=== PATIENT | female | born 1955 | race Caucasian/White ===

== ENCOUNTER → 2016-10-31 | Outpatient (REF) | payer OTHER ==
[2016-10-31 13:38] LABS: BASO % 0.8 % (0.0-1.0); EOS # 0.1 K/mm3 (0.0-0.50); EOS % 4.1 % (0.0-3.0); LARGE UNSTAINED CELL # 0.1 K/mm3 (0.0-0.4); LARGE UNSTAINED CELL % 2.9 % (0.0-4.0); LYMPH # 0.3 K/mm3 (1.5-4.5); LYMPH % 13.3 % (24.0-44.0); MEAN CORPUSCULAR HEMOGLOBIN 28.7 pg (27.0-33.0); MEAN CORPUSCULAR HGB CONC 32.2 g/dl (32.0-36.5); MONO # 0.1 K/mm3 (0.0-0.8); NEUTROPHILS # 1.8 K/mm3 (1.8-7.7); NEUTROPHILS % 72.9 % (36.0-66.0); PLATELET COUNT, AUTOMATED 168 k/mm3 (150-450); RED CELL DISTRIBUTION WIDTH 13.9 % (11.5-14.5); WHITE BLOOD COUNT 2.4 K/mm3 (4.0-10.0)
[2016-10-31 13:41] LABS: ALBUMIN 4.4 GM/DL (3.2-5.2); ALBUMIN/GLOBULIN RATIO 1.47 (1.00-1.93); ALKALINE PHOSPHATASE 90 U/L (45-117); ALT/SGPT 17 U/L (12-78); ANION GAP 10 MEQ/L (8-16); AST/SGOT 9 U/L (15-37); BILIRUBIN,TOTAL 0.5 MG/DL (0.2-1.0); BLOOD UREA NITROGEN 20 MG/DL (7-18); CALCIUM LEVEL 9.3 MG/DL (8.8-10.2); CARBON DIOXIDE LEVEL 26 MEQ/L (21-32); CHLORIDE LEVEL 111 MEQ/L (98-107); GLOMERULAR FILTRATION RATE > 60.0 (>45); GLUCOSE, FASTING 75 MG/DL (80-110); POTASSIUM SERUM 3.2 MEQ/L (3.5-5.1); SODIUM LEVEL 147 MEQ/L (136-145); TOTAL PROTEIN 7.4 GM/DL (6.4-8.2)
== END ==
LOC: M LABNEURO 12:49
PROVIDERS: ATTEND Psychiatry & Neurology Neurology
DX: G35 Multiple sclerosis (principal)

== ENCOUNTER → 2016-11-30 | Outpatient (REF) | payer OTHER | LOC: M LABNEURO 12:53 | PROVIDERS: ATTEND Internal Medicine Gastroenterology | DX: K86.89 Other specified diseases of pancreas (principal); D13.2 Benign neoplasm of duodenum ==

== ENCOUNTER → 2016-12-07 | Outpatient (REF) | payer OTHER ==
[2016-12-07 14:16] LABS: FREE T4 1.18 NG/DL (0.76-1.46)
== END ==
LOC: M LABNEURO 13:00
PROVIDERS: ATTEND Nurse Practitioner Family
DX: E03.9 Hypothyroidism, unspecified (principal); E78.5 Hyperlipidemia, unspecified

== ENCOUNTER → 2017-01-31 | Outpatient (REF) | payer OTHER ==
[2017-01-31 13:53] LABS: MEAN CORPUSCULAR HEMOGLOBIN 28.9 pg (27.0-33.0); MEAN CORPUSCULAR HGB CONC 31.9 g/dl (32.0-36.5); MEAN CORPUSCULAR VOLUME 90.6 fl (80.0-96.0); PLATELET COUNT, AUTOMATED 166 k/mm3 (150-450); RED CELL DISTRIBUTION WIDTH 14.1 % (11.5-14.5); WHITE BLOOD COUNT 2.2 K/mm3 (4.0-10.0)
[2017-01-31 14:12] LABS: BASOPHILS 1 % (0-4); EOSINOPHILS 2 % (0-5); OVALOCYTES 1+
[2017-01-31 14:14] LABS: ALBUMIN 4.1 GM/DL (3.2-5.2); ALBUMIN/GLOBULIN RATIO 1.28 (1.00-1.93); BILIRUBIN,TOTAL 0.6 MG/DL (0.2-1.0); CALCIUM LEVEL 9.5 MG/DL (8.8-10.2); CREATININE FOR GFR 1.05 MG/DL (0.55-1.02); GLOMERULAR FILTRATION RATE 56.7 (>45); POTASSIUM SERUM 4.1 MEQ/L (3.5-5.1); TOTAL PROTEIN 7.3 GM/DL (6.4-8.2)
== END ==
LOC: M LABNEURO 12:57
PROVIDERS: ATTEND Psychiatry & Neurology Neurology
DX: G35 Multiple sclerosis (principal)

== ENCOUNTER → 2017-02-01 | Outpatient (CLI) | payer OTHER ==
--- NOTE | 2017-02-01 14:53 | REPMRS ---
Patient History The patient states she had a clinical breast exam in 01/2017. Patient is postmenopausal. No known family history of cancer. Digital Woman Screen Mammo: February 01, 2017 - Exam #: [id number] Bilateral CC and MLO view(s) were taken. Technologist: Katherine Maya, Technologist Prior study comparison: January 11, 2016, digital woman screen mammo performed at [facility] [place]. October 30, 2014, digital woman screen mammo performed at [facility] [place]. FINDINGS: The breast tissue is heterogeneously dense. This may lower the sensitivity of mammography. There has been no change in the appearance of the mammogram from the prior studies. There is a moderate amount of residual fibroglandular tissue which is fairly symmetric. There is no interval development of dominant mass, areas of architectural distortion, or clustered microcalcification typical of malignancy. ASSESSMENT: BI-RADS/ACR category 1 mammogram. Negative. Recommendation Routine screening mammogram in 1 year (for women over age 40). This mammogram was interpreted with the aid of an FDA-approved computer-aided dectection system. Electronically Signed By: Migel Mock MD 02/01/17 [id number]
--- NOTE | 2017-02-03 15:07 | DEXA ---
AP SPINE L1 - L4 0.864 -2.7 -0.7 LT FEMUR TOTAL 0.604 -3.2 -1.8 RT FEMUR TOTAL 0.678 -2.6 -1.2 TOTAL BODY TOTAL OTHER DUAL FEMUR FRAX* ASSESSMENT Risk factors: History of adult fracture 10 year probability of fracture Major osteoporotic fracture 26.3 % Hip fracture 10.1 % COMMENTS: There is osteoporosis of the spine and hips. The decreased density of the spine does represent a significant change. The decreased density of the left hip does represent a significant change. The decreased density of the right hip does represent a significant change. The density of the spine has decreased 13.7% since the initial exam on 2004. The spine density has decreased 6.3% since the most recent exam on 09/27/2013. The density of the left hip has decreased 28.9% since the initial exam on 2004. The density of the left hip has decreased 13.0% since the most recent exam on . The density of the right hip has decreased 22.6% since the initial exam on 08/12. The density of the right hip has decreased 11.7% since the most recent exam on 09/27/2013. FOLLOW-UP: Recommendation for the next bone density exam: 2 years. JOSE
== END ==
LOC: M WHC 13:10
PROVIDERS: ATTEND Nurse Practitioner Women's Health
DX: Z12.31 Encounter for screening mammogram for malignant neoplasm of breast (principal); M81.0 Age-related osteoporosis without current pathological fracture; Z78.0 Asymptomatic menopausal state
CPT/HCPCS: 77080; G0202

== ENCOUNTER → 2017-02-01 | Outpatient (REF) | payer OTHER | LOC: M SFHCWAGY 15:12 | PROVIDERS: ATTEND Nurse Practitioner Women's Health | DX: Z12.4 Encounter for screening for malignant neoplasm of cervix (principal); N88.8 Other specified noninflammatory disorders of cervix uteri ==

== ENCOUNTER → 2017-02-24 | Outpatient (REF) | payer OTHER ==
[2017-02-24 11:48] LABS: BASO % 0.8 % (0.0-1.0); EOS # 0.1 K/mm3 (0.0-0.50); EOS % 4.1 % (0.0-3.0); LARGE UNSTAINED CELL % 1.5 % (0.0-4.0); LYMPH # 0.4 K/mm3 (1.5-4.5); LYMPH % 17.2 % (24.0-44.0); MEAN CORPUSCULAR HEMOGLOBIN 29.4 pg (27.0-33.0); MEAN CORPUSCULAR HGB CONC 32.6 g/dl (32.0-36.5); MONO # 0.2 K/mm3 (0.0-0.8); MONO % 7.2 % (0.0-5.0); NEUTROPHILS # 1.5 K/mm3 (1.8-7.7); NEUTROPHILS % 69.2 % (36.0-66.0); PLATELET COUNT, AUTOMATED 166 k/mm3 (150-450); RED CELL DISTRIBUTION WIDTH 14.5 % (11.5-14.5); WHITE BLOOD COUNT 2.1 K/mm3 (4.0-10.0)
[2017-02-24 11:58] LABS: ALBUMIN 4.4 GM/DL (3.2-5.2); ALBUMIN/GLOBULIN RATIO 1.22 (1.00-1.93); BILIRUBIN,TOTAL 0.8 MG/DL (0.2-1.0); CALCIUM LEVEL 9.3 MG/DL (8.8-10.2); POTASSIUM SERUM 4.3 MEQ/L (3.5-5.1)
== END ==
LOC: M LABNEURO 11:10
PROVIDERS: ATTEND Psychiatry & Neurology Neurology
DX: G35 Multiple sclerosis (principal)

== ENCOUNTER → 2017-05-03 | Outpatient (REF) | payer OTHER ==
[~2017-05-03] MED LIST: ALEV220T26 PO; AMAN100T PO; AMLO5TAB2 PO; BACL10TA2 PO; CALCTAB74 PO; FENT50PA PO; LEVO25TA5 PO; LEVO50TA5 PO; MYSO50TA5 PO; NORT50CA PO; OMEP40CA2 PO; PATIENT COMMENT; SENN1TAB10 PO; SENN8.6C PO; SYNT75TA PO; TECF120C PO; TOPI100T9 PO; TOPI200T7 PO; TUMS500C PO; TYLE325C PO; VITA500T53 PO
[2017-05-03 14:31] LABS: BASO % 0.7 % (0.0-1.0); EOS % 0.9 % (0.0-3.0); LARGE UNSTAINED CELL # 0.1 K/mm3 (0.0-0.4); LARGE UNSTAINED CELL % 1.5 % (0.0-4.0); LYMPH # 0.8 K/mm3 (1.5-4.5); LYMPH % 13.9 % (24.0-44.0); MEAN CORPUSCULAR HEMOGLOBIN 29.4 pg (27.0-33.0); MEAN CORPUSCULAR HGB CONC 31.8 g/dl (32.0-36.5); MEAN CORPUSCULAR VOLUME 92.2 fl (80.0-96.0); MONO # 0.3 K/mm3 (0.0-0.8); MONO % 5.7 % (0.0-5.0); NEUTROPHILS # 3.9 K/mm3 (1.8-7.7); NEUTROPHILS % 77.2 % (36.0-66.0); PLATELET COUNT, AUTOMATED 196 k/mm3 (150-450); RED CELL DISTRIBUTION WIDTH 16.3 % (11.5-14.5); WHITE BLOOD COUNT 5.1 K/mm3 (4.0-10.0)
[2017-05-03 14:49] LABS: ALBUMIN 4.6 GM/DL (3.2-5.2); ALBUMIN/GLOBULIN RATIO 1.24 (1.00-1.93); BILIRUBIN,TOTAL 0.6 MG/DL (0.2-1.0); CALCIUM LEVEL 10.4 MG/DL (8.8-10.2); CREATININE FOR GFR 1.45 MG/DL (0.55-1.02); GLOMERULAR FILTRATION RATE 39.1 (>45); POTASSIUM SERUM 3.4 MEQ/L (3.5-5.1); TOTAL PROTEIN 8.3 GM/DL (6.4-8.2)
== END ==
LOC: M LABNEURO 10:30
PROVIDERS: ATTEND Psychiatry & Neurology Neurology
DX: G35 Multiple sclerosis (principal)

== ENCOUNTER 2017-05-09 13:05 | Emergency (ER) | payer OTHER ==
[~2017-05-09] VITALS: Ht 142.2 cm; Wt 47.7 kg
[2017-05-09] MEDS ORDERED: FENT50PA PO (13:32)
[2017-05-09] MEDS ORDERED: TECF120C PO (13:32)
[2017-05-09] MEDS ORDERED: AMAN100T PO (13:32)
[2017-05-09] MEDS ORDERED: BACL10TA2 PO (13:32)
[2017-05-09] MEDS ORDERED: OMEP40CA2 PO (13:32)
[2017-05-09] MEDS ORDERED: TOPI200T7 PO (13:32)
[2017-05-09] MEDS ORDERED: LEVO25TA5 PO (13:32)
[2017-05-09] MEDS ORDERED: SENN8.6C PO (13:34)
[2017-05-09] MEDS ORDERED: GI COCKTAIL 50ML BTL(HYOSCYAMINE/MAALOX/LIDOCAINE VISCOUS)(1:3:1) PO ONE (15:15)
--- NOTE | 2017-05-09 15:33 | REP ---
Clinical: Dysphasia. Choking. Technique: AP and lateral soft tissue neck radiographs. Findings: A 6 mm ovoid radiodense structure is identified in the precervical soft tissue at the C3-4 level which may reflect foreign body and requires correlation. The airway is patent and midline. The osseous structures demonstrate age-related degenerative changes. Impression: Cannot exclude 6 mm ovoid foreign body in the precervical soft tissue at the C3-4 level. Signed by Mack Luo MD 05/09/2017 03:25 P
--- NOTE | 2017-05-09 16:14 | ED PDOC ---
Post-Departure Follow-Up pt and discuss at length their issues with chronic medicine and clearing of the throat, pt states she woke up choking at night and drank some water, was able to eat today, drinking a cup of tea. After review of soft tissue neck, it was determined that she ate nuttela and a piece of her ' s granola bar, to object seen on the soft tissue neck xray is presum,ed to be a peie of this granola bar. Dr. grace was contacted and he was amenable to see her in his office tomorrow. Trudi Domínguez May 09, 2017 16:14
[2017-05-09 16:25] VITALS: BP 156/96
== END 2017-05-09 16:37 | disposition home or self-care (01) ==
LOC: M ED 13:05
DX: T17.208A Unspecified foreign body in pharynx causing other injury, initial encounter (principal); Y92.89 Other specified places as the place of occurrence of the external cause; G35 Multiple sclerosis

== ENCOUNTER → 2017-05-12 | Outpatient (CLI) | payer OTHER ==
[~2017-05-12] MED LIST changes: +E-Z-PAQUE 96% w/w SUSP 176GM BTL As Ordered ONE; +VARIBAR NECTAR 40% w/v 240ML SUSP BTL As Ordered ONE; +VARIBAR PUDDING 40% w/v 230ML TUBE As Ordered ONE
--- NOTE | 2017-05-12 13:58 | REP ---
MODIFIED BARIUM SWALLOW: Lateral cine fluoroscopy. HISTORY: Difficulty swallowing. Multiple sclerosis. FINDINGS: The study was performed in conjunction with the swallowing therapist who fed the patient varying texture and consistencies of barium labeled material. In general, there was rather severe disorganization of the oropharyngeal mechanics of swallow. The larynx was seen to elevate. The epiglottis inverts and no laryngeal penetration or tracheal aspiration was observed one any of the swallows. There is difficulty in transferring the oral bolus posteriorly to initiate the swallow. Swallowed material incompletely clears from the pharynx and accumulates in the vallecula. IMPRESSION: No evidence of tracheal aspiration or laryngeal penetration. Ineffective and dis coordinated oral pharyngeal swallowing mechanics. Fluoroscopy time is 4 minutes 41 seconds. Signed by Kulwant Swann MD 05/12/2017 02:17 P
== END ==
LOC: M RAD 10:48
PROVIDERS: ATTEND Otolaryngology
DX: R13.10 Dysphagia, unspecified (principal)
CPT/HCPCS: 74230; 92611; G8996; G8997; G8998

== ENCOUNTER 2017-05-15 18:24 | Inpatient (IN) | payer OTHER ==
[~2017-05-15] VITALS: Ht 142.2 cm; Wt 36.3 kg
[~2017-05-15 18:24] MED LIST changes: -ALEV220T26 PO; -AMLO5TAB2 PO; -CALCTAB74 PO; -E-Z-PAQUE 96% w/w SUSP 176GM BTL As Ordered ONE; -LEVO50TA5 PO; -MYSO50TA5 PO; -NORT50CA PO; -PATIENT COMMENT; -SENN1TAB10 PO; -SYNT75TA PO; -TOPI100T9 PO; -TUMS500C PO; -TYLE325C PO; -VARIBAR NECTAR 40% w/v 240ML SUSP BTL As Ordered ONE; -VARIBAR PUDDING 40% w/v 230ML TUBE As Ordered ONE; -VITA500T53 PO
--- NOTE | 2017-05-15 19:46 | ECGEPIP ---
Stationary ECG Study [facility] - ED Test Date: 2017-05-15 Pat Name: ROMA ALVA Department: Room: - Gender: F Transmission Line Engineer: TaverasB: 1955 Requested By: MURALI SCRUGGS Order Number: [id number] Reading MD: Antonino Young Measurements Intervals [place] Rate: 78 P: 72 PA: 152 QRS: -49 QRSD: 136 T: 41 QT: 419 QTc: 479 Interpretive Statements SINUS RHYTHM RIGHT BUNDLE BRANCH BLOCK LEFT ANTERIOR FASCICULAR BLOCK NO PRIORS Electronically Signed On 05-15-2017 19:46:29 EDT by Antonino Young
[2017-05-15 19:59] LABS: BASO % 0.2 % (0.0-1.0); EOS % 0.5 % (0.0-3.0); LARGE UNSTAINED CELL # 0.1 K/mm3 (0.0-0.4); LYMPH # 0.2 K/mm3 (1.5-4.5); LYMPH % 3.8 % (24.0-44.0); MEAN CORPUSCULAR HEMOGLOBIN 29.4 pg (27.0-33.0); MEAN CORPUSCULAR HGB CONC 32.5 g/dl (32.0-36.5); MEAN CORPUSCULAR VOLUME 90.2 fl (80.0-96.0); MONO # 0.2 K/mm3 (0.0-0.8); MONO % 3.4 % (0.0-5.0); NEUTROPHILS # 4.7 K/mm3 (1.8-7.7); PLATELET COUNT, AUTOMATED 279 k/mm3 (150-450); RED CELL DISTRIBUTION WIDTH 16.1 % (11.5-14.5); WHITE BLOOD COUNT 5.1 K/mm3 (4.0-10.0)
--- NOTE | 2017-05-15 19:59 | REP ---
Clinical: Altered mental status. Comparison: None. Findings: Age-related atrophy and microvascular ischemic changes are appreciated. The ventricles and sulci are symmetric. Mock-white differentiation is maintained. There is no evidence for acute intracranial hemorrhage, mass/mass effect, pathology or infarction. No extra-axial fluid collection. Calvarium is intact. Paranasal sinuses and mastoid air cells are clear. Impression: Age related atrophy and microvascular ischemic changes. No acute intracranial hemorrhage, infarction, or mass/mass effect. Signed by Mack Luo MD 05/15/2017 07:50 P
[2017-05-15 20:15] LABS: ALBUMIN 5.1 GM/DL (3.2-5.2); ALBUMIN/GLOBULIN RATIO 1.59 (1.00-1.93); ALKALINE PHOSPHATASE 86 U/L (45-117); ALT/SGPT 33 U/L (12-78); ANION GAP 16 MEQ/L (8-16); AST/SGOT 35 U/L (15-37); BILIRUBIN,DIRECT 0.2 MG/DL (0.0-0.2); BILIRUBIN,TOTAL 0.7 MG/DL (0.2-1.0); BLOOD UREA NITROGEN 76 MG/DL (7-18); CALCIUM LEVEL 9.2 MG/DL (8.8-10.2); CARBON DIOXIDE LEVEL 18 MEQ/L (21-32); CHLORIDE LEVEL 110 MEQ/L (98-107); CREATININE FOR GFR 1.94 MG/DL (0.55-1.02); GLOMERULAR FILTRATION RATE 27.9 (>45); GLUCOSE, FASTING 87 MG/DL (80-110); POTASSIUM SERUM 4.3 MEQ/L (3.5-5.1); SODIUM LEVEL 144 MEQ/L (136-145); TOTAL PROTEIN 8.3 GM/DL (6.4-8.2)
[2017-05-15] MEDS ORDERED: NS 1,000 ML IV ONE (20:45)
[2017-05-15] MEDS ORDERED: CALCTAB74 PO (21:17)
[2017-05-15] MEDS ORDERED: TUMS500C PO (21:17)
[2017-05-15] MEDS ORDERED: TYLE325C PO (21:17)
[2017-05-15] MEDS ORDERED: ALEV220T26 PO (21:17)
[2017-05-15] MEDS ORDERED: SENN1TAB10 PO (21:17)
[2017-05-15] MEDS ORDERED: NORT50CA PO (21:17)
[2017-05-15] MEDS ORDERED: VITA500T53 PO (21:17)
[2017-05-15] MEDS ORDERED: SYNT75TA PO (21:17)
[2017-05-15] MEDS ORDERED: TOPI100T9 PO (21:17)
[2017-05-15] MEDS ORDERED: PATIENT COMMENT (21:19)
[2017-05-15 21:37] LABS: T UPTAKE 37 % (30-39); THYROXINE (T4) 18.1 UG/DL (4.5-12.0)
[2017-05-15] MEDS ORDERED: SENNA 8.6 MG TAB (SENOKOT) PO PRN (22:15)
[2017-05-15] MEDS ORDERED: ONDANSETRON 4MG/2ML VIAL (J2405) IV PRN (22:15)
[2017-05-15] MEDS ORDERED: amLODIPine 5 MG TAB PO ONE (22:30)
--- NOTE | 2017-05-15 22:34 | HPEPDOC ---
Medical History and Physical Date of Admission 05/15/17 History and Physical PRIMARY CARE PROVIDER: Gail Maher ATTENDING: Dr. Turner Nick CHIEF COMPLAINT: Confusion HISTORY OF PRESENT ILLNESS: This is a 61-year-old female who appears older than her listed age, who has a past medical history of multiple sclerosis 30 years, chronic migraines, GERD, gastritis, hypothyroidism, vitamin D and B12 deficiency, osteoporosis, grade 2 diastolic dysfunction who presents with confusion. Family at bedside notes that the patient has been disoriented today and has been opening closing drawers without realizing what she needed to get, repeating 1 word phrases. No prior episodes. Patient denies any headaches, chest pains, shortness of breaths, palpitations. No focal weakness. Of note, patient has been having difficulty swallowing both solids and liquids over the past 3-4 days. Patient presented to the ED and was discharged home with follow-up with Dr. Gooden, who had performed a ? Rhinolaryngoscopy, with no notable abnormalities per family. Family states that the patient's only able to eat moya tomatoes, and even then the peel comes back up. The patient is only able to tolerate ice chips. Given this, the patient has not had any by mouth intake over the past 4 days. Family had called Dr. Mayorga who recommended that the patient come into the emergency department for further evaluation. PAST MEDICAL HISTORY: As per HPI PAST SURGICAL HISTORY: Cholecystectomy, right shoulder repair, right hip repair SOCIAL HISTORY: Denies tobacco, alcohol, illicit drug use. Lives with family. FAMILY HISTORY: Mother with possible MS ALLERGIES: Please see below. REVIEW OF SYSTEMS: HEENT: Denies sore throat/headache CARDIOVASCULAR: Denies chest pain/palpitations RESPIRATORY: Denies shortness of breath/cough GASTROINTESTINAL: denies nausea/vomiting GENITOURINARY: Denies dysuria/urinary urgency. MUSCULOSKELETAL: Denies myalgias/arthralgias NEUROLOGICAL: Denies any focal weakness HOME MEDICATIONS: Please see below. PHYSICAL EXAMINATION: Vitals: (see below) General: No acute distress, laying comfortably in bed. Appears older than listed age.Cachectic HEENT: Dry mucous membranes. Neck: No JVD or lymphadenopathy Cardiac: RRR, 3/6 systolic murmur left lower sternal border. Pulm: Clear to auscultation b/l. No wheezing, rhonchi Abd: NT/ND + BS Ext: No edema or cyanosis Neuro: Strength 5/5 BUE and BLE. CN 2-12 intact. F to N intact Negative pronator drift. Negative Babinki. No nuchal rigidity. Oriented to person, place, year. LABORATORY DATA: See below. IMAGING: CT head on 05/15/17 Impression: Age related atrophy and microvascular ischemic changes. No acute intracranial hemorrhage, infarction, or mass/mass effect. CXR/renal u/s pending. MICROBIOLOGY: Please see below. ASSESSMENT/PLAN: 1. Altered mental status, likely metabolic encephalopathy. Patient's does have MS 30 years and age-related atrophy and her CAT scan raising suspicion for underlying dementia. The patient also has acute kidney injury with a BUN of 70. She does have significant dehydration given her dysphagia. T4 elevated on levothyroxine. Also on nortriptyline which may contribute to her confusion. We' ll rehydrate patient with IV fluids, discontinue the nortriptyline, decrease her Synthroid, and monitor her renal function. The patient has no focal deficits on exam. No nuchal rigidity. No fevers. No signs of infection at this time. Chest x-ray pending. It is questionable whether patient is having progression of her MS is well. We will continue neuro checks every 4 hours pending improvement of her clinical status. I did discuss MRI of the brain with son however he prefers that this is cleared by the insurance company first; will obtain case management consult. If no significant improvement despite the above efforts, consider neurology consultation. 2. Acute kidney injury/pre-renal azotemia with the BUN up to 70 now. Likely pre- renal 2/2 dehydration. Placed on IVF. WIll check urine studies, as well a renal u/s. D/c NSAIDS. Avoid nephrotoxins. Strict I/O. Consider nephro consult if no significant improvement with IVF. 3. Elevated T4 - TSH wnl. decrease levothyroxine dose. 4. Dysphagia to solids and liquids- history of GERD and gastritis. We will obtain a barium swallow. Consider GI consult for EGD if persistent. Ice chips only for now. PPI. 5. Mild hypercalcemia- continue IV fluids. Discontinue calcium/vitamin D supplements for now. 6. History of vitamin D deficiency 7. History of chronic migraines 8. History of diastolic heart failure-compensated at this time. 9. History of osteoporosis 10 HTN - uncontrolled. Start amlodipine. DVT prophylaxis- heparin subcutaneous Patient be followed by Dr. Carlos pascual 05/16/17 at 7 AM. Vital Signs Vital Signs Date Time Temp Pulse Resp B/P (MAP) Pulse Ox O2 Delivery O2 Flow Rate FiO2 05/15/17 19:55 05/15/17 18:24 97.8 85 16 100 Room Air Laboratory Data Labs 24H Laboratory Tests 2 05/15/17 19:36: White Blood Count 5.1, Red Blood Count 4.12, Hemoglobin 12.1, Hematocrit 37.2, Mean Corpuscular Volume 90.2, Mean Corpuscular Hemoglobin 29.4, Mean Corpuscular Hemoglobin Concent 32.5, Red Cell Distribution Width 16.1H, Platelet Count 279, Neutrophils (%) (Auto) 91.0H, Lymphocytes (%) (Auto) 3.8L, Monocytes (%) (Auto) 3.4, Eosinophils (%) (Auto) 0.5, Basophils (%) (Auto) 0.2, Neutrophils # (Auto) 4.7, Lymphocytes # (Auto) 0.2L, Monocytes # (Auto) 0.2, Eosinophils # (Auto) 0.0, Basophils # (Auto) 0.0, Large Unclassified Cells % 1.0 , Large Unclassified Cells # 0.1, Anion Gap 16, Glomerular Filtration Rate 27.9L , Calcium Level 9.2, Aspartate Amino Transf (AST/SGOT) 35, Alanine Aminotransferase (ALT/SGPT) 33, Alkaline Phosphatase 86, Total Bilirubin 0.7, Direct Bilirubin 0.2, Total Creatine Kinase 367H, Creatine Kinase MB 10.2H, Creatine Kinase MB Relative Index 2.77, Troponin I < 0.02, Total Protein 8.3H, Albumin 5.1, Albumin/Globulin Ratio 1.59, Thyroid Stimulating Hormone (TSH) 0.558, Free Thyroxine Index 6.7H, Thyroxine (T4) 18.1H, Triiodothyronine (T3) Uptake 37 05/15/17 20:44: Bedside Glucose (Misc Panel) 78L 05/15/17 20:58: Urine Appearance CLEAR, Urine Color YELLOW, Urine pH 5.0, Urine Specific [place] 1.014, Urine Protein 2+H, Urine Glucose (UA) NEGATIVE, Urine Ketones 1+H , Urine Urobilinogen 0.2, Urine Bilirubin NEGATIVE, Urine Leukocyte Esterase NEGATIVE, Urine Blood 1+H, Urine Nitrite NEGATIVE, Urine WBC (Auto) 7H, Urine RBC (Auto) 6H, Urine Hyaline Casts (Auto) 1, Urine Bacteria (Auto) NEGATIVE, Urine Squamous Epithelial Cells 0, Urine Sperm (Auto) CBC/BMP Laboratory Tests 05/15/17 19:36 Red Blood Count 4.12, Mean Corpuscular Volume 90.2, Mean Corpuscular Hemoglobin 29.4, Mean Corpuscular Hemoglobin Concent 32.5, Red Cell Distribution Width 16.1 H, Neutrophils (%) (Auto) 91.0 H, Lymphocytes (%) (Auto) 3.8 L, Monocytes ( %) (Auto) 3.4, Eosinophils (%) (Auto) 0.5, Basophils (%) (Auto) 0.2, Neutrophils # (Auto) 4.7, Lymphocytes # (Auto) 0.2 L, Monocytes # (Auto) 0.2, Eosinophils # (Auto) 0.0, Basophils # (Auto) 0.0 Home Medications Scheduled (Tecfidera) 120 Mg Cap, 240 MG PO BID DOCTOR TOLD PATIENT TODAY TO NOT TAKE THIS MEDICATION DUE TO HIGH WHITE BLOOD CELL COUNT Amantadine HCl (Amantadine HCl) 100 Mg Tab, 100 MG PO BID Amlodipine Besylate (Amlodipine Besylate) 5 Mg Tab, 5 MG PO DAILY Calcium/Vitamin D (Calcium 600+D 600-400 mg-Unit) 1 Tab Tab, 1 TAB PO DAILY Cyanocobalamin (Vitamin B12) 500 Mcg Tab, 500 MCG PO DAILY Levothyroxine Sodium (Synthroid) 50 Mcg Tab, 50 MCG PO DAILY@06 Nortriptyline HCl (Nortriptyline HCl) 50 Mg Cap, 50 MG PO QHS Omeprazole (Omeprazole) 40 Mg Cap, 40 MG PO DAILY Primidone (Mysoline) 50 Mg Tab, 50 MG PO BID Scheduled PRN (Tylenol) 325 Mg Cap, 325 MG PO Q4H PRN for HEADACHE Baclofen (Baclofen) 10 Mg Tab, 10 MG PO TID PRN for MUSCLE SPASMS Calcium Carbonate (Tums) 500 Mg Chw, 1,500 MG PO Q6H PRN for HEARTBURN/ INDIGESTION Naproxen Sodium (Aleve) 220 Mg Tab, 220 MG PO BID PRN for HEADACHE Senna (Senna Lax) 8.6 Mg Tab, 1 TAB PO DAILY PRN for CONSTIPATION Topiramate (Topiramate) 100 Mg Tab, 100 MG PO BID PRN for MIGRAINE Allergies Coded Allergies: Valproic Acid (Unverified Allergy, Unknown, RASH, 12/06/12) AVERY SCOTT MD May 15, 2017 22:34
[2017-05-15] MEDS: D5W/0.45% SODIUM CHLORIDE 1,000 ML IV SCH (22:44)
[2017-05-15 22:49] LABS: VITAMIN B12 LEVEL > 2000 PG/ML (247-911)
[2017-05-16] VITALS (7 sets, daily range): BP systolic 146–182; BP diastolic 64–82
[2017-05-16] MEDS ORDERED: LABETALOL HCL 100 MG/20 ML VIAL IV PRN (01:45)
[2017-05-16] MEDS ORDERED: LABETALOL HCL 100 MG/20 ML VIAL IV ONE (01:45)
[2017-05-16] MEDS: LEVOTHYROXINE 75MCG TABLET (0.075MG) PO SCH (06:00)
[2017-05-16] MEDS: HEPARIN SOD (PORCINE) 5000 UNITS/ML VIAL SC SCH ×2 (06:18→16:05)
[2017-05-16 07:34] LABS: MEAN CORPUSCULAR HEMOGLOBIN 29.3 pg (27.0-33.0); MEAN CORPUSCULAR HGB CONC 32.6 g/dl (32.0-36.5); MEAN CORPUSCULAR VOLUME 89.8 fl (80.0-96.0); RED CELL DISTRIBUTION WIDTH 16.2 % (11.5-14.5); WHITE BLOOD COUNT 4.7 K/mm3 (4.0-10.0)
[2017-05-16 08:00] LABS: ALBUMIN 4.4 GM/DL (3.2-5.2); ALBUMIN/GLOBULIN RATIO 1.38 (1.00-1.93); BILIRUBIN,TOTAL 0.6 MG/DL (0.2-1.0); CALCIUM LEVEL 8.1 MG/DL (8.8-10.2); CREATININE FOR GFR 1.28 MG/DL (0.55-1.02); GLOMERULAR FILTRATION RATE 45.1 (>45); MAGNESIUM LEVEL 2.1 MG/DL (1.8-2.4); PHOSPHORUS LEVEL 2.1 MG/DL (2.5-4.9); POTASSIUM SERUM 3.5 MEQ/L (3.5-5.1); TOTAL PROTEIN 7.6 GM/DL (6.4-8.2)
--- NOTE | 2017-05-16 08:00 | REP ---
PA and lateral chest: There are no comparisons. The lung [place] are clear. Cardiac size is normal. The emma and mediastinum are unremarkable. There is a right shoulder arthroplasty. Skeletal structures are otherwise unremarkable. Impression: No acute cardiopulmonary findings Signed by Migel Barron MD 05/16/2017 07:51 A
[2017-05-16] MEDS: OMEPRAZOLE 20 MG CAP PO SCH (08:03)
[2017-05-16] MEDS: AMANTADINE 100 MG CAP PO SCH ×2 (08:03→21:00)
[2017-05-16] MEDS: amLODIPine 5 MG TAB PO SCH (08:04)
--- NOTE | 2017-05-16 08:08 | REP ---
Bilateral renal ultrasound: Comparison is the abdomen and pelvis CT dated 07/11/2013. The kidneys are in the low normal size range. In the right kidney measures 928 x 4.1 x 4.2 cm. The left kidney measures 9.6 x 4.2 x 5.3 cm. The renal cortices are mildly hyperechoic bilaterally. There is no hydronephrosis on the right on the left. There are no renal calculi. No renal masses or cysts are identified. Impression: Essentially negative renal ultrasound. Bladder ultrasound: No bladder wall polyps or masses are identified. The bladder appears adequately distended. Signed by Migel Barron MD 05/16/2017 08:00 A
[2017-05-16] MEDS: PANTOPRAZOLE 40MG INJ (PROTONIX) (C9113) IV SCH (08:14)
[2017-05-16] MEDS ORDERED: CYANOCOBALAMIN 500 MCG TAB PO SCH (09:00)
[2017-05-16] MEDS ORDERED: MYSO50TA5 PO (09:18)
[2017-05-16] MEDS: D5W/0.45% SODIUM CHLORIDE 1,000 ML IV SCH (12:03)
--- NOTE | 2017-05-16 12:14 | IPNPDOC ---
Subjective Date Seen The patient was seen on 05/16/17. Subjective Chief Complaint/HPI The patient is a 61-year-old female admitted with a reason for visit of Acute Kidney Injury, Altered Mental Status. Events since last encounter Improvement in mentation with IVF. planned speech therapy and esophagram today. Constitutional: Denies: Chills, Fever, Night Sweats Eyes: Denies: Pain, Vision change, Conjunctivae inflammation, Eyelid inflammation, Redness, Other ENT: Denies: Head Aches, Ear Pain, Dysphagia Pulmonary: Denies: Dyspnea, Cough Cardiovascular: Denies: Chest Pain, Palpitations, Orthopnea, Paroxysmal Noc. Dyspnea, Lt Headedness Objective Physical Examination General Exam: Positive: Alert, No Acute Distress, Negative: Cooperative, Mild Distress, Moderate Distress, Severe Distress, Other Neck Exam: Positive: Supple, Negative: JVD, thyromegaly Chest Exam: Positive: Clear to auscultation, Normal air movement Heart Exam: Positive: Rate Normal, Regular Rhythm, Normal S1, Normal S2, Negative: Murmurs, Rubs Abdomen Exam: Positive: Normal bowel sounds, Soft, Negative: Tenderness, Hepatospenomegaly Extremity Exam: Positive: Normal pulses, Negative: Clubbing, Cyanosis, Edema Neuro Exam: Negative: Normal Gait, Normal Speech, Strength at 5/5 X4 ext, Normal Tone, Sensation Intact, Cranial Nerves 3-12 NL, Reflexes 2+, Other Assessment /Plan Problems (1) Dysphagia Status: Acute Problem Text: continue NPO c IVF at Contingency: EGD 05/17 check MRI brain s/c to r/o CVA, MS flare (although no weakness/parasthesiae /visual changes) 05/16 unable to perform MBS given pooling of all consistencies in mouth (2) Altered mental status Status: Acute Response to Treatment: Improving Problem Text: favor TME c baseline mild dementia/MS 05/15 CT head Age related atrophy and microvascular ischemic changes. No acute intracranial hemorrhage, infarction, or mass/mass effect. (3) Acute kidney injury Status: Acute Response to Treatment: Improving Problem Specific Plan: Monitor Clinically Problem Text: Improving with IV hydration. 05/16 1.3 (down from 1.9) baseline cr 1.0 (4) Hyperlipidemia Status: Chronic Response to Treatment: Stable (5) Hypothyroidism Status: Chronic Response to Treatment: Stable Problem Text: on baseline LT4 75 05/15 TSH 0.6 c FTI 6.7; therefore, OK to hold po (6) Diastolic heart failure Status: Chronic Response to Treatment: Stable Problem Text: Monitor I/O. Appears well compensated. (7) HTN (hypertension) Status: Chronic Problem Text: elevated pressures. Unable to swallow po medications. IV Labetalol 10 mg IV q hrs. HOLD for BP less than 150/90 (8) Multiple sclerosis Status: Chronic Response to Treatment: Stable Problem Text: Tecfidera/amantidine on hold Plan/VTE VTE Prophylaxis Ordered?: Yes (heparin) VS, I&O, 24H, Fishbone Vital Signs/I&O Vital Signs Date Time Temp Pulse Resp B/P (MAP) Pulse Ox O2 Delivery O2 Flow Rate FiO2 05/16/17 11:34 146/64 (91) 05/16/17 08:00 98.7 69 18 92 Room Air I&O- Last 24 Hours up to 6 AM 05/16/17 06:00 Intake Total 560 ml Output Total 0 ml Balance 560 ml Laboratory Data 24H LABS Laboratory Tests 2 05/15/17 19:36: White Blood Count 5.1, Red Blood Count 4.12, Hemoglobin 12.1, Hematocrit 37.2, Mean Corpuscular Volume 90.2, Mean Corpuscular Hemoglobin 29.4, Mean Corpuscular Hemoglobin Concent 32.5, Red Cell Distribution Width 16.1H, Platelet Count 279, Neutrophils (%) (Auto) 91.0H, Lymphocytes (%) (Auto) 3.8L, Monocytes (%) (Auto) 3.4, Eosinophils (%) (Auto) 0.5, Basophils (%) (Auto) 0.2, Neutrophils # (Auto) 4.7, Lymphocytes # (Auto) 0.2L, Monocytes # (Auto) 0.2, Eosinophils # (Auto) 0.0, Basophils # (Auto) 0.0, Large Unclassified Cells % 1.0 , Large Unclassified Cells # 0.1, Anion Gap 16, Glomerular Filtration Rate 27.9L , Calcium Level 9.2, Aspartate Amino Transf (AST/SGOT) 35, Alanine Aminotransferase (ALT/SGPT) 33, Alkaline Phosphatase 86, Total Bilirubin 0.7, Direct Bilirubin 0.2, Total Creatine Kinase 367H, Creatine Kinase MB 10.2H, Creatine Kinase MB Relative Index 2.77, Troponin I < 0.02, Total Protein 8.3H, Albumin 5.1, Albumin/Globulin Ratio 1.59, Vitamin B12 Level > 2000H, Thyroid Stimulating Hormone (TSH) 0.558, Free Thyroxine Index 6.7H, Thyroxine (T4) 18.1H , Triiodothyronine (T3) Uptake 37 05/15/17 20:44: Bedside Glucose (Misc Panel) 78L 05/15/17 20:58: Urine Appearance CLEAR, Urine Color YELLOW, Urine pH 5.0, Urine Specific [place] 1.014, Urine Protein 2+H, Urine Glucose (UA) NEGATIVE, Urine Ketones 1+H , Urine Urobilinogen 0.2, Urine Bilirubin NEGATIVE, Urine Leukocyte Esterase NEGATIVE, Urine Blood 1+H, Urine Nitrite NEGATIVE, Urine WBC (Auto) 7H, Urine RBC (Auto) 6H, Urine Hyaline Casts (Auto) 1, Urine Bacteria (Auto) NEGATIVE, Urine Squamous Epithelial Cells 0, Urine Sperm (Auto) 05/16/17 00:01: Ammonia < 10 05/16/17 07:20: Anion Gap 9, Glomerular Filtration Rate 45.1, Blood Urea Nitrogen 55H, Creatinine 1.28H, Sodium Level 143, Potassium Level 3.5, Chloride Level 111H, Carbon Dioxide Level 23, Calcium Level 8.1L, Phosphorus Level 2.1L, Aspartate Amino Transf (AST/SGOT) 34, Alanine Aminotransferase (ALT/SGPT) 32, Alkaline Phosphatase 86, Total Bilirubin 0.6, Total Protein 7.6, Albumin 4.4, Magnesium Level 2.1, Albumin/Globulin Ratio 1.38 CBC/BMP Laboratory Tests 05/15/17 19:36 Red Blood Count 4.12, Mean Corpuscular Volume 90.2, Mean Corpuscular Hemoglobin 29.4, Mean Corpuscular Hemoglobin Concent 32.5, Red Cell Distribution Width 16.1 H, Neutrophils (%) (Auto) 91.0 H, Lymphocytes (%) (Auto) 3.8 L, Monocytes ( %) (Auto) 3.4, Eosinophils (%) (Auto) 0.5, Basophils (%) (Auto) 0.2, Neutrophils # (Auto) 4.7, Lymphocytes # (Auto) 0.2 L, Monocytes # (Auto) 0.2, Eosinophils # (Auto) 0.0, Basophils # (Auto) 0.0 05/16/17 07:20 Red Blood Count 3.77 L, Mean Corpuscular Volume 89.8, Mean Corpuscular Hemoglobin 29.3, Mean Corpuscular Hemoglobin Concent 32.6, Red Cell Distribution Width 16.2 H, Calcium Level 8.1 L, Phosphorus Level 2.1 L, Aspartate Amino Transf (AST/SGOT) 34, Alanine Aminotransferase (ALT/SGPT) 32, Alkaline Phosphatase 86, Total Bilirubin 0.6, Total Protein 7.6, Albumin 4.4 Abeba Foster May 16, 2017 12:14 Carlos Larose M.D. May 16, 2017 20:59
[2017-05-16] MEDS ORDERED: E-Z-PAQUE 96% w/w SUSP 176GM BTL As Ordered ONE (12:42)
[2017-05-16] MEDS ORDERED: E-Z-GAS II EFFERVESCENT PACKET (SODIUM BICARB./CITRIC ACID/SIMETHICONE) As Ordered ONE (12:42)
[2017-05-16] MEDS ORDERED: E-Z-HD 98% w/w 340GM SUSP BTL As Ordered ONE (12:43)
[2017-05-16] MEDS: LABETALOL HCL 100 MG/20 ML VIAL IV SCH ×2 (13:00→18:31)
--- NOTE | 2017-05-16 18:09 | REP ---
ESOPHAGRAM: The procedure was attempted by ADA Hernandez under the direct supervision of Dr. Swann. The patient was confused and was unable to successfully swallow the barium. Every time she would get a mouth full of barium she would automatically spit it back out at us stating she could not swallow. The floor was notified of this and they will proceed at an appropriate time with the potential followup procedure. Fluoroscopy time of 47 seconds. Reviewed by ADA Gu 05/17/2017 10:30 AEdited and Signed by Kulwant Swann MD 05/17/2017 04:35 P
[2017-05-16] MEDS ORDERED: D5W/0.45% SODIUM CHLORIDE 1,000 ML IV SCH (23:00)
[2017-05-17] VITALS (10 sets, daily range): BP systolic 138–170; BP diastolic 62–84
[2017-05-17] MEDS: LABETALOL HCL 100 MG/20 ML VIAL IV SCH ×4 (00:08→17:42)
[2017-05-17] MEDS: HEPARIN SOD (PORCINE) 5000 UNITS/ML VIAL SC SCH ×4 (00:08→21:27)
[2017-05-17 05:46] LABS: MEAN CORPUSCULAR HEMOGLOBIN 30.1 pg (27.0-33.0); MEAN CORPUSCULAR HGB CONC 34.4 g/dl (32.0-36.5); MEAN CORPUSCULAR VOLUME 87.7 fl (80.0-96.0); WHITE BLOOD COUNT 3.9 K/mm3 (4.0-10.0)
[2017-05-17] MEDS: LEVOTHYROXINE 75MCG TABLET (0.075MG) PO SCH ×2 (06:00→07:16)
[2017-05-17 06:01] LABS: ANION GAP 9 MEQ/L (8-16); BLOOD UREA NITROGEN 28 MG/DL (7-18); CALCIUM LEVEL 6.7 MG/DL (8.8-10.2); CARBON DIOXIDE LEVEL 23 MEQ/L (21-32); CHLORIDE LEVEL 114 MEQ/L (98-107); CREATININE FOR GFR 0.68 MG/DL (0.55-1.02); GLOMERULAR FILTRATION RATE > 60.0 (>45); GLUCOSE, FASTING 95 MG/DL (80-110); MAGNESIUM LEVEL 1.4 MG/DL (1.8-2.4); POTASSIUM SERUM 2.9 MEQ/L (3.5-5.1); SODIUM LEVEL 146 MEQ/L (136-145)
[2017-05-17] MEDS: KCL 10MEQ IN 100ML SWI (KRUN) 10 MEQ in APPROPRIATE DILUENT 1 EA IV SCH ×8 (07:17→12:44)
--- NOTE | 2017-05-17 08:30 | REP ---
Soft-tissue neck x-ray: Three views. History: Dysphagia. Findings: Comparison radiographs are from May 09, 2017. Epiglottis and aryepiglottic folds are intact. Glottic and subglottic and supraglottic airway are unremarkable on AP and lateral views. There is a mild levoconvex curve in the cervical spine on the AP view. Prevertebral soft tissues are not widened. Normal thyroid cartilage calcification is seen. Hyoid bone is unremarkable. There is mild degenerative change at the articulation between C1 and C2. There is some narrowing of the CC5-6 and C6-7 disc spaces. Impression: Unremarkable soft tissue neck x-ray. Signed by Kulwant Swann MD 05/17/2017 05:18 P
[2017-05-17] MEDS: amLODIPine 5 MG TAB PO SCH (08:59)
[2017-05-17] MEDS: AMANTADINE 100 MG CAP PO SCH ×2 (09:00→21:00)
[2017-05-17] MEDS: OMEPRAZOLE 20 MG CAP PO SCH (09:00)
[2017-05-17] MEDS ORDERED: MAG SULF 1GM/100ML (MAG RUN) 1 GM in APPROPRIATE DILUENT 1 EA IV ONE (10:30)
--- NOTE | 2017-05-17 10:58 | IPNPDOC ---
Subjective Date Seen The patient was seen on 05/17/17. Subjective Chief Complaint/HPI The patient is a 61-year-old female admitted with a reason for visit of Acute Kidney Injury, Altered Mental Status. Events since last encounter Unable to complete Esophagram yesterday due to inability to swallow barium. Patient states unable to swallow anything. Noted hypokalemia with hypomagnesemia. Constitutional: Denies: Chills, Fever, Night Sweats ENT: Denies: Head Aches, Ear Pain, Dysphagia Skin: Denies: Rash, Lesions, Breakdown Pulmonary: Denies: Dyspnea, Cough Cardiovascular: Denies: Chest Pain, Palpitations, Orthopnea, Paroxysmal Noc. Dyspnea, Lt Headedness Gastrointestinal: Reports: Other Symptoms (unable to swallow), Denies: Nausea, Vomiting, Abdominal Pain, Diarrhea, Constipation Objective Physical Examination General Exam: Positive: Alert, No Acute Distress, Other (foaming at mouth after eating ice chips. Unable to swallow sputum.), Negative: Cooperative, Mild Distress, Moderate Distress, Severe Distress Neck Exam: Positive: Supple, Negative: JVD, thyromegaly Chest Exam: Positive: Clear to auscultation, Normal air movement Heart Exam: Positive: Rate Normal, Regular Rhythm, Normal S1, Normal S2, Negative: Murmurs, Rubs Abdomen Exam: Positive: Normal bowel sounds, Soft, Negative: Tenderness, Hepatospenomegaly Extremity Exam: Positive: Normal pulses, Negative: Clubbing, Cyanosis, Edema Neuro Exam: Negative: Normal Gait, Normal Speech, Strength at 5/5 X4 ext, Normal Tone, Sensation Intact, Cranial Nerves 3-12 NL, Reflexes 2+, Other Assessment /Plan Problems (1) Dysphagia Status: Acute Problem Text: 05/17/17: Unable to complete esophagram. Will consult Gastro for EGD continue NPO c IVF at Contingency: EGD 05/17 check MRI brain s/c to r/o CVA, MS flare (although no weakness/parasthesiae /visual changes) 05/16 unable to perform MBS given pooling of all consistencies in mouth (2) Altered mental status Status: Acute Response to Treatment: Improving Problem Text: favor TME c baseline mild dementia/MS 05/15 CT head Age related atrophy and microvascular ischemic changes. No acute intracranial hemorrhage, infarction, or mass/mass effect. (3) Acute kidney injury Status: Acute Response to Treatment: Improving Problem Specific Plan: Monitor Clinically Problem Text: Improving with IV hydration. 05/16 1.3 (down from 1.9) baseline cr 1.0 (4) Hyperlipidemia Status: Chronic Response to Treatment: Stable (5) Hypothyroidism Status: Chronic Response to Treatment: Stable Problem Text: on baseline LT4 75 05/15 TSH 0.6 c FTI 6.7; therefore, OK to hold po (6) Diastolic heart failure Status: Chronic Response to Treatment: Stable Problem Text: Monitor I/O. Appears well compensated. (7) HTN (hypertension) Status: Chronic Problem Text: elevated pressures. Unable to swallow po medications. IV Labetalol 10 mg IV q hrs. HOLD for BP less than 150/90 (8) Multiple sclerosis Status: Chronic Response to Treatment: Stable Problem Text: Tecfidera/amantidine on hold (9) Hypokalemia Problem Text: K of 2.9. 4 runs of IV potassium (10) Hypomagnesemia Problem Text: 05/17/17: mag 1.4. Giving replacement today. Plan/VTE VTE Prophylaxis Ordered?: Yes (heparin) Plan Family Medicine Attending Note: I saw and examined Ms. Dee this afternoon; I discussed her care with SHEBA Vale and I agree with her note as documented. As esophagram could not be completed, GI and Neurology were consulted today. She normally follows with Dr. Mayorga but Dr. Varela will be seeing her today. Brain MRI was also performed today - read is pending. Will continue to replete electrolytes as needed - K+ added to IVF. Continue maintenance IVF while she is NPO due to inability to swallow. (KES) VS, I&O, 24H, Fishbone Vital Signs/I&O Vital Signs Date Time Temp Pulse Resp B/P (MAP) Pulse Ox O2 Delivery O2 Flow Rate FiO2 05/17/17 08:00 99.4 84 18 152/84 (106) 98 Room Air I&O- Last 24 Hours up to 6 AM 05/17/17 06:00 Intake Total 1040 ml Output Total 400 ml Balance 640 ml Laboratory Data 24H LABS Laboratory Tests 2 05/16/17 11:59: Bedside Glucose (Misc Panel) 100 05/16/17 20:22: Urine Random Creatinine 35.1, Urine Random Sodium 144 05/17/17 05:21: Anion Gap 9, Glomerular Filtration Rate > 60.0, Blood Urea Nitrogen 28H, Creatinine 0.68, Sodium Level 146H, Potassium Level 2.9*L, Chloride Level 114H, Carbon Dioxide Level 23, Calcium Level 6.7#L, Magnesium Level 1.4L CBC/BMP Laboratory Tests 05/17/17 05:21 Red Blood Count 3.79 L, Mean Corpuscular Volume 87.7, Mean Corpuscular Hemoglobin 30.1, Mean Corpuscular Hemoglobin Concent 34.4, Red Cell Distribution Width 16.0 H, Calcium Level 6.7 #L Abeba Foster May 17, 2017 10:58 LOUIE BRO MD May 17, 2017 13:15
[2017-05-17 11:50] LABS: ALBUMIN 4.2 GM/DL (3.2-5.2); ANION GAP 10 MEQ/L (8-16); BLOOD UREA NITROGEN 23 MG/DL (7-18); CALCIUM LEVEL 7.4 MG/DL (8.8-10.2); CARBON DIOXIDE LEVEL 23 MEQ/L (21-32); CHLORIDE LEVEL 110 MEQ/L (98-107); CREATININE FOR GFR 0.78 MG/DL (0.55-1.02); GLOMERULAR FILTRATION RATE > 60.0 (>45); GLUCOSE, FASTING 99 MG/DL (80-110); MAGNESIUM LEVEL 1.5 MG/DL (1.8-2.4); SODIUM LEVEL 143 MEQ/L (136-145)
[2017-05-17] MEDS ORDERED: KCL 10MEQ IN STERILE WATER 100ML As Ordered ONE (12:36)
[2017-05-17] MEDS: LEVOTHYROXINE 100 MCG (0.1MG) VIAL IV SCH (12:43)
[2017-05-17] MEDS: PANTOPRAZOLE 40MG INJ (PROTONIX) (C9113) IV SCH (12:43)
[2017-05-17] MEDS: KCL 40MEQ IN D5/0.45NS 1000ML 1,000 ML IV SCH ×2 (12:48→23:54)
[2017-05-17 14:34] LABS: ANION GAP 8 MEQ/L (8-16); BLOOD UREA NITROGEN 23 MG/DL (7-18); CALCIUM LEVEL 7.4 MG/DL (8.8-10.2); CARBON DIOXIDE LEVEL 24 MEQ/L (21-32); CHLORIDE LEVEL 111 MEQ/L (98-107); CREATININE FOR GFR 0.77 MG/DL (0.55-1.02); GLOMERULAR FILTRATION RATE > 60.0 (>45); GLUCOSE, FASTING 105 MG/DL (80-110); MAGNESIUM LEVEL 1.3 MG/DL (1.8-2.4); POTASSIUM SERUM 3.7 MEQ/L (3.5-5.1); SODIUM LEVEL 143 MEQ/L (136-145)
[2017-05-17] MEDS: LABETALOL HCL 100 MG/20 ML VIAL IV PRN ×2 (17:37→21:27)
[2017-05-18] VITALS (9 sets, daily range): BP systolic 142–185; BP diastolic 68–104
[2017-05-18] MEDS: LABETALOL HCL 100 MG/20 ML VIAL IV SCH ×3 (00:11→11:54)
[2017-05-18] MEDS: LABETALOL HCL 100 MG/20 ML VIAL IV PRN ×4 (00:17→20:55)
[2017-05-18 05:32] LABS: MEAN CORPUSCULAR HEMOGLOBIN 29.6 pg (27.0-33.0); MEAN CORPUSCULAR HGB CONC 33.1 g/dl (32.0-36.5); MEAN CORPUSCULAR VOLUME 89.2 fl (80.0-96.0); RED CELL DISTRIBUTION WIDTH 16.1 % (11.5-14.5); WHITE BLOOD COUNT 3.8 K/mm3 (4.0-10.0)
[2017-05-18 05:46] LABS: ANION GAP 9 MEQ/L (8-16); BLOOD UREA NITROGEN 17 MG/DL (7-18); CALCIUM LEVEL 7.2 MG/DL (8.8-10.2); CARBON DIOXIDE LEVEL 21 MEQ/L (21-32); CHLORIDE LEVEL 115 MEQ/L (98-107); CREATININE FOR GFR 0.72 MG/DL (0.55-1.02); GLOMERULAR FILTRATION RATE > 60.0 (>45); GLUCOSE, FASTING 113 MG/DL (80-110); MAGNESIUM LEVEL 1.7 MG/DL (1.8-2.4); POTASSIUM SERUM 4.7 MEQ/L (3.5-5.1); SODIUM LEVEL 145 MEQ/L (136-145)
[2017-05-18] MEDS: HEPARIN SOD (PORCINE) 5000 UNITS/ML VIAL SC SCH ×3 (06:24→20:54)
[2017-05-18] MEDS: NS 1,000 ML IV SCH ×2 (08:46→20:53)
[2017-05-18] MEDS: PANTOPRAZOLE 40MG INJ (PROTONIX) (C9113) IV SCH (08:46)
[2017-05-18] MEDS: OMEPRAZOLE 20 MG CAP PO SCH (08:46)
[2017-05-18] MEDS: amLODIPine 5 MG TAB PO SCH (08:46)
[2017-05-18] MEDS: AMANTADINE 100 MG CAP PO SCH ×2 (08:46→20:54)
[2017-05-18] MEDS: LEVOTHYROXINE 100 MCG (0.1MG) VIAL IV SCH (08:46)
--- NOTE | 2017-05-18 10:43 | IPNPDOC ---
Subjective Date Seen The patient was seen on 05/18/17. Subjective Chief Complaint/HPI The patient is a 61-year-old female admitted with a reason for visit of Acute Kidney Injury, Altered Mental Status. Events since last encounter Nursing noting hallucinations, poor sleep. Patient continues with inability to swallow own saliva, fluids or taker her medications. s/p gastro eval: Will perform EGD if Neurology deems patient is safe to proceed. MRI of brain completed. results pending. Constitutional: Denies: Chills, Fever, Night Sweats ENT: Reports: Dysphagia Pulmonary: Denies: Dyspnea, Cough Cardiovascular: Denies: Chest Pain, Palpitations, Orthopnea, Paroxysmal Noc. Dyspnea, Lt Headedness Gastrointestinal: Denies: Nausea, Vomiting, Abdominal Pain, Diarrhea, Constipation Psych: Reports: Mood Normal, Other Psych (hallucinations, confusion), Denies: Depression, Memory Issues Objective Physical Examination General Exam: Positive: Alert, No Acute Distress, Other (foaming at mouth after eating ice chips. Unable to swallow sputum.), Negative: Cooperative, Mild Distress, Moderate Distress, Severe Distress Neck Exam: Positive: Supple, Negative: JVD, thyromegaly Chest Exam: Positive: Clear to auscultation, Normal air movement Heart Exam: Positive: Rate Normal, Regular Rhythm, Normal S1, Normal S2, Negative: Murmurs, Rubs Abdomen Exam: Positive: Normal bowel sounds, Soft, Negative: Tenderness, Hepatospenomegaly Extremity Exam: Positive: Normal pulses, Negative: Clubbing, Cyanosis, Edema Neuro Exam: Negative: Normal Gait, Normal Speech, Strength at 5/5 X4 ext, Normal Tone, Sensation Intact, Cranial Nerves 3-12 NL, Reflexes 2+, Other Assessment /Plan Problems (1) Dysphagia Status: Acute Problem Text: 05/18/17: Neuro to eval patient today. MRI completed. Gastro on board and will proceed pending neurology evaluation, check Chagas Ab 05/17/17: Unable to complete esophagram. Will consult Gastro for EGD continue NPO c IVF at M Contingency: EGD per Reinfemi 05/17 check MRI brain s/c to r/o CVA, MS flare (although no weakness/parasthesiae /visual changes) 05/16 unable to perform MBS given pooling of all consistencies in mouth but, 05/13/17 MBS: No evidence of tracheal aspiration or laryngeal penetration. Ineffective and dis coordinated oral pharyngeal swallowing mechanics. 05/13/[address] Gooden ENT 05/17 MRI brain: . Chronic small vessel white matter ischemic changes of aging of old ischemia in the periventricular white matter in both hemispheres. 2. No intracranial hemorrhage, any definite acute vascular territory infarct, mass, mass effect or edema. 3. The cerebellum shows minimal or no atrophy and the brain stem grossly intact. 4. Complete opacification of the left maxillary sinus noted. The other sinuses grossly clear. (2) Altered mental status Status: Acute Response to Treatment: Improving Problem Text: ? psychosis related to Neurological phenomenon vs insomnia vs metabolic encephalopathy. favor TME c baseline mild dementia/MS 05/15 CT head Age related atrophy and microvascular ischemic changes. No acute intracranial hemorrhage, infarction, or mass/mass effect. (3) Hyperlipidemia Status: Chronic Response to Treatment: Stable (4) Hypothyroidism Status: Chronic Response to Treatment: Stable Problem Text: baseline LT4 75 05/17 started LT4 25 IV 05/15 TSH 0.6 c FTI 6.7; therefore, OK to hold po (5) Diastolic heart failure Status: Chronic Response to Treatment: Stable Problem Text: Monitor I/O. Appears well compensated. (6) HTN (hypertension) Status: Chronic Problem Text: elevated pressures. Unable to swallow po medications. IV Labetalol 10 mg IV q hrs. HOLD for BP less than 150/90 (7) Multiple sclerosis Status: Chronic Response to Treatment: Stable Problem Text: Tecfidera/amantidine on hold (8) Hypokalemia Problem Text: K of 2.9. 4 runs of IV potassium (9) Hypomagnesemia Problem Text: 05/18/17: improved at 1.7 today 05/17/17: mag 1.4. Giving replacement today. Plan/VTE VTE Prophylaxis Ordered?: Yes (heparin) VS, I&O, 24H, Fishbone Vital Signs/I&O Vital Signs Date Time Temp Pulse Resp B/P (MAP) Pulse Ox O2 Delivery O2 Flow Rate FiO2 05/18/17 08:00 97.4 77 20 163/77 (105) 98 Room Air I&O- Last 24 Hours up to 6 AM 05/18/17 06:00 Intake Total 1700 ml Output Total 400 ml Balance 1300 ml Laboratory Data 24H LABS Laboratory Tests 2 05/17/17 10:49: Blood Urea Nitrogen 23H, Creatinine 0.78, Sodium Level 143, Potassium Level 4.0# , Chloride Level 110H, Carbon Dioxide Level 23, Anion Gap 10, Glomerular Filtration Rate > 60.0, Calcium Level 7.4L, Phosphorus Level 1.0#L, Magnesium Level 1.5L, Albumin 4.2 05/17/17 13:49: Blood Urea Nitrogen 23H, Creatinine 0.77, Sodium Level 143, Potassium Level 3.7 , Chloride Level 111H, Carbon Dioxide Level 24, Anion Gap 8, Glomerular Filtration Rate > 60.0, Calcium Level 7.4L, Magnesium Level 1.3L 05/18/17 05:14: Blood Urea Nitrogen 17, Creatinine 0.72, Sodium Level 145, Potassium Level 4.7# , Chloride Level 115H, Carbon Dioxide Level 21, Anion Gap 9, Glomerular Filtration Rate > 60.0, Calcium Level 7.2L, Magnesium Level 1.7L CBC/BMP Laboratory Tests 05/17/17 10:49 Anion Gap 10 05/17/17 13:49 Calcium Level 7.4 L 05/18/17 05:14 Calcium Level 7.2 L, Red Blood Count 3.92 L, Mean Corpuscular Volume 89.2, Mean Corpuscular Hemoglobin 29.6, Mean Corpuscular Hemoglobin Concent 33.1, Red Cell Distribution Width 16.1 H Abeba Foster May 18, 2017 10:43 Carlos Larose M.D. May 18, 2017 15:07
--- NOTE | 2017-05-18 13:18 | REP ---
MRI BRAIN WITHOUT CONTRAST: 05/17/2017. CLINICAL HISTORY: Altered mental status, dysphagia. TECHNIQUE: Sagittal T1, axial T1, T2, diffusion weighted images and ADC mapping sequences provided. The patient terminated the examination, stating she did not wish to proceed. COMPARISON: CT brain 05/15/2017. FINDINGS: Lateral ventricles are midline and symmetric and dilated in proportion to the diffuse cerebral atrophy. Third and fourth ventricles are proportionate. There is some motion artifact for the T1 and T2 images. The periventricular white matter shows numerous hypointense T1 and hyperintense T2 foci which are bright signal on both diffusion and ADC mapping sequences and represent old ischemia. There are more extensive chronic small vessel white matter ischemic changes in both cerebral hemispheres. The cortical stripe was atrophic but otherwise preserved. I do not see an acute vascular territory infarct suggested. There is no hemorrhage, mass or mass effect. The brainstem shows no focal signal abnormality. Cerebellum shows no significant atrophy. Basal cisterns are intact. Seventh/eighth cranial nerve complexes and mastoids also grossly intact. There is opacification of the left maxillary antrum representing chronic sinus disease. The right maxillary antrum, sphenoids, ethmoid and frontal sinuses grossly intact except for a few minor ethmoid air cells with mucosal thickening anteriorly on the left. The corpus callosum, optic chiasm and pituitary are preserved. There is no cerebellar tonsillar ectopia. Impression: 1. Chronic small vessel white matter ischemic changes of aging of old ischemia in the periventricular white matter in both hemispheres. 2. No intracranial hemorrhage, any definite acute vascular territory infarct, mass, mass effect or edema. 3. The cerebellum shows minimal or no atrophy and the brain stem grossly intact. 4. Complete opacification of the left maxillary sinus noted. The other sinuses grossly clear. 5. Somewhat limited examination. The patient declined further imaging. Some degradation of image quality due to motion artifact. Signed by Sebastien Sam MD 05/18/2017 02:59 P
--- NOTE | 2017-05-18 18:00 | IPNPDOC ---
Date Seen The patient was seen on 05/18/17. Neurology Note: The patient was seen and examined at bedside. She is known the the out patient neurology practice of [facility] and follows with Dr. Mayorga for for her Relapsing Remitting Multiple Sclerosis. She was recently on tecfidera which has been discontinued over the past few weeks. She reports dysphagia starting about 2 weeks ago. She denies any recent illness. She reports some fatiguable diplopia and maybe some fatigue with chewing over the past few weeks. She has trouble swallowing her own saliva but states this is intermittent. During her hospital stay she was noted to be confused and have visual hallucinations. She had a limited MRI brain without contrast which did not show any acute stroke. There is possible old subacute infacts of the left parietal region, although with her moderately severe degree of SVID hard to exactly know. Old MS lesions along with microvascular disease of the brain was noted. The patient is pending an EGD however GI has requested our involvement prior to her scope. Blood work for ACH antibodies are pending. Chagas Disease work up has been sent given her complaints of abdominal pain and dysphagia. Enlarged esophagus has not been documented yet. EGD will be helpful for this. She denied any shortness of breath, limb weakness or numbness. She denies changes in speech and denies vertigo. She denies any hallucinations presently. Exam: Patient is AOA x three. Speech is occasionally dysarthric. The patient is able to repeat. No aphasia present on exam. The patient is noted to swallow her own saliva at times. CN: Pupils are 3mm RRL, EOM intact with occasional diplopia reported at right end gaze. V123 intact bilaterally to light touch, no weakness of facial muscles or SCM bilaterally, tongue is midline without atrophy or fasciculations. Tongue strength is normal. Patient is unable to whistle. Palate elevates symmetrically. Motor: No pronator drift. Significant weakness of neck flexion 4/5. Strength 5/5 in upper extremities, 4/5 bilateral iliopsoas, 5/5 bilateral tibialis anterior muscles. Negative Babinski's. Absent patellar responses, 2/4 in upper extremities. Sensory: Normal perception of light touch, temperature. Coordination: Normal finger to nose without ataxia or dysmetria. Assessment & Plan: 61F with RRMS with subacute dysphagia with recent altered mental status. AMS likely secondary to metabolic encephalopathy secondary to acute kidney injury. Patient may need more time to recover. Rule out Myasthenia Gravis. Ach Ab, Anti Striational Ab, and Anti MUSK Ab pending. No evidence of acute stroke for cause of dysphagia. Cannot entirely rule out subacute stroke given degree of SVID seen on MRI Brain. Chagas Disease work up pending. EGD maybe helpful. Patient agrees to a trial of IM Pyridostigmine dosed at 1.5mg q 6 hours. ( Determined dosing wi Current Medications Amantadine HCl (Symmetrel) 100 mg BID PO ; Start 05/16/17 at 09:00; Stop at 08:59 Amlodipine Besylate (Norvasc) 5 mg DAILY PO ; Start 05/16/17 at 09:00; Stop 08/20 at 08:59 Cyanocobalamin (Vitamin B12) 500 mcg DAILY PO ; Start 05/16/17 at 09:00; Stop at 09:00; Status DC Dextrose/Sodium Chloride 1,000 ml @ 80 mls/hr [id number] IV Last administered on 05/16/17 12:03; Start 05/15/17 at 22:15; Stop 05/16/17 at 23:14; Status DC Dextrose/Sodium Chloride 1,000 ml @ 80 mls/hr [id number] IV Last administered on 05/17/17 00:08; Start 05/16/17 at 23:00; Stop 05/17/17 at 10:51; Status DC Heparin Sodium (Porcine) (Heparin) 5,000 units Q8H SC Last administered on 05/18 14:46; Start 05/16/17 at 06:00; Stop 05/21/17 at 05:59 Home Med (Med Rec Complete!) ASDIRECTED XX ; Start 05/15/17 at 21:30; Stop 07/21 at 21:30; Status DC Home Med (Med Rec Complete!) ASDIRECTED XX ; Start 05/16/17 at 09:30; Stop 08/20 at 09:30; Status DC Labetalol HCl (Normodyne, Trandate) 10 mg Q2HP PRN IV sbp>150 Last administered on 05/18/17 06:25; Start 05/16/17 at 04:15; Stop 06/15/17 at 04: 14 Labetalol HCl (Normodyne, Trandate) 10 mg Q6H IV ; Start 05/16/17 at 13:00; Stop 05/18/17 at 15:05; Status DC Labetalol HCl (Normodyne, Trandate) 20 mg Q2HP PRN IV sbp>150 ; Start 05/16/17 at 01:45; Stop 05/16/17 at 04:05; Status DC Levothyroxine Sodium (Synthroid) 25 mcg DAILY IV Last administered on 08:46; Start 05/17/17 at 09:00; Stop 06/16/17 at 08:59 Levothyroxine Sodium (Synthroid) 50 mcg DAILY@0600 PO ; Start 05/16/17 at 06:00 ; Stop 05/17/17 at 11:45; Status DC Omeprazole (PriLOSEC) 40 mg DAILY PO ; Start 05/16/17 at 09:00; Stop 06/15/17 at 08:59 Ondansetron HCl (ZOFRAN INJection) 4 mg Q6HP PRN IV NAUSEA OR VOMITING; Start 05/15/17 at 22:15; Stop 06/14/17 at 22:14 Pantoprazole Sodium (Protonix) 40 mg Q24H IV Last administered on 05/18/17 08: 46; Start 05/16/17 at 09:00; Stop 06/15/17 at 08:59 Potassium Chloride 10 meq/ IV Miscellaneous Supplies 100 ml @ 100 mls/hr 0630, 0730,0830,0930 IV Last administered on 05/17/17 12:44; Start 05/17/17 at 06:30 ; Stop 05/17/17 at 14:00; Status DC Potassium Chloride/Dextrose/ Sod Cl 1,000 ml @ 80 mls/hr [id number] IV Last administered on 05/17/17 23:54; Start 05/17/17 at 11:00; Stop 05/18/17 at 08:11 ; Status DC Pyridostigmine [place] (Regonol) 1.5 mg Q6H IM ; Start 05/18/17 at 18:00; Stop 06/17/17 at 17:59 Senna (Senokot) 1 tab DAILYPRN PRN PO CONSTIPATION; Start 05/15/17 at 22:15; Stop 06/14/17 at 22:14 Sodium Chloride 1,000 ml @ 80 mls/hr [id number] IV Last administered on t 08:46; Start 05/18/17 at 08:15; Stop 06/17/17 at 08:14 Laboratory Tests Test 05/15/17 19:36 05/16/17 07:20 Aspartate Amino Transf (AST/SGOT) 35 U/L (15-37) 34 U/L (15-37) Alanine Aminotransferase (ALT/SGPT) 33 U/L (12-78) 32 U/L (12-78) Alkaline Phosphatase 86 U/L (45-117) 86 U/L (45-117) Total Bilirubin 0.7 MG/DL (0.2-1.0) 0.6 MG/DL (0.2-1.0) Direct Bilirubin 0.2 MG/DL (0.0-0.2) Blood Urea Nitrogen 55 MG/DL (7-18) Creatinine 1.28 MG/DL (0.55-1.02) Sodium Level 143 MEQ/L (136-145) Potassium Level 3.5 MEQ/L (3.5-5.1) Chloride Level 111 MEQ/L (98-107) Carbon Dioxide Level 23 MEQ/L (21-32) Calcium Level 8.1 MG/DL (8.8-10.2) Phosphorus Level 2.1 MG/DL (2.5-4.9) Total Protein 7.6 GM/DL (6.4-8.2) Albumin 4.4 GM/DL (3.2-5.2) Laboratory Tests 05/15/17 19:36 Red Blood Count 4.12, Mean Corpuscular Volume 90.2, Mean Corpuscular Hemoglobin 29.4, Mean Corpuscular Hemoglobin Concent 32.5, Red Cell Distribution Width 16.1 , Neutrophils (%) (Auto) 91.0, Lymphocytes (%) (Auto) 3.8, Monocytes (%) (Auto) 3.4, Eosinophils (%) (Auto) 0.5, Basophils (%) (Auto) 0.2, Neutrophils # (Auto) 4.7, Lymphocytes # (Auto) 0.2, Monocytes # (Auto) 0.2, Eosinophils # (Auto) 0.0 , Basophils # (Auto) 0.0 05/16/17 07:20 Red Blood Count 3.77, Mean Corpuscular Volume 89.8, Mean Corpuscular Hemoglobin 29.3, Mean Corpuscular Hemoglobin Concent 32.6, Red Cell Distribution Width 16.2 , Calcium Level 8.1, Phosphorus Level 2.1, Aspartate Amino Transf (AST/SGOT) 34 , Alanine Aminotransferase (ALT/SGPT) 32, Alkaline Phosphatase 86, Total Bilirubin 0.6, Total Protein 7.6, Albumin 4.4 05/17/17 05:21 Red Blood Count 3.79, Mean Corpuscular Volume 87.7, Mean Corpuscular Hemoglobin 30.1, Mean Corpuscular Hemoglobin Concent 34.4, Red Cell Distribution Width 16.0 , Calcium Level 6.7 # 05/17/17 10:49 Anion Gap 10 05/17/17 13:49 Calcium Level 7.4 05/18/17 05:14 Calcium Level 7.2, Red Blood Count 3.92, Mean Corpuscular Volume 89.2, Mean Corpuscular Hemoglobin 29.6, Mean Corpuscular Hemoglobin Concent 33.1, Red Cell Distribution Width 16.1 th guidance from our pharmacy) Consider repeat swallow evaluation after Pyridostigmine treatment tomorrow morning. Continue supportive care. Consider alternative means of providing nutrition to the patient if patient is found to not have Myasthenia Gravis. Progress Note SUBJECTIVE: Patient is a -year-old [RACE] [GENDER] with OBJECTIVE PHYSICAL EXAMINATION: VITAL SIGNS: Please see below. GENERAL: HEENT: CARDIOVASCULAR: . RESPIRATORY: . ABDOMINAL: EXTREMITIES: NEUROLOGICAL: PSYCHOLOGICAL: LABORATORY DATA: Please see below. MICROBIOLOGY: Please see below. IMAGING: Echocardiogram: . DVT prophylaxis ordered?: ASSESSMENT AND PLAN: This is a -year-old [RACE] [GENDER] with . PROBLEMS: 1. : . 2. : . 3. : . DISPOSITION: . VS, I&O, 24H, Fishbone Vital Signs/I&O Vital Signs Date Time Temp Pulse Resp B/P (MAP) Pulse Ox O2 Delivery O2 Flow Rate FiO2 05/18/17 16:50 99.4 05/18/17 16:00 78 20 142/78 (99) 99 Room Air I&O- Last 24 Hours up to 6 AM 05/18/17 06:00 Intake Total 1700 ml Output Total 400 ml Balance 1300 ml Laboratory Data 24H LABS Laboratory Tests 2 05/18/17 05:14: Anion Gap 9, Glomerular Filtration Rate > 60.0, Blood Urea Nitrogen 17, Creatinine 0.72, Sodium Level 145, Potassium Level 4.7#, Chloride Level 115H, Carbon Dioxide Level 21, Calcium Level 7.2L, Magnesium Level 1.7L CBC/BMP Laboratory Tests 05/18/17 05:14 Red Blood Count 3.92 L, Mean Corpuscular Volume 89.2, Mean Corpuscular Hemoglobin 29.6, Mean Corpuscular Hemoglobin Concent 33.1, Red Cell Distribution Width 16.1 H, Calcium Level 7.2 L SOPHIA MINER MD May 18, 2017 18:00
[2017-05-18] MEDS: PYRIDOSTIGMINE INJ 10 MG/2 ML AMP IM SCH (18:03)
[2017-05-19] VITALS (7 sets, daily range): BP systolic 136–175; BP diastolic 65–83
[2017-05-19] MEDS: LABETALOL HCL 100 MG/20 ML VIAL IV PRN ×2 (00:04→21:51)
[2017-05-19] MEDS: PYRIDOSTIGMINE INJ 10 MG/2 ML AMP IM SCH ×5 (00:04→23:56)
[2017-05-19] MEDS: HEPARIN SOD (PORCINE) 5000 UNITS/ML VIAL SC SCH ×3 (05:12→21:47)
[2017-05-19 05:35] LABS: MEAN CORPUSCULAR HEMOGLOBIN 29.5 pg (27.0-33.0); MEAN CORPUSCULAR HGB CONC 32.3 g/dl (32.0-36.5); MEAN CORPUSCULAR VOLUME 91.2 fl (80.0-96.0); RED CELL DISTRIBUTION WIDTH 16.1 % (11.5-14.5); WHITE BLOOD COUNT 2.5 K/mm3 (4.0-10.0)
[2017-05-19 05:43] LABS: ANION GAP 10 MEQ/L (8-16); BLOOD UREA NITROGEN 13 MG/DL (7-18); CALCIUM LEVEL 6.8 MG/DL (8.8-10.2); CARBON DIOXIDE LEVEL 21 MEQ/L (21-32); CHLORIDE LEVEL 115 MEQ/L (98-107); CREATININE FOR GFR 0.59 MG/DL (0.55-1.02); GLOMERULAR FILTRATION RATE > 60.0 (>45); GLUCOSE, FASTING 75 MG/DL (80-110); MAGNESIUM LEVEL 1.3 MG/DL (1.8-2.4); POTASSIUM SERUM 3.5 MEQ/L (3.5-5.1); SODIUM LEVEL 146 MEQ/L (136-145)
[2017-05-19] MEDS: MAG SULF 1GM/100ML (MAG RUN) 1 GM in APPROPRIATE DILUENT 1 EA IV SCH ×2 (06:25→08:14)
[2017-05-19] MEDS ORDERED: MAG SULF 1GM/100ML (MAG RUN) 1 GM in APPROPRIATE DILUENT 1 EA IV SCH (08:00)
[2017-05-19] MEDS: PANTOPRAZOLE 40MG INJ (PROTONIX) (C9113) IV SCH (08:14)
[2017-05-19] MEDS: amLODIPine 5 MG TAB PO SCH (09:00)
[2017-05-19] MEDS: AMANTADINE 100 MG CAP PO SCH ×2 (09:00→21:00)
[2017-05-19] MEDS: OMEPRAZOLE 20 MG CAP PO SCH (09:00)
[2017-05-19] MEDS: LEVOTHYROXINE 100 MCG (0.1MG) VIAL IV SCH (09:30)
[2017-05-19] MEDS: NS 1,000 ML IV SCH (10:42)
--- NOTE | 2017-05-19 10:48 | IPNPDOC ---
Subjective Date Seen The patient was seen on 05/19/17. Subjective Chief Complaint/HPI The patient is a 61-year-old female admitted with a reason for visit of Acute Kidney Injury, Altered Mental Status. Events since last encounter Placed on Regonol by Neurology. Mild progression in swallowing since yesterday. Continues with dysphagia. Has now been 4+ days NPO. Continues with low mag and low potassium on labs. Constitutional: Denies: Chills, Fever, Night Sweats ENT: Reports: Dysphagia Skin: Denies: Rash, Lesions, Breakdown Pulmonary: Denies: Dyspnea, Cough Cardiovascular: Denies: Chest Pain, Palpitations, Orthopnea, Paroxysmal Noc. Dyspnea, Lt Headedness Gastrointestinal: Denies: Nausea, Vomiting, Abdominal Pain, Diarrhea, Constipation Objective Physical Examination General Exam: Positive: Alert, No Acute Distress, Other (foaming at mouth after eating ice chips. Unable to swallow sputum.), Negative: Cooperative, Mild Distress, Moderate Distress, Severe Distress ENT Exam: Positive: Other ENT (attempt to evaluate throat unsuccesful. Patient pushed provider way when tongue depressor applied to back of tongue OP not visualized. ) Neck Exam: Positive: Supple, Negative: JVD, thyromegaly Chest Exam: Positive: Clear to auscultation, Normal air movement Heart Exam: Positive: Rate Normal, Regular Rhythm, Normal S1, Normal S2, Negative: Murmurs, Rubs Abdomen Exam: Positive: Normal bowel sounds, Soft, Negative: Tenderness, Hepatospenomegaly Extremity Exam: Positive: Normal pulses, Negative: Clubbing, Cyanosis, Edema Neuro Exam: Negative: Normal Gait, Normal Speech, Strength at 5/5 X4 ext, Normal Tone, Sensation Intact, Cranial Nerves 3-12 NL, Reflexes 2+, Other Assessment /Plan Problems (1) Dysphagia Status: Acute Problem Text: favor brainstem/thalamic CVA despite normal MRI Contingency: EGD per Reindl-consulted 05/17 continue NPO c IVF at M 05/19 PICC line placed for TPN (4D NPO) 05/18 Neuro trial of pyrido 1.5 IM q6H for ? MG s improvement, check Chagas Ab 05/17 check MRI brain s/c to r/o CVA, MS flare (although no weakness/parasthesiae /visual changes) 05/16 unable to perform MBS given pooling of all consistencies in mouth but, 05/13/17 MBS: No evidence of tracheal aspiration or laryngeal penetration. Ineffective and dis coordinated oral pharyngeal swallowing mechanics. 05/13/[address] Gooden ENT 05/17 MRI brain: . Chronic small vessel white matter ischemic changes of aging of old ischemia in the periventricular white matter in both hemispheres. 2. No intracranial hemorrhage, any definite acute vascular territory infarct, mass, mass effect or edema. 3. The cerebellum shows minimal or no atrophy and the brain stem grossly intact. 4. Complete opacification of the left maxillary sinus noted. The other sinuses grossly clear. (2) Altered mental status Status: Acute Response to Treatment: Improving Problem Text: ? psychosis related to Neurological phenomenon vs insomnia vs metabolic encephalopathy. favor TME c baseline mild dementia/MS 05/15 CT head Age related atrophy and microvascular ischemic changes. No acute intracranial hemorrhage, infarction, or mass/mass effect. (3) Hyperlipidemia Status: Chronic Response to Treatment: Stable (4) Hypothyroidism Status: Chronic Response to Treatment: Stable Problem Text: baseline LT4 75 05/17 started LT4 25 IV 05/15 TSH 0.6 c FTI 6.7; therefore, OK to hold po (5) Diastolic heart failure Status: Chronic Response to Treatment: Stable Problem Text: Monitor I/O. Appears well compensated. (6) HTN (hypertension) Status: Chronic Problem Text: elevated pressures. Unable to swallow po medications. IV Labetalol 10 mg IV q hrs. HOLD for BP less than 150/90 (7) Multiple sclerosis Status: Chronic Response to Treatment: Stable Problem Text: Tecfidera/amantidine on hold (8) Hypokalemia Problem Text: K of 2.9. 4 runs of IV potassium (9) Hypomagnesemia Problem Text: 05/18/17: improved at 1.7 today 05/17/17: mag 1.4. Giving replacement today. Plan/VTE VTE Prophylaxis Ordered?: Yes (heparin) VS, I&O, 24H, Fishbone Vital Signs/I&O Vital Signs Date Time Temp Pulse Resp B/P (MAP) Pulse Ox O2 Delivery O2 Flow Rate FiO2 05/19/17 08:00 98.8 78 18 136/72 (93) 95 Room Air I&O- Last 24 Hours up to 6 AM 05/19/17 06:00 Intake Total 800 ml Output Total 850 ml Balance -50 ml Laboratory Data 24H LABS Laboratory Tests 2 05/18/17 18:15: 05/19/17 05:01: Anion Gap 10, Glomerular Filtration Rate > 60.0, Blood Urea Nitrogen 13, Creatinine 0.59, Sodium Level 146H, Potassium Level 3.5#, Chloride Level 115H, Carbon Dioxide Level 21, Calcium Level 6.8L, Magnesium Level 1.3L CBC/BMP Laboratory Tests 05/19/17 05:01 Red Blood Count 3.95 L, Mean Corpuscular Volume 91.2, Mean Corpuscular Hemoglobin 29.5, Mean Corpuscular Hemoglobin Concent 32.3, Red Cell Distribution Width 16.1 H, Calcium Level 6.8 L Abeba Foster May 19, 2017 10:48 Carlos Larose M.D. May 19, 2017 16:43
[2017-05-19] MEDS: SODIUM CHLORIDE 0.9% INJ 10 ML SYR IV PRN (15:09)
--- NOTE | 2017-05-19 15:15 | REP ---
Procedure: PICC line insertion with Lorie The procedure was performed under the direct supervision of Dr. Swann. The risks and benefits of the procedure were explained to the patient and informed consent was obtained. The right brachial vein was localized using ultrasound guidance. The skin was prepped and draped in a sterile fashion. 2% lidocaine was used as a local anesthetic. Using ultrasound guidance the brachial vein was cannulated, however, the needle went through the sidewall of the vein into the brachial artery. The needle was removed and pressure was held at the site until hemostasis was achieved. Ultrasound was performed over the site and there is no evidence of bleeding. Using ultrasound guidance the brachial vein was again cannulated and a 0.018 guidewire was inserted and advanced to the SVC using fluoroscopic guidance. The needle was removed and a 5.5 [place] dilator and peel-away sheath was inserted over the guide wire. A 5.5 [place] dual lumen catheter was cut to length of 39 cm. The dilator was removed and the catheter was inserted over the guide wire with the tip ending in the SVC. The peel-away sheath was removed and the catheter was flushed with heparinized saline as per Hospital protocol. The catheter was affixed to the skin and a sterile dressing was applied. The the patient tolerated the procedure well and there were no immediate complications. 0.4 minutes of fluoro time was utilized for this procedure. Reviewed by ADA Alonso 05/19/2017 12:58 PSigned by Kulwant Swann MD 05/19/2017 03:06 P
--- NOTE | 2017-05-19 17:37 | IPNPDOC ---
Date Seen The patient was seen on 05/19/17. Neurology Note: Patient seen and examined at bedtime. She remains intermittently confused and pulled out her IV lines today. She has mittens on now for safety. At this point antibodies for Myasthenia have not returned back yet. She continues to have intermittent dysphagia. She and her are agreeable to start IV Steroids for the treatment of possible MS Exacerbation VS MG causing her symptoms. A small medullary lesion can possibly cause his symptoms, and due to poor MRI images due to motion this may have been missed. The patient was offered repeat imaging but declined at this time. IV Steroids can be used to treat both conditions. Since the patient felt an improvement with Pyridostigmine we will go ahead and increase her dose to 2mg IM q 6 hours. Exam: Patient is AOA x three. Speech is occasionally dysarthric. The patient is able to repeat. No aphasia present on exam. The patient is noted to swallow her own saliva at times. CN: Pupils are 3mm RRL, EOM intact with occasional diplopia reported at right end gaze. V123 intact bilaterally to light touch, no weakness of facial muscles or SCM bilaterally, tongue is midline without atrophy or fasciculations. Tongue strength is normal. Patient is unable to whistle. Palate elevates symmetrically. Motor: No pronator drift. Significant weakness of neck flexion 4/5. Strength 5/5 in upper extremities, 4/5 bilateral iliopsoas, 5/5 bilateral tibialis anterior muscles. Negative Babinski's. Absent patellar responses, 2/4 in upper extremities. Sensory: Normal perception of light touch, temperature. Coordination: Normal finger to nose without ataxia or dysmetria. Assessment & Plan: 61F with RRMS with subacute dysphagia with recent altered mental status. AMS likely secondary to metabolic encephalopathy secondary to acute kidney injury. Patient may need more time to recover. Rule out Myasthenia Gravis. Ach Ab, Anti Striational Ab, and Anti MUSK Ab pending. No evidence of acute stroke for cause of dysphagia. Cannot entirely rule out subacute stroke given degree of SVID seen on MRI Brain. Chagas Disease work up pending. EGD maybe helpful. Patient agrees to increase IM Pyridostigmine dose to 2mg q 6 hours. The patient agrees to go ahead and add IV Solumedrol 1000mg daily for 5 days incase we are dealing with a MS flair causing her symptoms of dysphagia. IV steroids will also help if the patient has MG. Both patient and her are in agreement with the treatment plan. Still awaiting Ach AB work up. Progress Note SUBJECTIVE: Patient is a -year-old [RACE] [GENDER] with OBJECTIVE PHYSICAL EXAMINATION: VITAL SIGNS: Please see below. GENERAL: HEENT: CARDIOVASCULAR: . RESPIRATORY: . ABDOMINAL: EXTREMITIES: NEUROLOGICAL: PSYCHOLOGICAL: LABORATORY DATA: Please see below. MICROBIOLOGY: Please see below. IMAGING: Echocardiogram: . DVT prophylaxis ordered?: ASSESSMENT AND PLAN: This is a -year-old [RACE] [GENDER] with . PROBLEMS: 1. : . 2. : . 3. : . DISPOSITION: . VS, I&O, 24H, Fishbone Vital Signs/I&O Vital Signs Date Time Temp Pulse Resp B/P (MAP) Pulse Ox O2 Delivery O2 Flow Rate FiO2 05/19/17 16:00 99.1 68 18 138/76 (96) 98 Room Air I&O- Last 24 Hours up to 6 AM 05/19/17 06:00 Intake Total 800 ml Output Total 850 ml Balance -50 ml Laboratory Data 24H LABS Laboratory Tests 2 05/18/17 18:15: 05/19/17 05:01: Anion Gap 10, Glomerular Filtration Rate > 60.0, Blood Urea Nitrogen 13, Creatinine 0.59, Sodium Level 146H, Potassium Level 3.5#, Chloride Level 115H, Carbon Dioxide Level 21, Calcium Level 6.8L, Magnesium Level 1.3L, C-Reactive Protein, Quantitative < 0.30 05/19/17 14:09: Erythrocyte Sedimentation Rate 7 05/19/17 15:02: CBC/BMP Laboratory Tests 05/19/17 05:01 Red Blood Count 3.95 L, Mean Corpuscular Volume 91.2, Mean Corpuscular Hemoglobin 29.5, Mean Corpuscular Hemoglobin Concent 32.3, Red Cell Distribution Width 16.1 H, Calcium Level 6.8 L SOPHIA MINER MD May 19, 2017 17:37
[2017-05-19] MEDS ORDERED: MULTIVITAMIN -ADULT INJECTION 10 ML, CR/CU/SE/MN/ZN INJ 1 ML in AMINO AC/ELECTROLYTE/DE... IV SCH (18:00)
[2017-05-19] MEDS ORDERED: FAT EMULSION IV 20% 500 ML IV SCH (18:00)
[2017-05-19] MEDS: methylPREDNISolone 1,000 MG, VIAL MATE ADAPTER 1 EACH in D5W 250 ML IV SCH (20:03)
[2017-05-19] MEDS: SODIUM CHLORIDE 0.9% INJ 10 ML SYR IV SCH (20:04)
[2017-05-20] VITALS (8 sets, daily range): BP systolic 142–167; BP diastolic 65–88
[2017-05-20 00:08] LABS: ACETYLCHOLINE RCPTOR BINDING A < 0.03 nmol/L (0.00-0.24)
[2017-05-20] MEDS: LABETALOL HCL 100 MG/20 ML VIAL IV PRN ×5 (00:25→23:38)
[2017-05-20] MEDS: SODIUM CHLORIDE 0.9% INJ 10 ML SYR IV SCH ×2 (05:46→18:00)
[2017-05-20] MEDS: PYRIDOSTIGMINE INJ 10 MG/2 ML AMP IM SCH ×4 (05:48→23:39)
[2017-05-20] MEDS: HEPARIN SOD (PORCINE) 5000 UNITS/ML VIAL SC SCH ×3 (05:49→21:07)
[2017-05-20 06:23] LABS: MEAN CORPUSCULAR HEMOGLOBIN 29.4 pg (27.0-33.0); MEAN CORPUSCULAR HGB CONC 32.7 g/dl (32.0-36.5); RED CELL DISTRIBUTION WIDTH 16.4 % (11.5-14.5); WHITE BLOOD COUNT 3.2 K/mm3 (4.0-10.0)
[2017-05-20 06:44] LABS: ANION GAP 11 MEQ/L (8-16); BLOOD UREA NITROGEN 20 MG/DL (7-18); CALCIUM LEVEL 6.1 MG/DL (8.8-10.2); CARBON DIOXIDE LEVEL 24 MEQ/L (21-32); CHLORIDE LEVEL 111 MEQ/L (98-107); CREATININE FOR GFR 0.66 MG/DL (0.55-1.02); GLOMERULAR FILTRATION RATE > 60.0 (>45); GLUCOSE, FASTING 170 MG/DL (80-110); MAGNESIUM LEVEL 1.8 MG/DL (1.8-2.4); POTASSIUM SERUM 3.7 MEQ/L (3.5-5.1); SODIUM LEVEL 146 MEQ/L (136-145)
[2017-05-20] MEDS: AMANTADINE 100 MG CAP PO SCH ×2 (09:00→20:32)
[2017-05-20] MEDS: amLODIPine 5 MG TAB PO SCH (09:00)
[2017-05-20] MEDS: PANTOPRAZOLE 40MG INJ (PROTONIX) (C9113) IV SCH (09:24)
[2017-05-20] MEDS: SODIUM CHLORIDE 0.9% INJ 10 ML SYR IV PRN ×2 (09:24→18:11)
[2017-05-20] MEDS: LEVOTHYROXINE 100 MCG (0.1MG) VIAL IV SCH (09:24)
--- NOTE | 2017-05-20 11:38 | IPNPDOC ---
Date Seen Neurology Note The patient was seen on 05/20/17. The patient and her state the patient is swallowing a little better. But overall there does not appear to be a dramatic improvement in her swallowing. Ach Ab are negative. Anti MUSK and Anti Striational AB's are still pending. Upper EGD is still pending. The patient does not have any other complaints. Exam: Patient is AOA x three. Speech is occasionally dysarthric. The patient is able to repeat. No aphasia present on exam. The patient is noted to swallow her own saliva at times. CN: Pupils are 3mm RRL, EOM intact with occasional diplopia reported at right end gaze. V123 intact bilaterally to light touch, no weakness of facial muscles or SCM bilaterally, tongue is midline without atrophy or fasciculations. Tongue strength is normal. Patient is unable to whistle. Palate elevates symmetrically. Motor: No pronator drift. Significant weakness of neck flexion 4/5. Strength 5/5 in upper extremities, 4/5 bilateral iliopsoas, 5/5 bilateral tibialis anterior muscles. Negative Babinski's. Absent patellar responses, 2/4 in upper extremities. Sensory: Normal perception of light touch, temperature. Coordination: Normal finger to nose without ataxia or dysmetria. Assessment & Plan: 61F with RRMS with subacute dysphagia with recent altered mental status. AMS likely secondary to metabolic encephalopathy secondary to acute kidney injury. This is still ongoing and the patient may need more time to recover. Rule out Myasthenia Gravis, Anti Striational Ab, and Anti MUSK Ab pending, however Ach Ab is negative. No evidence of acute stroke for cause of dysphagia. Cannot entirely rule out subacute stroke given degree of SVID seen on MRI Brain. Chagas Disease work up pending. EGD maybe helpful. Patient agrees to increase IM Pyridostigmine dose to 2mg q 6 hours, will continue till rest of Myasthenia work up comes back. The patient agrees to go ahead and add IV Solumedrol 1000mg daily for 5 days incase we are dealing with a MS flair causing her symptoms of dysphagia. IV steroids will also help if the patient has MG. Both patient and her are in agreement with the treatment plan. Patient has 4 more days of IV Steroids. I would advise that GI consider looking into alternative causes of the patients Dysphagia and complete an EGD. Progress Note SUBJECTIVE: Patient is a -year-old [RACE] [GENDER] with OBJECTIVE PHYSICAL EXAMINATION: VITAL SIGNS: Please see below. GENERAL: HEENT: CARDIOVASCULAR: . RESPIRATORY: . ABDOMINAL: EXTREMITIES: NEUROLOGICAL: PSYCHOLOGICAL: LABORATORY DATA: Please see below. MICROBIOLOGY: Please see below. IMAGING: Echocardiogram: . DVT prophylaxis ordered?: ASSESSMENT AND PLAN: This is a -year-old [RACE] [GENDER] with . PROBLEMS: 1. : . 2. : . 3. : . DISPOSITION: . VS, I&O, 24H, Fishbone Vital Signs/I&O Vital Signs Date Time Temp Pulse Resp B/P (MAP) Pulse Ox O2 Delivery O2 Flow Rate FiO2 05/20/17 09:45 77 161/65 05/20/17 08:00 97.3 18 98 Room Air I&O- Last 24 Hours up to 6 AM 05/20/17 05:59 Intake Total 1996 ml Output Total 200 ml Balance 1796 ml Laboratory Data 24H LABS Laboratory Tests 2 05/19/17 14:09: Erythrocyte Sedimentation Rate 7 05/19/17 15:02: 05/19/17 23:59: Bedside Glucose (Misc Panel) 173H 05/20/17 05:58: Anion Gap 11, Glomerular Filtration Rate > 60.0, Blood Urea Nitrogen 20#H, Creatinine 0.66, Sodium Level 146H, Potassium Level 3.7, Chloride Level 111H, Carbon Dioxide Level 24, Calcium Level 6.1L, Magnesium Level 1.8 CBC/BMP Laboratory Tests 05/20/17 05:58 Red Blood Count 3.76 L, Mean Corpuscular Volume 90.0, Mean Corpuscular Hemoglobin 29.4, Mean Corpuscular Hemoglobin Concent 32.7, Red Cell Distribution Width 16.4 H, Calcium Level 6.1 L SOPHIA MINER MD May 20, 2017 11:38
--- NOTE | 2017-05-20 14:37 | IPNPDOC ---
Subjective Date Seen The patient was seen on 05/20/17. Subjective Chief Complaint/HPI The patient is a 61-year-old female admitted with a reason for visit of Acute Kidney Injury, Altered Mental Status. Events since last encounter no improvement of dysphagia-still c excessive oral secretions Constitutional: Denies: Chills, Fever Eyes: Denies: Pain Skin: Denies: Rash Pulmonary: Denies: Cough Cardiovascular: Denies: Chest Pain Gastrointestinal: Denies: Nausea, Vomiting Objective Physical Examination General Exam: Positive: Alert, No Acute Distress, Other (foaming at mouth after eating ice chips. Unable to swallow sputum.), Negative: Cooperative, Mild Distress, Moderate Distress, Severe Distress ENT Exam: Positive: Other ENT (attempt to evaluate throat unsuccesful. Patient pushed provider way when tongue depressor applied to back of tongue OP not visualized. ) Neck Exam: Positive: Supple, Negative: JVD, thyromegaly Chest Exam: Positive: Clear to auscultation, Normal air movement Heart Exam: Positive: Rate Normal, Regular Rhythm, Normal S1, Normal S2, Negative: Murmurs, Rubs Abdomen Exam: Positive: Normal bowel sounds, Soft, Negative: Tenderness, Hepatospenomegaly Extremity Exam: Positive: Normal pulses, Negative: Clubbing, Cyanosis, Edema Neuro Exam: Negative: Normal Gait, Normal Speech, Strength at 5/5 X4 ext, Normal Tone, Sensation Intact, Cranial Nerves 3-12 NL, Reflexes 2+, Other Assessment /Plan Problems (1) Dysphagia Status: Acute Problem Text: favor brainstem/thalamic CVA despite normal MRI Contingency: EGD per Reindl-consulted 05/17/Neuro consents to proceed-05/20 continue NPO on TPN 05/20 SM 1000 IV x 5D started for ? atypical MS flare, increased pyrido to 2 q6H , + 1/2 NS at 50H given Na 146 05/19 PICC line placed/started TPN (4D NPO) 05/18 Neuro trial of pyrido 1.5 IM q6H for ? MG s improvement, check Chagas Ab 05/17 check MRI brain s/c to r/o CVA, MS flare (although no weakness/parasthesiae /visual changes) 05/16 unable to perform MBS given pooling of all consistencies in mouth but, 05/13/17 MBS: No evidence of tracheal aspiration or laryngeal penetration. Ineffective and dis coordinated oral pharyngeal swallowing mechanics. 05/13/[address] Gooden ENT 05/17 MRI brain: . Chronic small vessel white matter ischemic changes of aging of old ischemia in the periventricular white matter in both hemispheres. 2. No intracranial hemorrhage, any definite acute vascular territory infarct, mass, mass effect or edema. 3. The cerebellum shows minimal or no atrophy and the brain stem grossly intact. 4. Complete opacification of the left maxillary sinus noted. The other sinuses grossly clear. 05/17 - ACh Ab/SM Ab (2) Altered mental status Status: Acute Response to Treatment: Improving Problem Text: ? psychosis related to Neurological phenomenon vs insomnia vs metabolic encephalopathy. favor TME c baseline mild dementia/MS 05/15 CT head Age related atrophy and microvascular ischemic changes. No acute intracranial hemorrhage, infarction, or mass/mass effect. (3) Hypothyroidism Status: Chronic Response to Treatment: Stable Problem Text: baseline LT4 75 05/17 started LT4 25 IV 05/15 TSH 0.6 c FTI 6.7; therefore, OK to hold po (4) Diastolic heart failure Status: Chronic Response to Treatment: Stable Problem Text: Monitor I/O. Appears well compensated. (5) HTN (hypertension) Status: Chronic Problem Text: Adequate control given probable post CVA off medications Continue labetalol 10 mg IV q2H prn SBP >160 (6) Multiple sclerosis Status: Chronic Response to Treatment: Stable Problem Text: Tecfidera/amantidine on hold (7) Physical deconditioning Status: Acute Problem Text: 05/20 PT consulted Plan/VTE VTE Prophylaxis Ordered?: Yes (heparin) VS, I&O, 24H, Fishbone Vital Signs/I&O Vital Signs Date Time Temp Pulse Resp B/P (MAP) Pulse Ox O2 Delivery O2 Flow Rate FiO2 05/20/17 11:57 97.4 64 18 162/77 (105) 99 Room Air I&O- Last 24 Hours up to 6 AM 05/20/17 06:00 Intake Total 2406 ml Output Total 200 ml Balance 2206 ml Laboratory Data 24H LABS Laboratory Tests 2 05/19/17 15:02: 05/19/17 23:59: Bedside Glucose (Misc Panel) 173H 05/20/17 05:58: Anion Gap 11, Glomerular Filtration Rate > 60.0, Blood Urea Nitrogen 20#H, Creatinine 0.66, Sodium Level 146H, Potassium Level 3.7, Chloride Level 111H, Carbon Dioxide Level 24, Calcium Level 6.1L, Magnesium Level 1.8 CBC/BMP Laboratory Tests 05/20/17 05:58 Red Blood Count 3.76 L, Mean Corpuscular Volume 90.0, Mean Corpuscular Hemoglobin 29.4, Mean Corpuscular Hemoglobin Concent 32.7, Red Cell Distribution Width 16.4 H, Calcium Level 6.1 L Carlos Larose M.D. May 20, 2017 14:37
[2017-05-20] MEDS: NS 0.45% 1,000 ML IV SCH ×2 (15:06→22:42)
[2017-05-20] MEDS ORDERED: ONDANSETRON 4MG/2ML VIAL (J2405) As Ordered ONE (16:25)
[2017-05-20] MEDS ORDERED: SUGAMMADEX SODIUM 500 MG/5 ML VIAL (BRIDION) As Ordered ONE (16:25)
[2017-05-20] MEDS ORDERED: dexameTHASONE 4 MG/ML 1ML VIAL (J1100) As Ordered ONE (16:25)
[2017-05-20] MEDS ORDERED: fentaNYL 100 MCG/2 ML INJECTION (J3010) As Ordered ONE (16:25)
[2017-05-20] MEDS ORDERED: ROCURONIUM BROMIDE 50 MG/5 ML VIAL/SYRINGE As Ordered ONE (16:25)
[2017-05-20] MEDS ORDERED: ETOMIDATE INJ 20MG/10ML VIAL As Ordered ONE (16:25)
--- NOTE | 2017-05-20 16:41 | ROOR ---
Patient Name: Meena Grissom Procedure Date: 05/20/2017 3:35 PM Date of : 1955 Age: 61 Gender: Female Note Status: Finalized Procedure: Upper GI endoscopy Indications: Dysphagia, unable to swallow secretions Providers: Hill RAYO MD Referring MD: 2. Inpatient 2. Inpatient Requesting Provider: Medicines: General Anesthesia Complications: No immediate complications. Procedure: Pre-Anesthesia Assessment: - The heart rate, respiratory rate, oxygen saturations, blood pressure, adequacy of pulmonary ventilation, and response to care were monitored throughout the procedure. The Endoscope was introduced through the mouth, and advanced to the second part of duodenum. The upper GI endoscopy was accomplished without difficulty. The patient tolerated the procedure well. Findings: The esophagus was normal. The stomach was normal. The examined duodenum was normal. Impression: - Normal esophagus. - Normal stomach. - Normal examined duodenum. - No specimens collected. Recommendation: - Endoscopic gastric feeding tube/PEG recommended.-- to be discussed. Hill Rayo MD Hill RAYO MD 05/20/2017 4:40:55 PM This report has been signed electronically. Number of Addenda: 0 Note Initiated On: 05/20/2017 3:35 PM Estimated Blood Loss: Estimated blood loss: none.
[2017-05-20] MEDS ORDERED: FAT EMULSION IV 20% 500 ML IV SCH (18:00)
[2017-05-20] MEDS ORDERED: AMINO AC/ELECTROLYTE/DEX/CALC 2,000 ML IV SCH (18:00)
[2017-05-20] MEDS: methylPREDNISolone 1,000 MG, VIAL MATE ADAPTER 1 EACH in D5W 250 ML IV SCH (18:09)
[2017-05-21] VITALS (8 sets, daily range): BP systolic 132–170; BP diastolic 68–98
[2017-05-21] MEDS ORDERED: LORazepam 2 MG/ML VIAL (J2060) IM PRN (04:15)
[2017-05-21] MEDS: PYRIDOSTIGMINE INJ 10 MG/2 ML AMP IM SCH ×3 (05:06→18:40)
[2017-05-21] MEDS: SODIUM CHLORIDE 0.9% INJ 10 ML SYR IV SCH ×2 (05:49→19:59)
[2017-05-21] MEDS: HEPARIN SOD (PORCINE) 5000 UNITS/ML VIAL SC SCH ×3 (05:49→22:00)
[2017-05-21] MEDS ORDERED: SCOPOLAMINE 1.5 MG TRANSDERMAL TOP SCH (06:00)
[2017-05-21 06:18] LABS: MEAN CORPUSCULAR HEMOGLOBIN 30.1 pg (27.0-33.0); MEAN CORPUSCULAR HGB CONC 34.2 g/dl (32.0-36.5); MEAN CORPUSCULAR VOLUME 87.9 fl (80.0-96.0); RED CELL DISTRIBUTION WIDTH 16.2 % (11.5-14.5); WHITE BLOOD COUNT 7.2 K/mm3 (4.0-10.0)
[2017-05-21 06:40] LABS: ANION GAP 9 MEQ/L (8-16); BLOOD UREA NITROGEN 28 MG/DL (7-18); CALCIUM LEVEL 6.7 MG/DL (8.8-10.2); CARBON DIOXIDE LEVEL 24 MEQ/L (21-32); CHLORIDE LEVEL 108 MEQ/L (98-107); CREATININE FOR GFR 0.73 MG/DL (0.55-1.02); GLOMERULAR FILTRATION RATE > 60.0 (>45); GLUCOSE, FASTING 103 MG/DL (80-110); MAGNESIUM LEVEL 1.8 MG/DL (1.8-2.4); POTASSIUM SERUM 3.7 MEQ/L (3.5-5.1); SODIUM LEVEL 141 MEQ/L (136-145)
[2017-05-21] MEDS: amLODIPine 5 MG TAB PO SCH (09:00)
[2017-05-21] MEDS: AMANTADINE 100 MG CAP PO SCH ×2 (09:00→20:00)
[2017-05-21] MEDS: LEVOTHYROXINE 100 MCG (0.1MG) VIAL IV SCH (09:17)
[2017-05-21] MEDS: PANTOPRAZOLE 40MG INJ (PROTONIX) (C9113) IV SCH (09:17)
--- NOTE | 2017-05-21 12:23 | IPNPDOC ---
Subjective Date Seen The patient was seen on 05/21/17. Subjective Chief Complaint/HPI The patient is a 61-year-old female admitted with a reason for visit of Acute Kidney Injury, Altered Mental Status. Constitutional: Denies: Chills Eyes: Denies: Pain Skin: Denies: Rash Pulmonary: Denies: Dyspnea, Cough Cardiovascular: Denies: Chest Pain Gastrointestinal: Denies: Nausea, Vomiting Hematologic: Denies: Bruising Objective Physical Examination General Exam: Positive: Alert, No Acute Distress, Other (foaming at mouth after eating ice chips. Unable to swallow sputum.), Negative: Cooperative, Mild Distress, Moderate Distress, Severe Distress ENT Exam: Positive: Other ENT (attempt to evaluate throat unsuccesful. Patient pushed provider way when tongue depressor applied to back of tongue OP not visualized. ) Neck Exam: Positive: Supple, Negative: JVD, thyromegaly Chest Exam: Positive: Clear to auscultation, Normal air movement Heart Exam: Positive: Rate Normal, Regular Rhythm, Normal S1, Normal S2, Negative: Murmurs, Rubs Abdomen Exam: Positive: Normal bowel sounds, Soft, Negative: Tenderness, Hepatospenomegaly Extremity Exam: Positive: Normal pulses, Negative: Clubbing, Cyanosis, Edema Neuro Exam: Negative: Normal Gait, Normal Speech, Strength at 5/5 X4 ext, Normal Tone, Sensation Intact, Cranial Nerves 3-12 NL, Reflexes 2+, Other Assessment /Plan Problems (1) Dysphagia Status: Acute Problem Text: brainstem/thalamic CVA despite normal MRI vs LEMS vs MS flare Contingency: PEG if no improvement c IVIG (patient and HCP both agree c PEG), tx to [facility] for diagnostic NCS/EMG, spinal tap for viral encephalitis/ OCB continue NPO on TPN-Clinimix E 01/16 75/H c 20% FE QD and 1/2 NS 50/H 05/21 -given intolerable sialorrhea and inability to adequately suction (per nursing no sleep in 3D given agitation), stopped pyrido and + scopolamine patch (c improved marked improved sialorrhea) -changed SM to IVIG 1 mg/kg/QD x 5D given possible LEMS (unable to given either guanidine nor 3,4-DAP given both are only available as po agents) -checked CT neck/chest/pelvis and MRI abd for occult tumor (highest a/w SCLC and patient c ~5 pack year caity use-1/2 PPD 16-28Y) (case d/w Dr. Varela). 05/20 SM 1000 IV x 5D started for ? atypical MS flare, increased pyrido to 2 q6H , + 1/2 NS at 50H given Na 146//Given completely normal EGD, Dr. Rayo recommended PEG 05/19 PICC line placed/started TPN (s/p 4D NPO and clinically malnourished) 05/18 Neuro trial of pyrido 1.5 IM q6H for ? MG s improvement, check Chagas Ab 05/17 check MRI brain s/c to r/o CVA, MS flare (although no weakness/parasthesiae /visual changes) 05/21 completely normal EGD-Perri 05/16 unable to perform MBS given pooling of all consistencies in mouth but, 05/13/17 MBS: No evidence of tracheal aspiration or laryngeal penetration. Ineffective and dis coordinated oral pharyngeal swallowing mechanics. 05/13/[address] Gooden ENT 05/17 MRI brain: . Chronic small vessel white matter ischemic changes of aging of old ischemia in the periventricular white matter in both hemispheres. 2. No intracranial hemorrhage, any definite acute vascular territory infarct, mass, mass effect or edema. 3. The cerebellum shows minimal or no atrophy and the brain stem grossly intact. 4. Complete opacification of the left maxillary sinus noted. The other sinuses grossly clear. 05/15 CT head Age related atrophy and microvascular ischemic changes. No acute intracranial hemorrhage, infarction, or mass/mass effect. 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 possible a/w LEMS/dysphagia) 05/2017 CA19-9 pending 11/2016 CA 19-9 48 (3) Altered mental status Status: Acute Response to Treatment: Improving Problem Text: favor TME c baseline mild dementia/MS and sleep deprivation (4) Hypothyroidism Status: Chronic Response to Treatment: Stable Problem Text: baseline LT4 75 05/17 started LT4 25 IV 05/15 TSH 0.6 c FTI 6.7; therefore, OK to hold po (5) Diastolic heart failure Status: Chronic Response to Treatment: Stable Problem Text: Monitor I/O. Appears well compensated. (6) HTN (hypertension) Status: Chronic Problem Text: Adequate control given probable post CVA off medications Continue labetalol 10 mg IV q2H prn SBP >160 (7) Multiple sclerosis Status: Chronic Response to Treatment: Stable Problem Text: Tecfidera/amantidine on hold (8) Physical deconditioning Status: Acute Problem Text: 05/20 PT consulted (9) HOMER (generalized anxiety disorder) Status: Acute Problem Text: 2 insomnia, sialorrhea 05/21 started lorazepam 0.25 IM q6H prn (10) Malnutrition Status: Acute Problem Text: as per dysphagia Plan/VTE VTE Prophylaxis Ordered?: Yes (heparin) VS, I&O, 24H, Fishbone Vital Signs/I&O Vital Signs Date Time Temp Pulse Resp B/P (MAP) Pulse Ox O2 Delivery O2 Flow Rate FiO2 05/21/17 11:42 97.2 61 18 158/68 (98) 100 Room Air I&O- Last 24 Hours up to 6 AM 05/21/17 06:00 Intake Total 3061 ml Output Total 0 ml Balance 3061 ml Laboratory Data 24H LABS Laboratory Tests 2 05/20/17 23:27: Bedside Glucose (Misc Panel) 178H 05/21/17 05:51: Anion Gap 9, Glomerular Filtration Rate > 60.0, Blood Urea Nitrogen 28H, Creatinine 0.73, Sodium Level 141, Potassium Level 3.7, Chloride Level 108H, Carbon Dioxide Level 24, Calcium Level 6.7L, Magnesium Level 1.8 CBC/BMP Laboratory Tests 05/21/17 05:51 Red Blood Count 3.62 L, Mean Corpuscular Volume 87.9, Mean Corpuscular Hemoglobin 30.1, Mean Corpuscular Hemoglobin Concent 34.2, Red Cell Distribution Width 16.2 H, Calcium Level 6.7 L Carlso Larose M.D. May 21, 2017 12:23
[2017-05-21] MEDS: LORazepam 2 MG/ML VIAL (J2060) IM PRN ×2 (14:03→21:57)
[2017-05-21] MEDS ORDERED: ISOVUE-370 76% 100ML VIAL (Q9967) As Ordered ONE (15:25)
[2017-05-21] MEDS ORDERED: IMMUNE GLOBULIN 10% 10GM 100ML 10 GM in APPROPRIATE DILUENT 1 EA IV SCH (16:00)
[2017-05-21] MEDS ORDERED: IMMUNE GLOBULIN 10% 5GM 5 GM in APPROPRIATE DILUENT 1 EA IV SCH (17:00)
[2017-05-21] MEDS ORDERED: AMINO AC/ELECTROLYTE/DEX/CALC 2,000 ML IV SCH (18:00)
[2017-05-21] MEDS: NS 0.45% 1,000 ML IV SCH (18:00)
[2017-05-21] MEDS ORDERED: FAT EMULSION IV 20% 500 ML IV SCH (18:00)
--- NOTE | 2017-05-21 18:20 | REPUSA ---
CT of the soft tissues of the neck Clinical history: pain, LEMS. Technique: Multiple axial CT images were obtained from the base of the skull to the upper thorax afte r administration of nonionic intravenous contrast. Coronal and sagittal reconstructions were also obt ained. Findings: There is complete opacification of the left maxillary sinus. The other visualized paranasal sinuses are clear. The pterygopalatine fossa, pterygoid plates and pterygoid muscles are unremarkabl e. The mucosa of the naso- and oropharynx appears unremarkable. The hypopharynx and larynx show no pa thology. The visualized osseous structures are intact. The airway is patent. No focal mass is appreci ated. There is no evidence of lymphadenopathy. The thyroid gland appears unremarkable. The superficia l soft tissues are unremarkable. The arterial structures demonstrate normal caliber and contour. Ther e are no abnormal way enhancing lesions. Impression: 1. No focal soft tissue abnormality. The airway is patent. 2. The vascular structures appear unremarkable. 3. Left maxillary sinusitis.
--- NOTE | 2017-05-21 18:20 | REPUSA ---
CT of the chest without contrast Clinical statement: LEMS. Technique: Multiple axial CT images were obtained with 5 mm cuts through the chest without administra tion of contrast. No comparison is available. Findings: There is no thoracic lymphadenopathy. The visualized portions of the thyroid gland is unrem arkable. There are no pericardial or pleural effusions. The lungs are clear. Limited imaging of the u pper abdomen does not demonstrate any acute abnormalities. There are no suspicious osseous lesions. Impression: Unremarkable CT examination of the chest.
--- NOTE | 2017-05-21 18:20 | REPUSA ---
CT of the abdomen and pelvis with contrast Clinical statement: Pain. Technique: Multiple axial CT images were obtained from the base of the lungs through the floor of the pelvis utilizing 5 mm axial slices after administration of oral and nonionic intravenous contrast. C oronal and sagittal reconstructions were also obtained. No comparison is available. Findings: Chest: The visualized lung bases are clear. Abdomen: The liver, spleen, pancreas, kidneys, and adrenal glands are unremarkable. Contrast within t he renal collecting systems and ureters demonstrate normal caliber and contour. The aorta is within n ormal limits. There is no evidence of abdominal lymphadenopathy or ascites. Pelvis: Moderate amount of stool fills the colon.The bowel is otherwise unremarkable, with no obstruc tive or inflammatory changes. The urinary bladder is within normal limits. The other pelvic structure s appear grossly intact. There is no evidence of pelvic lymphadenopathy or ascites. Bones: There are no suspicious osseous abnormalities seen. A right hip arthroplasty is intact. Impression: 1. Mild constipation. No obstructive or inflammatory bowel changes appreciated. 2. The renal collecting systems and ureters appear unremarkable.
[2017-05-21] MEDS ORDERED: HALOPERIDOL 5 MG/ML VIAL (J1630) IM ONE (20:00)
[2017-05-21] MEDS: IMMUNE GLOBULIN 10% 20GM 200ML 20 GM in APPROPRIATE DILUENT 1 EA IV SCH ×2 (22:10→22:31)
[2017-05-21] MEDS: LABETALOL HCL 100 MG/20 ML VIAL IV PRN (23:54)
[2017-05-22] VITALS (21 sets, daily range): BP systolic 148–170; BP diastolic 62–90
[2017-05-22] MEDS: PYRIDOSTIGMINE INJ 10 MG/2 ML AMP IM SCH ×5 (00:41→23:38)
[2017-05-22] MEDS: LABETALOL HCL 100 MG/20 ML VIAL IV PRN (03:55)
[2017-05-22] MEDS: SODIUM CHLORIDE 0.9% INJ 10 ML SYR IV SCH ×2 (05:18→16:33)
[2017-05-22 07:04] LABS: MEAN CORPUSCULAR HEMOGLOBIN 29.2 pg (27.0-33.0); MEAN CORPUSCULAR HGB CONC 32.5 g/dl (32.0-36.5); MEAN CORPUSCULAR VOLUME 89.7 fl (80.0-96.0); RED CELL DISTRIBUTION WIDTH 16.4 % (11.5-14.5); WHITE BLOOD COUNT 4.8 K/mm3 (4.0-10.0)
[2017-05-22 07:28] LABS: ANISOCYTOSIS 1+; BANDS 1 % (< 11); POIKILOCYTOSIS 1+
[2017-05-22 07:30] LABS: ANION GAP 9 MEQ/L (8-16); BLOOD UREA NITROGEN 23 MG/DL (7-18); CALCIUM LEVEL 6.4 MG/DL (8.8-10.2); CARBON DIOXIDE LEVEL 25 MEQ/L (21-32); CHLORIDE LEVEL 112 MEQ/L (98-107); CREATININE FOR GFR 0.55 MG/DL (0.55-1.02); GLOMERULAR FILTRATION RATE > 60.0 (>45); GLUCOSE, FASTING 85 MG/DL (80-110); MAGNESIUM LEVEL 1.7 MG/DL (1.8-2.4); POTASSIUM SERUM 3.4 MEQ/L (3.5-5.1); SODIUM LEVEL 146 MEQ/L (136-145)
[2017-05-22] MEDS: amLODIPine 5 MG TAB PO SCH (09:00)
[2017-05-22] MEDS: AMANTADINE 100 MG CAP PO SCH ×2 (09:00→20:39)
[2017-05-22] MEDS: PANTOPRAZOLE 40MG INJ (PROTONIX) (C9113) IV SCH (09:10)
[2017-05-22] MEDS: LEVOTHYROXINE 100 MCG (0.1MG) VIAL IV SCH (09:10)
--- NOTE | 2017-05-22 11:19 | IPNPDOC ---
Subjective Date Seen The patient was seen on 05/22/17. Subjective Chief Complaint/HPI The patient is a 61-year-old female admitted with a reason for visit of Acute Kidney Injury, Altered Mental Status. General: Reports: ROS Unobtainable (limited ability to speak. she denies new pain, dyspnnea, nausea) Objective Physical Examination General Exam: Positive: Alert, No Acute Distress, Other (foaming at mouth after eating ice chips. Unable to swallow sputum.), Negative: Cooperative, Mild Distress, Moderate Distress, Severe Distress ENT Exam: Positive: Other ENT (no clear speech. able to elevate palate, chito protrusion with command normal. facial and eye movement appear normal) Neck Exam: Positive: Supple, Negative: JVD, thyromegaly Chest Exam: Positive: Clear to auscultation, Diminished Heart Exam: Positive: Rate Normal, Regular Rhythm, Normal S1, Normal S2, Negative: Murmurs, Rubs Abdomen Exam: Positive: Normal bowel sounds, Soft, Negative: Tenderness, Hepatospenomegaly Extremity Exam: Positive: Normal pulses, Negative: Clubbing, Cyanosis, Edema Neuro Exam: Negative: Normal Gait, Normal Speech, Strength at 5/5 X4 ext, Normal Tone, Sensation Intact, Cranial Nerves 3-12 NL, Reflexes 2+, Other Assessment /Plan Problems (1) Dysphagia Status: Acute Problem Text: brainstem/thalamic CVA despite normal MRI vs LEMS vs MS flare Contingency: PEG if no improvement c IVIG (patient and HCP both agree c PEG), tx to [facility] for diagnostic NCS/EMG, spinal tap for viral encephalitis/ OCB continue NPO on TPN-Clinimix E 01/16 75/H c 20% FE QD and 09/05 NS 50/H 05/21 -given intolerable sialorrhea and inability to adequately suction (per nursing no sleep in 3D given agitation), stopped pyrido and + scopolamine patch (c improved marked improved sialorrhea) -changed SM to IVIG 1 mg/kg/QD x 5D given possible LEMS (unable to given either guanidine nor 3,4-DAP given both are only available as po agents) -checked CT neck/chest/pelvis and MRI abd for occult tumor (highest a/w SCLC and patient c ~5 pack year caity use-/ PPD 16-28Y) (case d/w Dr. Varela). 05/20 SM 1000 IV x 5D started for ? atypical MS flare, increased pyrido to 2 q6H , + 1/2 NS at 50H given Na 146//Given completely normal EGD, Dr. Rayo recommended PEG 05/19 PICC line placed/started TPN (s/p 4D NPO and clinically malnourished) 05/18 Neuro trial of pyrido 1.5 IM q6H for ? MG s improvement, check Chagas Ab 05/17 check MRI brain s/c to r/o CVA, MS flare (although no weakness/parasthesiae /visual changes) 05/21 completely normal EGD-Perri 05/16 unable to perform MBS given pooling of all consistencies in mouth but, 05/13/17 MBS: No evidence of tracheal aspiration or laryngeal penetration. Ineffective and dis coordinated oral pharyngeal swallowing mechanics. 05/13/[address] Gooden ENT 05/17 MRI brain: . Chronic small vessel white matter ischemic changes of aging of old ischemia in the periventricular white matter in both hemispheres. 2. No intracranial hemorrhage, any definite acute vascular territory infarct, mass, mass effect or edema. 3. The cerebellum shows minimal or no atrophy and the brain stem grossly intact. 4. Complete opacification of the left maxillary sinus noted. The other sinuses grossly clear. 05/15 CT head Age related atrophy and microvascular ischemic changes. No acute intracranial hemorrhage, infarction, or mass/mass effect. 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 pancreatic cystic neoplasm has been stable by qY EUS at 3.5 mm (last 11/2016) 05/2017 repeat MRI A s/c (? possible a/w LEMS/dysphagia) 05/2017 CA19-9 pending 11/2016 CA 19-9 48 (3) Altered mental status Status: Acute Response to Treatment: Improving Problem Text: favor TME c baseline mild dementia/MS and sleep deprivation (4) Hypothyroidism Status: Chronic Response to Treatment: Stable Problem Text: baseline LT4 75 05/17 started LT4 25 IV 05/15 TSH 0.6 c FTI 6.7; therefore, OK to hold po (5) Diastolic heart failure Status: Chronic Response to Treatment: Stable Problem Text: Monitor I/O. Appears well compensated. (6) HTN (hypertension) Status: Chronic Problem Text: Adequate control given probable post CVA off medications Continue labetalol 10 mg IV q2H prn SBP >160 (7) Multiple sclerosis Status: Chronic Response to Treatment: Stable Problem Text: Tecfidera/amantidine on hold (8) Physical deconditioning Status: Acute Problem Text: 05/20 PT consulted (9) HOMER (generalized anxiety disorder) Status: Acute Problem Text: 2 insomnia, sialorrhea 05/21 started lorazepam 0.25 IM q6H prn (10) Malnutrition Status: Acute Problem Text: as per dysphagia (11) Hypernatremia Status: Acute Response to Treatment: Worse Problem Specific Plan: Repeat Labs Problem Text: will provide D5W IV at 50/hour to provide additional free water. (12) Thrombocytopenia Status: Acute Response to Treatment: Worse Problem Specific Plan: Repeat Labs Problem Text: suspect heparin induced antibody. heparin held, monitor.. Teds/ Sequentials ordered. Plan/VTE VTE Prophylaxis Ordered?: Yes (heparin) Disposition Feeding tube to be placed tomorrow. per Neuro, wish to complete infusion of immunoglobulin before decision re transfer VS, I&O, 24H, Fishbone Vital Signs/I&O Vital Signs Date Time Temp Pulse Resp B/P (MAP) Pulse Ox O2 Delivery O2 Flow Rate FiO2 05/22/17 08:00 99.2 66 20 169/79 (109) 100 Room Air I&O- Last 24 Hours up to 6 AM 05/22/17 05:59 Intake Total 2695 ml Balance 2695 ml Laboratory Data 24H LABS Laboratory Tests 2 05/21/17 11:57: Bedside Glucose (Misc Panel) 131H 05/21/17 18:03: Bedside Glucose (Misc Panel) 95 05/22/17 06:29: Neutrophils 88H, Band Neutrophils 1, Lymphocytes (Manual) 9L, Monocytes (Manual ) 2, Platelet Estimate DECREASED, Poikilocytosis 1+, Anisocytosis 1+ 05/22/17 06:31: Anion Gap 9, Glomerular Filtration Rate > 60.0, Blood Urea Nitrogen 23H, Creatinine 0.55, Sodium Level 146H, Potassium Level 3.4L, Chloride Level 112H, Carbon Dioxide Level 25, Calcium Level 6.4L, Magnesium Level 1.7L 05/22/17 08:46: CBC/BMP Laboratory Tests 05/22/17 06:29 05/22/17 06:31 Calcium Level 6.4 L Rafat Garcia MD May 22, 2017 11:19
[2017-05-22] MEDS ORDERED: KCL 10MEQ IN 100ML SWI (KRUN) 10 MEQ in APPROPRIATE DILUENT 1 EA IV ONE ×2 (11:30)
[2017-05-22] MEDS: D5W 1,000 ML IV SCH (12:17)
[2017-05-22] MEDS: HumaLOG INSULIN (NovoLOG) PER UNIT SC SCH ×2 (17:26→23:49)
[2017-05-22] MEDS ORDERED: FAT EMULSION IV 20% 500 ML IV SCH (18:00)
[2017-05-22] MEDS ORDERED: MULTIVITAMIN -ADULT INJECTION 10 ML, CR/CU/SE/MN/ZN INJ 1 ML in AMINO AC/ELECTROLYTE/DE... IV SCH (18:00)
[2017-05-22] MEDS: IMMUNE GLOBULIN 10% 20GM 200ML 20 GM in APPROPRIATE DILUENT 1 EA IV SCH (21:02)
[2017-05-23] VITALS (14 sets, daily range): BP systolic 144–176; BP diastolic 78–96
[2017-05-23 00:06] LABS: Lyme Disease IgG/IgM Antibodie <0.91 ISR (0.00-0.90); Lyme Disease IgM Ab Quantitati <0.80 index (0.00-0.79)
[2017-05-23] MEDS: IMMUNE GLOBULIN 10% 10GM 100ML 10 GM in APPROPRIATE DILUENT 1 EA IV SCH (00:42)
[2017-05-23] MEDS: LORazepam 2 MG/ML VIAL (J2060) IM PRN (01:03)
[2017-05-23] MEDS: IMMUNE GLOBULIN 10% 5GM 5 GM in APPROPRIATE DILUENT 1 EA IV SCH (01:38)
[2017-05-23] MEDS: SODIUM CHLORIDE 0.9% INJ 10 ML SYR IV SCH ×2 (06:00→17:13)
[2017-05-23] MEDS: HumaLOG INSULIN (NovoLOG) PER UNIT SC SCH ×3 (06:00→17:11)
[2017-05-23] MEDS: PYRIDOSTIGMINE INJ 10 MG/2 ML AMP IM SCH ×3 (06:23→17:48)
[2017-05-23] MEDS: NS 0.45% 1,000 ML IV SCH ×2 (06:24→22:45)
[2017-05-23] MEDS: D5W 1,000 ML IV SCH (06:25)
[2017-05-23 06:57] LABS: MEAN CORPUSCULAR HEMOGLOBIN 30.3 pg (27.0-33.0); MEAN CORPUSCULAR HGB CONC 33.8 g/dl (32.0-36.5); MEAN CORPUSCULAR VOLUME 89.4 fl (80.0-96.0); RED CELL DISTRIBUTION WIDTH 16.4 % (11.5-14.5); WHITE BLOOD COUNT 2.9 K/mm3 (4.0-10.0)
[2017-05-23 07:08] LABS: ANION GAP 7 MEQ/L (8-16); BLOOD UREA NITROGEN 22 MG/DL (7-18); CALCIUM LEVEL 6.3 MG/DL (8.8-10.2); CARBON DIOXIDE LEVEL 26 MEQ/L (21-32); CHLORIDE LEVEL 112 MEQ/L (98-107); GLOMERULAR FILTRATION RATE > 60.0 (>45); GLUCOSE, FASTING 90 MG/DL (80-110); MAGNESIUM LEVEL 1.7 MG/DL (1.8-2.4); POTASSIUM SERUM 3.6 MEQ/L (3.5-5.1); SODIUM LEVEL 145 MEQ/L (136-145)
[2017-05-23] MEDS: amLODIPine 5 MG TAB PO SCH (07:44)
[2017-05-23] MEDS: AMANTADINE 100 MG CAP PO SCH (07:54)
[2017-05-23] MEDS: LEVOTHYROXINE 100 MCG (0.1MG) VIAL IV SCH (09:00)
[2017-05-23] MEDS: PANTOPRAZOLE 40MG INJ (PROTONIX) (C9113) IV SCH (09:00)
--- NOTE | 2017-05-23 09:14 | IPNPDOC ---
Subjective Date Seen The patient was seen on 05/23/17. Subjective Chief Complaint/HPI The patient is a 61-year-old female admitted with a reason for visit of Acute Kidney Injury, Altered Mental Status. General: Reports: ROS Unobtainable (not able to communicate effectively. head shakes neg to query of pain. ) Objective Physical Examination General Exam: Positive: Alert, No Acute Distress, Other (foaming at mouth after eating ice chips. Unable to swallow sputum.), Negative: Cooperative, Mild Distress, Moderate Distress, Severe Distress ENT Exam: Positive: Other ENT (no clear speech. able to elevate palate, chito protrusion with command normal. facial and eye movement appear normal) Neck Exam: Positive: Supple, Negative: JVD, thyromegaly Chest Exam: Positive: Clear to auscultation, Diminished Heart Exam: Positive: Rate Normal, Regular Rhythm, Normal S1, Normal S2, Negative: Murmurs, Rubs Abdomen Exam: Positive: Normal bowel sounds, Soft, Negative: Tenderness, Hepatospenomegaly Extremity Exam: Positive: Normal pulses, Negative: Clubbing, Cyanosis, Edema Neuro Exam: Positive: Other (weak flosser; tongue movements weak but functional. facies symmetrical and activates normally with command. swallow is slow and noisy. reflexes diminished. minimal, slow difficult speech but able to state her name barely.), Negative: Normal Gait, Normal Speech, Strength at 5/5 X4 ext, Normal Tone, Sensation Intact, Cranial Nerves 3-12 NL, Reflexes 2+ Assessment /Plan Problems (1) Dysphagia Status: Acute Problem Text: 05/23/17; still difficult swallowing. she may need trach, but so far seems to be able to protect her airway. brainstem/thalamic CVA despite normal MRI vs LEMS vs MS flare Contingency: PEG if no improvement c IVIG (patient and HCP both agree c PEG), tx to [facility] for diagnostic NCS/EMG, spinal tap for viral encephalitis/ OCB continue NPO on TPN-Clinimix E 01/16 75/H c 20% FE QD and 1/2 NS 50/H 05/21 -given intolerable sialorrhea and inability to adequately suction (per nursing no sleep in 3D given agitation), stopped pyrido and + scopolamine patch (c improved marked improved sialorrhea) -changed SM to IVIG 1 mg/kg/QD x 5D given possible LEMS (unable to given either guanidine nor 3,4-DAP given both are only available as po agents) -checked CT neck/chest/pelvis and MRI abd for occult tumor (highest a/w SCLC and patient c ~5 pack year caity use-1/2 PPD 16-28Y) (case d/w Dr. Varela). 05/20 SM 1000 IV x 5D started for ? atypical MS flare, increased pyrido to 2 q6H , + 1/2 NS at 50H given Na 146//Given completely normal EGD, Dr. Rayo recommended PEG 05/19 PICC line placed/started TPN (s/p 4D NPO and clinically malnourished) 05/18 Neuro trial of pyrido 1.5 IM q6H for ? MG s improvement, check Chagas Ab 05/17 check MRI brain s/c to r/o CVA, MS flare (although no weakness/parasthesiae /visual changes) 05/21 completely normal EGD-Perri 05/16 unable to perform MBS given pooling of all consistencies in mouth but, 05/13/17 MBS: No evidence of tracheal aspiration or laryngeal penetration. Ineffective and dis coordinated oral pharyngeal swallowing mechanics. 05/13/[address] Gooden ENT 05/17 MRI brain: . Chronic small vessel white matter ischemic changes of aging of old ischemia in the periventricular white matter in both hemispheres. 2. No intracranial hemorrhage, any definite acute vascular territory infarct, mass, mass effect or edema. 3. The cerebellum shows minimal or no atrophy and the brain stem grossly intact. 4. Complete opacification of the left maxillary sinus noted. The other sinuses grossly clear. 05/15 CT head Age related atrophy and microvascular ischemic changes. No acute intracranial hemorrhage, infarction, or mass/mass effect. 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 pancreatic cystic neoplasm has been stable by qY EUS at 3.5 mm (last 11/2016) 05/2017 repeat MRI A s/c (? possible a/w LEMS/dysphagia) 05/2017 CA19-9 pending 11/2016 CA 19-9 48 (3) Altered mental status Status: Acute Response to Treatment: Improving Problem Text: favor TME c baseline mild dementia/MS and sleep deprivation (4) Hypothyroidism Status: Chronic Response to Treatment: Stable Problem Text: baseline LT4 75 05/17 started LT4 25 IV 05/15 TSH 0.6 c FTI 6.7; therefore, OK to hold po (5) Diastolic heart failure Status: Chronic Response to Treatment: Stable Problem Text: Monitor I/O. Appears well compensated. (6) HTN (hypertension) Status: Chronic Problem Text: Adequate control given probable post CVA off medications Continue labetalol 10 mg IV q2H prn SBP >160 (7) Multiple sclerosis Status: Chronic Response to Treatment: Stable Problem Text: Tecfidera/amantidine on hold (8) Physical deconditioning Status: Acute Problem Text: 05/20 PT consulted (9) HOMER (generalized anxiety disorder) Status: Acute Problem Text: 2 insomnia, sialorrhea 05/21 started lorazepam 0.25 IM q6H prn (10) Malnutrition Status: Acute Problem Text: as per dysphagia (11) Hypernatremia Status: Acute Response to Treatment: Improving, Worse Problem Specific Plan: Repeat Labs Problem Text: 05/23: sodium improved to 145 today. will provide D5W IV at 50/hour to provide additional free water. (12) Thrombocytopenia Status: Acute Response to Treatment: Worse Problem Specific Plan: Repeat Labs Problem Text: suspect heparin induced antibody. heparin held, monitor.. Teds/ Sequentials ordered. Plan/VTE VTE Prophylaxis Ordered?: Yes (heparin) VTE Exclusion Pharmacological: Thrombocytopenia (On mechanical prophylaxis since yesterday due to development of thrombocytopenia.) Disposition If swallowing doesn't improve or is aspiration occurs/suspected may need tracheostomy to protect airway. [facility], [facility]O Vital Signs Date Time Temp Pulse Resp B/P (MAP) Pulse Ox O2 Delivery O2 Flow Rate FiO2 05/23/17 08:00 99.9 93 20 176/81 (112) 100 Room Air I&O- Last 24 Hours up to 6 AM 05/23/17 06:00 Intake Total 4117 ml Balance 4117 ml Laboratory Data 24H LABS Laboratory Tests 2 05/22/17 11:57: Bedside Glucose (Misc Panel) 105 05/22/17 17:16: Bedside Glucose (Misc Panel) 97 05/22/17 23:42: Bedside Glucose (Misc Panel) 104 05/23/17 06:22: Bedside Glucose (Misc Panel) 97 05/23/17 06:35: Anion Gap 7L, Glomerular Filtration Rate > 60.0, Blood Urea Nitrogen 22H, Creatinine 0.50L, Sodium Level 145, Potassium Level 3.6, Chloride Level 112H, Carbon Dioxide Level 26, Calcium Level 6.3L, Magnesium Level 1.7L CBC/BMP Laboratory Tests 05/23/17 06:35 Red Blood Count 3.39 L, Mean Corpuscular Volume 89.4, Mean Corpuscular Hemoglobin 30.3, Mean Corpuscular Hemoglobin Concent 33.8, Red Cell Distribution Width 16.4 H, Calcium Level 6.3 L Rafat Garcia MD May 23, 2017 09:14
[2017-05-23] MEDS ORDERED: ceFAZolin SOD 1 GM in D5W MINI-BAG PLUS 50 ML IV ONE (16:00)
[2017-05-23] MEDS ORDERED: FAT EMULSION IV 20% 500 ML IV SCH (18:00)
[2017-05-23] MEDS ORDERED: AMINO AC/ELECTROLYTE/DEX/CALC 2,000 ML IV SCH (18:00)
[2017-05-23] MEDS ORDERED: MIDAZOLAM INJ 2 MG/2 ML VIAL (J2250) As Ordered ONE (19:49)
[2017-05-23] MEDS ORDERED: fentaNYL 100 MCG/2 ML INJECTION (J3010) As Ordered ONE (19:49)
[2017-05-23] MEDS ORDERED: PROPOFOL 200 MG/20 ML VIAL As Ordered ONE (19:50)
[2017-05-23] MEDS ORDERED: LIDOCAINE 2% INJ 100 MG/5 ML SDV (FOR ANES.) As Ordered ONE (19:50)
[2017-05-23] MEDS ORDERED: ONDANSETRON 4MG/2ML VIAL (J2405) As Ordered ONE (19:50)
--- NOTE | 2017-05-23 20:20 | ROOR ---
Patient Name: Meena Grissom Procedure Date: 05/23/2017 8:10 PM Date of : 1955 Age: 61 Gender: Female Note Status: Finalized Procedure: Upper GI endoscopy Indications: Dysphagia, Malnutrition Providers: Hill RAYO MD Referring MD: 2. Inpatient 2. Inpatient Requesting Provider: Medicines: General Anesthesia Complications: No immediate complications. Procedure: Pre-Anesthesia Assessment: - The heart rate, respiratory rate, oxygen saturations, blood pressure, adequacy of pulmonary ventilation, and response to care were monitored throughout the procedure. The Endoscope was introduced through the mouth, and advanced to the second part of duodenum. The upper GI endoscopy was accomplished without difficulty. The patient tolerated the procedure well. Findings: The examined esophagus was normal. No endoscopic abnormality was evident in the esophagus to explain the patient's complaint of dysphagia. The entire examined stomach was normal. The examined duodenum was normal. Placement of an endoscopically removable PEG with no T-fasteners was successfully completed. The external bumper was at the 1.5 cm marking on the tube. Impression: - Normal esophagus. - No endoscopic esophageal abnormality to explain patient's dysphagia. - Normal stomach. An endoscopically removable PEG placement was successfully completed. - Normal examined duodenum. - No specimens collected. Recommendation: - Please follow the post-PEG recommendations including: Nutrition consult for formula and volume, advance food and medications per primary care provider - May Use PEG now/today for meds with 50 cc H2O flushes. - May start feeds tomorrow am. Hill Rayo MD Hill RAYO MD 05/23/2017 8:19:45 PM This report has been signed electronically. Number of Addenda: 0 Note Initiated On: 05/23/2017 8:10 PM Estimated Blood Loss: Estimated blood loss: none.
[2017-05-23] MEDS ORDERED: PERCOCET 5MG/325MG TAB PO PRN (20:30)
[2017-05-23] MEDS ORDERED: HYDROmorphone HCL 1 MG/ML SYRINGE (J1170) IV PRN (20:30)
[2017-05-23] MEDS ORDERED: ONDANSETRON 4MG/2ML VIAL (J2405) IV PRN (20:30)
[2017-05-23] MEDS ORDERED: fentaNYL 100 MCG/2 ML INJECTION (J3010) IV PRN (20:30)
[2017-05-23] MEDS ORDERED: LR 1,000 ML IV SCH (20:30)
[2017-05-23] MEDS ORDERED: SENNA 8.6 MG TAB (SENOKOT) PEG PRN (20:45)
[2017-05-23] MEDS ORDERED: AMANTADINE 100 MG CAP PEG SCH (21:00)
[2017-05-23] MEDS: IMMUNE GLOBULIN 10% 20GM 200ML 20 GM in APPROPRIATE DILUENT 1 EA IV SCH (22:15)
[2017-05-23] MEDS: AMANTADINE 100 MG CAP PEG SCH (22:24)
[2017-05-24] VITALS (21 sets, daily range): BP systolic 135–187; BP diastolic 69–106
[2017-05-24] MEDS: HumaLOG INSULIN (NovoLOG) PER UNIT SC SCH ×3 (00:27→12:00)
[2017-05-24] MEDS: PYRIDOSTIGMINE INJ 10 MG/2 ML AMP IM SCH ×4 (00:28→17:18)
[2017-05-24] MEDS ORDERED: ACETAMINOPHEN 650 MG SUPP PR PRN (02:45)
[2017-05-24] MEDS: D5W 1,000 ML IV SCH (03:15)
[2017-05-24] MEDS: LABETALOL HCL 100 MG/20 ML VIAL IV PRN ×3 (03:38→12:08)
[2017-05-24] MEDS: IMMUNE GLOBULIN 10% 10GM 100ML 10 GM in APPROPRIATE DILUENT 1 EA IV SCH (04:15)
[2017-05-24] MEDS ORDERED: SCOPOLAMINE 1.5 MG TRANSDERMAL TOP ONE (06:00)
[2017-05-24] MEDS: SODIUM CHLORIDE 0.9% INJ 10 ML SYR IV SCH ×2 (06:00→13:32)
[2017-05-24] MEDS: IMMUNE GLOBULIN 10% 5GM 5 GM in APPROPRIATE DILUENT 1 EA IV SCH (06:17)
--- NOTE | 2017-05-24 08:15 | IPNPDOC ---
Subjective Date Seen The patient was seen on 05/24/17. Subjective Chief Complaint/HPI The patient is a 61-year-old female admitted with a reason for visit of Acute Kidney Injury, Altered Mental Status. Events since last encounter Pt denies pain or SOB. Pulmonary: Denies: Dyspnea Cardiovascular: Denies: Chest Pain Gastrointestinal: Denies: Abdominal Pain Objective Physical Examination General Exam: Positive: Alert, No Acute Distress, Other (foaming at mouth after eating ice chips. Unable to swallow sputum.), Negative: Cooperative, Mild Distress, Moderate Distress, Severe Distress ENT Exam: Positive: Other ENT (no clear speech. able to elevate palate, chito protrusion with command normal. 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 facies symmetrical and activates normally with command. swallow is slow and noisy. reflexes diminished. minimal, slow difficult speech but able to state her name barely.), Negative: Normal Gait, Normal Speech, Strength at 5/5 X4 ext, Normal Tone, Sensation Intact, Cranial Nerves 3-12 NL, Reflexes 2+ Assessment /Plan Problems (1) Dysphagia Status: Acute Problem Text: 05/24 - Upper endoscopy with Dr Rayo who noted: "Normal esophagus. No endoscopic esophageal abnormality to explain patient's dysphagia. Normal stomach. An endoscopically removable PEG placement was successfully completed. Normal examined duodenum." Dr Rayo recommends to follow the post-PEG recommendations including: Nutrition consult for formula and volume, advance food and medications. May Use PEG now/today for meds with 50 cc H2O flushes and may start feeds 05/24 am. 05/23/17; still difficult swallowing. she may need trach, but so far seems to be able to protect her airway. brainstem/thalamic CVA despite normal MRI vs LEMS vs MS flare Contingency: PEG if no improvement c IVIG (patient and HCP both agree c PEG), tx to [facility] for diagnostic NCS/EMG, spinal tap for viral encephalitis/ OCB continue NPO on TPN-Clinimix E 01/16 75/H c 20% FE QD and 1/2 NS 50/H 05/21 -given intolerable sialorrhea and inability to adequately suction (per nursing no sleep in 3D given agitation), stopped pyrido and + scopolamine patch (c improved marked improved sialorrhea) -changed SM to IVIG 1 mg/kg/QD x 5D given possible LEMS (unable to given either guanidine nor 3,4-DAP given both are only available as po agents) -checked CT neck/chest/pelvis and MRI abd for occult tumor (highest a/w SCLC and patient c ~5 pack year caity use-1/ PPD 16-28Y) (case d/w Dr. Varela). 05/20 SM 1000 IV x 5D started for ? atypical MS flare, increased pyrido to 2 q6H , + 1/2 NS at 50H given Na 146//Given completely normal EGD, Dr. Rayo recommended PEG 05/19 PICC line placed/started TPN (s/p 4D NPO and clinically malnourished) 05/18 Neuro trial of pyrido 1.5 IM q6H for ? MG s improvement, check Chagas Ab 05/17 check MRI brain s/c to r/o CVA, MS flare (although no weakness/parasthesiae /visual changes) 05/21 completely normal EGD-Perri 05/16 unable to perform MBS given pooling of all consistencies in mouth but, 05/13/17 MBS: No evidence of tracheal aspiration or laryngeal penetration. Ineffective and dis coordinated oral pharyngeal swallowing mechanics. 05/13/[address] Gooden ENT 05/17 MRI brain: . Chronic small vessel white matter ischemic changes of aging of old ischemia in the periventricular white matter in both hemispheres. 2. No intracranial hemorrhage, any definite acute vascular territory infarct, mass, mass effect or edema. 3. The cerebellum shows minimal or no atrophy and the brain stem grossly intact. 4. Complete opacification of the left maxillary sinus noted. The other sinuses grossly clear. 05/15 CT head Age related atrophy and microvascular ischemic changes. No acute intracranial hemorrhage, infarction, or mass/mass effect. 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 pancreatic cystic neoplasm has been stable by qY EUS at 3.5 mm (last 11/2016) 05/2017 repeat MRI A s/c (? possible a/w LEMS/dysphagia) 05/2017 CA19-9 pending 11/2016 CA 19-9 48 (3) Altered mental status Status: Acute Response to Treatment: Improving Problem Text: favor TME c baseline mild dementia/MS and sleep deprivation (4) Hypothyroidism Status: Chronic Response to Treatment: Stable Problem Text: 05/24: cardiology consult requested by (Dr. Pickett) baseline LT4 75 05/17 started LT4 25 IV 05/15 TSH 0.6 c FTI 6.7; therefore, OK to hold po (5) Diastolic heart failure Status: Chronic Response to Treatment: Stable Problem Text: Monitor I/O. Appears well compensated. (6) HTN (hypertension) Status: Chronic Problem Text: Adequate control given probable post CVA off medications Continue labetalol 10 mg IV q2H prn SBP >160 (7) Multiple sclerosis Status: Chronic Response to Treatment: Stable Problem Text: Tecfidera/amantidine on hold (8) Physical deconditioning Status: Acute Problem Text: 05/20 PT consulted (9) HOMER (generalized anxiety disorder) Status: Acute Problem Text: 2 insomnia, sialorrhea 05/21 started lorazepam 0.25 IM q6H prn (10) Malnutrition Status: Acute Problem Text: as per dysphagia (11) Hypernatremia Status: Acute Response to Treatment: Improving, Worse Problem Specific Plan: Repeat Labs Problem Text: 05/23: sodium improved to 145 today. will provide D5W IV at 50/hour to provide additional free water. (12) Thrombocytopenia Status: Acute Response to Treatment: Worse Problem Specific Plan: Repeat Labs Problem Text: suspect heparin induced antibody. heparin held, monitor.. Teds/ Sequentials ordered. Plan/VTE VTE Prophylaxis Ordered?: Yes (heparin) VTE Exclusion Pharmacological: Thrombocytopenia (On mechanical prophylaxis since yesterday due to development of thrombocytopenia.) VS, I&O, 24H, Fishbone Vital Signs/I&O Vital Signs Date Time Temp Pulse Resp B/P (MAP) Pulse Ox O2 Delivery O2 Flow Rate FiO2 05/24/17 06:48 99.6 63 20 168/77 (107) 99 Room Air 05/23/17 21:20 1.0 I&O- Last 24 Hours up to 6 AM 05/25/17 05:59 Intake Total 55 ml Balance 55 ml Laboratory Data 24H LABS Laboratory Tests 2 05/23/17 11:10: Bedside Glucose (Misc Panel) 109 05/23/17 17:01: Bedside Glucose (Misc Panel) 95 05/24/17 00:18: Bedside Glucose (Misc Panel) 104 05/24/17 06:01: Bedside Glucose (Misc Panel) 107 Cisco Carlos RPA-Lavern May 24, 2017 08:15 Rafat Garcia MD May 24, 2017 11:38
[2017-05-24] MEDS: amLODIPine 5 MG TAB PEG SCH (09:33)
[2017-05-24] MEDS: AMANTADINE 100 MG CAP PEG SCH ×2 (09:33→21:45)
[2017-05-24] MEDS: LEVOTHYROXINE 100 MCG (0.1MG) VIAL IV SCH (09:34)
[2017-05-24] MEDS: OMEPRAZOLE 20 MG CAP XX SCH (09:34)
[2017-05-24 09:41] LABS: BASO % 0.2 % (0.0-1.0); EOS # 0.1 K/mm3 (0.0-0.50); EOS % 1.7 % (0.0-3.0); LYMPH # 0.3 K/mm3 (1.5-4.5); LYMPH % 5.6 % (24.0-44.0); MEAN CORPUSCULAR HEMOGLOBIN 29.4 pg (27.0-33.0); MEAN CORPUSCULAR HGB CONC 32.4 g/dl (32.0-36.5); MEAN CORPUSCULAR VOLUME 90.8 fl (80.0-96.0); MONO # 0.4 K/mm3 (0.0-0.8); MONO % 8.3 % (0.0-5.0); NEUTROPHILS # 3.5 K/mm3 (1.8-7.7); NEUTROPHILS % 83.3 % (36.0-66.0); RED CELL DISTRIBUTION WIDTH 16.6 % (11.5-14.5); WHITE BLOOD COUNT 4.2 K/mm3 (4.0-10.0)
[2017-05-24 09:42] LABS: PLATELET COUNT, AUTOMATED 84 k/mm3 (150-450)
[2017-05-24 10:15] LABS: ALBUMIN 2.8 GM/DL (3.2-5.2); ALBUMIN/GLOBULIN RATIO 0.58 (1.00-1.93); ALKALINE PHOSPHATASE 60 U/L (45-117); ALT/SGPT 76 U/L (12-78); ANION GAP 7 MEQ/L (8-16); AST/SGOT 64 U/L (15-37); BILIRUBIN,TOTAL 0.4 MG/DL (0.2-1.0); BLOOD UREA NITROGEN 23 MG/DL (7-18); CALCIUM LEVEL 6.7 MG/DL (8.8-10.2); CARBON DIOXIDE LEVEL 24 MEQ/L (21-32); CHLORIDE LEVEL 112 MEQ/L (98-107); CREATININE FOR GFR 0.57 MG/DL (0.55-1.02); GLOMERULAR FILTRATION RATE > 60.0 (>45); GLUCOSE, FASTING 95 MG/DL (80-110); POTASSIUM SERUM 3.7 MEQ/L (3.5-5.1); SODIUM LEVEL 143 MEQ/L (136-145); TOTAL PROTEIN 7.6 GM/DL (6.4-8.2)
[2017-05-24] MEDS ORDERED: LORazepam 0.5 MG TAB PEG PRN (12:30)
--- NOTE | 2017-05-24 14:36 | REP ---
MRI brain without and with IV gadolinium: History: Acute dysphagia, dysarthria, brain stem encephalitis. Gadolinium enhancement dose: 7 mL of intravenous ProHance. Technique: Sagittal, axial and coronal imaging planes were utilized. T1 and T2-weighted scans were obtained. Sequences include spin-echo, fast spin echo, FLAIR, and diffusion weighted sequences. There is extensive motion artifact to some degree on all sequences. Findings: Image quality is significantly degraded by motion artifact on each sequence to some degree. This is least pronounced on the diffusion weighted sequence and there is no evidence to suggest acute ischemia or other cause of restricted diffusion. There is no evidence of intracranial hemorrhage. There are moderate periventricular white matter hyperintense foci on FLAIR and turbo spin echo T2-weighted scans in the periventricular white matter of the supratentorial brain bilaterally. These are fairly extensive. There are a few subcortical white matter T2 hyperintensities as well. The mid brain and brainstem is unremarkable as visualized. No extra-axial fluid collection is seen. No mass, cortical infarct or midline shift is seen. Impression: Multiple fairly large foci of periventricular and to some degree subcortical T2 hyperintensity bilaterally in the supratentorial brain. These are nonspecific. Demyelinating disease versus small vessel changes. There is motion artifact on this study. No abnormal gadolinium enhancement is seen. Signed by Kulwant Swann MD 05/24/2017 05:24 P
[2017-05-24] MEDS: IMMUNE GLOBULIN 10% 20GM 200ML 20 GM in APPROPRIATE DILUENT 1 EA IV SCH (21:47)
[2017-05-25] VITALS (17 sets, daily range): BP systolic 114–162; BP diastolic 62–82
[2017-05-25 00:07] LABS: STRIATIONAL ANTIBODIES Negative (Neg:<1:40)
[2017-05-25] MEDS: PYRIDOSTIGMINE INJ 10 MG/2 ML AMP IM SCH ×4 (00:50→18:34)
[2017-05-25] MEDS: IMMUNE GLOBULIN 10% 10GM 100ML 10 GM in APPROPRIATE DILUENT 1 EA IV SCH (01:53)
[2017-05-25] MEDS: IMMUNE GLOBULIN 10% 5GM 5 GM in APPROPRIATE DILUENT 1 EA IV SCH (03:30)
[2017-05-25] MEDS: LEVOTHYROXINE 50MCG TABLET (0.05MG) PEG SCH (05:30)
[2017-05-25] MEDS: SODIUM CHLORIDE 0.9% INJ 10 ML SYR IV SCH ×2 (05:31→18:28)
[2017-05-25 06:20] LABS: BASO % 0.3 % (0.0-1.0); EOS # 0.1 K/mm3 (0.0-0.50); EOS % 2.4 % (0.0-3.0); LARGE UNSTAINED CELL # 0.1 K/mm3 (0.0-0.4); LARGE UNSTAINED CELL % 3.5 % (0.0-4.0); LYMPH # 0.3 K/mm3 (1.5-4.5); MEAN CORPUSCULAR HGB CONC 33.5 g/dl (32.0-36.5); MEAN CORPUSCULAR VOLUME 89.5 fl (80.0-96.0); MONO # 0.3 K/mm3 (0.0-0.8); MONO % 8.4 % (0.0-5.0); NEUTROPHILS # 2.2 K/mm3 (1.8-7.7); NEUTROPHILS % 74.4 % (36.0-66.0); RED CELL DISTRIBUTION WIDTH 16.3 % (11.5-14.5)
[2017-05-25 06:21] LABS: PLATELET COUNT, AUTOMATED 86 k/mm3 (150-450)
[2017-05-25 06:28] LABS: ALBUMIN 2.7 GM/DL (3.2-5.2); ALBUMIN/GLOBULIN RATIO 0.48 (1.00-1.93); ALKALINE PHOSPHATASE 87 U/L (45-117); ALT/SGPT 108 U/L (12-78); ANION GAP 7 MEQ/L (8-16); AST/SGOT 90 U/L (15-37); BILIRUBIN,TOTAL 0.5 MG/DL (0.2-1.0); BLOOD UREA NITROGEN 22 MG/DL (7-18); CALCIUM LEVEL 7.6 MG/DL (8.8-10.2); CARBON DIOXIDE LEVEL 25 MEQ/L (21-32); CHLORIDE LEVEL 112 MEQ/L (98-107); CREATININE FOR GFR 0.52 MG/DL (0.55-1.02); GLOMERULAR FILTRATION RATE > 60.0 (>45); GLUCOSE, FASTING 97 MG/DL (80-110); POTASSIUM SERUM 3.9 MEQ/L (3.5-5.1); SODIUM LEVEL 144 MEQ/L (136-145); TOTAL PROTEIN 8.3 GM/DL (6.4-8.2)
[2017-05-25] MEDS: AMANTADINE 100 MG CAP PEG SCH ×2 (08:43→21:49)
[2017-05-25] MEDS: OMEPRAZOLE 20 MG CAP XX SCH (08:43)
[2017-05-25] MEDS: amLODIPine 5 MG TAB PEG SCH (08:44)
--- NOTE | 2017-05-25 09:21 | IPNPDOC ---
Subjective Date Seen The patient was seen on 05/25/17. Subjective Chief Complaint/HPI The patient is a 61-year-old female admitted with a reason for visit of Acute Kidney Injury, Altered Mental Status. Events since last encounter Pt without new concerns this morning. Her is at bedside, he also is without new concerns. Nursing has suggested that her daytime sitter be d/c'd, one more night with the nighttime sitter, then this likely can be dc'd as well. Pt has questions about PEG mgmt once she returns home. General: Denies: Fatigue Constitutional: Denies: Chills, Fever Pulmonary: Denies: Dyspnea, Cough Cardiovascular: Denies: Chest Pain, Palpitations Gastrointestinal: Denies: Nausea, Vomiting, Diarrhea Neurological: Reports: Weakness Psych: Reports: Mood Normal Objective Physical Examination General Exam: Positive: Alert, No Acute Distress, Negative: Cooperative ENT Exam: Positive: Other ENT (no clear speech. able to elevate palate, chito protrusion with command normal. 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 facies symmetrical and activates normally with command. reflexes diminished. minimal, slow difficult speech but able to communicate effectively with me), Negative: Normal Gait, Normal Speech, Strength at 5/5 X4 ext, Normal Tone, Sensation Intact, Cranial Nerves 3-12 NL, Reflexes 2+ Assessment /Plan Problems (1) Dysphagia Status: Acute Problem Text: 05/25 - tolerating TF with at this time, pt reassured that once she was doing well and tolerating foods, she would have education on use and care of her PEG as well as feeding instructions. Her is at bedside. 05/24 - Upper endoscopy with Dr Rayo who noted: "Normal esophagus. No endoscopic esophageal abnormality to explain patient's dysphagia. Normal stomach. An endoscopically removable PEG placement was successfully completed. Normal examined duodenum." Dr Rayo recommends to follow the post-PEG recommendations including: Nutrition consult for formula and volume, advance food and medications. May Use PEG now/today for meds with 50 cc H2O flushes and may start feeds 05/24 am. 05/23/17; still difficult swallowing. she may need trach, but so far seems to be able to protect her airway. brainstem/thalamic CVA despite normal MRI vs LEMS vs MS flare Contingency: PEG if no improvement c IVIG (patient and HCP both agree c PEG), tx to [facility] for diagnostic NCS/EMG, spinal tap for viral encephalitis/ OCB continue NPO on TPN-Clinimix E 01/16 75/H c 20% FE QD and 1/2 NS 50/H 05/21 -given intolerable sialorrhea and inability to adequately suction (per nursing no sleep in 3D given agitation), stopped pyrido and + scopolamine patch (c improved marked improved sialorrhea) -changed SM to IVIG 1 mg/kg/QD x 5D given possible LEMS (unable to given either guanidine nor 3,4-DAP given both are only available as po agents) -checked CT neck/chest/pelvis and MRI abd for occult tumor (highest a/w SCLC and patient c ~5 pack year caity use-1/ PPD 16-28Y) (case d/w Dr. Varela). 05/20 SM 1000 IV x 5D started for ? atypical MS flare, increased pyrido to 2 q6H , + 1/2 NS at 50H given Na 146//Given completely normal EGD, Dr. Rayo recommended PEG 05/19 PICC line placed/started TPN (s/p 4D NPO and clinically malnourished) 05/18 Neuro trial of pyrido 1.5 IM q6H for ? MG s improvement, check Chagas Ab 05/17 check MRI brain s/c to r/o CVA, MS flare (although no weakness/parasthesiae /visual changes) 05/21 completely normal EGD-Perri 05/16 unable to perform MBS given pooling of all consistencies in mouth but, 05/13/17 MBS: No evidence of tracheal aspiration or laryngeal penetration. Ineffective and dis coordinated oral pharyngeal swallowing mechanics. 05/13/[address] Gooden ENT 05/17 MRI brain: . Chronic small vessel white matter ischemic changes of aging of old ischemia in the periventricular white matter in both hemispheres. 2. No intracranial hemorrhage, any definite acute vascular territory infarct, mass, mass effect or edema. 3. The cerebellum shows minimal or no atrophy and the brain stem grossly intact. 4. Complete opacification of the left maxillary sinus noted. The other sinuses grossly clear. 05/15 CT head Age related atrophy and microvascular ischemic changes. No acute intracranial hemorrhage, infarction, or mass/mass effect. 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 pancreatic cystic neoplasm has been stable by qY EUS at 3.5 mm (last 11/2016) 05/2017 repeat MRI A s/c (? possible a/w LEMS/dysphagia) 05/2017 CA19-9 pending 11/2016 CA 19-9 48 (3) Altered mental status Status: Acute Response to Treatment: Improving Problem Text: 05/25 - her MS has improved, will d/c daytime sitter, cont with night sitter for now. favor TME c baseline mild dementia/MS and sleep deprivation (4) Hypothyroidism Status: Chronic Response to Treatment: Stable Problem Text: baseline LT4 75 05/17 started LT4 25 IV 05/15 TSH 0.6 c FTI 6.7; therefore, OK to hold po (5) Diastolic heart failure Status: Chronic Response to Treatment: Stable Problem Text: 05/25 - placed by Dr Garcia, no records in the chart yet. 05/24: cardiology consult requested by (Dr. Pickett) Monitor I/O. Appears well compensated. (6) HTN (hypertension) Status: Chronic Problem Text: Adequate control given probable post CVA off medications Continue labetalol 10 mg IV q2H prn SBP >160 (7) Multiple sclerosis Status: Chronic Response to Treatment: Stable Problem Text: Tecfidera/amantidine on hold (8) Physical deconditioning Status: Acute Problem Text: 05/20 PT consulted (9) HOMER (generalized anxiety disorder) Status: Acute Problem Text: 2 insomnia, sialorrhea 05/21 started lorazepam 0.25 IM q6H prn (10) Malnutrition Status: Acute Problem Text: as per dysphagia (11) Hypernatremia Status: Acute Response to Treatment: Improving, Worse Problem Specific Plan: Repeat Labs Problem Text: 05/23: sodium improved to 145 today. will provide D5W IV at 50/hour to provide additional free water. (12) Thrombocytopenia Status: Acute Response to Treatment: Stable, Worse Problem Specific Plan: Repeat Labs Problem Text: suspect heparin induced antibody. heparin held, monitor.. Teds/ Sequentials ordered. Plan/VTE VTE Prophylaxis Ordered?: Yes (heparin) VTE Exclusion Pharmacological: Thrombocytopenia (On mechanical prophylaxis since yesterday due to development of thrombocytopenia.) VS, I&O, 24H, Fishbone Vital Signs/I&O Vital Signs Date Time Temp Pulse Resp B/P (MAP) Pulse Ox O2 Delivery O2 Flow Rate FiO2 05/25/17 08:44 64 130/81 05/25/17 08:00 99.7 20 100 Room Air 05/23/17 21:20 1.0 I&O- Last 24 Hours up to 6 AM 05/26/17 05:59 Intake Total 100 ml Balance 100 ml Laboratory Data 24H LABS Laboratory Tests 2 05/24/17 09:29: White Blood Count 4.2, Red Blood Count 3.29L, Hemoglobin 9.7L, Hematocrit 29.8L , Mean Corpuscular Volume 90.8, Mean Corpuscular Hemoglobin 29.4, Mean Corpuscular Hemoglobin Concent 32.4, Red Cell Distribution Width 16.6H, Platelet Count 84L, Neutrophils (%) (Auto) 83.3H, Lymphocytes (%) (Auto) 5.6L, Monocytes (%) (Auto) 8.3H, Eosinophils (%) (Auto) 1.7, Basophils (%) (Auto) 0.2 , Neutrophils # (Auto) 3.5, Lymphocytes # (Auto) 0.3L, Monocytes # (Auto) 0.4, Eosinophils # (Auto) 0.1, Basophils # (Auto) 0.0, Large Unclassified Cells % 1.0 , Large Unclassified Cells # 0.0, Anion Gap 7L, Glomerular Filtration Rate > 60.0, Blood Urea Nitrogen 23H, Creatinine 0.57, Sodium Level 143, Potassium Level 3.7, Chloride Level 112H, Carbon Dioxide Level 24, Calcium Level 6.7L, Aspartate Amino Transf (AST/SGOT) 64H, Alanine Aminotransferase (ALT/SGPT) 76, Alkaline Phosphatase 60, Total Bilirubin 0.4, Total Protein 7.6, Albumin 2.8L, Albumin/Globulin Ratio 0.58L 05/24/17 11:48: Bedside Glucose (Misc Panel) 95 05/25/17 05:21: White Blood Count 3.0L, Red Blood Count 3.20L, Hemoglobin 9.6L, Hematocrit 28.6L , Mean Corpuscular Volume 89.5, Mean Corpuscular Hemoglobin 30.0, Mean Corpuscular Hemoglobin Concent 33.5, Red Cell Distribution Width 16.3H, Platelet Count 86L, Neutrophils (%) (Auto) 74.4H, Lymphocytes (%) (Auto) 11.0L, Monocytes (%) (Auto) 8.4H, Eosinophils (%) (Auto) 2.4, Basophils (%) (Auto) 0.3 , Neutrophils # (Auto) 2.2, Lymphocytes # (Auto) 0.3L, Monocytes # (Auto) 0.3, Eosinophils # (Auto) 0.1, Basophils # (Auto) 0.0, Large Unclassified Cells % 3.5 , Large Unclassified Cells # 0.1, Anion Gap 7L, Glomerular Filtration Rate > 60.0, Blood Urea Nitrogen 22H, Creatinine 0.52L, Sodium Level 144, Potassium Level 3.9, Chloride Level 112H, Carbon Dioxide Level 25, Calcium Level 7.6L, Aspartate Amino Transf (AST/SGOT) 90H, Alanine Aminotransferase (ALT/SGPT) 108H , Alkaline Phosphatase 87, Total Bilirubin 0.5, Total Protein 8.3H, Albumin 2.7L , Albumin/Globulin Ratio 0.48L CBC/BMP Laboratory Tests 05/24/17 09:29 Red Blood Count 3.29 L, Mean Corpuscular Volume 90.8, Mean Corpuscular Hemoglobin 29.4, Mean Corpuscular Hemoglobin Concent 32.4, Red Cell Distribution Width 16.6 H, Neutrophils (%) (Auto) 83.3 H, Lymphocytes (%) (Auto ) 5.6 L, Monocytes (%) (Auto) 8.3 H, Eosinophils (%) (Auto) 1.7, Basophils (%) ( Auto) 0.2, Neutrophils # (Auto) 3.5, Lymphocytes # (Auto) 0.3 L, Monocytes # ( Auto) 0.4, Eosinophils # (Auto) 0.1, Basophils # (Auto) 0.0, Calcium Level 6.7 L , Aspartate Amino Transf (AST/SGOT) 64 H, Alanine Aminotransferase (ALT/SGPT) 76 , Alkaline Phosphatase 60, Total Bilirubin 0.4, Total Protein 7.6, Albumin 2.8 L 05/25/17 05:21 Red Blood Count 3.20 L, Mean Corpuscular Volume 89.5, Mean Corpuscular Hemoglobin 30.0, Mean Corpuscular Hemoglobin Concent 33.5, Red Cell Distribution Width 16.3 H, Neutrophils (%) (Auto) 74.4 H, Lymphocytes (%) (Auto ) 11.0 L, Monocytes (%) (Auto) 8.4 H, Eosinophils (%) (Auto) 2.4, Basophils (%) (Auto) 0.3, Neutrophils # (Auto) 2.2, Lymphocytes # (Auto) 0.3 L, Monocytes # ( Auto) 0.3, Eosinophils # (Auto) 0.1, Basophils # (Auto) 0.0, Calcium Level 7.6 L , Aspartate Amino Transf (AST/SGOT) 90 H, Alanine Aminotransferase (ALT/SGPT) 108 H, Alkaline Phosphatase 87, Total Bilirubin 0.5, Total Protein 8.3 H, Albumin 2.7 L Attending Note Attending Note I observe significant improvement in speech and 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 She has another day of IV immunoglobulin to infuse. Will request repeat swallow eval for am. Likely D/C. ORALIA SIDHU PA-C May 25, 2017 09:21 Rafat Garcia MD May 25, 2017 13:16
--- NOTE | 2017-05-25 12:09 | CR ---
DATE OF CONSULTATION: 05/24/2017 REFERRING PROVIDER: Dr. Rafat Garcia. REASON FOR CONSULT: Heart failure. HISTORY OF PRESENT ILLNESS: 61-year-old woman with a known history of multiple sclerosis, was brought to the hospital on 05/15/2017 by her because of poor oral intake, altered mental status and difficulty swallowing. He thought she was having a stroke. She was evaluated by neuro and stroke workup was negative as per patient's . There was a concern of diastolic heart failure and cardiology consult was called. When I saw Mrs. Meena Grissom, she was lying supine in bed, sleepy and her was at bedside. There is no complaint of chest pain. There is no orthopnea or PND. There is no report of bleeding. She did not provide any complaints. There is no nausea, vomiting, diarrhea, melena or hematemesis according to the and the nursing staff. She has a past medical history positive for as mentioned above for multiple sclerosis and also she has a history of hypertension, arthritis, hypothyroidism, gastroesophageal reflux disease (GERD). There is no prior history of obstructive coronary disease, myocardial infarction, significant valvular heart disease, atrial fibrillation, cerebrovascular accident (CVA), diabetes mellitus, or sudden cardiac . Her labs on admission revealed acute kidney injury. MEDICATIONS: - levothyroxine 50 mcg by mouth daily - lorazepam 0.5 mg every 8 hours as needed for anxiety - amlodipine 5 mg by mouth daily - omeprazole 40 mg by mouth daily - Tylenol 650 mg every 4 hours as needed for fever - amantadine 100 mg by mouth twice daily via percutaneous endoscopic gastrostomy (PEG) - Senokot - human globulin - pyridostigmine 2 mg IM every 6 hours - labetalol 10 mg every 2 hours as needed IV for tachycardia - ondansetron 4 mg IV FAMILY HISTORY: Noncontributory. PAST SURGICAL HISTORY: Positive for: Cholecystectomy. Right shoulder repair. Right hip repair in this hospitalization. She had a PEG placement by Dr. Hill Rayo. SOCIAL HISTORY: Patient lives with her . There is no smoking. She has allergies to VALPROIC ACID. PHYSICAL EXAMINATION: Patient was in no acute distress and her blood pressure when I saw her was 150/80 with a pulse of 70, respiration 18 and her maximum temperature was 99.5 degrees Fahrenheit with oxygen saturation of 99-100% on room air. Examination of the head: Atraumatic. Neck is supple, no jugular venous distention (JVD) appreciated while supine in bed. The lungs reveal no wheezing or crackles. Heart examination reveals normal S1 and S2 without gallops. The PMI is not displaced. There is no rub. Abdomen is unremarkable. Extremities reveal no pedal edema. Neurological examination was limited. LABS: CBC revealed a WBC of 4.2, hemoglobin 9.7, hematocrit 29.8 and platelet 84,000. BMP revealed a sodium of 143, potassium 3.7, chloride 112, CO2 24, BUN 23, creatinine 0.57, glomerular filtration rate more than 60. Fasting glucose 95. Calcium 6.7. Albumin was 0.4 with an AST of 64, ALT 76, alkaline phosphatase 60, troponin 7.2 , albumin 2.8. IMPRESSION: 61-year-old woman with above medical history and not mentioned above, patient also has a history of diastolic heart failure. She appears to be stable from a cardiac point of view and well compensated on current meds and I will continue the same for now. The amlodipine can be increased if needed to better control her blood pressure and if she does have a history of tachycardia, she can be started on oral beta cami with metoprolol tartrate. She probably had an echocardiogram done in the past, it will be reviewed. Thank you for allowing me to participate in the care of Mrs. Meena Grissom for her underlying cardiac condition. Once again, she appears to be stable and she will be monitored. I will continue current regimen. No further workup at this present time. I will monitor her blood pressure along with you. This was discussed with the . Please do not hesitate to call if any questions. JOSE
[2017-05-25] MEDS: IMMUNE GLOBULIN 10% 20GM 200ML 20 GM in APPROPRIATE DILUENT 1 EA IV SCH (21:51)
[2017-05-26] VITALS (15 sets, daily range): BP systolic 138–172; BP diastolic 60–84
[2017-05-26] MEDS: PYRIDOSTIGMINE INJ 10 MG/2 ML AMP IM SCH ×2 (01:03→05:32)
[2017-05-26] MEDS: IMMUNE GLOBULIN 10% 10GM 100ML 10 GM in APPROPRIATE DILUENT 1 EA IV SCH (01:23)
[2017-05-26] MEDS: IMMUNE GLOBULIN 10% 5GM 5 GM in APPROPRIATE DILUENT 1 EA IV SCH (03:37)
[2017-05-26] MEDS: LEVOTHYROXINE 50MCG TABLET (0.05MG) PEG SCH (05:31)
[2017-05-26] MEDS: SODIUM CHLORIDE 0.9% INJ 10 ML SYR IV SCH ×2 (05:31→18:33)
[2017-05-26 07:33] LABS: BASO % 0.3 % (0.0-1.0); EOS # 0.1 K/mm3 (0.0-0.50); EOS % 3.1 % (0.0-3.0); LARGE UNSTAINED CELL # 0.1 K/mm3 (0.0-0.4); LARGE UNSTAINED CELL % 2.6 % (0.0-4.0); LYMPH # 0.3 K/mm3 (1.5-4.5); LYMPH % 9.8 % (24.0-44.0); MEAN CORPUSCULAR HEMOGLOBIN 30.3 pg (27.0-33.0); MEAN CORPUSCULAR HGB CONC 33.6 g/dl (32.0-36.5); MEAN CORPUSCULAR VOLUME 90.1 fl (80.0-96.0); MONO # 0.3 K/mm3 (0.0-0.8); MONO % 10.4 % (0.0-5.0); NEUTROPHILS # 1.9 K/mm3 (1.8-7.7); NEUTROPHILS % 73.9 % (36.0-66.0); PLATELET COUNT, AUTOMATED 103 k/mm3 (150-450); RED CELL DISTRIBUTION WIDTH 16.3 % (11.5-14.5); WHITE BLOOD COUNT 2.6 K/mm3 (4.0-10.0)
[2017-05-26 07:57] LABS: ALBUMIN 2.6 GM/DL (3.2-5.2); ALBUMIN/GLOBULIN RATIO 0.41 (1.00-1.93); ALKALINE PHOSPHATASE 75 U/L (45-117); ALT/SGPT 78 U/L (12-78); ANION GAP 5 MEQ/L (8-16); AST/SGOT 45 U/L (15-37); BILIRUBIN,TOTAL 0.4 MG/DL (0.2-1.0); BLOOD UREA NITROGEN 17 MG/DL (7-18); CALCIUM LEVEL 8.4 MG/DL (8.8-10.2); CARBON DIOXIDE LEVEL 28 MEQ/L (21-32); CHLORIDE LEVEL 109 MEQ/L (98-107); CREATININE FOR GFR 0.56 MG/DL (0.55-1.02); GLOMERULAR FILTRATION RATE > 60.0 (>45); GLUCOSE, FASTING 116 MG/DL (80-110); POTASSIUM SERUM 4.1 MEQ/L (3.5-5.1); SODIUM LEVEL 142 MEQ/L (136-145)
[2017-05-26] MEDS: OMEPRAZOLE 20 MG CAP XX SCH (08:54)
[2017-05-26] MEDS: AMANTADINE 100 MG CAP PEG SCH (08:54)
[2017-05-26] MEDS: amLODIPine 5 MG TAB PEG SCH (08:55)
--- NOTE | 2017-05-26 09:52 | IPNPDOC ---
Subjective Date Seen The patient was seen on 05/26/17. Subjective Chief Complaint/HPI The patient is a 61-year-old female admitted with a reason for visit of Acute Kidney Injury, Altered Mental Status. Events since last encounter Pt cont to feel better. Her speech and her strength cont to improve. She is eager and anxious to go home. She has not had any teaching on PEG mgmt at this point. General: Denies: Fatigue Constitutional: Denies: Chills, Fever ENT: Denies: Head Aches Skin: Denies: Rash Pulmonary: Denies: Dyspnea, Cough Cardiovascular: Denies: Chest Pain, Palpitations Gastrointestinal: Denies: Nausea, Vomiting, Diarrhea Genitourinary: Denies: Dysuria Neurological: Reports: Weakness Psych: Reports: Mood Normal Objective Physical Examination General Exam: Positive: Alert, No Acute Distress, Negative: Cooperative ENT Exam: Positive: Other ENT (speech, clear, slow, able to elevate palate, chito protrusion with command normal. facial and eye movement appear normal) Neck Exam: Positive: Supple, Negative: JVD, thyromegaly Chest Exam: Positive: Clear to auscultation, Diminished Heart Exam: Positive: Rate Normal, Regular Rhythm, Normal S1, Normal S2, Negative: Murmurs, Rubs Abdomen Exam: Positive: Normal bowel sounds, Soft, Negative: Tenderness, Hepatospenomegaly Extremity Exam: Negative: Edema Neuro Exam: Positive: Normal Speech (speech vastly improved. easily understood. 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 facies symmetrical and activates normally with command. reflexes diminished. minimal, slow speech but able to communicate effectively with me), Negative: Normal Gait, Strength at 5/5 X4 ext, Normal Tone, Sensation Intact , Cranial Nerves 3-12 NL, Reflexes 2+ Assessment /Plan Problems (1) Dysphagia Status: Acute Response to Treatment: Improving Problem Text: 05/26 - Will transition today from cont TF to bolus with monitoring of residuals, maintain free water level as is, this transition maintains the same amount of feedings. Teaching of tube mgmt also should begin today, I spoke with nursing about this. 05/26/17: passed swallowing eval so able to change to mech soft diet with thin liquids ok. will STOP tube feeding. still needs instruction on tube feeding until able to take out the PEG 05/25 - tolerating TF with at this time, pt reassured that once she was doing well and tolerating foods, she would have education on use and care of her PEG as well as feeding instructions. Her is at bedside. 05/24 - Upper endoscopy with Dr Rayo who noted: "Normal esophagus. No endoscopic esophageal abnormality to explain patient's dysphagia. Normal stomach. An endoscopically removable PEG placement was successfully completed. Normal examined duodenum." Dr Rayo recommends to follow the post-PEG recommendations including: Nutrition consult for formula and volume, advance food and medications. May Use PEG now/today for meds with 50 cc H2O flushes and may start feeds 05/24 am. 05/23/17; still difficult swallowing. she may need trach, but so far seems to be able to protect her airway. brainstem/thalamic CVA despite normal MRI vs LEMS vs MS flare Contingency: PEG if no improvement c IVIG (patient and HCP both agree c PEG), tx to [facility] for diagnostic NCS/EMG, spinal tap for viral encephalitis/ OCB continue NPO on TPN-Clinimix E 01/16 75/H c 20% FE QD and 1/2 NS 50/H 05/21 -given intolerable sialorrhea and inability to adequately suction (per nursing no sleep in 3D given agitation), stopped pyrido and + scopolamine patch (c improved marked improved sialorrhea) -changed SM to IVIG 1 mg/kg/QD x 5D given possible LEMS (unable to given either guanidine nor 3,4-DAP given both are only available as po agents) -checked CT neck/chest/pelvis and MRI abd for occult tumor (highest a/w SCLC and patient c ~5 pack year caity use-1/2 PPD 16-28Y) (case d/w Dr. Varela). 05/20 SM 1000 IV x 5D started for ? atypical MS flare, increased pyrido to 2 q6H , + 1/2 NS at 50H given Na 146//Given completely normal EGD, Dr. Rayo recommended PEG 05/19 PICC line placed/started TPN (s/p 4D NPO and clinically malnourished) 05/18 Neuro trial of pyrido 1.5 IM q6H for ? MG s improvement, check [facility]agas Ab 05/17 check MRI brain s/c to r/o CVA, MS flare (although no weakness/parasthesiae /visual changes) 05/21 completely normal EGD-Reindl 05/16 unable to perform MBS given pooling of all consistencies in mouth but, 05/13/17 MBS: No evidence of tracheal aspiration or laryngeal penetration. Ineffective and dis coordinated oral pharyngeal swallowing mechanics. 05/13/[address] oGoden ENT 05/17 MRI brain: . Chronic small vessel white matter ischemic changes of aging of old ischemia in the periventricular white matter in both hemispheres. 2. No intracranial hemorrhage, any definite acute vascular territory infarct, mass, mass effect or edema. 3. The cerebellum shows minimal or no atrophy and the brain stem grossly intact. 4. Complete opacification of the left maxillary sinus noted. The other sinuses grossly clear. 05/15 CT head Age related atrophy and microvascular ischemic changes. No acute intracranial hemorrhage, infarction, or mass/mass effect. 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 pancreatic cystic neoplasm has been stable by qY EUS at 3.5 mm (last 11/2016) 05/2017 repeat MRI A s/c (? possible a/w LEMS/dysphagia) 05/2017 CA19-9 pending 11/2016 CA 19-9 48 (3) Altered mental status Status: Acute Response to Treatment: Improving Problem Text: 05/25 - her MS has improved, will d/c daytime sitter, cont with night sitter for now. favor TME c baseline mild dementia/MS and sleep deprivation (4) Hypothyroidism Status: Chronic Response to Treatment: Stable Problem Text: baseline LT4 75 05/17 started LT4 25 IV 05/15 TSH 0.6 c FTI 6.7; therefore, OK to hold po (5) Diastolic heart failure Status: Chronic Response to Treatment: Stable Problem Text: 05/25 - placed by Dr Garcia, no records in the chart yet. 05/24: cardiology consult requested by (Dr. Pickett) Monitor I/O. Appears well compensated. (6) HTN (hypertension) Status: Chronic Problem Text: Adequate control given probable post CVA off medications Continue labetalol 10 mg IV q2H prn SBP >160 (7) Multiple sclerosis Status: Chronic Response to Treatment: Stable, Improving Problem Text: Tecfidera/amantidine on hold (8) Physical deconditioning Status: Acute Response to Treatment: Improving Problem Text: 05/20 PT consulted (9) HOMER (generalized anxiety disorder) Status: Acute Problem Text: 2 insomnia, sialorrhea 05/21 started lorazepam 0.25 IM q6H prn (10) Malnutrition Status: Acute Problem Text: as per dysphagia (11) Hypernatremia Status: Acute Response to Treatment: Improving, Worse Problem Specific Plan: Repeat Labs Problem Text: 05/23: sodium improved to 145 today. will provide D5W IV at 50/hour to provide additional free water. (12) Thrombocytopenia Status: Acute Response to Treatment: Stable, Worse Problem Specific Plan: Repeat Labs Problem Text: 05/26 - Plts cont to improve. 05/25 suspect heparin induced antibody. heparin held, monitor.. Teds/Sequentials ordered. Plan/VTE VTE Prophylaxis Ordered?: Yes (heparin) VTE Exclusion Pharmacological: Thrombocytopenia (On mechanical prophylaxis since yesterday due to development of thrombocytopenia.) Plan Anticipated Discharge: Home With Services (likely discharge if passes PT) VS, I&O, 24H, Fishbone Vital Signs/I&O Vital Signs Date Time Temp Pulse Resp B/P (MAP) Pulse Ox O2 Delivery O2 Flow Rate FiO2 05/26/17 08:55 72 142/76 05/26/17 08:00 98.2 18 96 Room Air 05/23/17 21:20 1.0 Laboratory Data 24H LABS Laboratory Tests 2 05/25/17 12:07: Bedside Glucose (Misc Panel) 120H 05/25/17 18:03: Bedside Glucose (Misc Panel) 109 05/26/17 07:12: White Blood Count 2.6L, Red Blood Count 3.21L, Hemoglobin 9.7L, Hematocrit 29.0L , Mean Corpuscular Volume 90.1, Mean Corpuscular Hemoglobin 30.3, Mean Corpuscular Hemoglobin Concent 33.6, Red Cell Distribution Width 16.3H, Platelet Count 103L, Neutrophils (%) (Auto) 73.9H, Lymphocytes (%) (Auto) 9.8L, Monocytes (%) (Auto) 10.4H, Eosinophils (%) (Auto) 3.1H, Basophils (%) (Auto) 0.3, Neutrophils # (Auto) 1.9, Lymphocytes # (Auto) 0.3L, Monocytes # (Auto) 0.3 , Eosinophils # (Auto) 0.1, Basophils # (Auto) 0.0, Large Unclassified Cells % 2.6, Large Unclassified Cells # 0.1, Anion Gap 5L, Glomerular Filtration Rate > 60.0, Blood Urea Nitrogen 17, Creatinine 0.56, Sodium Level 142, Potassium Level 4.1, Chloride Level 109H, Carbon Dioxide Level 28, Calcium Level 8.4L, Aspartate Amino Transf (AST/SGOT) 45H, Alanine Aminotransferase (ALT/SGPT) 78, Alkaline Phosphatase 75, Total Bilirubin 0.4, Total Protein 9.0H, Albumin 2.6L, Albumin/Globulin Ratio 0.41L CBC/BMP Laboratory Tests 05/26/17 07:12 Red Blood Count 3.21 L, Mean Corpuscular Volume 90.1, Mean Corpuscular Hemoglobin 30.3, Mean Corpuscular Hemoglobin Concent 33.6, Red Cell Distribution Width 16.3 H, Neutrophils (%) (Auto) 73.9 H, Lymphocytes (%) (Auto ) 9.8 L, Monocytes (%) (Auto) 10.4 H, Eosinophils (%) (Auto) 3.1 H, Basophils (% ) (Auto) 0.3, Neutrophils # (Auto) 1.9, Lymphocytes # (Auto) 0.3 L, Monocytes # (Auto) 0.3, Eosinophils # (Auto) 0.1, Basophils # (Auto) 0.0, Calcium Level 8.4 L, Aspartate Amino Transf (AST/SGOT) 45 H, Alanine Aminotransferase (ALT/SGPT) 78, Alkaline Phosphatase 75, Total Bilirubin 0.4, Total Protein 9.0 H, Albumin 2.6 L ORALIA SIDHU PA-C May 26, 2017 09:52 Rafat Garcia MD May 26, 2017 12:14
[2017-05-26] MEDS ORDERED: SENNA 8.6 MG TAB (SENOKOT) PO PRN (12:45)
[2017-05-26] MEDS ORDERED: LORazepam 0.5 MG TAB PO PRN (12:45)
[2017-05-26] MEDS: AMANTADINE 100 MG CAP PO SCH (20:15)
[2017-05-27 02:00] VITALS: BP 150/80
[2017-05-27] MEDS: SODIUM CHLORIDE 0.9% INJ 10 ML SYR IV SCH (05:45)
[2017-05-27 06:00] VITALS: BP 148/80
[2017-05-27] MEDS ORDERED: LEVOTHYROXINE 50MCG TABLET (0.05MG) PO SCH (06:00)
[2017-05-27 06:22] LABS: BASO % 0.6 % (0.0-1.0); EOS # 0.1 K/mm3 (0.0-0.50); EOS % 2.2 % (0.0-3.0); LARGE UNSTAINED CELL # 0.1 K/mm3 (0.0-0.4); LARGE UNSTAINED CELL % 3.4 % (0.0-4.0); LYMPH # 0.4 K/mm3 (1.5-4.5); LYMPH % 15.1 % (24.0-44.0); MEAN CORPUSCULAR HEMOGLOBIN 29.7 pg (27.0-33.0); MEAN CORPUSCULAR HGB CONC 33.2 g/dl (32.0-36.5); MEAN CORPUSCULAR VOLUME 89.6 fl (80.0-96.0); MONO # 0.3 K/mm3 (0.0-0.8); MONO % 12.1 % (0.0-5.0); NEUTROPHILS # 1.8 K/mm3 (1.8-7.7); NEUTROPHILS % 66.4 % (36.0-66.0); PLATELET COUNT, AUTOMATED 135 k/mm3 (150-450); WHITE BLOOD COUNT 2.7 K/mm3 (4.0-10.0)
[2017-05-27 06:48] LABS: ALBUMIN 2.8 GM/DL (3.2-5.2); ALBUMIN/GLOBULIN RATIO 0.44 (1.00-1.93); ALKALINE PHOSPHATASE 69 U/L (45-117); ALT/SGPT 63 U/L (12-78); ANION GAP 6 MEQ/L (8-16); AST/SGOT 30 U/L (15-37); BILIRUBIN,TOTAL 0.6 MG/DL (0.2-1.0); BLOOD UREA NITROGEN 22 MG/DL (7-18); CALCIUM LEVEL 8.4 MG/DL (8.8-10.2); CARBON DIOXIDE LEVEL 27 MEQ/L (21-32); CHLORIDE LEVEL 109 MEQ/L (98-107); CREATININE FOR GFR 0.63 MG/DL (0.55-1.02); GLOMERULAR FILTRATION RATE > 60.0 (>45); GLUCOSE, FASTING 72 MG/DL (80-110); POTASSIUM SERUM 3.9 MEQ/L (3.5-5.1); SODIUM LEVEL 142 MEQ/L (136-145); TOTAL PROTEIN 9.1 GM/DL (6.4-8.2)
[2017-05-27] MEDS: AMANTADINE 100 MG CAP PO SCH (08:59)
[2017-05-27 09:00] VITALS: BP 150/82
[2017-05-27] MEDS ORDERED: OMEPRAZOLE 20 MG CAP PO SCH (09:00)
[2017-05-27] MEDS ORDERED: amLODIPine 5 MG TAB PO SCH (09:00)
[2017-05-27] MEDS ORDERED: LEVO50TA5 PO (11:02)
[2017-05-27] MEDS ORDERED: AMLO5TAB2 PO (11:02)
--- NOTE | 2017-05-27 17:05 | DSES ---
DATE OF ADMISSION: DATE OF DISCHARGE: 05/27/2017 PRIMARY CARE PROVIDER: Gail Maher. ATTENDING PHYSICIAN: Nakita Mallory MD. PRINCIPAL DIAGNOSES: 1. 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 Multiple sclerosis. 3. Cystic malignant neoplasm of exocrine pancreas. 4. Hypothyroidism. 5. Diastolic congestive heart failure. 6. Hypertension. 7. Physical deconditioning. 8. Hypernatremia. 9. Leukopenia. 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 Consultants: 1. Neurology - Dr. Varela 2. Gastroenterology - Dr. Rayo 3. Cardiology - Dr. Treviño HISTORY OF PRESENT ILLNESS: This is a 61-year-old woman with a history of multiple sclerosis and known malignant neoplasm of exocrine pancreas, who presented with confusion and 3-4 days of difficulty swallowing both solids and liquids. Prior to admission, she was seen by Dr. Gooden of ears, nose and throat (ENT) and had a laryngoscope done on 05/13/2017, that was normal. HOSPITAL COURSE: The patient was admitted and underwent extensive workup for her dysphasia. A head CT and MRI were unremarkable for a cause of her dysphasia, and esophagogastroduodenoscopy (EGD) done on 05/20 was completely normal. Neurology was consulted. Multiple medications were tried, including pyridostigmine, Solu-Medrol and scopolamine, and these did not improve her symptoms. Therefore, she was started on total parenteral nutrition (TPN) and had a percutaneous endoscopic gastrostomy (PEG) tube placed on 05/24. In the meantime, she was started on IVIG on 05/22, and this was continued for four days. On the day after PEG tube placement, she had significant improvement in her mental function and ability to swallow, and a repeat swallow evaluation on 05/26 found she was able to take a mechanical soft diet and thin liquids. PEG tube will need to remain in place for several weeks, and if swallowing remains intact, can be removed as an outpatient. Of note, her Tecfidera was discontinued by neurology due to leukopenia. She was also found to have heparin-induced thrombocytopenia with a positive heparin-induced antibody, and her platelets improved after heparin was discontinued. DISCHARGE PLANS: 1. Discharge medications - amlodipine 5 mg by mouth daily - levothyroxine 50 mcg by mouth daily - amantadine 100 mg by mouth twice daily - baclofen 10 mg three times daily as needed for muscle spasms - calcium carbonate 500 mg take three tablets every six hours as needed for heartburn and indigestion - calcium with vitamin D one tablet by mouth daily - vitamin B12 500 mcg by mouth daily - naproxen 220 mg by mouth twice daily as needed for headache - nortriptyline 50 mg by mouth at bedtime - omeprazole 40 mg by mouth daily - primidone 50 mg by mouth twice daily - senna 8.6 mg one tablet by mouth as needed for constipation - topiramate 100 mg by mouth twice a day - Tylenol 325 mg by mouth every four hours as needed for headache Medications stopped this admission include: -Tecfidera 120 mg take two tablets by mouth twice daily - levothyroxine 75 mcg by mouth daily 2. Followup with primary care provider, Gail Maher within one week, and with Dr. Rayo in two weeks to assess PEG. Followup with neurology as scheduled. CONDITION ON DISCHARGE: Stable. PROGNOSIS: Fair. Pending. STUDIES: Voltage-gated calcium channel antibodies. DIET: Mechanical soft diet with thin liquids. ACTIVITY: As tolerated. HOSPITAL COURSE: This is a 61-year-old woman with: 1. 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 Trials of multiple medications were initially unhelpful, and these included pyridostigmine, steroids, and a scopolamine patch. The patient was given TPN initially due to deconditioning and malnutrition. She was found to have a good response to IVIG which she received for four days. However, prior to her improvement, she had a PEG tube placed on 05/24. She subsequently passed her swallow evaluation on and was able to take a mechanical soft and thin liquid diet. PEG tube will need to remain in place for 2-4 weeks to allow for healing prior to being removed, assuming that she is able to continue swallowing normally. Lambert-Eaton myasthenic syndrome is thought to potentially be secondary to her pancreas neoplasm. However, as LEMS is more commonly seen with small-cell lung cancer, further workup was undertaken with CT of the chest, abdomen, and pelvis, which did not show evidence of any new cancer. Ultimately, we will need to followup results of the voltage-gated calcium channel antibody study that was ordered and is currently pending, as this will confirm the diagnosis of Lambert-Eaton myasthenic syndrome. 2. Multiple sclerosis: Neurology did follow the patient during her hospitalization. Her amantadine and Tecfidera were initially discontinued and then amantadine was restarted prior to discharge. Tecfidera was discontinued by neurology due to her leukopenia. The patient will plan to call her neurologist's office Monday morning to determine if they would like to restart this. 3. Cystic malignancy neoplasm of the exocrine pancreas: The patient had magnetic resonance cholangiopancreatography (MRCP) in December that was negative and so far, routine following up of this has shown this to be stable. 4. Hypothyroidism: The patient was found to have an elevated free T4, and so levothyroxine dose was decreased from 75 mcg daily to 50 mcg daily. 5. Diastolic congestive heart failure (CHF): The patient was euvolemic and showed no signs of fluid overload during her stay. Family requested cardiology consult, and cardiology had nothing new to add for her care. 6. Hypertension: The patient was found to be hypertensive during this admission and was started on amlodipine 5 mg daily. 7. Physical deconditioning: Probably due to problem number one above. She was cleared by physical therapy as being safe for discharge on day of discharge. 8. Hypernatremia: Initially noted, probably iatrogenic, and this resolved prior to discharge. 9. Leukopenia: This was likely due to Tecfidera which was discontinued as above. 10. Heparin-induced thrombocytopenia: The patient was found to be thrombocytopenic on 05/22, and heparin-induced antibody was found to be elevated. Heparin was discontinued, and platelets increased daily thereafter. MTDD
[2017-06-02 00:08] LABS: VGCC ANTIBODY Negative (Negative)
== END 2017-05-27 12:49 | disposition home or self-care (01) | DRG 281 ==
LOC: M ED 18:24 → M ED INP 22:01 → OBSVTOIN 22:01 → M PCU 23:13 → M MSPAV 05-26 15:00
PROVIDERS: ADMIT Internal Medicine; ATTEND Family Medicine
PROC: 02HV33Z Insertion of Infusion Device into Superior Vena Cava, Percutaneous Approach (ICD-10-PCS; 2017-05-19)
PROC: 0DJ08ZZ Inspection of Upper Intestinal Tract, Via Natural or Artificial Opening Endoscopic (ICD-10-PCS; principal; 2017-05-20 15:07)
PROC: 0DH64UZ Insertion of Feeding Device into Stomach, Percutaneous Endoscopic Approach (ICD-10-PCS; 2017-05-23)
DX: C25.9 Malignant neoplasm of pancreas, unspecified (principal); G93.41 Metabolic encephalopathy; N17.9 Acute kidney failure, unspecified; E87.0 Hyperosmolality and hypernatremia; R13.10 Dysphagia, unspecified; I11.0 Hypertensive heart disease with heart failure; E46 Unspecified protein-calorie malnutrition; I50.32 Chronic diastolic (congestive) heart failure; G73.1 Lambert-Eaton syndrome in neoplastic disease; I48.91 Unspecified atrial fibrillation; G35 Multiple sclerosis; D75.82 Heparin induced thrombocytopenia (HIT); E55.9 Vitamin D deficiency, unspecified; E83.52 Hypercalcemia; E83.42 Hypomagnesemia; E03.9 Hypothyroidism, unspecified; K21.9 Gastro-esophageal reflux disease without esophagitis; G43.909 Migraine, unspecified, not intractable, without status migrainosus; Z79.899 Other long term (current) drug therapy; Z88.8 Allergy status to other drugs, medicaments and biological substances; E78.5 Hyperlipidemia, unspecified; E87.6 Hypokalemia; F41.1 Generalized anxiety disorder; I25.2 Old myocardial infarction; M19.90 Unspecified osteoarthritis, unspecified site; E11.9 Type 2 diabetes mellitus without complications

== ENCOUNTER → 2017-05-31 | Outpatient (REF) | payer OTHER ==
[~2017-05-31] MED LIST changes: +ALEV220T26 PO; +AMLO5TAB2 PO; +CALCTAB74 PO; +LEVO50TA5 PO; +MYSO50TA5 PO; +NORT50CA PO; +PATIENT COMMENT; +SENN1TAB10 PO; +SYNT75TA PO; +TOPI100T9 PO; +TUMS500C PO; +TYLE325C PO; +VITA500T53 PO
[2017-05-31 16:05] LABS: MEAN CORPUSCULAR HEMOGLOBIN 28.9 pg (27.0-33.0); MEAN CORPUSCULAR HGB CONC 32.1 g/dl (32.0-36.5); MEAN CORPUSCULAR VOLUME 90.1 fl (80.0-96.0); PLATELET COUNT, AUTOMATED 242 10^3/uL (150-450); RED CELL DISTRIBUTION WIDTH 16.6 % (11.5-14.5); WHITE BLOOD COUNT 7.3 10^3/uL (4.0-10.0)
[2017-05-31 16:07] LABS: ADD MANUAL DIFFER YES; DIFF SLIDE NUMBER 229
[2017-05-31 16:14] LABS: ALBUMIN 3.7 GM/DL (3.2-5.2); ALBUMIN/GLOBULIN RATIO 0.59 (1.00-1.93); BILIRUBIN,TOTAL 0.5 MG/DL (0.2-1.0); CALCIUM LEVEL 10.1 MG/DL (8.8-10.2); CREATININE FOR GFR 1.4 MG/DL (0.55-1.02); FREE T4 0.93 NG/DL (0.76-1.46); GLOMERULAR FILTRATION RATE 40.7 (>45); POTASSIUM SERUM 4.4 MEQ/L (3.5-5.1)
[2017-06-01 09:14] LABS: ANISOCYTOSIS 1+
== END ==
LOC: M SFHCPLAZ 12:18
PROVIDERS: ATTEND Nurse Practitioner Family
DX: E03.9 Hypothyroidism, unspecified (principal); D61.818 Other pancytopenia; R63.0 Anorexia

== ENCOUNTER → 2017-06-28 | Outpatient (REF) | payer OTHER ==
[2017-06-28 19:22] LABS: FREE T4 0.96 NG/DL (0.76-1.46)
== END ==
LOC: M SFHCPLAZ 14:49
PROVIDERS: ATTEND Nurse Practitioner Family
DX: E03.9 Hypothyroidism, unspecified (principal)

== ENCOUNTER 2017-07-25 12:52 | Emergency (ER) | payer OTHER ==
[~2017-07-25] VITALS: Ht 142.2 cm; Wt 43.2 kg
[2017-07-25] MEDS ORDERED: NORCO, ANEXSIA 5/325MG TABLET (HYDROcodone/ACETAMINOPHEN) PO ONE (14:45)
[2017-07-25] MEDS ORDERED: MAALOX 30 ML SUSP *UDC PO ONE (17:30)
--- NOTE | 2017-07-25 18:22 | REP ---
CT chest without contrast: History: Further examination rib fracture and possible small pneumothorax. Comparison radiographs earlier this date. Comparison chest CT study May 21, 2017. CT findings: Today's CT study confirms the presence of a small right-sided pneumothorax. No significant hemothorax is seen. No pulmonary hematoma or laceration is appreciated. The left lung is clear as well. No mediastinal hematoma is seen. Right-sided rib fractures are again noted involving rib numbers 6, 7, 8, and 9. No other rib fracture is seen. There is a small quantity of extrathoracic air along the right lower lateral chest wall adjacent to the fractured ribs. There are clips in the gallbladder fossa. Visualized upper abdominal structures are otherwise unremarkable. Impression: CT study confirms the presence of a small right-sided pneumothorax. Right 6th through 9th rib fractures. No other acute abnormality. Signed by Kulwant Swann MD 07/25/2017 07:47 P
[2017-07-25] MEDS ORDERED: PERCOCET 5MG/325MG TAB PO ONE (18:45)
--- NOTE | 2017-07-25 20:50 | REPUSA ---
Clinical history: Chest pain. Rule out pneumothorax. Comparison: None. Findings: Frontal and lateral views of the chest were obtained. The mediastinum and cardiac silhouett e are within normal limits. The lungs are clear. No pleural effusion or pneumothorax is seen. The oss eous structures and soft tissues are unremarkable. Impression: No acute disease. No evidence of pneumothorax.
[2017-07-25] MEDS ORDERED: OXYCODONE/APAP 5MG/325MG(BULK FOR ED) 1 TABLET PO ONE (21:45)
[2017-07-25] MEDS ORDERED: PERC5TAB12 PO (21:47)
[2017-07-25 22:13] VITALS: BP 176/95
--- NOTE | 2017-07-26 07:38 | REP ---
Clinical: Trauma. Right rib injury. Technique: Frontal view of the chest with multiple views of the right hemithorax. Findings: Nondisplaced right lateral 6-9th rib fractures are identified. Frontal view of the chest cannot exclude a small right apical pneumothorax. No consolidation or effusion. Mediastinum and cardiac silhouette are normal. Impression: Right lateral 6 - 9th nondisplaced rib fractures and possible small right apical pneumothorax. Signed by Mack Luo MD 07/25/2017 03:57 P
--- NOTE | 2017-07-26 07:40 | REP ---
Clinical: Trauma. Technique: Internal rotation, external rotation, and Y view of the right shoulder. Findings: Right shoulder replacement. Arthritic degenerative changes to the residual left shoulder with bulky ossified loose body along the inferior margin of the glenohumeral joint. The acromioclavicular joint appears intact although subacromial space is decreased. No obvious acute fracture or dislocation is identified. Impression: Right shoulder replacement with degenerative changes. No acute fracture dislocation identified Signed by Mack Luo MD 07/25/2017 03:53 P
== END 2017-07-25 22:30 | disposition home or self-care (01) ==
LOC: M ED 12:52
DX: J93.83 Other pneumothorax (principal); S22.41XA Multiple fractures of ribs, right side, initial encounter for closed fracture; W11.XXXA Fall on and from ladder, initial encounter; Y92.098 Other place in other non-institutional residence as the place of occurrence of the external cause; Y93.9 Activity, unspecified; Y99.9 Unspecified external cause status; G35 Multiple sclerosis; E03.9 Hypothyroidism, unspecified; Z87.891 Personal history of nicotine dependence; Z96.611 Presence of right artificial shoulder joint; M19.011 Primary osteoarthritis, right shoulder; Z79.899 Other long term (current) drug therapy; Z88.8 Allergy status to other drugs, medicaments and biological substances; Z88.5 Allergy status to narcotic agent

== ENCOUNTER → 2017-07-31 | Outpatient (CLI) | payer OTHER ==
[~2017-07-31] MED LIST changes: +PERC5TAB12 PO
--- NOTE | 2017-07-31 10:02 | REP ---
Clinical: Flow rib fracture pneumothorax . Comparison: 07/25/2017. Technique: PA and lateral. Findings: Small residual right apical pneumothorax is again identified and improved when compared to 07/25/2017. Right rib fractures remain essentially stable. No focal consolidation or obvious effusion. Left hemithorax appears clear. The mediastinum and cardiac silhouette are normal. Impression: 1. Small residual right apical pneumothorax minimally improved. 2. Stable appearance of the right rib fractures. 3. No further acute process. Signed by Mack Luo MD 07/31/2017 09:54 A
== END ==
LOC: M SMT 09:24
PROVIDERS: ATTEND Thoracic Surgery (Cardiothoracic Vascular Surgery)
DX: S22.41XD Multiple fractures of ribs, right side, subsequent encounter for fracture with routine healing (principal); X58.XXXD Exposure to other specified factors, subsequent encounter; Y92.89 Other specified places as the place of occurrence of the external cause; Y93.89 Activity, other specified; Y99.8 Other external cause status

== ENCOUNTER → 2017-08-21 | Outpatient (CLI) | payer OTHER ==
--- NOTE | 2017-08-21 17:24 | REP ---
Chest x-ray: Two views. History: Multiple rib fractures. Comparison radiographs from 07/31/2017. Findings: Multiple slightly displaced healing rib fractures are again noted along the right lateral chest wall. The right lung remains clear. No pneumothorax or hydrothorax is seen today. There is an ill-defined infiltrate visible today in the left base. This may reflect pneumonia. There are calcifications in the upper abdomen bilaterally consistent with urinary tract calculi. There are clips in the gallbladder fossa. A levoconvex thoracic curvature is seen along with a dextroconvex lumbar curvature. Impression: New infiltrate left base may reflect pneumonia. Healing right-sided rib fractures. No pneumothorax or hydrothorax visible. Signed by Kulwant Swann MD 08/21/2017 09:37 P
== END ==
LOC: M SMT 08:18
PROVIDERS: ATTEND Thoracic Surgery (Cardiothoracic Vascular Surgery)
DX: S22.42XD Multiple fractures of ribs, left side, subsequent encounter for fracture with routine healing (principal)

== ENCOUNTER → 2017-08-21 | Outpatient (REF) | payer OTHER ==
[2017-08-21 14:07] LABS: BASO % 0.4 % (0.0-1.0); IMMATURE GRANULOCYTE % 1.8 % (0-0); LYMPH # 0.5 10^3/uL (1.5-4.5); LYMPH % 16.5 % (24.0-44.0); MEAN CORPUSCULAR HEMOGLOBIN 26.3 pg (27.0-33.0); MEAN CORPUSCULAR HGB CONC 30.4 g/dl (32.0-36.5); MEAN CORPUSCULAR VOLUME 86.6 fl (80.0-96.0); MONO # 0.3 10^3/uL (0.0-0.8); MONO % 10.9 % (0.0-5.0); NEUTROPHILS % 70.4 % (36.0-66.0); RED CELL DISTRIBUTION WIDTH 15.7 % (11.5-14.5); WHITE BLOOD COUNT 2.8 10^3/uL (4.0-10.0)
[2017-08-21 14:33] LABS: PLATELET COUNT, AUTOMATED 99 10^3/uL (150-450)
[2017-08-21 14:35] LABS: IMMATURE PLATELET FRACTION % 8.4 % (0.0-9.6); PLATELET F 8.3
[2017-08-21 15:04] LABS: ALBUMIN 3.8 GM/DL (3.2-5.2); ALBUMIN/GLOBULIN RATIO 1.06 (1.00-1.93); ALKALINE PHOSPHATASE 157 U/L (45-117); ALT/SGPT 26 U/L (12-78); ANION GAP 8 MEQ/L (8-16); AST/SGOT 21 U/L (7-37); BILIRUBIN,TOTAL 0.3 MG/DL (0.2-1.0); BLOOD UREA NITROGEN 26 MG/DL (7-18); CALCIUM LEVEL 8.8 MG/DL (8.8-10.2); CARBON DIOXIDE LEVEL 25 MEQ/L (21-32); CHLORIDE LEVEL 110 MEQ/L (98-107); CREATININE FOR GFR 0.88 MG/DL (0.55-1.02); FREE T4 0.92 NG/DL (0.76-1.46); GLOMERULAR FILTRATION RATE > 60.0 (>45); GLUCOSE, FASTING 60 MG/DL (80-110); POTASSIUM SERUM 4.2 MEQ/L (3.5-5.1); SODIUM LEVEL 143 MEQ/L (136-145); TOTAL PROTEIN 7.4 GM/DL (6.4-8.2)
== END ==
LOC: M SFHCPLAZ 10:41
PROVIDERS: ATTEND Nurse Practitioner Family
DX: E03.9 Hypothyroidism, unspecified (principal); Z00.00 Encounter for general adult medical examination without abnormal findings

== ENCOUNTER → 2017-08-31 | Outpatient (REF) | payer OTHER ==
[2017-08-31 15:11] LABS: BASO % 0.6 % (0.0-1.0); IMMATURE GRANULOCYTE # 0.1 10^3/uL (0-0); IMMATURE GRANULOCYTE % 1.1 % (0-0); LYMPH # 0.5 10^3/uL (1.5-4.5); LYMPH % 10.8 % (24.0-44.0); MEAN CORPUSCULAR HGB CONC 30.4 g/dl (32.0-36.5); MEAN CORPUSCULAR VOLUME 85.5 fl (80.0-96.0); MONO # 0.5 10^3/uL (0.0-0.8); MONO % 11.2 % (0.0-5.0); NEUTROPHILS # 3.6 10^3/uL (1.8-7.7); NEUTROPHILS % 76.3 % (36.0-66.0); PLATELET COUNT, AUTOMATED 235 10^3/uL (150-450); RED CELL DISTRIBUTION WIDTH 16.4 % (11.5-14.5); WHITE BLOOD COUNT 4.7 10^3/uL (4.0-10.0)
== END ==
LOC: M SFHCPLAZ 14:14
DX: D61.818 Other pancytopenia (principal); E55.9 Vitamin D deficiency, unspecified

== ENCOUNTER → 2017-11-15 | Outpatient (REF) | payer OTHER ==
[2017-11-15 18:17] LABS: ALBUMIN 4.4 GM/DL (3.2-5.2); ALBUMIN/GLOBULIN RATIO 1.26 (1.00-1.93); ALKALINE PHOSPHATASE 80 U/L (45-117); ALT/SGPT 21 U/L (12-78); ANION GAP 7 MEQ/L (8-16); AST/SGOT 12 U/L (7-37); BILIRUBIN,TOTAL 0.4 MG/DL (0.2-1.0); BLOOD UREA NITROGEN 18 MG/DL (7-18); CALCIUM LEVEL 9.4 MG/DL (8.8-10.2); CARBON DIOXIDE LEVEL 27 MEQ/L (21-32); CHLORIDE LEVEL 108 MEQ/L (98-107); CREATININE FOR GFR 0.91 MG/DL (0.55-1.30); GLOMERULAR FILTRATION RATE > 60.0 (>45); GLUCOSE, FASTING 77 MG/DL (70-100); POTASSIUM SERUM 4.3 MEQ/L (3.5-5.1); RHEUMATOID FACTOR QUANT < 10.0 IU/ML (0-15.0); SODIUM LEVEL 142 MEQ/L (136-145); TOTAL PROTEIN 7.9 GM/DL (6.4-8.2)
[2017-11-15 18:18] LABS: BASO % 0.7 % (0.0-1.0); EOS # 0.1 10^3/uL (0.0-0.50); EOS % 2.7 % (0.0-3.0); HEMATOCRIT 35.9 % (36.0-47.0); HEMOGLOBIN 10.9 g/dl (12.0-16.0); LYMPH % 9.8 % (24.0-44.0); MEAN CORPUSCULAR HEMOGLOBIN 24.3 pg (27.0-33.0); MEAN CORPUSCULAR HGB CONC 30.4 g/dl (32.0-36.5); MEAN CORPUSCULAR VOLUME 80.1 fl (80.0-96.0); MONO # 0.3 10^3/uL (0.0-0.8); MONO % 11.5 % (0.0-5.0); NEUTROPHILS # 2.2 10^3/uL (1.8-7.7); NEUTROPHILS % 74.3 % (36.0-66.0); PLATELET COUNT, AUTOMATED 233 10^3/uL (150-450); RED BLOOD COUNT 4.48 10^6/uL (4.00-5.40); RED CELL DISTRIBUTION WIDTH 16.9 % (11.5-14.5)
[2017-11-15 19:14] LABS: POSITIVE DIFF POS FLAG
[2017-11-15 19:15] LABS: LYMPH # 0.3 10^3/uL (1.5-4.5)
[2017-11-15 19:53] LABS: ERYTHROCYTE SEDIMENTATION RATE 21 mm/hr (0-30)
[2017-11-18 14:14] LABS: ANTINUCLEAR ANTIBODIES DIRECT Negative (Negative)
== END ==
LOC: M LABNEURO 11:43
DX: G35 Multiple sclerosis (principal)

== ENCOUNTER → 2017-11-30 | Outpatient (REF) | payer OTHER ==
[2017-11-30 16:27] LABS: FREE T4 1.22 NG/DL (0.76-1.46)
== END ==
LOC: M SFHCPLAZ 14:08
DX: E03.9 Hypothyroidism, unspecified (principal)

== ENCOUNTER → 2018-02-15 | Outpatient (CLI) | payer OTHER | LOC: M WHC 14:16 | DX: Z12.31 Encounter for screening mammogram for malignant neoplasm of breast (principal); Z78.0 Asymptomatic menopausal state | CPT/HCPCS: 77067 ==

== ENCOUNTER → 2018-02-15 | Outpatient (REF) | payer OTHER | LOC: M SFHCWAGY 16:21 | DX: Z12.4 Encounter for screening for malignant neoplasm of cervix (principal) ==

== ENCOUNTER → 2018-02-20 | Outpatient (CLI) | payer OTHER ==
[2018-02-20 10:28] LABS: BASO % 0.4 % (0.0-1.0); EOS # 0.1 10^3/uL (0.0-0.50); EOS % 2.6 % (0.0-3.0); HEMATOCRIT 32.6 % (36.0-47.0); HEMOGLOBIN 10.1 g/dl (12.0-15.5); IMMATURE GRANULOCYTE % 0.8 % (0-3.0); LYMPH # 0.3 10^3/uL (1.5-4.5); MEAN CORPUSCULAR HEMOGLOBIN 24.9 pg (27.0-33.0); MEAN CORPUSCULAR VOLUME 80.5 fl (80.0-96.0); MONO # 0.3 10^3/uL (0.0-0.8); NEUTROPHILS % 73.3 % (36.0-66.0); PLATELET COUNT, AUTOMATED 173 10^3/uL (150-450); RED BLOOD COUNT 4.05 10^6/uL (4.00-5.40); RED CELL DISTRIBUTION WIDTH 19.2 % (11.5-14.5); WHITE BLOOD COUNT 2.7 10^3/uL (4.0-10.0)
[2018-02-20 11:04] LABS: POSITIVE DIFF POS FLAG
[2018-02-20 11:05] LABS: LYMPH % 10.9 % (24.0-44.0)
[2018-02-20 11:17] LABS: VITAMIN B12 LEVEL 1970 PG/ML
[2018-02-20 11:48] LABS: ALBUMIN 4.2 GM/DL (3.2-5.2); ALBUMIN/GLOBULIN RATIO 1.31 (1.00-1.93); ALKALINE PHOSPHATASE 65 U/L (45-117); ALT/SGPT 20 U/L (12-78); ANION GAP 11 MEQ/L (8-16); AST/SGOT 9 U/L (7-37); BILIRUBIN,TOTAL 0.5 MG/DL (0.2-1.0); BLOOD UREA NITROGEN 20 MG/DL (7-18); CALCIUM LEVEL 9.3 MG/DL (8.8-10.2); CARBON DIOXIDE LEVEL 25 MEQ/L (21-32); CHLORIDE LEVEL 109 MEQ/L (98-107); GLOMERULAR FILTRATION RATE 59.8 (>45); GLUCOSE, FASTING 70 MG/DL (70-100); POTASSIUM SERUM 3.9 MEQ/L (3.5-5.1); SODIUM LEVEL 145 MEQ/L (136-145); TOTAL PROTEIN 7.4 GM/DL (6.4-8.2)
== END ==
LOC: M LAB 09:56
DX: G35 Multiple sclerosis (principal)
CPT/HCPCS: 82746

== ENCOUNTER → 2018-05-22 | Outpatient (REF) | payer OTHER ==
[2018-05-22 15:22] LABS: BASO % 0.9 % (0.0-1.0); EOS # 0.1 10^3/uL (0.0-0.50); EOS % 2.9 % (0.0-3.0); HEMATOCRIT 35.8 % (36.0-47.0); HEMOGLOBIN 10.9 g/dl (12.0-15.5); IMMATURE GRANULOCYTE % 1.2 % (0-3.0); LYMPH # 0.5 10^3/uL (1.5-4.5); LYMPH % 13.5 % (24.0-44.0); MEAN CORPUSCULAR HEMOGLOBIN 24.9 pg (27.0-33.0); MEAN CORPUSCULAR HGB CONC 30.4 g/dl (32.0-36.5); MEAN CORPUSCULAR VOLUME 81.7 fl (80.0-96.0); MONO # 0.4 10^3/uL (0.0-0.8); MONO % 11.1 % (0.0-5.0); NEUTROPHILS # 2.4 10^3/uL (1.8-7.7); NEUTROPHILS % 70.4 % (36.0-66.0); PLATELET COUNT, AUTOMATED 221 10^3/uL (150-450); RED BLOOD COUNT 4.38 10^6/uL (4.00-5.40); RED CELL DISTRIBUTION WIDTH 17.2 % (11.5-14.5); WHITE BLOOD COUNT 3.4 10^3/uL (4.0-10.0)
[2018-05-22 16:08] LABS: ALBUMIN 4.5 GM/DL (3.2-5.2); ALBUMIN/GLOBULIN RATIO 1.32 (1.00-1.93); ALKALINE PHOSPHATASE 56 U/L (45-117); ALT/SGPT 19 U/L (12-78); ANION GAP 9 MEQ/L (8-16); AST/SGOT 9 U/L (7-37); BILIRUBIN,TOTAL 0.6 MG/DL (0.2-1.0); BLOOD UREA NITROGEN 23 MG/DL (7-18); CALCIUM LEVEL 9.7 MG/DL (8.8-10.2); CARBON DIOXIDE LEVEL 26 MEQ/L (21-32); CHLORIDE LEVEL 110 MEQ/L (98-107); CREATININE FOR GFR 1.08 MG/DL (0.55-1.30); GLOMERULAR FILTRATION RATE 54.7 (>45); GLUCOSE, FASTING 70 MG/DL (70-100); POTASSIUM SERUM 4.2 MEQ/L (3.5-5.1); SODIUM LEVEL 145 MEQ/L (136-145); TOTAL PROTEIN 7.9 GM/DL (6.4-8.2)
== END ==
LOC: M LABNEURO 15:03
DX: G35 Multiple sclerosis (principal)

== ENCOUNTER → 2018-06-13 | Outpatient (REF) | payer OTHER | LOC: M SFHCPLAZ 16:12 | DX: E78.5 Hyperlipidemia, unspecified (principal); E03.9 Hypothyroidism, unspecified; E55.9 Vitamin D deficiency, unspecified ==

== ENCOUNTER → 2018-08-21 | Outpatient (REF) | payer OTHER ==
[~2018-08-21] MED LIST changes: -AMLO5TAB2 PO; +AMLO5TAB4 PO
[2018-08-21 15:36] LABS: BASO % 0.8 % (0.0-1.0); EOS # 0.1 10^3/uL (0.0-0.50); EOS % 2.1 % (0.0-3.0); HEMATOCRIT 35.5 % (36.0-47.0); LYMPH # 0.3 10^3/uL (1.5-4.5); LYMPH % 10.3 % (24.0-44.0); MEAN CORPUSCULAR HEMOGLOBIN 25.5 pg (27.0-33.0); MEAN CORPUSCULAR VOLUME 82.2 fl (80.0-96.0); MONO # 0.3 10^3/uL (0.0-0.8); MONO % 11.2 % (0.0-5.0); NEUTROPHILS # 1.8 10^3/uL (1.8-7.7); NEUTROPHILS % 74.4 % (36.0-66.0); PLATELET COUNT, AUTOMATED 173 10^3/uL (150-450); RED BLOOD COUNT 4.32 10^6/uL (4.00-5.40); WHITE BLOOD COUNT 2.4 10^3/uL (4.0-10.0)
[2018-08-21 15:39] LABS: ALBUMIN 4.2 GM/DL (3.2-5.2); ALT/SGPT 21 U/L (12-78); BILIRUBIN,TOTAL 0.6 MG/DL (0.2-1.0); BLOOD UREA NITROGEN 19 MG/DL (7-18); CALCIUM LEVEL 8.9 MG/DL (8.8-10.2); CARBON DIOXIDE LEVEL 25 MEQ/L (21-32); CHLORIDE LEVEL 110 MEQ/L (98-107); CREATININE FOR GFR 0.96 MG/DL (0.55-1.30); GLOMERULAR FILTRATION RATE > 60.0 (>45); GLUCOSE, FASTING 68 MG/DL (70-100); POTASSIUM SERUM 4.2 MEQ/L (3.5-5.1); SODIUM LEVEL 145 MEQ/L (136-145); TOTAL PROTEIN 7.3 GM/DL (6.4-8.2)
== END ==
LOC: M LABNEURO 12:34
PROVIDERS: ATTEND Psychiatry & Neurology Neurology
DX: G35 Multiple sclerosis (principal)

== ENCOUNTER → 2018-10-02 | Outpatient (REF) | payer OTHER ==
[~2018-10-02] MED LIST changes: -AMLO5TAB4 PO; +AMLO5TAB6 PO
[2018-10-02 19:03] LABS: BASO % 0.4 % (0.0-1.0); EOS # 0.1 10^3/uL (0.0-0.50); EOS % 2.7 % (0.0-3.0); HEMATOCRIT 35.7 % (36.0-47.0); HEMOGLOBIN 11.2 g/dl (12.0-15.5); LYMPH # 0.4 10^3/uL (1.5-4.5); LYMPH % 13.5 % (24.0-44.0); MEAN CORPUSCULAR HEMOGLOBIN 25.2 pg (27.0-33.0); MEAN CORPUSCULAR HGB CONC 31.4 g/dl (32.0-36.5); MEAN CORPUSCULAR VOLUME 80.2 fl (80.0-96.0); MONO # 0.3 10^3/uL (0.0-0.8); MONO % 11.9 % (0.0-5.0); NEUTROPHILS # 1.8 10^3/uL (1.8-7.7); NEUTROPHILS % 70.7 % (36.0-66.0); PLATELET COUNT, AUTOMATED 239 10^3/uL (150-450); RED BLOOD COUNT 4.45 10^6/uL (4.00-5.40); WHITE BLOOD COUNT 2.6 10^3/uL (4.0-10.0)
[2018-10-02 19:05] LABS: ALBUMIN 4.6 GM/DL (3.2-5.2); ALT/SGPT 20 U/L (12-78); BILIRUBIN,TOTAL 0.6 MG/DL (0.2-1.0); BLOOD UREA NITROGEN 22 MG/DL (7-18); CALCIUM LEVEL 9.4 MG/DL (8.8-10.2); CARBON DIOXIDE LEVEL 23 MEQ/L (21-32); CHLORIDE LEVEL 110 MEQ/L (98-107); CREATININE FOR GFR 0.92 MG/DL (0.55-1.30); GLOMERULAR FILTRATION RATE > 60.0 (>45); GLUCOSE, FASTING 82 MG/DL (70-100); POTASSIUM SERUM 3.7 MEQ/L (3.5-5.1); SODIUM LEVEL 143 MEQ/L (136-145); TOTAL PROTEIN 7.5 GM/DL (6.4-8.2)
== END ==
LOC: M LABNEURO 18:04
PROVIDERS: ATTEND Psychiatry & Neurology Neurology
DX: G35 Multiple sclerosis (principal)

== ENCOUNTER → 2018-11-15 | Outpatient (REF) | payer OTHER ==
[2018-11-15 15:04] LABS: THYROID STIMULATING HORMONE 2.69 uIU/ML (0.358-3.740)
[2018-11-15 15:09] LABS: TOTAL 25(OH) VITAMIN D 26.2 NG/ML (30.0-100.0)
== END ==
LOC: M SFHCPLAZ 11:59
PROVIDERS: ATTEND Nurse Practitioner Family
DX: E03.9 Hypothyroidism, unspecified (principal); E55.9 Vitamin D deficiency, unspecified

== ENCOUNTER → 2018-11-15 | Outpatient (CLI) | payer OTHER ==
--- NOTE | 2018-11-15 19:28 | REP ---
Clinical: Pelvic pain . Technique: Transabdominal pelvic ultrasound followed by transvaginal examination for better evaluation of the endometrium and adnexa with color Doppler evaluation of the ovaries. Findings: Bladder is unremarkable and measures 8.9 x 8.2 x 8.3 cm . Normal anteverted uterus measures 3.9 x 1.7 x 3.1 cm . The endometrial complex measures 5.5 mm thickness. Few Nabothian cysts identified. Bilateral ovaries are normal in appearance and vascularity without evidence for torsion. Right ovary measures 1.3 x 1.2 x 1.4 cm ; R I = 0.62 . Left ovary measures 1.5 x 0.7 x 0.9 cm ; R I = 0.54 . No pelvic fluid. Impression: 1. Essentially normal pelvic ultrasound.
== END ==
LOC: M WHC 10:32
PROVIDERS: ATTEND Nurse Practitioner Women's Health
DX: R10.2 Pelvic and perineal pain (principal)

== ENCOUNTER → 2019-01-24 | Outpatient (CLI) | payer OTHER ==
[~2019-01-24] MED LIST changes: +FENT50DI33 PO; -FENT50PA PO; +VITA500T17 PO; -VITA500T53 PO
--- NOTE | 2019-01-24 15:38 | REPMRS ---
Patient History The patient states she had a clinical breast exam in 01/2019. No known family history of cancer. No Hormone Replacement Therapy 3D TOMOSYNTHESIS WAS PERFORMED. Digital Woman Screen Mammo: January 24, 2019 - Exam #: [id number] Bilateral CC and MLO view(s) were taken. Technologist: Katherine Maya, Technologist Prior study comparison: February 15, 2018, bilateral digital woman screen mammo performed at [facility]. February 01, 2017, digital woman screen mammo performed at [facility]. FINDINGS: The breast tissue is heterogeneously dense. This may lower the sensitivity of mammography. There has been no change in the appearance of the mammogram from the prior studies. There is a moderate amount of residual fibroglandular tissue which is fairly symmetric. There is no interval development of dominant mass, areas of architectural distortion, or clustered microcalcification typical of malignancy. Assessment: BI-RADS/ACR category 1 mammogram. Negative Mammogram. Recommendation Routine screening mammogram in 1 year (for women over age 40). This mammogram was interpreted with the aid of an FDA-approved computer-aided dectection system. Electronically Signed By: Migel Mock MD 01/24/19 [id number]
== END ==
LOC: M WHC 13:24
PROVIDERS: ATTEND Nurse Practitioner Women's Health
DX: Z12.31 Encounter for screening mammogram for malignant neoplasm of breast (principal)

== ENCOUNTER → 2019-05-27 | Outpatient (REF) | payer OTHER ==
[2019-05-27 12:41] LABS: HEMATOCRIT 35.2 % (36.0-47.0); HEMOGLOBIN 10.9 g/dl (12.0-15.5); MEAN CORPUSCULAR VOLUME 83.8 fl (80.0-96.0); PLATELET COUNT, AUTOMATED 171 10^3/uL (150-450); WHITE BLOOD COUNT 2.1 10^3/uL (4.0-10.0)
[2019-05-27 12:58] LABS: ALBUMIN 4.4 GM/DL (3.2-5.2); BILIRUBIN,TOTAL 0.4 MG/DL (0.2-1.0); CALCIUM LEVEL 9.3 MG/DL (8.8-10.2); CHOLESTEROL RISK RATIO 1.854 (<5); CREATININE FOR GFR 1.04 MG/DL (0.55-1.30); FREE T4 1.14 NG/DL (0.76-1.46); PERCENT SATURATION 4.9 % (13.2-45.0); POTASSIUM SERUM 3.6 MEQ/L (3.5-5.1); THYROID STIMULATING HORMONE 1.41 uIU/ML (0.358-3.740); TOTAL 25(OH) VITAMIN D 32.4 NG/ML (30.0-100.0); TOTAL PROTEIN 7.6 GM/DL (6.4-8.2)
== END ==
LOC: M SFHCPLAZ 08:40
PROVIDERS: ATTEND Nurse Practitioner Family
DX: D50.9 Iron deficiency anemia, unspecified (principal); E78.5 Hyperlipidemia, unspecified; E03.9 Hypothyroidism, unspecified; E55.9 Vitamin D deficiency, unspecified; D51.9 Vitamin B12 deficiency anemia, unspecified

== ENCOUNTER → 2019-06-06 | Outpatient (REF) | payer OTHER ==
[2019-06-06 17:58] LABS: BASO % 0.7 % (0.0-1.0); EOS # 0.1 10^3/uL (0.0-0.5); EOS % 3.2 % (0.0-3.0); HEMATOCRIT 38.3 % (36.0-47.0); LYMPH # 0.4 10^3/uL (1.5-5.0); LYMPH % 13.4 % (24.0-44.0); MEAN CORPUSCULAR HEMOGLOBIN 26.3 pg (27.0-33.0); MEAN CORPUSCULAR HGB CONC 31.3 g/dl (32.0-36.5); MONO # 0.3 10^3/uL (0.0-0.8); MONO % 10.9 % (0.0-5.0); NEUTROPHILS % 71.1 % (36.0-66.0); PLATELET COUNT, AUTOMATED 183 10^3/uL (150-450); RED BLOOD COUNT 4.56 10^6/uL (4.00-5.40); WHITE BLOOD COUNT 2.8 10^3/uL (4.0-10.0)
[2019-06-06 18:03] LABS: ALBUMIN 4.7 GM/DL (3.2-5.2); BILIRUBIN,TOTAL 0.6 MG/DL (0.2-1.0); CALCIUM LEVEL 9.8 MG/DL (8.8-10.2); CREATININE FOR GFR 1.09 MG/DL (0.55-1.30); POTASSIUM SERUM 4.1 MEQ/L (3.5-5.1); TOTAL PROTEIN 8.1 GM/DL (6.4-8.2)
== END ==
LOC: M LABNEURO 14:40
PROVIDERS: ATTEND Psychiatry & Neurology Neurology
DX: G35 Multiple sclerosis (principal)

== ENCOUNTER → 2019-07-15 | Outpatient (REF) | payer OTHER ==
[~2019-07-15] MED LIST changes: -OMEP40CA2 PO; +OMEP40CA97 PO
[2019-07-15 19:33] LABS: ALBUMIN 4.4 GM/DL (3.2-5.2); BILIRUBIN,TOTAL 0.7 MG/DL (0.2-1.0); CALCIUM LEVEL 9.8 MG/DL (8.8-10.2); CHOLESTEROL RISK RATIO 1.762 (<5); CREATININE FOR GFR 1.01 MG/DL (0.55-1.30); FREE T4 0.92 NG/DL (0.76-1.46); GLOMERULAR FILTRATION RATE 58.9 (>45); PERCENT SATURATION 15.3 % (13.2-45.0); POTASSIUM SERUM 3.8 MEQ/L (3.5-5.1); THYROID STIMULATING HORMONE 4.24 uIU/ML (0.358-3.740); TOTAL PROTEIN 7.9 GM/DL (6.4-8.2)
[2019-07-15 19:35] LABS: TOTAL 25(OH) VITAMIN D 29.8 NG/ML (30.0-100.0)
[2019-07-15 19:37] LABS: MEAN CORPUSCULAR HEMOGLOBIN 26.7 pg (27.0-33.0); MEAN CORPUSCULAR HGB CONC 31.6 g/dl (32.0-36.5); MEAN CORPUSCULAR VOLUME 84.4 fl (80.0-96.0); WHITE BLOOD COUNT 3.1 10^3/uL (4.0-10.0)
[2019-07-15 19:38] LABS: PLATELET COUNT, AUTOMATED 245 10^3/uL (150-450)
== END ==
LOC: M LABNEURO 18:20
PROVIDERS: ATTEND Family Medicine
DX: D50.9 Iron deficiency anemia, unspecified (principal); E78.5 Hyperlipidemia, unspecified; E03.9 Hypothyroidism, unspecified; E55.9 Vitamin D deficiency, unspecified

== ENCOUNTER → 2019-08-07 | Outpatient (CLI) | payer OTHER ==
[~2019-08-07] MED LIST changes: +PROHANCE 279.3MG/ML 5ML VIAL (A9576) As Ordered ONE
--- NOTE | 2019-08-07 13:18 | REP ---
MRI PANCREAS WITH AND WITHOUT CONTRAST: HISTORY: Abnormal weight loss. Comparison MRI 07/30/[address] 05/21/2017. TECHNIQUE: Multiple sequences obtained in the axial and coronal planes prior to and following the intravenous administration of 10 mL ProHance. In the body of the pancreas, there is a 4 mm cyst. No other evidence of pancreatic mass is noted. There is no pancreatic duct dilatation. The patient has had a prior cholecystectomy. Once again, the common bile duct has a maximum diameter of 10 mm unchanged since the prior MRI. There is no definite evidence of choledocholithiases. The visualized liver is grossly unremarkable with no mass. Spleen and adrenals are unremarkable. Kidneys demonstrate small scattered cysts, the largest is in the left lower pole measuring 1.1 cm maximally. I seen on adenopathy or free fluid in the visualized abdomen. IMPRESSION: No suspicious pancreatic mass. There is a 4 mm cyst in the body of the pancreas which is likely insignificant. No pancreatic duct dilatation. Status post cholecystectomy. No change in common bile duct appearance and diameter of 10 mm, with no evidence of choledocholithiasis. Small renal cysts. Electronically Signed by Migel Mock MD 08/07/2019 01:55 P
== END ==
LOC: M RAD 10:57
PROVIDERS: ATTEND Internal Medicine Gastroenterology
DX: R63.4 Abnormal weight loss (principal); R93.3 Abnormal findings on diagnostic imaging of other parts of digestive tract
CPT/HCPCS: 74183; A9576

== ENCOUNTER 2019-10-04 10:21 | Day surgery (SDC) | payer OTHER ==
[~2019-10-04] VITALS: Ht 152.4 cm; Wt 52.6 kg
[~2019-10-04 10:21] MED LIST changes: +LIDOCAINE 2% INJ 100 MG/5 ML SDV (FOR ANES.) As Ordered ONE; +NS 1,000 ML IV ONE; -PROHANCE 279.3MG/ML 5ML VIAL (A9576) As Ordered ONE; +propofoL 200 MG/20 ML VIAL As Ordered ONE
--- NOTE | 2019-10-04 13:06 | ROOR ---
Patient Name: Meena Jackson Procedure Date: 10/04/2019 12:49 PM Date of : 1955 Age: 63 Room: [facility] Gender: Female Note Status: Finalized Procedure: Upper GI endoscopy Indications: Iron deficiency anemia, Weight loss Providers: Hill RAYO MD Referring MD: Turner Nick MD Requesting Provider: Medicines: Monitored Anesthesia Care Complications: No immediate complications. Procedure: Pre-Anesthesia Assessment: - The heart rate, respiratory rate, oxygen saturations, blood pressure, adequacy of pulmonary ventilation, and response to care were monitored throughout the procedure. The Endoscope was introduced through the mouth, and advanced to the third part of duodenum. The upper GI endoscopy was accomplished without difficulty. The patient tolerated the procedure well. Findings: The Z-line was irregular. This was biopsied with a cold forceps for histology. The exam of the esophagus was otherwise normal. The entire examined stomach was normal. The examined duodenum was normal. Biopsies for histology were taken with a cold forceps for evaluation of celiac disease. Impression: - Normal esophagus with Z-line irregular. Biopsied. - Normal stomach. - Normal examined duodenum. Biopsied. Recommendation: - Telephone endoscopist for pathology results in 2 weeks. - Observe patient's clinical course. Hill Rayo MD Hill RAYO MD 10/04/2019 1:06:20 PM Electronically signed by Hill RAYO MD Number of Addenda: 0 Note Initiated On: 10/04/2019 12:49 PM Estimated Blood Loss: Estimated blood loss: none.
[2019-10-04] MEDS ORDERED: propofoL 200 MG/20 ML VIAL As Ordered ONE (13:22)
--- NOTE | 2019-10-04 13:26 | ROOR ---
Patient Name: Meena Jackson Procedure Date: 10/04/2019 12:49 PM Date of : 1955 Age: 63 Room: [facility] Gender: Female Note Status: Finalized Procedure: Colonoscopy Indications: Iron deficiency anemia, Weight loss Providers: Hill RAYO MD Referring MD: Turner Nick MD Requesting Provider: Medicines: Monitored Anesthesia Care Complications: No immediate complications. Procedure: Pre-Anesthesia Assessment: - The heart rate, respiratory rate, oxygen saturations, blood pressure, adequacy of pulmonary ventilation, and response to care were monitored throughout the procedure. The Colonoscope was introduced through the anus and advanced to 10 cm into the ileum. The colonoscopy was performed without difficulty. The patient tolerated the procedure well. The quality of the bowel preparation was fair. Findings: The perianal and digital rectal examinations were normal. Two sessile polyps were found in the splenic flexure. The polyps were 4 to 5 mm in size. These polyps were removed with a cold snare. Resection and retrieval were complete. Mild sigmoid diverticulosis and small internal hemorrhoids. The exam was otherwise without abnormality on direct and retroflexion views. Impression: - Preparation of the colon was fair. - Two 4 to 5 mm polyps at the splenic flexure, removed with a cold snare. Resected and retrieved. - Mild sigmoid diverticulosis and small internal hemorrhoids. - The examination was otherwise normal on direct and retroflexion views. Recommendation: - Repeat colonoscopy in 3 years for surveillance. Hill Rayo MD Hill RAYO MD 10/04/2019 1:25:58 PM Electronically signed by Hill RAYO MD Number of Addenda: 0 Note Initiated On: 10/04/2019 12:49 PM Estimated Blood Loss: Estimated blood loss: none.
[2019-10-04 14:16] VITALS: BP 162/83
== END 2019-10-04 14:10 | disposition home or self-care (01) ==
LOC: M OPP 10:21
PROVIDERS: ATTEND Internal Medicine Gastroenterology
DX: D12.3 Benign neoplasm of transverse colon (principal); D50.9 Iron deficiency anemia, unspecified; R63.4 Abnormal weight loss; K22.8 Other specified diseases of esophagus; Z79.899 Other long term (current) drug therapy; Z88.8 Allergy status to other drugs, medicaments and biological substances

== ENCOUNTER → 2019-10-15 | Outpatient (REF) | payer OTHER ==
[~2019-10-15] MED LIST changes: -LIDOCAINE 2% INJ 100 MG/5 ML SDV (FOR ANES.) As Ordered ONE; -NS 1,000 ML IV ONE; -propofoL 200 MG/20 ML VIAL As Ordered ONE
[2019-10-15 18:31] LABS: BASO % 0.7 % (0.0-1.0); EOS # 0.1 10^3/uL (0.0-0.5); HEMATOCRIT 39.6 % (36.0-47.0); HEMOGLOBIN 12.2 g/dl (12.0-15.5); LYMPH # 0.3 10^3/uL (1.5-5.0); LYMPH % 11.2 % (24.0-44.0); MEAN CORPUSCULAR HEMOGLOBIN 26.5 pg (27.0-33.0); MEAN CORPUSCULAR HGB CONC 30.8 g/dl (32.0-36.5); MEAN CORPUSCULAR VOLUME 86.1 fl (80.0-96.0); MONO # 0.3 10^3/uL (0.0-0.8); MONO % 10.5 % (0.0-5.0); NEUTROPHILS # 2.2 10^3/uL (1.5-8.5); NEUTROPHILS % 74.9 % (36.0-66.0); PLATELET COUNT, AUTOMATED 185 10^3/uL (150-450)
[2019-10-15 18:49] LABS: ALBUMIN 4.7 GM/DL (3.2-5.2); BILIRUBIN,TOTAL 0.6 MG/DL (0.2-1.0); CALCIUM LEVEL 8.6 MG/DL (8.8-10.2); GLOMERULAR FILTRATION RATE 59.6 (>45); POTASSIUM SERUM 4.3 MEQ/L (3.5-5.1); TOTAL PROTEIN 8.1 GM/DL (6.4-8.2)
== END ==
LOC: M LABNEURO 17:14
PROVIDERS: ATTEND Psychiatry & Neurology Neurology
DX: G35 Multiple sclerosis (principal)

== ENCOUNTER → 2020-04-02 | Outpatient (CLI) | payer OTHER ==
[~2020-04-02] MED LIST changes: +AMLO1TAB24 PO; -AMLO5TAB6 PO
--- NOTE | 2020-04-26 12:42 | REPMRS ---
Patient History The patient states she had a clinical breast exam in March 2020. Patient is postmenopausal. No known family history of cancer. No Hormone Replacement Therapy Digital Woman Screen Mammo: April 02, 2020 - Exam #: [id number] Bilateral CC and MLO view(s) were taken. Technologist: Gauri Potts Technologist Prior study comparison: January 24, 2019, bilateral digital woman screen mammo performed at [facility]. February 15, 2018, bilateral digital woman screen mammo performed at [facility]. February 01, 2017, digital woman screen mammo performed at [facility]. FINDINGS: The breast tissue is heterogeneously dense. This may lower the sensitivity of mammography. There is a moderate amount of heterogeneously dense fibroglandular tissue which is fairly symmetric. There is no interval development of dominant mass, architectural distortion, or grouped microcalcification typical of malignancy. There has been no change in the appearance of the mammogram from the prior studies. 3-D tomosynthesis shows no additional findings. Report was delayed due to a protracted network disruption experienced by this facility. Assessment: BI-RADS/ACR category 1 mammogram. Negative Mammogram. Recommendation Routine screening mammogram of both breasts in 1 year (for women over age 40). This patient's Lifetime Breast Cancer RIsk is estimated at 7.9 %. This mammogram was interpreted with the aid of an FDA-approved computer-aided dectection system. Electronically Signed By: Diego Swann MD 04/26/20 [id number]
== END ==
LOC: M WHC 09:51
PROVIDERS: ATTEND Nurse Practitioner Women's Health
DX: Z12.31 Encounter for screening mammogram for malignant neoplasm of breast (principal)

== ENCOUNTER → 2020-05-05 | Outpatient (CLI) | payer OTHER | LOC: M LABSMTC 14:23 | PROVIDERS: ATTEND Family Medicine | DX: Z11.59 Encounter for screening for other viral diseases (principal); Z20.828 Contact with and (suspected) exposure to other viral communicable diseases | CPT/HCPCS: C9803; U0003 ==

== ENCOUNTER → 2020-05-19 | Outpatient (CLI) | payer OTHER ==
[2020-05-19 17:07] LABS: HEMATOCRIT 36.6 % (36.0-47.0); HEMOGLOBIN 11.7 g/dl (12.0-15.5); MEAN CORPUSCULAR HEMOGLOBIN 30.3 pg (27.0-33.0); MEAN CORPUSCULAR VOLUME 94.8 fl (80.0-96.0); PLATELET COUNT, AUTOMATED 169 10^3/uL (150-450); RED BLOOD COUNT 3.86 10^6/uL (4.00-5.40); WHITE BLOOD COUNT 2.6 10^3/uL (4.0-10.0)
[2020-05-19 17:18] LABS: ALBUMIN 4.5 GM/DL (3.2-5.2); BILIRUBIN,TOTAL 0.4 MG/DL (0.2-1.0); CALCIUM LEVEL 9.2 MG/DL (8.8-10.2); CREATININE FOR GFR 1.22 MG/DL (0.55-1.30); FREE T4 0.89 NG/DL (0.76-1.46); GLOMERULAR FILTRATION RATE 47.2 (>45); POTASSIUM SERUM 4.5 MEQ/L (3.5-5.1); THYROID STIMULATING HORMONE 3.45 uIU/ML (0.358-3.740); TOTAL PROTEIN 7.7 GM/DL (6.4-8.2)
[2020-05-20 09:20] LABS: TOTAL 25(OH) VITAMIN D 40.3 NG/ML (30.0-100.0)
[2020-05-20 09:21] LABS: PTH INTACT 119.1 PG/ML (18.5-88.0)
== END ==
LOC: M WUC 14:06
PROVIDERS: ATTEND Family Medicine
DX: E03.9 Hypothyroidism, unspecified (principal); D50.9 Iron deficiency anemia, unspecified; M81.0 Age-related osteoporosis without current pathological fracture

== ENCOUNTER → 2020-05-28 | Outpatient (CLI) | payer OTHER | LOC: M WUC 12:07 | PROVIDERS: ATTEND Psychiatry & Neurology Neurology | DX: G35 Multiple sclerosis (principal) ==

== ENCOUNTER → 2020-07-13 | Outpatient (REF) | payer OTHER ==
[2020-07-13 17:21] LABS: CALCIUM, URINE < 5.0 MG/DL; TOTAL VOLUME, URINE 825 ML
== END ==
LOC: M LAB REF 15:41
PROVIDERS: ATTEND Nurse Practitioner Family
DX: E21.2 Other hyperparathyroidism (principal)

== ENCOUNTER 2020-08-21 08:45 | Outpatient (CLI) | payer OTHER ==
[~2020-08-21] VITALS: Ht 154.9 cm; Wt 44.5 kg
[2020-08-21 08:50] VITALS: BP 132/74
[2020-08-21] MEDS ORDERED: diphenhydrAMINE 25MG CAP PO ONE (09:00)
[2020-08-21] MEDS ORDERED: ACETAMINOPHEN TAB 650MG DOSE (2X325MG) PO ONE (09:00)
[2020-08-21] MEDS ORDERED: OCRELIZUMAB 300 MG in NS 250 ML IV ONE (09:00)
[2020-08-21] MEDS ORDERED: methylPREDNISolone 125MG 2ML VIAL IV ONE (09:00)
[2020-08-21 10:10] VITALS: BP 131/69
[2020-08-21 10:40] VITALS: BP 135/71
[2020-08-21 12:00] VITALS: BP 143/65
[2020-08-21 13:00] VITALS: BP 139/66
== END 2020-08-21 13:00 | disposition home or self-care (01) ==
LOC: M INFU 08:45
PROVIDERS: ATTEND Psychiatry & Neurology Neurology
DX: G35 Multiple sclerosis (principal); Z88.8 Allergy status to other drugs, medicaments and biological substances
CPT/HCPCS: 96365; 96366; J2350; J2930

== ENCOUNTER 2020-08-26 15:23 | Outpatient (CLI) | payer OTHER ==
[~2020-08-26] VITALS: Ht 165.1 cm; Wt 55.6 kg
[~2020-08-26 15:23] MED LIST changes: +methylPREDNISolone 500 MG, VIAL MATE ADAPTER 1 EACH in D5W 250 ML IV SCH
[2020-08-26] MEDS ORDERED: methylPREDNISolone 500 MG, VIAL MATE ADAPTER 1 EACH in D5W 250 ML IV ONE (15:30)
[2020-08-26 16:04] VITALS: BP 159/75
[2020-08-26 17:00] VITALS: BP 157/81
== END 2020-08-26 17:00 | disposition home or self-care (01) ==
LOC: M INFU 15:23
PROVIDERS: ATTEND Psychiatry & Neurology Neurology
DX: G35 Multiple sclerosis (principal); Z88.8 Allergy status to other drugs, medicaments and biological substances
CPT/HCPCS: 96365; J2930

== ENCOUNTER 2020-08-27 14:16 | Outpatient (CLI) | payer OTHER ==
[~2020-08-27 14:16] MED LIST changes: -methylPREDNISolone 500 MG, VIAL MATE ADAPTER 1 EACH in D5W 250 ML IV SCH
[2020-08-27 14:40] VITALS: BP 151/81
[2020-08-27] MEDS ORDERED: methylPREDNISolone 500 MG, VIAL MATE ADAPTER 1 EACH in D5W 250 ML IV ONE (15:00)
== END 2020-08-27 16:03 | disposition home or self-care (01) ==
LOC: M INFU 14:16 → M MSPAV 14:23 → M INFU 16:03
PROVIDERS: ATTEND Psychiatry & Neurology Neurology
DX: G35 Multiple sclerosis (principal); Z88.8 Allergy status to other drugs, medicaments and biological substances
CPT/HCPCS: 96365; J2930

== ENCOUNTER 2020-08-28 10:03 | Outpatient (CLI) | payer OTHER ==
[~2020-08-28] VITALS: Ht 165.1 cm; Wt 55.8 kg
[2020-08-28] MEDS ORDERED: methylPREDNISolone 500 MG, VIAL MATE ADAPTER 1 EACH in D5W 250 ML IV ONE (12:00)
== END 2020-08-28 14:38 | disposition home or self-care (01) ==
LOC: M INFU 10:03 → M OPCLI4PV 10:03 → M INFU 10:06 → M MSPAV 10:06 → M INFU 14:38 → M MSPAV 14:38
PROVIDERS: ATTEND Psychiatry & Neurology Neurology
DX: G35 Multiple sclerosis (principal)
CPT/HCPCS: 96365; J2930

== ENCOUNTER 2020-08-29 12:41 | Outpatient (CLI) | payer OTHER ==
[~2020-08-29] VITALS: Ht 154.9 cm; Wt 44.7 kg
[2020-08-29 13:33] VITALS: BP 117/76
[2020-08-29] MEDS ORDERED: methylPREDNISolone 500 MG, VIAL MATE ADAPTER 1 EACH in D5W 250 ML IV ONE (14:00)
== END 2020-08-29 14:36 | disposition home or self-care (01) ==
LOC: M OPCLI4PV 12:41 → M INFU 12:41 → M MSPAV 12:48 → M INFU 14:36 → M MSPAV 14:36
PROVIDERS: ATTEND Psychiatry & Neurology Neurology
DX: G35 Multiple sclerosis (principal); Z88.8 Allergy status to other drugs, medicaments and biological substances
CPT/HCPCS: 96365; J2930

== ENCOUNTER 2020-08-30 12:19 | Outpatient (CLI) | payer OTHER ==
[~2020-08-30] VITALS: Ht 154.9 cm; Wt 36.1 kg
[2020-08-30 13:15] VITALS: BP 152/79
[2020-08-30] MEDS ORDERED: methylPREDNISolone 500 MG, VIAL MATE ADAPTER 1 EACH in D5W 250 ML IV ONE (14:00)
[2020-08-30 15:45] VITALS: BP 147/79
[2020-08-30 16:39] VITALS: BP 146/79
== END 2020-08-30 16:47 | disposition home or self-care (01) ==
LOC: M INFU 12:19 → M MSPAV 13:15 → M INFU 16:47
PROVIDERS: ATTEND Psychiatry & Neurology Neurology
DX: G35 Multiple sclerosis (principal); Z88.8 Allergy status to other drugs, medicaments and biological substances
CPT/HCPCS: 96365; J2930

== ENCOUNTER 2020-09-08 08:37 | Outpatient (CLI) | payer OTHER ==
[~2020-09-08] VITALS: Ht 154.9 cm; Wt 44.5 kg
[2020-09-08] VITALS (7 sets, daily range): BP systolic 131–169; BP diastolic 73–82
[~2020-09-08 08:37] MED LIST changes: +ACETAMINOPHEN TAB 650MG DOSE (2X325MG) PO ONE; +diphenhydrAMINE 25MG CAP PO ONE; +methylPREDNISolone 125MG 2ML VIAL IV ONE
[2020-09-08] MEDS ORDERED: methylPREDNISolone 125MG 2ML VIAL IV ONE (09:15)
[2020-09-08] MEDS ORDERED: diphenhydrAMINE 25MG CAP PO ONE (09:15)
[2020-09-08] MEDS ORDERED: ACETAMINOPHEN TAB 650MG DOSE (2X325MG) PO ONE (09:30)
[2020-09-08] MEDS ORDERED: OCRELIZUMAB 300 MG in NS 250 ML IV ONE (09:30)
== END 2020-09-08 13:15 | disposition home or self-care (01) ==
LOC: M INFU 08:37
PROVIDERS: ATTEND Psychiatry & Neurology Neurology
DX: G35 Multiple sclerosis (principal); Z88.8 Allergy status to other drugs, medicaments and biological substances
CPT/HCPCS: 96365; 96366; 96375; J2350; J2930

== ENCOUNTER → 2020-09-09 | Outpatient (CLI) | payer OTHER ==
[~2020-09-09] MED LIST changes: -ACETAMINOPHEN TAB 650MG DOSE (2X325MG) PO ONE; +E-Z-GAS II EFFERVESCENT PACKET (SODIUM BICARB./CITRIC ACID/SIMETHICONE) As Ordered ONE; +E-Z-HD 98% w/w 340GM SUSP BTL As Ordered ONE; +E-Z-PAQUE 96% w/w SUSP 176GM BTL As Ordered ONE; +LEVO75TA34 PO; +VITA100066 PO; -diphenhydrAMINE 25MG CAP PO ONE; -methylPREDNISolone 125MG 2ML VIAL IV ONE
--- NOTE | 2020-09-09 14:56 | REP ---
INDICATION: DYSPHAGIA. COMPARISON: None TECHNIQUE: This procedure was performed by Tuyet Solis [facility], under the direct supervision of Dr. Mock. Images were reviewed with Dr. Mock prior to dictation. Liquid barium was given in the erect position in an attempt to do an esophagram. FINDINGS: The riverine assault craft crewman film shows no organomegaly or pathological masses. The intestinal gas pattern is unremarkable. The oral stage was extremely delayed. Well as esophagram was attempted the patient was unable to swallow any barium. If further evaluation of the neck soft tissues is warranted, a CT with contrast could be of benefit. IMPRESSION: Non diagnostic esophagram due to patient's inability to swallow the barium. If further evaluation of the neck soft tissues is desired, a CT with contrast is recommended. 0.01 minutes of fluoroscopy time was utilized for this procedure. Some fluoroscopic images are performed with last image hold technology. These images require no additional radiation. <Electronically signed by Tuyet Solis > 09/09/20 1250 <Electronically signed by Migel Mock > 09/09/20 0850
== END ==
LOC: M RAD 07:48
PROVIDERS: ATTEND Psychiatry & Neurology Neurology
DX: R13.10 Dysphagia, unspecified (principal); Z53.8 Procedure and treatment not carried out for other reasons

== ENCOUNTER 2020-09-10 11:24 | Inpatient (IN) | payer OTHER ==
[~2020-09-10] VITALS: Ht 154.9 cm; Wt 40.6 kg
[~2020-09-10 11:24] MED LIST changes: -E-Z-GAS II EFFERVESCENT PACKET (SODIUM BICARB./CITRIC ACID/SIMETHICONE) As Ordered ONE; -E-Z-HD 98% w/w 340GM SUSP BTL As Ordered ONE; -E-Z-PAQUE 96% w/w SUSP 176GM BTL As Ordered ONE; -LEVO75TA34 PO; -VITA100066 PO
[2020-09-10 12:32] LABS: BASO % 0.2 % (0.0-1.0); HEMATOCRIT 34.2 % (36.0-47.0); HEMOGLOBIN 10.9 g/dl (12.0-15.5); LYMPH # 0.1 10^3/uL (1.5-5.0); MEAN CORPUSCULAR HEMOGLOBIN 29.6 pg (27.0-33.0); MEAN CORPUSCULAR HGB CONC 31.9 g/dl (32.0-36.5); MEAN CORPUSCULAR VOLUME 92.9 fl (80.0-96.0); MONO # 0.4 10^3/uL (0.0-0.8); MONO % 3.7 % (0.0-5.0); NEUTROPHILS # 9.9 10^3/uL (1.5-8.5); NEUTROPHILS % 94.5 % (36.0-66.0); PLATELET COUNT, AUTOMATED 225 10^3/uL (150-450); RED BLOOD COUNT 3.68 10^6/uL (4.00-5.40); WHITE BLOOD COUNT 10.5 10^3/uL (4.0-10.0)
[2020-09-10 12:59] LABS: CALCIUM LEVEL 9.3 MG/DL (8.8-10.2); CREATININE FOR GFR 1.98 MG/DL (0.55-1.30); POTASSIUM SERUM 4.1 MEQ/L (3.5-5.1)
[2020-09-10] MEDS ORDERED: NS 0.45% 1,000 ML IV ONE (13:45)
[2020-09-10] MEDS ORDERED: AMAN100T PO (16:02)
[2020-09-10] MEDS ORDERED: LEVO75TA34 PO (16:02)
[2020-09-10] MEDS ORDERED: NS 1,000 ML IV SCH (16:15)
[2020-09-10 18:59] VITALS: BP 166/86
--- NOTE | 2020-09-10 19:50 | HPEPDOC ---
General Date of Admission Sep 10, 2020 at 15:59 Date of Service: Sep 10, 2020 Chief Complaint The patient is a 64-year-old female admitted with a reason for visit of Acute Kidney Injury Dyphagia Hypernatremia. Source: Patient History of Present Illness is a 64 year old female with multiple sclerosis, hypothyroidism, vitamin B12 deficiency, and GERD who presents for dysphagia. About 4-5 days prior she started to develop a sore throat. It is painful to swallow. It progressed to a choking and gagging sensation in which she was not able to tolerate orals. She became fearful that she cannot swallow her saliva either. She came to the ED. Cranial nerves II through XII are grossly intact and no focal weakness. ED contacted neurology, Dr. Deleon, who recommended MRI brain with and without contrast, anti-MUSK antibody and acetylcholine receptor antibody. I reached out to neurology and reconfirm this. Also recommended TSH, vitamin B12, vitamin B1, and thyroid studies. Otherwise, patient appeared dry. She has been having poor oral intake. Unknown creatinine baseline, but in May, creatinine was 1.2. Today, creatinine was 2. Sodium was 151. She denied any fever or chills, chest pain, dyspnea, abdominal pain, diarrhea, or dysuria. Home Medications Scheduled Amantadine HCl (Amantadine) 100 Mg Tab, 200 MG PO DAILY, (Reported) Amantadine HCl (Amantadine) 100 Mg Tablet, 100 MG PO QPM, (Reported) Calcium/Vitamin D (Calcium 600+D 600-400 mg-Unit) 1 Tab Tab, 1 TAB PO DAILY, (Reported) Cyanocobalamin (Vitamin B-12) (Vitamin B-12) 500 Mcg Tab, 500 MCG PO DAILY, (Reported) Levothyroxine Sodium (Levoxyl) 75 Mcg Tablet, 75 MCG PO DAILY, (Reported) Nortriptyline HCl (Nortriptyline HCl) 50 Mg Cap, 50 MG PO QHS, (Reported) Omeprazole (Omeprazole) 40 Mg Cap, 40 MG PO DAILY, (Reported) Primidone (Mysoline) 50 Mg Tab, 50 MG PO BID, (Reported) Scheduled PRN Baclofen (Baclofen) 10 Mg Tab, 10 MG PO TID PRN for MUSCLE SPASMS, (Reported) Calcium Carbonate (Tums) 500 Mg Chw, 1,500 MG PO Q6H PRN for HEARTBURN/INDIGESTION, (Reported) Topiramate (Topiramate) 100 Mg Tab, 100 MG PO BID PRN for MIGRAINE, (Reported) Allergies Coded Allergies: divalproex sodium (Verified Allergy, Mild, rash, 09/20/19) meperidine (Verified Adverse Reaction, Intermediate, hallucination, 09/20/19) Past Medical History Medical History 1. Multiple sclerosis 2. Migraines 3. Vitamin B12 deficiency 4. Hypothyroidism 5. Osteoporosis 6. Vitamin D deficiency 7. GERD 8. History of right humerus fracture 9. History of pneumothorax 10. Degenerative disc disease 11. Hyperlipidemia Surgical History 1. Cholecystectomy in 2009 2. Colonoscopy/EGD in 2005 3. Shoulder replacement right in 2001 4. EGD/colonoscopy in 2012 5. Right hip fracture surgery in 2016 Social History * Smoker: former Smoker Alcohol: Denies Drugs: denies A-FIB/CHADSVASC A-FIB History Current/History of A-Fib/PAF?: No Review of Systems Constitutional: Denies: Chills, Fever Eyes: Denies: Vision change ENT: Reports: Sore Throat, Other Symptoms (dysphagia) Skin: Denies: Rash Pulmonary: Denies: Dyspnea, Cough Cardiovascular: Reports: Lt Headedness; Denies: Chest Pain Gastrointestinal: Denies: Nausea, Abdominal Pain Genitourinary: Denies: Dysuria Hematologic: Denies: Bruising Neurological: Reports: Numbness (and feet bilaterally) Physical Examination General Exam: Positive: Alert, Cooperative Eye Exam: Positive: EOMI; Negative: Sclera icteric ENT Exam: Positive: Tongue Midline; Negative: Mucous membr. moist/pink (dry) Neck Exam: Positive: Supple Chest Exam: Positive: Clear to auscultation Heart Exam: Positive: Rate Normal, Regular Rhythm Abdomen Exam: Positive: Normal bowel sounds, Soft; Negative: Tenderness Extremity Exam: Negative: Edema Neuro Exam: Positive: Cranial Nerves 3-12 NL Psych Exam: Positive: Mental status NL, Mood NL Vital Signs Vital Signs Date Time Temp Pulse Resp B/P (MAP) Pulse Ox O2 Delivery O2 Flow Rate FiO2 09/10/20 18:59 98.3 87 19 166/86 (112) 98 Room Air Laboratory Data Labs 24H Laboratory Tests 2 09/10/20 12:14: Immature Granulocyte % (Auto) 0.6, Neutrophils (%) (Auto) 94.5H, Lymphocytes (%) (Auto) 1.0L, Monocytes (%) (Auto) 3.7, Eosinophils (%) (Auto) 0.0, Basophils (%) (Auto) 0.2, Neutrophils # (Auto) 9.9H, Lymphocytes # (Auto) 0.1L, Monocytes # (Auto) 0.4, Eosinophils # (Auto) 0.0, Basophils # (Auto) 0.0, Nucleated Red Blood Cells % (auto) 0.0, Anion Gap 9, Glomerular Filtration Rate 27.0L, Calcium Level 9.3 09/10/20 16:29: Osmolality 324H, Lactic Acid Level 0.7, Procalcitonin <0.05 CBC/BMP Laboratory Tests 09/10/20 12:14 Microbiology Microbiology 09/10/20 Blood Culture, Received Pending 09/10/20 Blood Culture, Received Pending 09/10/20 Respiratory Virus Panel (PCR) ([facility]) - Final, Complete Assessment/Plan is a 64 year old female with multiple sclerosis, hypothyroidism, vitamin B12 deficiency, and GERD who presents for dysphagia. Neurology was contacted, recommended MRI with and without contrast as well as recommended looking for myasthenia gravis with antibody tests. Otherwise will wait for MRI results and swallow evaluation. If MRI is positive neurology should be officially consulted. Plan / VTE VTE Prophylaxis Ordered?: Yes Plan Plan 1. Dysphagia May be secondary to stroke versus MS flare versus myasthenia gravis Pending MRI results and swallow evaluation. NPO until safe diet is found We'll add on a CT head Chloraseptic spray for sore throat 2. Acute kidney injury Secondary to poor oral intake Unknown baseline, a creatinine in May was 1.2 Creatinine on admission was 2 IVF, avoid nephrotoxins, and supportive care 3. Hypernatremia Mild at 151 IVF and repeat BMP 4. Multiple sclerosis On Amantadine, held due to dysphagia -Pending MRI results 5. Hypothyroidism On the levothyroxine, held due to dysphagia Pending speech swallow eval 6. Migraine headaches On nortriptyline and topiramate as needed, held due to dysphagia Pending speech swallow eval 7. DVT prophylaxis SCDs and teds Disposition: Pending results from MRI as well as speech/swallow evaluation. BRANT FAIRBANKS DO Sep 10, 2020 19:50
--- NOTE | 2020-09-10 19:59 | REPVR ---
PROCEDURE INFORMATION: Exam: CT Head Without Contrast Exam date and time: 09/10/2020 7:48 PM Age: 64 years old Clinical indication: Speech disturbance; Additional info: Dysphagia, stroke/ich? TECHNIQUE: Imaging protocol: Computed tomography of the head without contrast. Radiation optimization: All CT scans at this facility use at least one of these dose optimization techniques: automated exposure control; mA and/or kV adjustment per patient size (includes targeted exams where dose is matched to clinical indication); or iterative reconstruction. Other technique: STROKE PROTOCOL was implemented. COMPARISON: CT Head without contrast 05/15/2017 7:36 PM FINDINGS: Brain: Decreased attenuation of the supratentorial white matter is likely secondary to chronic microvascular ischemia. No acute intracranial hemorrhage. Cerebral ventricles: Ventricular and subarachnoid spaces are age appropriate. Bones/joints: Unremarkable. No acute fracture. Paranasal sinuses: Opacification of the visualized left maxillary sinus. Mastoid air cells: Visualized mastoid air cells are well aerated. Vasculature: Intracranial vascular calcification. Soft tissues: Unremarkable. IMPRESSION: No acute intracranial abnormality. ASSESSMENT: ASPECTS ([place] Stroke Program Early CT Score) is 10. Electronically signed by: Kvng Boles On 09/10/2020 19:59:42 PM
[2020-09-10 22:00] VITALS: BP 167/86
--- NOTE | 2020-09-10 22:03 | REPVR ---
PROCEDURE INFORMATION: Exam: MR Head Without Contrast Exam date and time: 09/10/2020 9:33 PM Age: 64 years old Clinical indication: Other: Difficulty swallowing; HX of ms; Patient HX: PT states sore throat and difficulty swallowing and needing to spit which is also difficult, she complains of fatigue and increased weakness TECHNIQUE: Imaging protocol: MR of the head without contrast. 3D rendering (Not supervised by radiologist): MIP and/or 3D reconstructed images were created by the technologist. COMPARISON: CT Head without contrast 09/10/2020 7:43 PM FINDINGS: Patient motion. Moderate volume loss. Major vascular flow voids at the skull base are preserved. No extra-axial fluid collection. There is white matter gliosis centered about the pericallosal/periventricular white matter with multiple foci demonstrating ovoid morphology and perpendicular orientation. There are foci of T2 shine through. No true diffusion restriction. Severe left maxillary sinus disease. Minimal right mastoid effusion. IMPRESSION: 1. Negative for acute ischemic infarct. 2. White matter gliosis as above, pattern raising the possibility of demyelination. Electronically signed by: Kvng Boles On 09/10/2020 22:03:14 PM
[2020-09-10] MEDS: CHLORASEPTIC SPRAY MT PRN (22:22)
[2020-09-11 00:58] LABS: CALCIUM LEVEL 7.9 MG/DL (8.8-10.2); CREATININE FOR GFR 1.59 MG/DL (0.55-1.30); GLOMERULAR FILTRATION RATE 34.8 (>45); POTASSIUM SERUM 3.7 MEQ/L (3.5-5.1)
[2020-09-11 06:00] VITALS: BP 151/80
[2020-09-11 06:19] LABS: HEMATOCRIT 33.5 % (36.0-47.0); HEMOGLOBIN 10.6 g/dl (12.0-15.5); MEAN CORPUSCULAR HGB CONC 31.6 g/dl (32.0-36.5); MEAN CORPUSCULAR VOLUME 94.9 fl (80.0-96.0); PLATELET COUNT, AUTOMATED 197 10^3/uL (150-450); RED BLOOD COUNT 3.53 10^6/uL (4.00-5.40); WHITE BLOOD COUNT 8.2 10^3/uL (4.0-10.0)
[2020-09-11 06:59] LABS: BLOOD UREA NITROGEN 45 MG/DL (7-18); CALCIUM LEVEL 8.1 MG/DL (8.8-10.2); CARBON DIOXIDE LEVEL 18 MEQ/L (21-32); CHLORIDE LEVEL 125 MEQ/L (98-107); CREATININE FOR GFR 1.45 MG/DL (0.55-1.30); FREE T3 1.3 PG/ML (2.2-4.0); FREE T4 1.02 NG/DL (0.76-1.46); GLOMERULAR FILTRATION RATE 38.7 (>45); GLUCOSE, FASTING 81 MG/DL (70-100); POTASSIUM SERUM 3.8 MEQ/L (3.5-5.1); SODIUM LEVEL 154 MEQ/L (136-145)
[2020-09-11] MEDS: SODIUM BICARBONATE 75 MEQ in D5W 1,000 ML IV SCH (10:27)
[2020-09-11 12:21] LABS: VITAMIN B12 LEVEL > 2000 PG/ML (247-911)
[2020-09-11 14:00] VITALS: BP 166/86
[2020-09-11] MEDS ORDERED: OXYMETAZOLINE 0.05% NASAL SPRAY (AFRIN) PRN (15:00)
--- NOTE | 2020-09-11 19:19 | IPNPDOC ---
Date Seen The patient was seen on 09/11/20. Progress Note SUBJECTIVE: Patient continues to experience significant dysphasia, evaluate by speech therapy, FEES test was recommended, patient unable to participate. She is otherwise at her baseline, no other neurological deficits. Patient has prior history of similar symptoms 3 years ago, requiring PEG placement, with resolution of symptoms one day after PEG was placed. PEG was subsequently removed and never used. MRI unable to explain patient's symptoms. PHYSICAL EXAMINATION: VITAL SIGNS: Please see below. GENERAL: Frail HEENT: Normocephalic, atraumatic, moist mucous membranes NECK: Supple CARDIOVASCULAR EXAMINATION: S1, S2, no murmurs RESPIRATORY EXAMINATION: Clear to auscultation, no wheezing ABDOMINAL EXAMINATION: Soft, nontender, nondistended, positive bowel sounds EXTREMITIES: Range of motion intact SKIN: No rash NEUROLOGICAL EXAMINATION: Alert and oriented 3, unable to swallow PSYCHIATRIC EXAMINATION: Calm and cooperative LABORATORY DATA, IMAGING STUDIES, MICROBIOLOGY: Please see below. ASSESSMENT AND PLAN: 64-year-old female with past medical history of multiple sclerosis with isolated dysphagia, similar episode 3 years ago which resolved on its own, especially after PEG tube was placed. Patient's symptoms and workup concerning for possible psychosomatic presentation. PROBLEMS: 1. Dysphasia: Evaluated by speech therapy, FEES test was recommended, patient unable to participate. MRI negative for brain stem pathology which would explain her dysphagia. Case discussed with neurology (Dr. Deleon), recommends serological workup, which is pending. Strong suspicion for psychosomatic presentation as she had a similar episode 3 years ago, which self resolved after PEG tube was placed. Will start empiric Solu-Medrol 1 g daily for 3 days while workup is underway. Will consider ENT/GI/psych eval if symptoms persist 2.. Hypothyroidism: TSH slightly low, Continue levothyroxine. 3. Acute on chronic kidney disease. Likely prerenal due to lack of intake from dysphasia, improved with IV fluids. Creatinine close to baseline, cause of see daily unclear. Hypernatremia with hyperchloremia, likely related to IV fluids, switched normal saline to sodium bicarbonate 75 mEq in D5W. Non-anion gap metabolic acidosis, likely related to IV fluids. DVT prophylaxis: SCDs. GI prophylaxis: Home PPI VS, I&O, 24H, Fishbone Vital Signs/I&O Vital Signs Date Time Temp Pulse Resp B/P (MAP) Pulse Ox O2 Delivery O2 Flow Rate FiO2 1/8/21 15:32 99.4 09/11/20 14:00 87 16 166/86 (112) 98 Room Air l I&O- Last 24 Hours up to 6 AM 09/11/20 06:00 Intake Total 1660 ml Output Total 350 ml Balance 1310 ml Laboratory Data 24H LABS Laboratory Tests 2 09/10/20 22:17: Urine Color YELLOW, Urine Appearance CLEAR, Urine pH 5.0, Urine Specific [place] 1.011, Urine Protein 1+H, Urine Glucose (UA) NEGATIVE, Urine Ketones 1+H, Urine Blood 1+H, Urine Nitrite NEGATIVE, Urine Bilirubin NEGATIVE, Urine Urobilinogen 0.2, Urine Leukocyte Esterase TRACEH, Urine WBC (Auto) 2, Urine RBC (Auto) 1, Urine Hyaline Casts (Auto) 0, Urine Bacteria (Auto) NEGATIVE, Urine Squamous Epithelial Cells 0, Urine Sperm (Auto) 09/11/20 00:10: Anion Gap 9, Glomerular Filtration Rate 34.8L, Calcium Level 7.9#L 09/11/20 06:00: Anion Gap 11, Glomerular Filtration Rate 38.7L, Calcium Level 8.1L, Nucleated Red Blood Cells % (auto) 0.0, Vitamin B12 Level > 2000H, Thyroid Stimulating Hormone (TSH) 0.260L, Free Thyroxine 1.02, Free Triiodothyronine 1.3L CBC/BMP Laboratory Tests 09/11/20 00:10 09/11/20 06:00 Microbiology Microbiology 09/10/20 Urine Culture, Received Pending 09/10/20 Blood Culture - Preliminary, Resulted No growth after 24 hours . All specim... 09/10/20 Blood Culture - Preliminary, Resulted No growth after 24 hours . All specim... 09/10/20 Respiratory Virus Panel (PCR) ([facility]) - Final, Complete KEY CAIN MD Sep 11, 2020 19:19
[2020-09-11] MEDS: methylPREDNISolone 1,000 MG, VIAL MATE ADAPTER 1 EACH in D5W 250 ML IV SCH (19:21)
[2020-09-11 20:18] VITALS: BP 154/76
[2020-09-11] MEDS: AMANTADINE 100MG TABLET PO SCH (21:00)
[2020-09-11] MEDS: LEVOTHYROXINE 75MCG TABLET (0.075MG) PO SCH (21:38)
[2020-09-12] MEDS: SODIUM BICARBONATE 75 MEQ in D5W 1,000 ML IV SCH ×2
[2020-09-12 06:00] VITALS: BP 172/60
[2020-09-12 07:33] LABS: CALCIUM LEVEL 8.4 MG/DL (8.8-10.2); CREATININE FOR GFR 1.8 MG/DL (0.55-1.30); GLOMERULAR FILTRATION RATE 30.2 (>45); POTASSIUM SERUM 3.8 MEQ/L (3.5-5.1)
[2020-09-12 07:48] LABS: HEMATOCRIT 34.2 % (36.0-47.0); HEMOGLOBIN 10.6 g/dl (12.0-15.5); MEAN CORPUSCULAR HEMOGLOBIN 29.1 pg (27.0-33.0); PLATELET COUNT, AUTOMATED 184 10^3/uL (150-450); RED BLOOD COUNT 3.64 10^6/uL (4.00-5.40); WHITE BLOOD COUNT 5.2 10^3/uL (4.0-10.0)
[2020-09-12 08:23] LABS: CALCIUM LEVEL 7.7 MG/DL (8.8-10.2); CREATININE FOR GFR 1.34 MG/DL (0.55-1.30); GLOMERULAR FILTRATION RATE 42.4 (>45); POTASSIUM SERUM 3.5 MEQ/L (3.5-5.1)
[2020-09-12] MEDS: AMANTADINE 100MG TABLET PO SCH ×3 (09:00→20:38)
[2020-09-12] MEDS: OMEPRAZOLE 20 MG CAP PO SCH ×2 (09:00→10:35)
[2020-09-12] MEDS: methylPREDNISolone 1,000 MG, VIAL MATE ADAPTER 1 EACH in D5W 250 ML IV SCH (09:57)
[2020-09-12] MEDS: D5W 1,000 ML IV SCH (11:25)
[2020-09-12 14:00] VITALS: BP 160/76
--- NOTE | 2020-09-12 17:54 | CR ---
CONSULTATION DATE: 09/11/2020 REFERRING PHYSICIAN: Sindhu Weiss MD REASON FOR CONSULTATION: Difficulty swallowing. HISTORY OF PRESENT ILLNESS: The patient is a 64-year-old woman with a history of multiple sclerosis, vitamin B12 deficiency, who presented to [facility] due to dysphagia. The patient stated that she had a similar episode in 2017 but it is worse this time. In 2017, she had a PEG tube placement but her symptoms improved after ten days and she never needed to use it and it was removed. This time around, the patient stated that she developed difficulty swallowing seven days ago and it has worsened and she is unable to swallow. She finds it painful to swallow things. She is unable to take her pills and she drools as she is unable to swallow her own saliva. She feels choking and gagging sensation. She came to the emergency department. She has chronic tremor of her hands and numbness in her feet. There was no focal neurological deficit other than swallowing. Her neurological exam was found to be unremarkable in the emergency department. I recommended MRI scan of brain with and without contrast in the emergency department which was reviewed and showed chronic multiple T2 white matter lesions without any lesions in the brainstem. Acetylcholine receptor antibody, MUSK antibody, striated muscle antibody are all pending. The patient continues to have trouble with swallowing. Her vitamin B12, vitamin B1 are also pending. She denies any headaches, neck or back pain, falls, loss of consciousness, any recent injuries, illness, respiratory or GI symptoms except for difficulty swallowing. There is no shortness of breath, double vision, drooping of eyelids. DIAGNOSTIC STUDIES: Her creatinine was 1.2 with serum sodium 151. Her creatinine increased from 1.2 to 2. MRI of brainstem did not show any acute disease. It showed old T2 white matter lesion in cerebral white matter without any brainstem lesions. PAST MEDICAL HISTORY: Multiple sclerosis, acid reflux, vitamin B12 deficiency, hypothyroidism, episode of swallowing difficulty in 2017 requiring PEG tube placement which was quickly removed as well. Her swallowing improved on her own at that time. CURRENT MEDICATIONS: 1. Amantadine 200 mg in the morning and 100 mg in the evening. 2. Vitamin B12 500 mcg p.o. daily. 3. Vitamin D plus calcium 600 mg 400 units p.o. daily. 4. Levothyroxine 75 mcg p.o. daily. 5. Nortriptyline 50 mg p.o. daily. 6. Omeprazole 40 mg p.o. daily. 7. Primidone 50 mg p.o. b.i.d. 8. Baclofen 10 mg p.o. b.i.d. p.r.n. 9. Calcium carbonate. ALLERGIES: DEPAKOTE, DEMEROL. SOCIAL HISTORY: She is a former smoker. She denies alcohol or illicit drugs. FAMILY HISTORY: Unremarkable and noncontributory. REVIEW OF SYSTEMS: All systems were reviewed and found to be noncontributory except as mentioned in history of present illness. PHYSICAL EXAMINATION: VITAL SIGNS: Temperature 99.4, pulse 87, respiratory rate 16, blood pressure 166/86, 98% saturation on room air. HEART: Regular rate and rhythm. LUNGS: Clear to auscultation. ABDOMEN: Soft, nontender, nondistended. EXTREMITIES: No pedal edema. MUSCULOSKELETAL: No abnormalities. SKIN: No rash. NEUROLOGICAL: No signs of meningeal irritation. The patient is awake, alert, oriented to place, person and time. Normal speech, comprehension and repetition. Extraocular muscles are intact. No facial weakness. Tongue and uvula are midline. She has normal movements of her jugular and phalanx on bedside examination. 5/5 strength in all four extremities. Deep tendon reflexes are 2+ throughout. She has decreased cold pinprick vibration sensation in her feet. Gait is mildly unsteady but at her baseline. ASSESSMENT: 1. Swallowing difficulty of unclear cause. 2. There is no evidence of CVA or demyelinating plaques in her brainstem. Her old chronic T2 lesions in deep cerebral white matter would not result in sudden swallowing difficulty. 3. Pending blood tests for myasthenia gravis although it will be unusual in the absence in any other symptoms to suggest myasthenia gravis. She has no ptosis, dysarthria, diplopia, orthopnea or shortness of breath. 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 The patient had a similar episode in 2017. She improved on her own after ten days per history. 5. Multiple sclerosis and essential tremor. PLAN: 1. Solu-Medrol 1000 mg IV daily for three days. 2. Await results for blood tests for myasthenia gravis, vitamin B12, vitamin B1, etc. 3. Once patient is able to swallow, we should resume her primidone, amantadine on outpatient basis along with vitamin D and vitamin B12 supplements. 4. Consult ENT and gastroenterology for any other causes of her difficulty swallowing and if she would need PEG or J-tube placement. 5. She will continue her every six month infusions of Ocrevus 600 mg every six months on outpatient basis. 6. Follow with our office in two weeks after hospital discharge. JOSE
--- NOTE | 2020-09-12 21:57 | IPNPDOC ---
Date Seen The patient was seen on 09/12/20. Progress Note SUBJECTIVE: Reports slight improvement in dysphasia, able to swallow her saliva, which she could not do yesterday. Attempted to give patient water and medication, unable to tolerate. Patient advised to have NG tube placed, unable to tolerate the procedure and refused. PHYSICAL EXAMINATION: VITAL SIGNS: Please see below. GENERAL: Frail HEENT: Normocephalic, atraumatic, moist mucous membranes NECK: Supple CARDIOVASCULAR EXAMINATION: S1, S2, no murmurs RESPIRATORY EXAMINATION: Clear to auscultation, no wheezing ABDOMINAL EXAMINATION: Soft, nontender, nondistended, positive bowel sounds EXTREMITIES: Range of motion intact SKIN: No rash NEUROLOGICAL EXAMINATION: Alert and oriented 3, unable to swallow PSYCHIATRIC EXAMINATION: Calm and cooperative LABORATORY DATA, IMAGING STUDIES, MICROBIOLOGY: Please see below. ASSESSMENT AND PLAN: 64-year-old female with past medical history of multiple sclerosis with isolated dysphagia, similar episode 3 years ago which resolved on its own, especially after PEG tube was placed. Patient's symptoms and workup concerning for possible psychosomatic presentation. PROBLEMS: 1. Dysphasia: Evaluated by speech therapy, FEES test was recommended, patient unable to participate. MRI negative for brain stem pathology which would explain her dysphagia. Case discussed with neurology (Dr. Deleon), recommends serological workup, pending. Strong suspicion for psychosomatic presentation as she had a similar episode 3 years ago, which self resolved after PEG tube was placed. On Solu-Medrol 1 g daily for 3 days while workup is underway. Minimal improvement in dysphasia, but still unable to tolerate anything by mouth, start D5W. Will consider ENT/GI/psych eval if symptoms persist 2. Hypothyroidism: TSH slightly low, Continue levothyroxine. 3. Acute on chronic kidney disease. Likely prerenal due to lack of intake from dysphasia, improved with IV fluids. Creatinine close to baseline Hypernatremia, on D5W. DVT prophylaxis: SCDs. GI prophylaxis: Home PPI VS, I&O, 24H, Fishbone Vital Signs/I&O Vital Signs Date Time Temp Pulse Resp B/P (MAP) Pulse Ox O2 Delivery O2 Flow Rate FiO2 09/12/20 14:00 97.1 63 16 160/76 (104) 98 Room Air I&O- Last 24 Hours up to 6 AM 09/12/20 06:00 Intake Total 1001 ml Output Total 2230 ml Balance -1229 ml Laboratory Data 24H LABS Laboratory Tests 2 09/12/20 07:11: Nucleated Red Blood Cells % (auto) 0.0, Anion Gap 7L, Glomerular Filtration Rate 42.4L, Calcium Level 7.7L CBC/BMP Laboratory Tests 09/12/20 07:11 Microbiology Microbiology 09/10/20 Urine Culture - Final, Complete 09/10/20 Blood Culture - Preliminary, Resulted No Growth after 48 hours. All Specime... 09/10/20 Blood Culture - Preliminary, Resulted No Growth after 48 hours. All Specime... 09/10/20 Respiratory Virus Panel (PCR) ([facility]) - Final, Complete KEY CAIN MD Sep 12, 2020 21:57
[2020-09-12 22:00] VITALS: BP 157/77
[2020-09-13] MEDS: D5W 1,000 ML IV SCH ×2 (00:42→22:16)
[2020-09-13] MEDS: LEVOTHYROXINE 75MCG TABLET (0.075MG) PO SCH (05:26)
[2020-09-13 06:00] VITALS: BP 141/73
[2020-09-13 06:35] LABS: HEMATOCRIT 33.9 % (36.0-47.0); HEMOGLOBIN 10.4 g/dl (12.0-15.5); MEAN CORPUSCULAR HEMOGLOBIN 29.2 pg (27.0-33.0); MEAN CORPUSCULAR HGB CONC 30.7 g/dl (32.0-36.5); MEAN CORPUSCULAR VOLUME 95.2 fl (80.0-96.0); PLATELET COUNT, AUTOMATED 145 10^3/uL (150-450); RED BLOOD COUNT 3.56 10^6/uL (4.00-5.40); WHITE BLOOD COUNT 5.9 10^3/uL (4.0-10.0)
[2020-09-13 07:00] LABS: CALCIUM LEVEL 7.3 MG/DL (8.8-10.2); CREATININE FOR GFR 1.15 MG/DL (0.55-1.30); GLOMERULAR FILTRATION RATE 50.6 (>45); POTASSIUM SERUM 2.9 MEQ/L (3.5-5.1)
[2020-09-13] MEDS: AMANTADINE 100MG TABLET PO SCH ×2 (09:00→23:07)
[2020-09-13] MEDS: OMEPRAZOLE 20 MG CAP PO SCH (09:00)
[2020-09-13] MEDS: methylPREDNISolone 1,000 MG, VIAL MATE ADAPTER 1 EACH in D5W 250 ML IV SCH (09:37)
[2020-09-13] MEDS: KCL 10MEQ/100ML SWI (KRUN) 10 MEQ in IV 1 EA IV SCH ×7 (12:05→22:08)
[2020-09-13 14:00] VITALS: BP 155/81
--- NOTE | 2020-09-13 16:37 | IPNPDOC ---
Date Seen The patient was seen on 09/13/20. Progress Note SUBJECTIVE: Patient swallowing is slowly improving, able to swallow nectar thick today. Otherwise comfortable and at baseline, no new complaints today. PHYSICAL EXAMINATION: VITAL SIGNS: Please see below. GENERAL: Frail HEENT: Normocephalic, atraumatic, moist mucous membranes NECK: Supple CARDIOVASCULAR EXAMINATION: S1, S2, no murmurs RESPIRATORY EXAMINATION: Clear to auscultation, no wheezing ABDOMINAL EXAMINATION: Soft, nontender, nondistended, positive bowel sounds EXTREMITIES: Range of motion intact SKIN: No rash NEUROLOGICAL EXAMINATION: Alert and oriented 3, unable to swallow PSYCHIATRIC EXAMINATION: Calm and cooperative LABORATORY DATA, IMAGING STUDIES, MICROBIOLOGY: Please see below. ASSESSMENT AND PLAN: 64-year-old female with past medical history of multiple sclerosis with isolated dysphagia, similar episode 3 years ago which resolved on its own, especially after PEG tube was placed. Patient's symptoms and workup concerning for possible psychosomatic presentation. PROBLEMS: 1. Dysphasia: Evaluated by speech therapy, FEES test was recommended, patient unable to participate. MRI negative for brain stem pathology which would explain her dysphagia. Case discussed with neurology (Dr. Deleon), recommends serological workup, pending. Strong suspicion for psychosomatic presentation as she had a similar episode 3 years ago, which self resolved after PEG tube was placed. On Solu-Medrol 1 g daily for 3 days while workup is underway. Dysphasia is improving daily over the past 48 hours, able to tolerate nectar thick today, we'll continue maintenance fluids until oral intake is adequate. Will hold off on further intervention if patient continues to improve at this rate, as this may just be psychosomatic. 2. Hypothyroidism: TSH slightly low, Continue levothyroxine. 3. Acute on chronic kidney disease. Likely prerenal due to lack of intake from dysphasia, improved with IV fluids. Creatinine close to baseline Hypernatremia, continue D5W. Hypokalemic, IV supplementation as she is unable to swallow pills. DVT prophylaxis: Lovenox GI prophylaxis: Home PPI VS, I&O, 24H, Fishbone Vital Signs/I&O Vital Signs Date Time Temp Pulse Resp B/P (MAP) Pulse Ox O2 Delivery O2 Flow Rate FiO2 09/13/20 14:00 98.3 71 16 155/81 (105) 99 Room Air I&O- Last 24 Hours up to 6 AM 09/13/20 06:00 Intake Total 1436 ml Output Total 1000 ml Balance 436 ml Laboratory Data 24H LABS Laboratory Tests 2 09/13/20 06:08: Nucleated Red Blood Cells % (auto) 0.0, Anion Gap 4L, Glomerular Filtration Rate 50.6, Calcium Level 7.3L CBC/BMP Laboratory Tests 09/13/20 06:08 Microbiology Microbiology 09/10/20 Urine Culture - Final, Complete 09/10/20 Blood Culture - Preliminary, Resulted No Growth after 48 hours. All Specime... 09/10/20 Blood Culture - Preliminary, Resulted No Growth after 48 hours. All Specime... 09/10/20 Respiratory Virus Panel (PCR) ([facility]) - Final, Complete KEY CAIN MD Sep 13, 2020 16:37
[2020-09-13 22:00] VITALS: BP 158/79
[2020-09-13] MEDS: HEPARIN SOD (PORCINE) 5000UNITS/ML 1ML VIAL/SYRINGE SC SCH (22:16)
[2020-09-13] MEDS ORDERED: KCL 10MEQ/100ML SWI (KRUN) 10 MEQ in IV 1 EA IV SCH (23:00)
[2020-09-14] MEDS: LEVOTHYROXINE 75MCG TABLET (0.075MG) PO SCH (05:36)
[2020-09-14 06:00] VITALS: BP 165/86
[2020-09-14 07:07] LABS: HEMATOCRIT 34.5 % (36.0-47.0); HEMOGLOBIN 10.8 g/dl (12.0-15.5); MEAN CORPUSCULAR HEMOGLOBIN 29.4 pg (27.0-33.0); MEAN CORPUSCULAR HGB CONC 31.3 g/dl (32.0-36.5); PLATELET COUNT, AUTOMATED 157 10^3/uL (150-450); RED BLOOD COUNT 3.67 10^6/uL (4.00-5.40); WHITE BLOOD COUNT 5.6 10^3/uL (4.0-10.0)
[2020-09-14 07:41] LABS: BLOOD UREA NITROGEN 20 MG/DL (7-18); CALCIUM LEVEL 7.2 MG/DL (8.8-10.2); CARBON DIOXIDE LEVEL 27 MEQ/L (21-32); CHLORIDE LEVEL 114 MEQ/L (98-107); CREATININE FOR GFR 0.98 MG/DL (0.55-1.30); GLOMERULAR FILTRATION RATE > 60.0 (>45); GLUCOSE, FASTING 84 MG/DL (70-100); POTASSIUM SERUM 4.6 MEQ/L (3.5-5.1); SODIUM LEVEL 144 MEQ/L (136-145)
[2020-09-14] MEDS: AMANTADINE 100MG TABLET PO SCH ×2 (09:00→20:10)
[2020-09-14] MEDS: OMEPRAZOLE 20 MG CAP PO SCH (09:00)
[2020-09-14] MEDS: HEPARIN SOD (PORCINE) 5000UNITS/ML 1ML VIAL/SYRINGE SC SCH ×2 (10:05→20:13)
[2020-09-14] MEDS: D5W 1,000 ML IV SCH (11:13)
--- NOTE | 2020-09-14 12:03 | IPN ---
PROGRESS NOTE DATE: 09/14/2020 SUBJECTIVE: Meena was seen while rounding for the Hospitalist. She looks significantly worse than the last time that I saw her in the office. She is not eating. She has a swallowing evaluation today and it showed she was not able to swallow any consistency without aspirating it. She only weighs about 70 pounds now. She is not responding to questions or following commands. She looks severely chronically ill. I called her , we spoke at length. He says for the past month she has had a decreased appetite or void avoidance and stopped eating almost anything a week or so ago. I reviewed her office records. She is followed by Dr. Merle Elizabeth's osteoporosis office, was referred there and seen on August 26 for elevated PTH. 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 Of note though, at that time was they described her as appearing healthy, well-developed and well-nourished and that she was cooperative with a normal gait and station. Her affect was reported as normal. That is a dramatic difference in two weeks with what I am seeing today and actually is quite different what her feels that her status was at that time also. Other review of the records showed that she had a positive SENTHIL virus in May 2020 and this was discussed with the patient via telephone visit on 06/30/2020. PHYSICAL EXAMINATION: GENERAL: She looks severely chronically ill. She is thin, malnourished. She is trying to speak on the phone but speech is garbled. Does not follow commands for me. It is more of a vacant stare when I try to engage her. VITAL SIGNS: Her blood pressure is 165/86, pulse is 60, respiratory rate is 18, 90% on O2 saturation. LUNGS: Decreased breath sounds. HEART: Regular rhythm. ABDOMEN: Soft, nontender. No peripheral edema. EXTREMITIES: She has a tremor of the arms. LABORATORY DATA: Sodium is 144, potassium is 4.6, BUN 20, creatinine 0.6, glucose 84. White count 5.6, hemoglobin 10.8, platelets 157,000. IMPRESSION: 1. Swallowing difficulty. There is a concern that this is primarily neurologic and now there is some discussion about this being psychosomatic, in the past she has had psychiatric issues as well but her tremor and profound weight loss seem to point otherwise. I am afraid this may be related to the SENTHIL virus and PML and will have Neurology comment on this. I have a consultation with Dr. Rayo to discuss PEG tube. Patient did have a PEG tube placed in the past but after the tube was placed before it was even used for nutrition her p.o. intake improved and it was never used and then it was removed. 2. Hypernatremia, this is improved with hydration. 3. Hypokalemia, this is improved with appropriately replacement intravenously. 4. Hypothyroidism, stable on current dose of levothyroxine. 5. Familial hypocalciuria hypercalcemia. She sees Endocrinology for this. 6. Multiple sclerosis, she has a long history of this, has been on immunosuppressant medications. She has an elevated SENTHIL virus, there is a concern that some of her current symptoms might be PML and I have a Neurology consultation pending.
--- NOTE | 2020-09-14 12:09 | IPN ---
PROGRESS NOTE DATE: 09/14/2020 ADDENDUM: I spoke at length with Dr. Varela. He reviewed her office record. Dr. Deleon saw her via a telephone consultation recently. Dr. Varela does not feel this is related to PML or the SENTHLI virus antibody that was elevated. His concern is whether the patient, in addition to not eating, has stopped taking her medications and whether of this could be some of a lack of appropriate medication for MS or withdrawal from these meds. Towards that end, I have asked him to see the patient if he is in the hospital for a consultation; I do not think he needs to come in otherwise but he will see her if he is in the hospital otherwise. We will insert an NG tube, start tube feedings and give her medications by NG tube and will test the theory of whether her current symptomatology is from lack of taking her prescribed medications or if it is indeed a sign that her neurologic condition is progressing. Her is aware and I am concerned this is the beginning of a terminal drop related to her advanced neurologic problems. She is currently a full code.
[2020-09-14 13:25] VITALS: BP 156/82
[2020-09-14 22:00] VITALS: BP 130/74
[2020-09-15] VITALS (14 sets, daily range): BP systolic 84–164; BP diastolic 50–104; O2SAT 86
[2020-09-15] MEDS: LEVOTHYROXINE 75MCG TABLET (0.075MG) PO SCH (05:32)
[2020-09-15] MEDS: D5W 1,000 ML IV SCH (08:29)
[2020-09-15] MEDS: OMEPRAZOLE 20 MG CAP PO SCH (09:00)
[2020-09-15] MEDS: AMANTADINE 100MG TABLET PO SCH ×2 (09:00→23:02)
[2020-09-15] MEDS: HEPARIN SOD (PORCINE) 5000UNITS/ML 1ML VIAL/SYRINGE SC SCH ×2 (10:02→23:02)
[2020-09-15] MEDS ORDERED: LORazepam 2 MG/ML VIAL IV STA (10:22)
[2020-09-15] MEDS ORDERED: LORazepam 2 MG/ML VIAL As Ordered ONE ×2 (10:26→14:49)
[2020-09-15 11:01] LABS: HEMATOCRIT 37.2 % (36.0-47.0); HEMOGLOBIN 11.9 g/dl (12.0-15.5); MEAN CORPUSCULAR HEMOGLOBIN 29.8 pg (27.0-33.0); PLATELET COUNT, AUTOMATED 196 10^3/uL (150-450); WHITE BLOOD COUNT 6.3 10^3/uL (4.0-10.0)
[2020-09-15 11:34] LABS: CALCIUM LEVEL 7.3 MG/DL (8.8-10.2); CREATININE FOR GFR 1.04 MG/DL (0.55-1.30); GLOMERULAR FILTRATION RATE 56.8 (>45); POTASSIUM SERUM 3.6 MEQ/L (3.5-5.1)
[2020-09-15] MEDS ORDERED: LORazepam 2 MG/ML VIAL IV PRN (14:45)
[2020-09-15 17:08] LABS: ABG BASE EXCESS -0.9 (-2.0-2.0); ABG HCO3 21.9 MEQ/L (22.0-26.0); ABG O2 SATURATION 97.2 % (95.0-99.0); ABG PARTIAL PRESSURE CO2 30.7 mmHg (35.0-45.0); ABG PARTIAL PRESSURE O2 84.7 mmHg (75.0-100.0); ABG STANDARD HCO3 23.7 MEQ/L (22.0-26.0); ABG TOTAL CO2 22.8 MEQ/L (23.0-31.0); ABG pH (ARTERIAL) 7.471 UNITS (7.350-7.450)
--- NOTE | 2020-09-15 17:57 | REP ---
INDICATION: hypoxemia. COMPARISON: Earlier today TECHNIQUE: Portable FINDINGS: The technique utilized in obtaining the radiograph has magnified the cardiac silhouette and accentuated the interstitial markings. There is a patchy opacity in the left lower lobe which is increased from the prior exam earlier today. There is left CP angle blunting which has developed. There are a few left lower lobe air bronchograms. There is no change in the osseous structures. There is no change the cardiomediastinal silhouette.. IMPRESSION: Increased left lower lobe opacity as described above consistent with pneumonia <Electronically signed by Scott Munguia > 09/15/20 [id number]
[2020-09-15] MEDS ORDERED: ACETAMINOPHEN 650 MG SUPP PR ONE (18:45)
[2020-09-15] MEDS: cefTRIAXone SOD 1 GM in D5W MINI-BAG PLUS 50 ML IV SCH (18:50)
[2020-09-15 18:51] LABS: D-DIMER QUANT 1265.63 ng/ml (<500)
[2020-09-15 19:01] LABS: C REACTIVE PROTEIN QUANTITATIV 3.82 MG/DL (0.00-0.30)
--- NOTE | 2020-09-15 19:07 | CCN ---
CRITICAL CARE NOTE DATE: 09/15/2020 SUBJECTIVE: I was called to evaluate this 64-year-old female with multiple sclerosis admitted on 09/10 with dysphagia. She was unable to take medication. Since admission, she was treated with Solu-Medrol and yesterday, according to nursing, was awake, oriented, up and walking with some assistance. She was still having difficulty swallowing and today, attempts were made unsuccessfully to pass an NG tube. Over the course of the day, she has developed ataxic movements and an altered level of consciousness, as well as a low oxygen saturation requiring supplemental oxygen. Oxygen requirements have precipitously increased this evening and her respiratory status has become unstable. Her past medical history, according to the electronic health record, includes multiple sclerosis, migraine headaches, prior history of pneumothorax, osteoporosis, reflux disease, and dyslipidemia. OBJECTIVE: GENERAL APPEARANCE: On my arrival, the patient is in moderate to severe respiratory distress, moaning with respiratory efforts. VITAL SIGNS: Temperature 99, pulse rate 100, respirations 28, blood pressure 160/77. Her [place] coma scale calculates at 7. HEENT: Her pupils are equal and react to light, but she resists eye opening. She is making incomprehensible sounds. HEART: Sounds are regular rapid. LUNGS: Breath sounds diminished over the right hemithorax. There is some coarse decrease in the left base. Chest is symmetric. She is using accessory muscles. ABDOMEN: Soft. No palpable mass. EXTREMITIES: Show flexion with motion. She resists movement and has spontaneous dystonic movements. DIAGNOSTIC STUDIES: Her white cell count this morning was 6.3, hemoglobin 11.9, hematocrit 37.2, platelet count 196,000. Her chemistries this morning were sodium 143, potassium 3.6, chloride 111, CO2 of 23, BUN 14, creatinine 1.01, glucose 109. We obtained an arterial blood gas stat and the pH was 7.471, pCO2 of 38.7, pO2 of 84 on a nonrebreather mask. She has had two negative blood cultures. Respiratory panel was negative for COVID 19 infection and negative for the remaining respiratory viral infections. Urine culture showed no growth. We obtained a stat portable chest x-ray at bedside, and she does have a left lower lobe retrocardiac infiltrate. ASSESSMENT AND PLAN: The primary problem requiring critical attention is acute hypoxic respiratory failure. I have discussed the case with the attending hospitalist and the intensive care unit (ICU) team. We will facilitate movement of the patient now to the intensive care unit for closure monitoring and the needed resuscitative efforts. We will change her oxygen delivery system to a high flow system to match her minute ventilation and follow saturations. Left lower lobe pneumonia; possibly aspiration. We will initiate empiric ceftriaxone pending cultures, if we are able to obtain them. Altered level of consciousness; it is unclear what the etiology of her change in neurologic status is. Possibly her underlying multiple sclerosis, possibly withdrawal from multiple medications; which she was taking at home, which have not been able to be administered during her hospitalization. Neurology is on the case and we will await their opinion. Deep vein thrombosis (DVT) prophylaxis being addressed with heparin. The patient's condition is critical. She is at significant risk for deterioration and may require intubation and mechanical ventilatory support. Preparations will be made once she is in the intensive care unit. CRITICAL CARE TIME: 168 minutes was spent in the provision of bedside critical care and coordination, exclusive of any procedure time.
[2020-09-15 19:11] LABS: BILIRUBIN,TOTAL 0.8 MG/DL (0.2-1.0); CALCIUM LEVEL 7.2 MG/DL (8.8-10.2); CREATININE FOR GFR 1.1 MG/DL (0.55-1.30); GLOMERULAR FILTRATION RATE 53.2 (>45); PHOSPHORUS LEVEL 1.5 MG/DL (2.5-4.9); POTASSIUM SERUM 4.1 MEQ/L (3.5-5.1); TOTAL PROTEIN 6.9 GM/DL (6.4-8.2)
[2020-09-15 19:12] LABS: ALBUMIN 3.9 GM/DL (3.2-5.2)
[2020-09-15] MEDS: dexmedeTOMidine 200 MCG in IV 1 EA IV SCH (19:30)
--- NOTE | 2020-09-15 19:45 | CCN ---
CRITICAL CARE NOTE ADDENDUM DATE: 09/15/2020 ADDENDUM: The patient is now settled in the intensive care unit and with the application of high-flow oxygen via face mask, her saturations are reliably in the mid 90s. Chest x-ray was reviewed showing a left lower lobe retrocardiac infiltrate, consistent with pneumonia. Lab studies were updated. Her sodium is 140, potassium 4.1, chloride 111, CO2 of 20, BUN 14, creatinine 1.1, glucose 109, calcium 7.2. Liver enzymes are normal. LDH 438. Her C-reactive protein is 3.82. She remains tachycardic in the 140s and is displaying ataxic movements, somewhat combative. We will attempt to prevent self-harm without suppression of respiratory drive using Precedex at a slow infusion rate. 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 We may need a brain MRI or a lumbar puncture, if we can gain control of her movements and stabilize her condition. CRITICAL CARE TIME: 37 minutes was spent in the provision of bedside critical care and coordination, exclusive of any procedure time.
--- NOTE | 2020-09-15 20:26 | REP ---
INDICATION: ? aspiration COMPARISON: 08/21/2017 TECHNIQUE: Portable AP view of the chest FINDINGS: Mediastinum and cardiac silhouette are within normal limits and stable. Left lower lobe opacity suggesting consolidation. No effusion. No pneumothorax. Skeletal structures demonstrate age-related degenerative changes. IMPRESSION: Left lower lobe consolidation. Follow-up to resolution. <Electronically signed by Mack Luo > 09/15/202021
[2020-09-15] MEDS ORDERED: HALOPERIDOL 5MG/ML VIAL (J1630 PER 1) IV PRN (21:45)
[2020-09-15] MEDS ORDERED: SODIUM PHOSPHATE INJ 30 MMOL in D5W 500 ML IV ONE (22:15)
--- NOTE | 2020-09-15 22:32 | IPNPDOC ---
Text Note Date of Service The patient was seen on 09/15/20. NOTE SUBJECTIVE: Patient completely delirious today started some time last night. She became very agitated, could not talk, indicated could not breathe. This am when i saw her she was having tremors all over, rigid with myoclonic jerks, did say a few words, could not swallow, oral secretions accumulating difficult to suction as she would bite down. We tried to place NG tube with Ativan to try to restart her meds as I flet she was withdrawing from her meds that she has not received for the past week. without any success. In the after noon she became more hypoxic ? aspiration. She was moved down to ICU and Dr Guerra was consulted. PHYSICAL EXAMINATION: VITAL SIGNS: Please see below. GENERAL: Frail, confused, agitated, tremulous, rigid. HEENT: Normocephalic, atraumatic, oral secretions pooling NECK: stiff CARDIOVASCULAR EXAMINATION: S1, S2, regular, tachycardic no murmurs RESPIRATORY EXAMINATION: Bilateral crackles heard more on left along with conducted sounds from secretions. ABDOMINAL EXAMINATION: Soft, nontender, nondistended, positive bowel sounds EXTREMITIES: Range of motion intact, No edema, Stiff with tremors. SKIN: No rash NEUROLOGICAL EXAMINATION: confused, agitated, moving all extremities with tremors, ataxia, LABORATORY DATA, IMAGING STUDIES, MICROBIOLOGY: Please see below. ASSESSMENT AND PLAN: 64-year-old female with past medical history of multiple sclerosis admitted for isolated dysphagia, unable to take medications. Similar episode 3 years ago which resolved on its own, especially after PEG tube was placed. Patient's symptoms and workup concerning for possible psychosomatic presentation. Now complicated by acute encephalopathy probably from withdrawal effects of sudden stopping of her home meds, aspiration in encephalopathic state with pneumonia, hypoxia. Acute encephalopathy Most like from multiple medication withdrawal . has not been able to swallow meds for about a week . Has been off amantidine, baclofen, primidone, topiramate. started on precedex discussed with Dr Varela. to avoid benzos with precedex. OK to use low dose haldol. Goal is to place NG tube and start her meds as soon as possible. Acute hypoxic respiratory failure due to Aspiration in encephalopathic state. Appreciate Dr Caputo intput ABG not bad with high flow oxygen So held off on intubation. Aspiration pneumonia May have aspirated last night. she started becoming hypoxic from this moring initially needing 2 liters. CXR in the Am was clear increased oxygen requirement in the afternoon. Repeat CXR showed left lower lobe infiltrate started on Ceftriaxone. Positive SENTHIL virus antibody Unlikely PML discussed with dr Varela. The MRI lesions from 09/10/20 MRI not congruent with PML lesions. Also she is not on the immunosuppressive therapy (Natalizumab) that is known to cause PML. Also her WBC is not less than 1.0 so she is not immunosuppressed enough to have PML. Will ask Dr Swann tomorrow to review and compare her most recent MRI with previous ones. If does not improve can repeat MRi with contrast in another week. Dysphasia Evaluated by speech therapy, FEES test was recommended, patient unable to participate. MRI negative for brain stem pathology which would explain her dysphagia. Did not show any new active MS lesions Still was given 3 days of solumedrol. Strong suspicion for psychosomatic presentation as she had a similar episode 3 years ago, which self resolved after PEG tube was placed. wanted to try NG tube before going for PEG tube. we tried to placed NG tube several times after ativan with no success She was be very agitated and fighting, thrashing around. Hypothyroidism: TSH slightly low, On levothyroxine. Hypophosphatemia replaced. Acute on chronic kidney disease. Multiple sclerosis has not been able to take any meds for a week. she is on Ocrelizumab Severe protein calorie malnutrition Has a BMI of 13.7 with bitemporal wasting due to her underlying chronic disease, swallowing problems. No intake for about 5 days will continue IVF. Monitor electrolytes. VS,Fishbone, I+O VS, Fishbone, I+O Laboratory Tests 09/15/20 10:42 09/15/20 18:18 Vital Signs Date Time Temp Pulse Resp B/P (MAP) Pulse Ox O2 Delivery O2 Flow Rate FiO2 09/15/20 19:35 100.2 82 24 100 Non-Rebreather 15.0 09/15/20 19:23 130/75 (93) 09/15/20 18:12 98 I&O- Last 24 Hours up to 6 AM 09/15/20 07:00 Intake Total 720 ml Output Total 0 ml Balance 720 ml JENNIFER POZO MD Sep 15, 2020 22:32
[2020-09-16] VITALS (14 sets, daily range): BP systolic 100–166; BP diastolic 59–89
[2020-09-16] MEDS: dexmedeTOMidine 200 MCG in IV 1 EA IV SCH (03:47)
[2020-09-16 05:28] LABS: HEMATOCRIT 30.9 % (36.0-47.0); HEMOGLOBIN 10.1 g/dl (12.0-15.5); MEAN CORPUSCULAR HEMOGLOBIN 30.1 pg (27.0-33.0); MEAN CORPUSCULAR HGB CONC 32.7 g/dl (32.0-36.5); MEAN CORPUSCULAR VOLUME 92.2 fl (80.0-96.0); PLATELET COUNT, AUTOMATED 105 10^3/uL (150-450); RED BLOOD COUNT 3.35 10^6/uL (4.00-5.40); WHITE BLOOD COUNT 4.7 10^3/uL (4.0-10.0)
[2020-09-16 05:51] LABS: LYMPHOCYTES 1 % (16-44); MONOCYTES 4 % (0-5); NEUTROPHILS 95 % (28-66); PLATELET ESTIMATE DECREASED (NORMAL)
[2020-09-16 05:55] LABS: BLOOD UREA NITROGEN 13 MG/DL (7-18); CALCIUM LEVEL 6.6 MG/DL (8.8-10.2); CARBON DIOXIDE LEVEL 26 MEQ/L (21-32); CHLORIDE LEVEL 108 MEQ/L (98-107); CREATININE FOR GFR 0.98 MG/DL (0.55-1.30); GLOMERULAR FILTRATION RATE > 60.0 (>45); GLUCOSE, FASTING 111 MG/DL (70-100); MAGNESIUM LEVEL 1.6 MG/DL (1.8-2.4); PHOSPHORUS LEVEL 4.6 MG/DL (2.5-4.9); POTASSIUM SERUM 3.3 MEQ/L (3.5-5.1); SODIUM LEVEL 140 MEQ/L (136-145)
[2020-09-16] MEDS: LEVOTHYROXINE 75MCG TABLET (0.075MG) PO SCH (05:55)
[2020-09-16] MEDS: D5W 1,000 ML IV SCH (05:55)
[2020-09-16] MEDS ORDERED: MAG SULF 1GM/100ML (MAG RUN) 1 GM in IV 1 EA IV ONE (06:45)
[2020-09-16] MEDS ORDERED: KCL 40MEQ IN D5/NS 1000ML 1,000 ML IV SCH (06:45)
[2020-09-16] MEDS: OMEPRAZOLE 20 MG CAP PO SCH (08:13)
[2020-09-16] MEDS: AMANTADINE 100MG TABLET PO SCH ×2 (08:13→22:18)
[2020-09-16] MEDS: HEPARIN SOD (PORCINE) 5000UNITS/ML 1ML VIAL/SYRINGE SC SCH ×2 (08:15→22:19)
[2020-09-16] MEDS ORDERED: TOPIRAMATE (TopAMAX) 100 MG TAB PO SCH (09:00)
[2020-09-16] MEDS ORDERED: PRIMIDONE 50 MG TAB PO SCH (10:00)
[2020-09-16] MEDS ORDERED: VITA100066 PO (10:27)
[2020-09-16] MEDS ORDERED: AMAN100T PO (10:27)
--- NOTE | 2020-09-16 10:56 | IPNPDOC ---
Text Note Date of Service The patient was seen on 09/16/20. NOTE SUBJECTIVE: Patient doing much better today. 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 NG in place. Off mitts. NG feeding ongoing. Have restarted her home meds. PHYSICAL EXAMINATION: VITAL SIGNS: Please see below. GENERAL: Frail, cachestic, awake, alert, cooperative, following commands. HEENT: Normocephalic, atraumatic,seems to be swallowing oral secretions better. No drooling. NECK: supple, no JVD CARDIOVASCULAR EXAMINATION: S1, S2, regular, normal rate no murmurs. RESPIRATORY EXAMINATION: basal crackles, some conducted sounds. ABDOMINAL EXAMINATION: Soft, nontender, nondistended, positive bowel sounds EXTREMITIES: Range of motion intact, No edema. SKIN: No rash NEUROLOGICAL EXAMINATION: confused, agitated, moving all extremities with tremors, ataxia, LABORATORY DATA, IMAGING STUDIES, MICROBIOLOGY: Please see below. ASSESSMENT AND PLAN: 64-year-old female with past medical history of multiple sclerosis admitted for isolated dysphagia, unable to take medications. Similar episode 3 years ago which resolved on its own, especially after PEG tube was placed. Patient's symptoms and workup concerning for possible psychosomatic presentation. Now complicated by acute encephalopathy probably from withdrawal effects of sudden stopping of her home meds, aspiration in encephalopathic state with pneumonia, hypoxia. Acute encephalopathy improving Most like from multiple medication withdrawal . has not been able to swallow meds for about a week . Has been off amantidine, baclofen, primidone, topiramate and nortriptiline Improved with precedex NG tube in place. Started her home meds. Acute hypoxic respiratory failure due to Aspiration in encephalopathic state. now better Aspiration pneumonia started on Ceftriaxone. 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 The MRI lesions from 09/10/20 MRI not congruent with PML lesions. Also she is not on the immunosuppressive therapy (Natalizumab) that is known to cause PML. Also her WBC is not less than 1.0 so she is not immunosuppressed enough to have PML. Will ask Dr Swann to review and compare her most recent MRI with previous ones. If does not improve can repeat MRI with contrast in another week. Dysphasia MRI negative for brain stem pathology which would explain her dysphagia. Did not show any new active MS lesions Still was given 3 days of solumedrol. Strong suspicion for psychosomatic presentation as she had a similar episode 3 years ago, which self resolved after PEG tube was placed. Now has NG tube in place. Seems to be handling secretions better. Speech therapy is reevaluating. Hypothyroidism: TSH slightly low, On levothyroxine. Hypophosphatemia replaced. Hypomagnesemia replaced. Acute on chronic kidney disease. Multiple sclerosis has not been able to take any meds for a week. she is on Ocrelizumab Severe protein calorie malnutrition Has a BMI of 13.7 with bitemporal wasting due to her underlying chronic disease, swallowing problems. No intake for about 5 days NG tube feeding started on 09/15/20 Monitor electrolytes. VS,Fishbone, I+O VS, Fishbone, I+O Laboratory Tests 09/15/20 10:42 09/15/20 18:18 09/16/20 05:17 Vital Signs Date Time Temp Pulse Resp B/P (MAP) Pulse Ox O2 Delivery O2 Flow Rate FiO2 09/16/20 06:00 93 152/76 (101) 98 Room Air 09/16/20 04:00 99.0 20 09/15/20 20:45 10.0 09/15/20 18:12 98 I&O- Last 24 Hours up to 6 AM 09/16/20 06:00 Intake Total 1195 ml Output Total 670 ml Balance 525 ml JENNIFER POZO MD Sep 16, 2020 10:48
[2020-09-16] MEDS: PRIMIDONE 50 MG TAB PO SCH ×2 (12:17→22:18)
--- NOTE | 2020-09-16 15:21 | CCN ---
CRITICAL CARE NOTE DATE: 09/16/2020 SUBJECTIVE: Mrs. Villafana was seen and examined this morning. Apparently yesterday, she had developed some acute change in her mental status, as well as ataxia.. The patient was also noted to become hypoxic and due to her initial complaint of dysphagia there was question of possible aspiration pneumonia. At the time the patient was at risk for intubation, she was requiring nonrebreather. Since that time overnight, the patient has actually been transitioned to room air. She is no longer agitated and her mental status has improved significantly. The patient herself currently has no complaints. She does answer questions appropriately. She states that a similar episode has happened in the past. OBJECTIVE: VITAL SIGNS: Temperature 99.2, pulse 87, respiratory rate 18, blood pressure 135/67, pulse oximetry 97% on room air. GENERAL: The patient is awake, alert, and oriented. She does not appear in any acute distress. She does appear frail. She answers questions appropriately. HEENT: Atraumatic/normocephalic. Eyes are nonicteric. Trachea is midline. She has a nasogastric tube that is in place. Additionally, she has some difficulty with her initiation of swallow. CARDIOVASCULAR: Heart sounds are distant, but there is a normal S1, S2 on a regular rate and rhythm. No clicks, rubs, or murmurs are auscultated. PULMONARY: Overall, the patient has decreased breath sounds. There is good respiratory effort. There are some mild rhonchi in the left lower lung region. Otherwise, no wheezes or rales. There is no accessory muscle use. ABDOMEN: Soft, nondistended, and nontender. No rebound tenderness or guarding. Normoactive bowel sounds throughout. EXTREMITIES: The patient's extremities are void of edema. There are full and equal pulses bilateral upper and lower extremities. NEUROLOGIC: There are no focal neurological deficits. Patient has what appears to be a resting tremor. Otherwise, the patient is oriented x3. She answers questions appropriately and follow commands appropriately. Cerebellar test was negative. PSYCHIATRIC: Mood and affect currently appear appropriate. LABORATORY DATA: Hematology: White blood cell 4.7, hemoglobin 10.1, hematocrit 30.9, platelet count 105,000. Chemistries: Sodium 140, potassium 3.3, chloride 108, CO2 of 26, BUN 13, creatinine 0.98, glucose 111. Calcium 6.6, phosphorus 4.6, magnesium 1.6, CRP 3.82, procalcitonin 0.42. ASSESSMENT AND PLAN: The patient is a 64-year-old female with a history of multiple sclerosis who was admitted on the 10 of September with complaint of dysphagia. At the time, she had not received any of her medications. The patient was noted to have difficulty swallowing and possibly had an aspiration event. She had developed ataxic movement and altered level of consciousness and then was requiring supplemental oxygen. The patient was transferred to the ICU where she was evaluated. Today, the patient is currently on room air. Her mental status has returned to her baseline. 1. Left lower lobe pneumonia/aspiration pneumonia. As stated previously, the patient has dysphagia. She likely had an aspiration event. She was noted to become acutely hypoxic. She has been started on Rocephin. The patient has been afebrile. Currently she is on room air. She is not complaining of anything currently. We will recommend continuing her on the Rocephin for now. 2. Altered mental status. The patient had developed altered mental status and apparently ataxic gait. The etiology of this is unclear. She does have multiple sclerosis and additionally, her medications have been discontinued. The primary team has discussed this with neurology who believe that she likely had a withdrawal from her medications. Her medications have been resumed. The patient has a nasogastric tube in place. Neurology is following the patient. 3. Deep vein thrombosis prophylaxis with heparin. DISPOSITION: At this point in time, the patient has improved clinically. I will recommend observing the patient in the ICU for another 24 hours. At that point, she can likely be downgraded. CRITICAL CARE TIME: [address] Guerra; I participated in the above outlined evaluation and agree with the assessment listed. The patient is remarkably better this morning. She did receive a few hours of Precidex to prevent self harm but now it is all but weaned off. I was concerned that somehow the steroids may have precipitated a PML in light of the ataxia but there is an MRI which is not consistent with this diagnosis. Case reviewed with the ICU team and attending hospitalist. JOSE
[2020-09-16] MEDS: BACLOFEN 10 MG TAB PO SCH ×2 (15:43→22:19)
[2020-09-16] MEDS ORDERED: POTASSIUM CHLORIDE 10% LIQ 20 MEQ/15 ML UDC PO ONE (15:45)
[2020-09-16] MEDS: hydrALAZINE 20MG/ML 1ML VIAL (J0360 PER 20MG) IV SCH ×2 (15:56→21:40)
[2020-09-16] MEDS ORDERED: SLF 3 ML SYR IV PRN (17:00)
[2020-09-16] MEDS: cefTRIAXone SOD 1 GM in D5W MINI-BAG PLUS 50 ML IV SCH (18:40)
[2020-09-16] MEDS ORDERED: NORTRIPTYLINE 25 MG CAP PO SCH (21:00)
[2020-09-16] MEDS ORDERED: OMEPRAZOLE 20 MG CAP PO ONE (21:00)
[2020-09-16] MEDS ORDERED: PANTOPRAZOLE 40MG VIAL (C9113 PER 1) IV ONE (21:45)
[2020-09-16] MEDS: NORTRIPTYLINE 25 MG CAP PO SCH (22:18)
[2020-09-16] MEDS: SLF 3 ML SYR IV SCH (22:19)
[2020-09-17] VITALS: BP 150/80
[2020-09-17] MEDS: hydrALAZINE 20MG/ML 1ML VIAL (J0360 PER 20MG) IV SCH ×4 (03:45→21:34)
[2020-09-17 04:00] VITALS: BP 120/88
[2020-09-17] MEDS: CHLORASEPTIC SPRAY MT PRN ×2 (04:47→19:56)
[2020-09-17 05:06] LABS: EOS # 0.1 10^3/uL (0.0-0.5); HEMOGLOBIN 10.2 g/dl (12.0-15.5); LYMPH # 0.1 10^3/uL (1.5-5.0); LYMPH % 2.5 % (24.0-44.0); MEAN CORPUSCULAR HEMOGLOBIN 30.4 pg (27.0-33.0); MEAN CORPUSCULAR HGB CONC 32.9 g/dl (32.0-36.5); MEAN CORPUSCULAR VOLUME 92.3 fl (80.0-96.0); MONO # 0.4 10^3/uL (0.0-0.8); MONO % 8.4 % (0.0-5.0); NEUTROPHILS # 4.2 10^3/uL (1.5-8.5); NEUTROPHILS % 86.5 % (36.0-66.0); PLATELET COUNT, AUTOMATED 120 10^3/uL (150-450); RED BLOOD COUNT 3.36 10^6/uL (4.00-5.40); WHITE BLOOD COUNT 4.9 10^3/uL (4.0-10.0)
[2020-09-17 05:32] LABS: BLOOD UREA NITROGEN 11 MG/DL (7-18); CALCIUM LEVEL 7.4 MG/DL (8.8-10.2); CARBON DIOXIDE LEVEL 25 MEQ/L (21-32); CHLORIDE LEVEL 114 MEQ/L (98-107); CREATININE FOR GFR 0.88 MG/DL (0.55-1.30); GLOMERULAR FILTRATION RATE > 60.0 (>45); GLUCOSE, FASTING 104 MG/DL (70-100); MAGNESIUM LEVEL 2.1 MG/DL (1.8-2.4); POTASSIUM SERUM 3.6 MEQ/L (3.5-5.1); SODIUM LEVEL 145 MEQ/L (136-145)
[2020-09-17] MEDS: LEVOTHYROXINE 75MCG TABLET (0.075MG) PO SCH (05:48)
[2020-09-17] MEDS: SLF 3 ML SYR IV SCH ×3 (06:19→21:35)
[2020-09-17 08:00] VITALS: BP 157/79
[2020-09-17] MEDS: PRIMIDONE 50 MG TAB PO SCH ×2 (08:18→21:33)
[2020-09-17] MEDS: OMEPRAZOLE 20 MG CAP PO SCH (08:18)
[2020-09-17] MEDS: BACLOFEN 10 MG TAB PO SCH ×3 (08:18→21:33)
[2020-09-17] MEDS: HEPARIN SOD (PORCINE) 5000UNITS/ML 1ML VIAL/SYRINGE SC SCH ×2 (08:22→21:34)
[2020-09-17] MEDS: AMANTADINE 100MG TABLET PO SCH ×2 (08:22→21:33)
[2020-09-17 12:00] VITALS: BP 151/67
--- NOTE | 2020-09-17 12:30 | IPNPDOC ---
Text Note Date of Service The patient was seen on 09/17/20. NOTE SUBJECTIVE: Patient doing much better today. 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 Spoke to over the phone. Could give me the correct phone number which i dialed for her. NG in place. mitts. NG feeding ongoing. Have restarted her home meds. PHYSICAL EXAMINATION: VITAL SIGNS: Please see below. GENERAL: Frail, cachectic, awake, alert, cooperative, following commands. HEENT: Normocephalic, atraumatic,seems to be swallowing oral secretions better. No drooling. NECK: supple, no JVD CARDIOVASCULAR EXAMINATION: S1, S2, regular, normal rate no murmurs. RESPIRATORY EXAMINATION: basal crackles, some conducted sounds. ABDOMINAL EXAMINATION: Soft, nontender, nondistended, positive bowel sounds EXTREMITIES: Range of motion intact, No edema. SKIN: No rash NEUROLOGICAL EXAMINATION: confused, agitated, moving all extremities with tremors, ataxia, LABORATORY DATA, IMAGING STUDIES, MICROBIOLOGY: Please see below. ASSESSMENT AND PLAN: 64-year-old female with past medical history of multiple sclerosis admitted for isolated dysphagia, unable to take medications. Similar episode 3 years ago which resolved on its own, especially after PEG tube was placed. Patient's symptoms and workup concerning for possible psychosomatic presentation. Now complicated by acute encephalopathy probably from withdrawal effects of sudden stopping of her home meds, aspiration in encephalopathic state with pneumonia, hypoxia. Acute encephalopathy Improved with precedex Most like from multiple medication withdrawal . has not been able to swallow meds for about a week . Has been off Amantadine, baclofen, primidone, topiramate and nortriptiline Amantadine dose kept at 200 mg bid, baclofen at 10 tid, primidone at 100 bid, topiramate and nrtriptilline alternating at nights. This differs from the last prescriptions from Neurology . i disccused the medication confusion with Dr Varela and he was ok with us to continue the Amantadine, baclofen and primidone as patient was taking at home. He is going to Confirm with Dr Mayorga about the topiramate and nortriptyline dosage and get back to me. For now will continue as patient was taking at home. NG tube in place. Started her home meds. Acute hypoxic respiratory failure due to Aspiration in encephalopathic state. now better Aspiration pneumonia on Ceftriaxone. 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 The MRI lesions from 09/10/20 MRI not congruent with PML lesions. Also she is not on the immunosuppressive therapy (Natalizumab) that is known to cause PML. Also her WBC is not less than 1.0 so she is not immunosuppressed enough to have PML. Will ask Dr Swann to review and compare her most recent MRI with previous ones. If does not improve can repeat MRI with contrast in another week. Dysphasia MRI negative for brain stem pathology which would explain her dysphagia. Did not show any new active MS lesions Still was given 3 days of solumedrol. Strong suspicion for psychosomatic presentation as she had a similar episode 3 years ago, which self resolved after PEG tube was placed. Now has NG tube in place. Seems to be handling secretions better. Speech therapy is reevaluating. Hypothyroidism: TSH slightly low, On levothyroxine. Hypophosphatemia replaced. Hypomagnesemia replaced. Acute on chronic kidney disease. Multiple sclerosis has not been able to take any meds for a week. she is on Ocrelizumab Severe protein calorie malnutrition Has a BMI of 13.7 with bitemporal wasting due to her underlying chronic disease, swallowing problems. No intake for about 5 days NG tube feeding started on 09/15/20 Monitor electrolytes. VS,Fishbone, I+O VS, Fishbone, I+O Laboratory Tests 09/17/20 04:48 Vital Signs Date Time Temp Pulse Resp B/P (MAP) Pulse Ox O2 Delivery O2 Flow Rate FiO2 09/17/20 12:00 99.4 76 18 151/67 (95) 98 Room Air 09/15/20 20:45 10.0 09/15/20 18:12 98 I&O- Last 24 Hours up to 6 AM 09/17/20 06:00 Intake Total 899.6 ml Output Total 1995 ml Balance -1095.4 ml JENNIFER POZO MD Sep 17, 2020 12:30
[2020-09-17 16:00] VITALS: BP 128/70
[2020-09-17] MEDS: cefTRIAXone SOD 1 GM in D5W MINI-BAG PLUS 50 ML IV SCH (17:55)
[2020-09-17 20:00] VITALS: BP 134/70
[2020-09-17] MEDS ORDERED: TOPIRAMATE (TopAMAX) 100 MG TAB PO SCH (21:00)
[2020-09-18] VITALS: BP 156/84
[2020-09-18] MEDS: CHLORASEPTIC SPRAY MT PRN (03:28)
[2020-09-18] MEDS: hydrALAZINE 20MG/ML 1ML VIAL (J0360 PER 20MG) IV SCH ×4 (03:28→21:45)
[2020-09-18 04:00] VITALS: BP 162/80
[2020-09-18 05:28] LABS: BASO % 0.4 % (0.0-1.0); EOS # 0.1 10^3/uL (0.0-0.5); EOS % 1.5 % (0.0-3.0); HEMATOCRIT 29.9 % (36.0-47.0); HEMOGLOBIN 9.4 g/dl (12.0-15.5); LYMPH # 0.1 10^3/uL (1.5-5.0); LYMPH % 2.1 % (24.0-44.0); MEAN CORPUSCULAR HEMOGLOBIN 29.8 pg (27.0-33.0); MEAN CORPUSCULAR HGB CONC 31.4 g/dl (32.0-36.5); MEAN CORPUSCULAR VOLUME 94.9 fl (80.0-96.0); MONO # 0.5 10^3/uL (0.0-0.8); MONO % 9.2 % (0.0-5.0); NEUTROPHILS # 4.4 10^3/uL (1.5-8.5); NEUTROPHILS % 83.9 % (36.0-66.0); PLATELET COUNT, AUTOMATED 152 10^3/uL (150-450); RED BLOOD COUNT 3.15 10^6/uL (4.00-5.40); WHITE BLOOD COUNT 5.2 10^3/uL (4.0-10.0)
[2020-09-18 06:04] LABS: BLOOD UREA NITROGEN 13 MG/DL (7-18); CARBON DIOXIDE LEVEL 25 MEQ/L (21-32); CHLORIDE LEVEL 114 MEQ/L (98-107); CREATININE FOR GFR 0.81 MG/DL (0.55-1.30); GLOMERULAR FILTRATION RATE > 60.0 (>45); GLUCOSE, FASTING 108 MG/DL (70-100); POTASSIUM SERUM 4.4 MEQ/L (3.5-5.1); SODIUM LEVEL 145 MEQ/L (136-145)
[2020-09-18] MEDS: LEVOTHYROXINE 75MCG TABLET (0.075MG) PO SCH (06:31)
[2020-09-18] MEDS: SLF 3 ML SYR IV SCH ×3 (06:35→20:51)
[2020-09-18 08:00] VITALS: BP 158/82
[2020-09-18] MEDS: AMANTADINE 100MG TABLET PO SCH ×2 (09:39→20:49)
[2020-09-18] MEDS: PRIMIDONE 50 MG TAB PO SCH ×2 (09:39→20:49)
[2020-09-18] MEDS: HEPARIN SOD (PORCINE) 5000UNITS/ML 1ML VIAL/SYRINGE SC SCH ×2 (09:39→20:50)
[2020-09-18] MEDS: OMEPRAZOLE 20 MG CAP PO SCH (09:39)
[2020-09-18] MEDS: BACLOFEN 10 MG TAB PO SCH ×3 (09:39→20:50)
[2020-09-18 12:00] VITALS: BP 164/78
--- NOTE | 2020-09-18 12:10 | IPNPDOC ---
Text Note Date of Service The patient was seen on 09/18/20. NOTE SUBJECTIVE: Patient complains of sore throat otherwise no complains. Talking and cooperative. NG feeding ongoing. Have restarted her home meds. PHYSICAL EXAMINATION: VITAL SIGNS: Please see below. GENERAL: Frail, cachectic, awake, alert, cooperative, following commands. HEENT: Normocephalic, atraumatic,seems to be swallowing oral secretions better. No drooling. NECK: supple, no JVD CARDIOVASCULAR EXAMINATION: S1, S2, regular, normal rate no murmurs. RESPIRATORY EXAMINATION: basal crackles, some conducted sounds. ABDOMINAL EXAMINATION: Soft, nontender, nondistended, positive bowel sounds EXTREMITIES: Range of motion intact, No edema. SKIN: No rash NEUROLOGICAL EXAMINATION: confused, agitated, moving all extremities with tremors, ataxia, LABORATORY DATA, IMAGING STUDIES, MICROBIOLOGY: Please see below. ASSESSMENT AND PLAN: 64-year-old female with past medical history of multiple sclerosis admitted for isolated dysphagia, unable to take medications. Similar episode 3 years ago which resolved on its own, especially after PEG tube was placed. Patient's symptoms and workup concerning for possible psychosomatic presentation. Now complicated by acute encephalopathy probably from withdrawal effects of sudden stopping of her home meds, aspiration in encephalopathic state with pneumonia, hypoxia. Acute encephalopathy Improved with precedex Most like from multiple medication withdrawal . has not been able to swallow meds for about a week . Has been off Amantadine, baclofen, primidone, topiramate and nortriptiline Amantadine dose kept at 200 mg bid, baclofen at 10 tid, primidone at 100 bid, topiramate and nrtriptilline alternating at nights. This differs from the last prescriptions from Neurology . i disccused the medication confusion with Dr Hernan riggs and he was ok with us to continue the Amantadine, baclofen and primidone as patient was taking at home. He is going to Confirm with Dr Mayorga about the topiramate and nortriptyline dosage and get back to me. For now will continue as patient was taking at home. NG tube in place. Started her home meds. Acute hypoxic respiratory failure due to Aspiration in encephalopathic state. now better Aspiration pneumonia on Ceftriaxone. 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 The MRI lesions from 09/10/20 MRI not congruent with PML lesions. Also she is not on the immunosuppressive therapy (Natalizumab) that is known to cause PML. Also her WBC is not less than 1.0 so she is not immunosuppressed enough to have PML. Will ask Dr Swann to review and compare her most recent MRI with previous ones. If does not improve can repeat MRI with contrast in another week. Dysphasia MRI negative for brain stem pathology which would explain her dysphagia. Did not show any new active MS lesions Still was given 3 days of solumedrol. Strong suspicion for psychosomatic presentation as she had a similar episode 3 years ago, which self resolved after PEG tube was placed. Now has NG tube in place. Seems to be handling secretions better. Speech therapy is reevaluating. Hypothyroidism: TSH slightly low, On levothyroxine. Hypophosphatemia replaced. Hypomagnesemia replaced. Acute on chronic kidney disease. Multiple sclerosis has not been able to take any meds for a week. she is on Ocrelizumab Severe protein calorie malnutrition Has a BMI of 13.7 with bitemporal wasting due to her underlying chronic disease, swallowing problems. No intake for about 5 days NG tube feeding started on 09/15/20 Monitor electrolytes. VS,Fishbone, I+O VS, Fishbone, I+O Laboratory Tests 09/18/20 05:00 Vital Signs Date Time Temp Pulse Resp B/P (MAP) Pulse Ox O2 Delivery O2 Flow Rate FiO2 09/18/20 09:39 158/82 09/18/20 08:00 98.8 64 17 99 Room Air 09/15/20 20:45 10.0 09/15/20 18:12 98 I&O- Last 24 Hours up to 6 AM 09/18/20 06:00 Intake Total 590 ml Output Total 1400 ml Balance -810 ml JENNIFER POZO MD Sep 18, 2020 12:10
[2020-09-18] MEDS ORDERED: CHLORASEPTIC SPRAY MT PRN (12:15)
[2020-09-18 16:00] VITALS: BP 166/82
[2020-09-18] MEDS: cefTRIAXone SOD 1 GM in D5W MINI-BAG PLUS 50 ML IV SCH (18:17)
[2020-09-18 20:00] VITALS: BP 145/83
[2020-09-18] MEDS: NORTRIPTYLINE 25 MG CAP PO SCH (20:50)
[2020-09-19] VITALS: BP 142/88
[2020-09-19] MEDS: hydrALAZINE 20MG/ML 1ML VIAL (J0360 PER 20MG) IV SCH (03:45)
[2020-09-19 04:00] VITALS: BP 144/89
[2020-09-19] MEDS: LEVOTHYROXINE 75MCG TABLET (0.075MG) PO SCH (05:39)
[2020-09-19] MEDS: SLF 3 ML SYR IV SCH ×3 (05:40→23:08)
[2020-09-19 05:49] LABS: BASO % 0.5 % (0.0-1.0); EOS # 0.1 10^3/uL (0.0-0.5); EOS % 1.7 % (0.0-3.0); HEMATOCRIT 33.9 % (36.0-47.0); HEMOGLOBIN 11.1 g/dl (12.0-15.5); LYMPH # 0.3 10^3/uL (1.5-5.0); LYMPH % 4.6 % (24.0-44.0); MEAN CORPUSCULAR HGB CONC 32.7 g/dl (32.0-36.5); MEAN CORPUSCULAR VOLUME 91.6 fl (80.0-96.0); MONO # 0.7 10^3/uL (0.0-0.8); MONO % 10.4 % (0.0-5.0); NEUTROPHILS # 5.2 10^3/uL (1.5-8.5); NEUTROPHILS % 81.2 % (36.0-66.0); PLATELET COUNT, AUTOMATED 188 10^3/uL (150-450); WHITE BLOOD COUNT 6.4 10^3/uL (4.0-10.0)
[2020-09-19 06:17] LABS: CALCIUM LEVEL 12.4 MG/DL (8.8-10.2); CREATININE FOR GFR 1.01 MG/DL (0.55-1.30); GLOMERULAR FILTRATION RATE 58.7 (>45)
[2020-09-19 08:00] VITALS: BP 172/88
[2020-09-19] MEDS: AMANTADINE 100MG TABLET PO SCH ×2 (09:34→22:01)
[2020-09-19] MEDS: BACLOFEN 10 MG TAB PO SCH ×3 (09:35→21:59)
[2020-09-19] MEDS: PRIMIDONE 50 MG TAB PO SCH ×2 (09:35→22:01)
[2020-09-19] MEDS: amLODIPine 5 MG TAB PO SCH ×2 (09:35→22:02)
[2020-09-19] MEDS: HEPARIN SOD (PORCINE) 5000UNITS/ML 1ML VIAL/SYRINGE SC SCH ×2 (09:36→21:59)
[2020-09-19] MEDS: OMEPRAZOLE 20 MG CAP PO SCH (09:36)
--- NOTE | 2020-09-19 11:40 | IPNPDOC ---
Text Note Date of Service The patient was seen on 09/19/20. NOTE SUBJECTIVE: Patient complains of sore throat otherwise no complains. Talking and cooperative. NG feeding ongoing. Have restarted her home meds. PHYSICAL EXAMINATION: VITAL SIGNS: Please see below. GENERAL: Frail, cachectic, awake, alert, cooperative, following commands. HEENT: Normocephalic, atraumatic,seems to be swallowing oral secretions better. No drooling. NECK: supple, no JVD CARDIOVASCULAR EXAMINATION: S1, S2, regular, normal rate no murmurs. RESPIRATORY EXAMINATION: basal crackles, some conducted sounds. ABDOMINAL EXAMINATION: Soft, nontender, nondistended, positive bowel sounds EXTREMITIES: Range of motion intact, No edema. SKIN: No rash NEUROLOGICAL EXAMINATION: confused, agitated, moving all extremities with tremors, ataxia, LABORATORY DATA, IMAGING STUDIES, MICROBIOLOGY: Please see below. ASSESSMENT AND PLAN: 64-year-old female with past medical history of multiple sclerosis admitted for isolated dysphagia, unable to take medications. Similar episode 3 years ago which resolved on its own, especially after PEG tube was placed. Patient's symptoms and workup concerning for possible psychosomatic presentation. Now complicated by acute encephalopathy probably from withdrawal effects of sudden stopping of her home meds, aspiration in encephalopathic state with pneumonia, hypoxia. Acute encephalopathy Improved with precedex Most like from multiple medication withdrawal . has not been able to swallow meds for about a week . Has been off Amantadine, baclofen, primidone, topiramate and nortriptiline Amantadine dose kept at 200 mg bid, baclofen at 10 tid, primidone at 100 bid, topiramate and nrtriptilline alternating at nights. This differs from the last prescriptions from Neurology . I discussed the medication confusion with Dr Hernan riggs and he was ok with us to continue the Amantadine 200mg bid, baclofen 10 tid and primidone 100mg bid as patient was taking at home. Her Nortriptyline is stopped and she will be continued only on topiramate 100 mg at hs as per Dr Varela. NG tube in place. Started her home meds. if no improvement by next week will half to talk again about PEG tube. Hypertension started on amlodipine Acute hypoxic respiratory failure due to Aspiration in encephalopathic state. now better Aspiration pneumonia on Ceftriaxone. 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 The MRI lesions from 09/10/20 MRI not congruent with PML lesions. Also she is not on the immunosuppressive therapy (Natalizumab) that is known to cause PML. Also her WBC is not less than 1.0 so she is not immunosuppressed enough to have PML. Dysphasia MRI negative for brain stem pathology which would explain her dysphagia. Did not show any new active MS lesions Still was given 3 days of solumedrol. Strong suspicion for psychosomatic presentation as she had a similar episode 3 years ago, which self resolved after PEG tube was placed. Now has NG tube in place. Seems to be handling secretions better. Speech therapy is reevaluating. Hypothyroidism: TSH slightly low, On levothyroxine. Hypophosphatemia replaced. Hypomagnesemia replaced. Acute on chronic kidney disease. Multiple sclerosis has not been able to take any meds for a week. she is on Ocrelizumab Severe protein calorie malnutrition Has a BMI of 13.7 with bitemporal wasting due to her underlying chronic disease, swallowing problems. No intake for about 5 days NG tube feeding started on 09/15/20 Monitor electrolytes. VS,Fishbone, I+O VS, Fishbone, I+O Laboratory Tests 09/19/20 05:23 Vital Signs Date Time Temp Pulse Resp B/P (MAP) Pulse Ox O2 Delivery O2 Flow Rate FiO2 09/19/20 09:35 86 172/88 09/19/20 08:00 98.5 16 97 Room Air 09/15/20 20:45 10.0 09/15/20 18:12 98 I&O- Last 24 Hours up to 6 AM 09/19/20 06:00 Intake Total 360 ml Output Total 1300 ml Balance -940 ml JENNIFER POZO MD Sep 19, 2020 11:40
[2020-09-19 12:00] VITALS: BP 150/84
[2020-09-19 15:30] VITALS: BP 159/94
[2020-09-19] MEDS: cefTRIAXone SOD 1 GM in D5W MINI-BAG PLUS 50 ML IV SCH (18:52)
[2020-09-19 22:00] VITALS: BP 147/98
[2020-09-19] MEDS: TOPIRAMATE (TopAMAX) 100 MG TAB PO SCH (22:01)
[2020-09-20] MEDS: LEVOTHYROXINE 75MCG TABLET (0.075MG) PO SCH (05:08)
[2020-09-20] MEDS: SLF 3 ML SYR IV SCH (05:30)
[2020-09-20 06:00] VITALS: BP 151/94
[2020-09-20 07:31] LABS: BASO % 0.3 % (0.0-1.0); EOS # 0.1 10^3/uL (0.0-0.5); EOS % 1.1 % (0.0-3.0); HEMATOCRIT 31.5 % (36.0-47.0); HEMOGLOBIN 10.1 g/dl (12.0-15.5); LYMPH # 0.2 10^3/uL (1.5-5.0); LYMPH % 2.4 % (24.0-44.0); MEAN CORPUSCULAR HEMOGLOBIN 29.4 pg (27.0-33.0); MEAN CORPUSCULAR HGB CONC 32.1 g/dl (32.0-36.5); MEAN CORPUSCULAR VOLUME 91.8 fl (80.0-96.0); MONO # 1.1 10^3/uL (0.0-0.8); MONO % 11.3 % (0.0-5.0); NEUTROPHILS # 8.1 10^3/uL (1.5-8.5); NEUTROPHILS % 83.3 % (36.0-66.0); PLATELET COUNT, AUTOMATED 216 10^3/uL (150-450); RED BLOOD COUNT 3.43 10^6/uL (4.00-5.40); WHITE BLOOD COUNT 9.7 10^3/uL (4.0-10.0)
[2020-09-20 08:09] LABS: CALCIUM LEVEL 12.7 MG/DL (8.8-10.2); CREATININE FOR GFR 1.45 MG/DL (0.55-1.30); GLOMERULAR FILTRATION RATE 38.7 (>45); MAGNESIUM LEVEL 2.3 MG/DL (1.8-2.4); POTASSIUM SERUM 4.7 MEQ/L (3.5-5.1)
[2020-09-20] MEDS: HEPARIN SOD (PORCINE) 5000UNITS/ML 1ML VIAL/SYRINGE SC SCH ×2 (08:55→21:09)
[2020-09-20] MEDS: OMEPRAZOLE 20 MG CAP PO SCH (08:56)
[2020-09-20] MEDS: PRIMIDONE 50 MG TAB PO SCH ×2 (08:56→21:09)
[2020-09-20] MEDS: BACLOFEN 10 MG TAB PO SCH ×3 (08:56→21:10)
[2020-09-20] MEDS: AMANTADINE 100MG TABLET PO SCH ×2 (08:56→21:09)
[2020-09-20] MEDS: amLODIPine 5 MG TAB PO SCH ×2 (08:57→21:10)
[2020-09-20] MEDS ORDERED: FLUCONAZOLE 100 MG TAB PO SCH (09:00)
--- NOTE | 2020-09-20 13:23 | IPNPDOC ---
Text Note Date of Service The patient was seen on 09/20/20. NOTE SUBJECTIVE: Patient complains of sore throat otherwise no complains. Talking and cooperative. NG feeding ongoing. Have restarted her home meds. Does not want to have feeding tube yet. Wants to see for a few more days if her swallowing improves or not. Still has pain during swallowing. I do not see any oral thrush but may have esophagitis fungal will give a trial of fluconazole. Will ask GI to evaluate her also. PHYSICAL EXAMINATION: VITAL SIGNS: Please see below. GENERAL: Frail, cachectic, awake, alert, cooperative HEENT: Normocephalic, atraumatic,seems to be swallowing oral secretions better. No drooling. NECK: supple, no JVD CARDIOVASCULAR EXAMINATION: S1, S2, regular, normal rate no murmurs. RESPIRATORY EXAMINATION: basal crackles, some conducted sounds. ABDOMINAL EXAMINATION: Soft, nontender, nondistended, positive bowel sounds EXTREMITIES: Range of motion intact, No edema. SKIN: No rash NEUROLOGICAL EXAMINATION: confused, agitated, moving all extremities with tremors, ataxia, LABORATORY DATA, IMAGING STUDIES, MICROBIOLOGY: Please see below. ASSESSMENT AND PLAN: 64-year-old female with past medical history of multiple sclerosis admitted for isolated dysphagia, unable to take medications. Similar episode 3 years ago which resolved on its own, especially after PEG tube was placed. Patient's symptoms and workup concerning for possible psychosomatic presentation. Now complicated by acute encephalopathy probably from withdrawal effects of sudden stopping of her home meds, aspiration in encephalopathic state with pneumonia, hypoxia. Odynophagia, esophageal spasm. will start on fluconazole for ? mady esophagitis. will consult GI if available tomorrow. if no improvement in the next few days will have to talk again about PEG tube. Dysphasia MRI negative for brain stem pathology which would explain her dysphagia. Did not show any new active MS lesions Still was given 3 days of solumedrol. Strong suspicion for psychosomatic presentation as she had a similar episode 3 years ago, which self resolved after PEG tube was placed. Now has NG tube in place. Seems to be handling secretions better. Speech therapy is reevaluating. PHUC probably due to ow ora free water intake added free water t tube feeds. Acute encephalopathy now resolved Improved with precedex Most like from multiple medication withdrawal . has not been able to swallow meds for about a week . Has been off Amantadine, baclofen, primidone, topiramate and nortriptiline Amantadine dose kept at 200 mg bid, baclofen at 10 tid, primidone at 100 bid, topiramate and nrtriptilline alternating at nights. This differs from the last prescriptions from Neurology . I discussed the medication confusion with Dr Varela and he was ok with us to continue the Amantadine 200mg bid, baclofen 10 tid and primidone 100mg bid as patient was taking at home. Her Nortriptyline is stopped and she will be continued only on topiramate 100 mg at hs as per Dr Varela. NG tube in place. Started her home meds. Hypertension started on amlodipine Acute hypoxic respiratory failure due to Aspiration in encephalopathic state. now better Aspiration pneumonia Finished Ceftriaxone. 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 The MRI lesions from 09/10/20 MRI not congruent with PML lesions. Also she is not on the immunosuppressive therapy (Natalizumab) that is known to cause PML. Also her WBC is not less than 1.0 so she is not immunosuppressed enough to have PML. Hypothyroidism: TSH slightly low, On levothyroxine. Hypophosphatemia replaced. Hypomagnesemia replaced. Acute on chronic kidney disease. Multiple sclerosis has not been able to take any meds for a week. she is on Ocrelizumab Severe protein calorie malnutrition Has a BMI of 13.7 with bitemporal wasting due to her underlying chronic disease, swallowing problems. No intake for about 5 days NG tube feeding started on 09/15/20 Monitor electrolytes. VS,[place], I+O VS, Fishbone, I+O Laboratory Tests 09/20/20 06:19 Vital Signs Date Time Temp Pulse Resp B/P (MAP) Pulse Ox O2 Delivery O2 Flow Rate FiO2 09/20/20 08:57 81 157/95 09/20/20 06:00 97.2 18 98 Room Air 09/15/20 20:45 10.0 09/15/20 18:12 98 I&O- Last 24 Hours up to 6 AM 09/20/20 06:00 Intake Total 900 ml Output Total 35 ml Balance 865 ml JENNIFER POZO MD Sep 20, 2020 13:23
[2020-09-20 14:00] VITALS: BP 155/91
[2020-09-20] MEDS: FLUCONAZOLE 100 MG TAB NG SCH (15:58)
[2020-09-20] MEDS: TOPIRAMATE (TopAMAX) 100 MG TAB PO SCH (21:09)
[2020-09-20 22:00] VITALS: BP 153/89
[2020-09-21] MEDS: LEVOTHYROXINE 75MCG TABLET (0.075MG) PO SCH (05:31)
[2020-09-21 06:00] VITALS: BP 150/84
[2020-09-21 06:08] LABS: BASO % 0.4 % (0.0-1.0); EOS # 0.2 10^3/uL (0.0-0.5); EOS % 1.8 % (0.0-3.0); HEMATOCRIT 32.6 % (36.0-47.0); HEMOGLOBIN 10.3 g/dl (12.0-15.5); LYMPH # 0.2 10^3/uL (1.5-5.0); LYMPH % 2.3 % (24.0-44.0); MEAN CORPUSCULAR HEMOGLOBIN 29.7 pg (27.0-33.0); MEAN CORPUSCULAR HGB CONC 31.6 g/dl (32.0-36.5); MEAN CORPUSCULAR VOLUME 93.9 fl (80.0-96.0); MONO # 0.7 10^3/uL (0.0-0.8); NEUTROPHILS # 8.6 10^3/uL (1.5-8.5); NEUTROPHILS % 86.6 % (36.0-66.0); PLATELET COUNT, AUTOMATED 249 10^3/uL (150-450); RED BLOOD COUNT 3.47 10^6/uL (4.00-5.40); WHITE BLOOD COUNT 9.9 10^3/uL (4.0-10.0)
[2020-09-21 06:35] LABS: CALCIUM LEVEL 11.3 MG/DL (8.8-10.2); CREATININE FOR GFR 1.72 MG/DL (0.55-1.30); GLOMERULAR FILTRATION RATE 31.8 (>45); MAGNESIUM LEVEL 2.4 MG/DL (1.8-2.4); POTASSIUM SERUM 4.5 MEQ/L (3.5-5.1)
[2020-09-21] MEDS ORDERED: SODIUM CHLORIDE 0.9% 1000ML IV ONE (07:00)
[2020-09-21] MEDS: AMANTADINE 100MG TABLET PO SCH ×2 (08:53→20:49)
[2020-09-21] MEDS: FLUCONAZOLE 100 MG TAB NG SCH (08:54)
[2020-09-21] MEDS: BACLOFEN 10 MG TAB PO SCH ×3 (08:54→20:49)
[2020-09-21] MEDS: PRIMIDONE 50 MG TAB PO SCH ×2 (08:55→20:49)
[2020-09-21] MEDS: amLODIPine 5 MG TAB PO SCH ×2 (08:55→20:49)
[2020-09-21] MEDS: HEPARIN SOD (PORCINE) 5000UNITS/ML 1ML VIAL/SYRINGE SC SCH ×2 (08:58→20:48)
[2020-09-21] MEDS ORDERED: FLUCONAZOLE 100 MG TAB PO SCH (09:00)
--- NOTE | 2020-09-21 10:24 | IPNPDOC ---
Text Note Date of Service The patient was seen on 09/21/20. NOTE SUBJECTIVE: Patient complains of sore throat otherwise no complains. Talking and cooperative. NG feeding ongoing. Have restarted her home meds. Does not want to have feeding tube yet. Wants to see for a few more days if her swallowing improves or not. Still has pain during swallowing. I do not see any oral thrush but may have esophagitis fungal will give a trial of fluconazole. Will ask GI to evaluate her also. PHYSICAL EXAMINATION: VITAL SIGNS: Please see below. GENERAL: Frail, cachectic, awake, alert, cooperative HEENT: Normocephalic, atraumatic,seems to be swallowing oral secretions better. No drooling. NECK: supple, no JVD CARDIOVASCULAR EXAMINATION: S1, S2, regular, normal rate no murmurs. RESPIRATORY EXAMINATION: basal crackles, some conducted sounds. ABDOMINAL EXAMINATION: Soft, nontender, nondistended, positive bowel sounds EXTREMITIES: Range of motion intact, No edema. SKIN: No rash NEUROLOGICAL EXAMINATION: confused, agitated, moving all extremities with tremors, ataxia, LABORATORY DATA, IMAGING STUDIES, MICROBIOLOGY: Please see below. ASSESSMENT AND PLAN: 64-year-old female with past medical history of multiple sclerosis admitted for isolated dysphagia, unable to take medications. Similar episode 3 years ago which resolved on its own, especially after PEG tube was placed. Patient's symptoms and workup concerning for possible psychosomatic presentation. Now complicated by acute encephalopathy probably from withdrawal effects of sudden stopping of her home meds, aspiration in encephalopathic state with pneumonia, hypoxia. Odynophagia, esophageal spasm. will start on fluconazole for ? mady esophagitis. consulted GI dr Patiño if no improvement in the next few days will have to talk again about PEG tube. Her Primidone dose was halved due to drug interaction with fluconazole. Will increase dose again when finished fluconazole. Dysphasia MRI negative for brain stem pathology which would explain her dysphagia. Did not show any new active MS lesions Still was given 3 days of solumedrol. Strong suspicion for psychosomatic presentation as she had a similar episode 3 years ago, which self resolved after PEG tube was placed. Now has NG tube in place. Seems to be handling secretions better. Speech therapy is reevaluating. PHUC probably due to low oral free water intake added free water to tube feeds. still high today will give 1 small ivf bolus Hypercalcemia due to dehydration. Acute encephalopathy now resolved Improved with precedex Most like from multiple medication withdrawal . has not been able to swallow meds for about a week . Has been off Amantadine, baclofen, primidone, topiramate and nortriptiline Amantadine dose kept at 200 mg bid, baclofen at 10 tid, primidone at 100 bid, topiramate and nrtriptilline alternating at nights. This differs from the last prescriptions from Neurology . I discussed the medication confusion with Dr Varela and he was ok with us to continue the Amantadine 200mg bid, baclofen 10 tid and primidone 100mg bid as patient was taking at home. Her Nortriptyline is stopped and she will be continued only on topiramate 100 mg at hs as per Dr Varela. NG tube in place. Started her home meds. Hypertension started on amlodipine Acute hypoxic respiratory failure due to Aspiration in encephalopathic state. now better Aspiration pneumonia Finished Ceftriaxone. 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 The MRI lesions from 09/10/20 MRI not congruent with PML lesions. Also she is not on the immunosuppressive therapy (Natalizumab) that is known to cause PML. Also her WBC is not less than 1.0 so she is not immunosuppressed enough to have PML. Hypothyroidism: TSH slightly low, On levothyroxine. Hypophosphatemia replaced. Hypomagnesemia replaced. Acute on chronic kidney disease. Multiple sclerosis has not been able to take any meds for a week. she is on Ocrelizumab Severe protein calorie malnutrition Has a BMI of 13.7 with bitemporal wasting due to her underlying chronic disease, swallowing problems. No intake for about 5 days NG tube feeding started on 09/15/20 Monitor electrolytes. VS,Fishbone, I+O VS, Fishbone, I+O Laboratory Tests 09/21/20 05:45 Vital Signs Date Time Temp Pulse Resp B/P (MAP) Pulse Ox O2 Delivery O2 Flow Rate FiO2 09/21/20 08:55 75 151/77 09/21/20 06:00 97.8 17 99 Nasal Cannula 09/15/20 20:45 10.0 09/15/20 18:12 98 I&O- Last 24 Hours up to 6 AM0 09/21/20 06:00 Intake Total 840 ml Output Total 0 ml Balance 840 ml JENNIFER POZO MD Sep 21, 2020 10:24
[2020-09-21] MEDS: OMEPRAZOLE SUSPENSION 20MG 10ML ORAL SYRINGE NG SCH (11:28)
[2020-09-21 13:07] LABS: ACETYLCHOLINE RCPTOR BINDING A < 0.03 nmol/L (0.00-0.24); ACETYLCHOLINE RCPTOR BLOCK AB 19 % (0-25); ACETYLCHOLINE RCPTOR MODULATIN <12 % (0-20)
[2020-09-21 14:00] VITALS: BP_SYST 148
[2020-09-21] MEDS: TOPIRAMATE (TopAMAX) 100 MG TAB PO SCH (20:49)
[2020-09-21 22:00] VITALS: BP 147/76
[2020-09-22] MEDS: LEVOTHYROXINE 75MCG TABLET (0.075MG) PO SCH (05:49)
[2020-09-22 06:00] VITALS: BP 140/74
[2020-09-22 07:13] LABS: BASO % 0.2 % (0.0-1.0); EOS # 0.2 10^3/uL (0.0-0.5); EOS % 2.3 % (0.0-3.0); HEMATOCRIT 30.4 % (36.0-47.0); HEMOGLOBIN 9.4 g/dl (12.0-15.5); LYMPH # 0.2 10^3/uL (1.5-5.0); LYMPH % 2.4 % (24.0-44.0); MEAN CORPUSCULAR HEMOGLOBIN 29.3 pg (27.0-33.0); MEAN CORPUSCULAR HGB CONC 30.9 g/dl (32.0-36.5); MEAN CORPUSCULAR VOLUME 94.7 fl (80.0-96.0); MONO # 0.6 10^3/uL (0.0-0.8); MONO % 6.9 % (0.0-5.0); NEUTROPHILS # 7.3 10^3/uL (1.5-8.5); NEUTROPHILS % 86.9 % (36.0-66.0); PLATELET COUNT, AUTOMATED 232 10^3/uL (150-450); RED BLOOD COUNT 3.21 10^6/uL (4.00-5.40); WHITE BLOOD COUNT 8.4 10^3/uL (4.0-10.0)
[2020-09-22 07:37] LABS: CALCIUM LEVEL 10.6 MG/DL (8.8-10.2); CREATININE FOR GFR 1.64 MG/DL (0.55-1.30); GLOMERULAR FILTRATION RATE 33.6 (>45); MAGNESIUM LEVEL 2.3 MG/DL (1.8-2.4); POTASSIUM SERUM 3.9 MEQ/L (3.5-5.1)
[2020-09-22] MEDS: FLUCONAZOLE 100 MG TAB NG SCH (07:56)
[2020-09-22] MEDS: BACLOFEN 10 MG TAB PO SCH ×3 (07:56→21:15)
[2020-09-22] MEDS: OMEPRAZOLE SUSPENSION 20MG 10ML ORAL SYRINGE NG SCH (07:56)
[2020-09-22] MEDS: PRIMIDONE 50 MG TAB PO SCH ×2 (07:57→21:15)
[2020-09-22] MEDS: AMANTADINE 100MG TABLET PO SCH ×2 (07:57→21:14)
[2020-09-22] MEDS: HEPARIN SOD (PORCINE) 5000UNITS/ML 1ML VIAL/SYRINGE SC SCH ×2 (08:15→21:14)
[2020-09-22] MEDS: amLODIPine 5 MG TAB PO SCH ×2 (08:16→21:16)
[2020-09-22] MEDS ORDERED: E-Z-GAS II EFFERVESCENT PACKET (SODIUM BICARB./CITRIC ACID/SIMETHICONE) As Ordered ONE (10:50)
[2020-09-22] MEDS ORDERED: E-Z-PAQUE 96% w/w SUSP 176GM BTL As Ordered ONE (10:50)
[2020-09-22] MEDS ORDERED: E-Z-HD 98% w/w 340GM SUSP BTL As Ordered ONE (10:51)
--- NOTE | 2020-09-22 13:30 | IPNPDOC ---
Text Note Date of Service The patient was seen on 09/22/20. NOTE SUBJECTIVE: -Was scheduled for EGD today but after discussion with Dr. Patiño unlikely to be helpful as it was normal recently and likely 2/2 neurogenic cause and should have barium study esophagram and after may consider EGD if indicated. Patient agreeable to plan. -No complaints this morning, still declining PEG yet at this time. PHYSICAL EXAMINATION: VITAL SIGNS: Please see below. GENERAL: Frail, cachectic, awake, alert, cooperative HEENT: Normocephalic, atraumatic, no drooling. NECK: supple, no JVD CARDIOVASCULAR EXAMINATION: S1, S2, regular, normal rate no murmurs. RESPIRATORY EXAMINATION: basal crackles, some conducted sounds. ABDOMINAL EXAMINATION: Soft, nontender, nondistended, positive bowel sounds. NGT in place EXTREMITIES: Range of motion intact, No edema. SKIN: No rash NEUROLOGICAL EXAMINATION: Alert, oriented, moving all extremities with tremor Psych: appears to be alert and oriented AOx3 to self, place and situation LABORATORY DATA, IMAGING STUDIES, MICROBIOLOGY: Please see below. Reviewed. ASSESSMENT AND PLAN: 64-year-old W with past medical history of multiple sclerosis admitted for isolated dysphagia, unable to take medications. Similar episode 3 years ago which resolved on its own, especially after PEG tube was placed. Patient's symptoms and workup concerning for possible psychosomatic presentation. Now complicated by acute encephalopathy probably from withdrawal effects of sudden stopping of her home meds, aspiration in encephalopathic state with hypoxia. Odynophagia, esophageal spasm. -continue fluconazole for mady esophagitis, day 2 of 3 -consulted GI, Dr Patiño, suggesting barium swallow with esophagram that may shed light on neurogenic etiology. Will hold off EGD -if no improvement in the next few days will have to talk again about PEG tube. -Her Primidone dose was halved due to drug interaction with fluconazole. Will increase dose again when finished fluconazole. Dysphasia: -MRI negative for brain stem pathology which would explain her dysphagia. Did not show any new active MS lesions -s/p 3 days of solumedrol. -Some suspicion for psychosomatic presentation as she had a similar episode 3 years ago, which self resolved after PEG tube was placed. -Now has NG tube in place. -Reportedly handling secretions better. My first day caring for her, so will have to assess tomorrow -Speech therapy is reevaluating. PHUC -probably due to low oral free water intake, had free water added to tube feeds. Finally improving, will monitor Hypercalcemia -due to dehydration. Acute encephalopathy now resolved -Improved with precedex -Most like from multiple medication withdrawal . has not been able to swallow meds for about a week . -Has been off Amantadine, baclofen, primidone, topiramate and nortriptiline -Amantadine dose kept at 200 mg bid, baclofen at 10 tid, primidone at 100 bid, topiramate and nrtriptilline alternating at nights. This differs from the last prescriptions from Neurology . I discussed the medication confusion with Dr Varela and he was ok with us to continue the Amantadine 200mg bid, baclofen 10 tid and primidone 100mg bid as patient was taking at home. Her Nortriptyline is stopped and she will be continued only on topiramate 100 mg at hs as per Dr Varela. -NG tube in place. Started her home meds. Hypertension -cont on amlodipine Acute hypoxic respiratory failure -due to Aspiration in encephalopathic state. 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 The MRI lesions from 09/10/20 MRI not congruent with PML lesions. -Also she is not on the immunosuppressive therapy (Natalizumab) that is known to cause PML. Also her WBC is not less than 1.0 so she is not immunosuppressed enough to have PML. Hypothyroidism: -TSH slightly low, -On levothyroxine. Hypophosphatemia -replaced. Hypomagnesemia -replaced. Multiple sclerosis -has not been able to take any meds for a week. -she is on Ocrelizumab Severe protein calorie malnutrition -Has a BMI of 13.7 with bitemporal wasting -due to her underlying chronic disease, swallowing problems. -NG tube feeding started on 09/15/20 -Monitor electrolytes. VS,Fishbone, I+O VS, Fishbone, I+O Laboratory Tests 09/22/20 06:49 Vital Signs Date Time Temp Pulse Resp B/P (MAP) Pulse Ox O2 Delivery O2 Flow Rate FiO2 09/22/20 08:16 140/75 09/22/20 06:00 99.2 73 16 99 Room Air I&O- Last 24 Hours up to 6 AM 09/22/20 06:00 Intake Total 1340 ml Output Total 0 ml Balance 1340 ml XI SAMANIEGO MD Sep 22, 2020 13:30
[2020-09-22 14:00] VITALS: BP 136/74
--- NOTE | 2020-09-22 17:07 | REP ---
INDICATION: MS, dysphagia, per GI request. COMPARISON: None TECHNIQUE: This procedure was performed by Tuyet Soils [facility], under the direct supervision of Dr. Mock. Images were reviewed with Dr. Mock prior to dictation. Liquid barium was given in the supine oblique position in order to perform a single contrast upper GI examination. FINDINGS: The shaker repairer film shows no organomegaly or pathological masses. The intestinal gas pattern is unremarkable. This exam is limited due to limited patient mobility as well as the patient unable to take large swallows of barium. The oral and pharyngeal stages of deglutition were unremarkable. However towards the end of the study a small amount of penetration was visualized, it is uncertain whether not this than evolved into aspiration. Esophageal transport is prompt and efficient and there is no evidence of stricture. Visualization is slightly obstructed due to the NG tube as well as the patient's inability to take large swallow. There is no evidence of a hiatal hernia. There was no gastroesophageal reflux noted . IMPRESSION: 1. Limited study due to limited patient mobility as well as patient unable to take large swallows. No obstruction or stricture is visualized. 2. Laryngeal penetration was visualized. 0.2 minutes of fluoroscopy time was utilized for this procedure. Some fluoroscopic images are performed with last image hold technology. These images require no additional radiation. <Electronically signed by Tuyet Solis > 09/22/20 1300 <Electronically signed by Migel Mock > 09/22/20 [id number]
[2020-09-22] MEDS: SENNA 8.6 MG TAB (SENOKOT) NG SCH (21:15)
[2020-09-22] MEDS: TOPIRAMATE (TopAMAX) 100 MG TAB PO SCH (21:15)
[2020-09-22 22:00] VITALS: BP 136/74
[2020-09-23] MEDS: LEVOTHYROXINE 75MCG TABLET (0.075MG) PO SCH (05:38)
[2020-09-23 06:00] VITALS: BP 136/74
[2020-09-23] MEDS: OMEPRAZOLE SUSPENSION 20MG 10ML ORAL SYRINGE NG SCH (09:56)
[2020-09-23] MEDS: HEPARIN SOD (PORCINE) 5000UNITS/ML 1ML VIAL/SYRINGE SC SCH ×2 (09:57→20:48)
[2020-09-23] MEDS: AMANTADINE 100MG TABLET PO SCH ×2 (09:57→20:47)
[2020-09-23] MEDS: BACLOFEN 10 MG TAB PO SCH ×3 (09:58→20:45)
[2020-09-23] MEDS: PRIMIDONE 50 MG TAB PO SCH ×2 (09:58→20:45)
[2020-09-23] MEDS: SENNA 8.6 MG TAB (SENOKOT) NG SCH ×2 (09:58→20:45)
[2020-09-23] MEDS: FLUCONAZOLE 100 MG TAB NG SCH (09:58)
[2020-09-23] MEDS: amLODIPine 5 MG TAB PO SCH ×2 (09:59→20:47)
[2020-09-23] MEDS ORDERED: E-Z-PAQUE 96% w/w SUSP 176GM BTL As Ordered ONE (11:50)
[2020-09-23] MEDS ORDERED: VARIBAR NECTAR 40% w/v 240ML SUSP BTL As Ordered ONE (11:50)
[2020-09-23] MEDS ORDERED: VARIBAR PUDDING 40% w/v 230ML TUBE As Ordered ONE (11:50)
[2020-09-23] MEDS ORDERED: BARIUM SULFATE 700 MG TABLET (E-Z-DISK) As Ordered ONE (11:51)
[2020-09-23 14:00] VITALS: BP 144/80
--- NOTE | 2020-09-23 15:46 | IPNPDOC ---
Text Note Date of Service The patient was seen on 09/23/20. NOTE SUBJECTIVE: -Had esophagram that was essentially normal --> speech requesting a cookie swallow eval. -No complaints this morning, still declining PEG. PHYSICAL EXAMINATION: VITAL SIGNS: Please see below. GENERAL: Frail, cachectic, awake, alert, cooperative HEENT: Normocephalic, atraumatic, no drooling, dry MM. NECK: supple, no JVD CARDIOVASCULAR EXAMINATION: S1, S2, regular, normal rate no murmurs. RESPIRATORY EXAMINATION: basal crackles, some conducted sounds. ABDOMINAL EXAMINATION: Soft, nontender, nondistended, positive bowel sounds. NGT in place EXTREMITIES: Range of motion intact, No edema. SKIN: No rash NEUROLOGICAL EXAMINATION: Alert, oriented, moving all extremities with tremor Psych: appears to be alert and oriented AOx3 to self, place and situation LABORATORY DATA, IMAGING STUDIES, MICROBIOLOGY: Please see below. Reviewed. ASSESSMENT AND PLAN: 64-year-old W with past medical history of multiple sclerosis admitted for isolated dysphagia, unable to take medications. Similar episode 3 years ago which resolved on its own, especially after PEG tube was placed. Patient's symptoms and workup concerning for possible psychosomatic presentation. Recently complicated by acute encephalopathy likely from withdrawal effects of sudden stopping of her home meds, aspiration in encephalopathic state with hypoxia. Odynophagia, esophageal spasm. -Discontinue fluconazole for presumed mady esophagitis, day 3. -consulted GI, Dr Patiño, suggesting barium swallow with esophagram that may shed light on etiology. Will hold off EGD. Esophagram was wnl, so speech now recommending a cookie swallow eval. -if no improvement in the next few days will have to talk again about PEG tube. -Her Primidone dose was halved due to drug interaction with fluconazole. Will increase dose again when finished fluconazole. Dysphasia: -MRI negative for brain stem pathology which would explain her dysphagia. Did not show any new active MS lesions -s/p 3 days of solumedrol. -Some suspicion for psychosomatic presentation as she had a similar episode 3 years ago, which self resolved after PEG tube was placed. -Now has NG tube in place. -consulted GI, Dr Patiño, who recommended barium swallow with esophagram that may shed light on etiology. Will hold off EGD. Esophagram was wnl, so speech now recommending a cookie swallow eval. PHUC -probably due to low oral free water intake, had free water added to tube feeds. will check AM BMP. May need some IVF. Hypercalcemia -due to dehydration. Acute encephalopathy now resolved -Improved with precedex -Most like from multiple medication withdrawal . has not been able to swallow meds for about a week . -Has been off Amantadine, baclofen, primidone, topiramate and nortriptiline -Amantadine dose kept at 200 mg bid, baclofen at 10 tid, primidone at 100 bid, topiramate and nrtriptilline alternating at nights. This differs from the last prescriptions from Neurology . I discussed the medication confusion with Dr Varela and he was ok with us to continue the Amantadine 200mg bid, baclofen 10 tid and primidone 100mg bid as patient was taking at home. Her Nortriptyline is stopped and she will be continued only on topiramate 100 mg at hs as per Dr Varela. -NG tube in place. Started her home meds. Hypertension -cont on amlodipine Acute hypoxic respiratory failure -due to Aspiration in encephalopathic state. 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 Riley discussed with dr Varela. The MRI lesions from 09/10/20 MRI not congruent with PML lesions. -Also she is not on the immunosuppressive therapy (Natalizumab) that is known to cause PML. Also her WBC is not less than 1.0 so she is not immunosuppressed enough to have PML. Hypothyroidism: -TSH slightly low, -On levothyroxine. Hypophosphatemia -replaced. Hypomagnesemia -replaced. Multiple sclerosis -has not been able to take any meds for a week. -she is on Ocrelizumab Severe protein calorie malnutrition -Has a BMI of 13.7 with bitemporal wasting -due to her underlying chronic disease, swallowing problems. -NG tube feeding started on 09/15/20 -Monitor electrolytes. VS,Fishbone, I+O VS, Fishbone, I+O Vital Signs Date Time Temp Pulse Resp B/P (MAP) Pulse Ox O2 Delivery O2 Flow Rate FiO2 09/23/20 14:00 98.1 68 17 144/80 (101) 96 Room Air I&O- Last 24 Hours up to 6 AM 09/23/20 06:00 Intake Total 818 ml Output Total 0 ml Balance 818 ml XI SAMANIEGO MD Sep 23, 2020 15:46
--- NOTE | 2020-09-23 18:05 | REP ---
INDICATION: dysphagia. COMPARISON: None. TECHNIQUE: The procedure was performed under the direct supervision of Dr. Mock. The procedure was performed with Maria Del Carmen Cruz from speech pathology present. 5 cc aliquots of thin, nectar and pudding consistency barium was administered. FINDINGS: With thin consistency barium there is aspiration. A detailed report of this examination will be provided by speech pathology. 2.2 minutes of fluoroscopy time was utilized for this procedure. IMPRESSION: With thin consistency barium there is aspiration. <Electronically signed by Jagdish Umana > 09/23/20 1643 <Electronically signed by Migel Mock > 09/23/20 1805
[2020-09-23] MEDS: TOPIRAMATE (TopAMAX) 100 MG TAB PO SCH (20:47)
[2020-09-23 22:00] VITALS: BP 134/77
[2020-09-24] MEDS: LEVOTHYROXINE 75MCG TABLET (0.075MG) PO SCH (05:43)
[2020-09-24 06:00] VITALS: BP 138/76
[2020-09-24 06:18] LABS: HEMATOCRIT 30.7 % (36.0-47.0); HEMOGLOBIN 10.1 g/dl (12.0-15.5); MEAN CORPUSCULAR HEMOGLOBIN 29.9 pg (27.0-33.0); MEAN CORPUSCULAR HGB CONC 32.9 g/dl (32.0-36.5); MEAN CORPUSCULAR VOLUME 90.8 fl (80.0-96.0); PLATELET COUNT, AUTOMATED 327 10^3/uL (150-450); RED BLOOD COUNT 3.38 10^6/uL (4.00-5.40); WHITE BLOOD COUNT 10.8 10^3/uL (4.0-10.0)
[2020-09-24 06:40] LABS: CREATININE FOR GFR 1.87 MG/DL (0.55-1.30); GLOMERULAR FILTRATION RATE 28.9 (>45); MAGNESIUM LEVEL 2.2 MG/DL (1.8-2.4); POTASSIUM SERUM 3.4 MEQ/L (3.5-5.1)
[2020-09-24 09:33] VITALS: BP 133/76
[2020-09-24] MEDS: SENNA 8.6 MG TAB (SENOKOT) NG SCH ×2 (09:48→22:26)
[2020-09-24] MEDS: BACLOFEN 10 MG TAB PO SCH ×3 (09:48→22:26)
[2020-09-24] MEDS: PRIMIDONE 50 MG TAB PO SCH ×2 (09:48→22:28)
[2020-09-24] MEDS: amLODIPine 5 MG TAB PO SCH ×2 (09:48→22:28)
[2020-09-24] MEDS: AMANTADINE 100MG TABLET PO SCH ×2 (09:48→22:27)
[2020-09-24] MEDS: OMEPRAZOLE SUSPENSION 20MG 10ML ORAL SYRINGE NG SCH (09:49)
[2020-09-24] MEDS: HEPARIN SOD (PORCINE) 5000UNITS/ML 1ML VIAL/SYRINGE SC SCH ×2 (09:49→22:27)
[2020-09-24] MEDS: NS 1,000 ML IV SCH ×2 (12:52→19:56)
--- NOTE | 2020-09-24 12:58 | IPNPDOC ---
Text Note Date of Service The patient was seen on 09/24/20. NOTE SUBJECTIVE: -Had esophagram that was essentially normal --> had cookie swallow eval --> was aspirating -This AM confused -Looks ill with transmitted upper airway gurgling sounds PHYSICAL EXAMINATION: VITAL SIGNS: Please see below. GENERAL: Frail, cachectic, awake, confused, talking incoherently to self HEENT: Normocephalic, atraumatic, no drooling, dry MM. NECK: supple, no JVD CARDIOVASCULAR EXAMINATION: S1, S2, regular, normal rate no murmurs. RESPIRATORY EXAMINATION: Crackles at bases, rhonchorous throughout, on room air ABDOMINAL EXAMINATION: Soft, nontender, nondistended, positive bowel sounds. NGT in place. EXTREMITIES: Range of motion intact, No edema. SKIN: No rash NEUROLOGICAL EXAMINATION: Alert, disoriented, moving all extremities with tremor Psych: Disoriented and speaking to self incoherently, restless. LABORATORY DATA, IMAGING STUDIES, MICROBIOLOGY: Please see below. Reviewed. ASSESSMENT AND PLAN: 64-year-old W with past medical history of multiple sclerosis admitted for isolated dysphagia, unable to take medications. Similar episode 3 years ago which resolved on its own, especially after PEG tube was placed. Patient's symptoms and workup concerning for possible psychosomatic presentation. Recently complicated by acute encephalopathy likely from withdrawal effects of sudden stopping of her home meds, aspiration in encephalopathic state with hypoxia, that had improved but now more encephalopathic this morning with c/f aspiration with rhonchi and crackles. Odynophagia, esophageal spasm. -s/p fluconazole for presumed mady esophagitis. -consulted GI, Dr Patiño, suggesting barium swallow with esophagram that may shed light on etiology. Will hold off EGD. Esophagram was wnl, so speech recommended cookie swallow eval --> was aspirating. NPO. -Denying PEG tube -Her Primidone dose was halved due to drug interaction with fluconazole. Will increase dose again when finished fluconazole. Dysphasia: -MRI negative for brain stem pathology which would explain her dysphagia. Did not show any new active MS lesions -s/p 3 days of solumedrol. -Some suspicion for psychosomatic presentation as she had a similar episode 3 years ago, which self resolved after PEG tube was placed. -Now has NG tube in place. -consulted GI, Dr Patiño, who recommended barium swallow with esophagram that may shed light on etiology. Will hold off EGD. Esophagram was wnl, so speech now recommending a cookie swallow eval. PHUC -probably due to low oral free water intake, had free water added to tube feeds. -IVF NS @ 150cc/hr Hypercalcemia, resolved -due to dehydration. Acute encephalopathy likely 2/2 aspiration -empiric unasyn for potential aspiration -procalcitonin -CXR -NG tube in place, hold tube feeds. -Continue the Amantadine 200mg bid, baclofen 10 tid and primidone 100mg bid as patient was taking at home. Her Nortriptyline is stopped and she will be continued only on topiramate 100 mg at hs as per Dr Varela. Hypertension -cont on amlodipine Acute hypoxic respiratory failure: resolved. thus far on room air -due to Aspiration in encephalopathic state. 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 Riley discussed with dr Varela. The MRI lesions from 09/10/20 MRI not congruent with PML lesions. -Also she is not on the immunosuppressive therapy (Natalizumab) that is known to cause PML. Also her WBC is not less than 1.0 so she is not immunosuppressed marin ugh to have PML. Hypothyroidism: -TSH slightly low, -On levothyroxine. Hypophosphatemia -replaced. Hypomagnesemia -replaced. Multiple sclerosis -has not been able to take any meds for a week. -she is on Ocrelizumab Severe protein calorie malnutrition -Has a BMI of 13.7 with bitemporal wasting -due to her underlying chronic disease, swallowing problems. -NG tube feeding started on 09/15/20 -Monitor electrolytes. Dispo: will call to discuss GOC i/s/o aspiration, no desire for PEG and clinical decline without a viable nutrition plan. VS,Fishbone, I+O VS, Fishbone, I+O Laboratory Tests 09/24/20 05:53 Vital Signs Date Time Temp Pulse Resp B/P (MAP) Pulse Ox O2 Delivery O2 Flow Rate FiO2 09/24/20 09:48 79 133/76 09/24/20 06:00 98.1 16 99 Room Air I&O- Last 24 Hours up to 6 AM 09/24/20 06:00 Intake Total 1040 ml Output Total 0 ml Balance 1040 ml XI SAMANIEGO MD Sep 24, 2020 12:58
[2020-09-24 14:00] VITALS: BP 142/69
--- NOTE | 2020-09-24 14:07 | REP ---
INDICATION: AMS. COMPARISON: Comparison chest x-ray September 15, 2020. TECHNIQUE: Portable upright AP radiographs, two views are provided.. FINDINGS: The lungs are well inflated and clear. Pleural angles are sharp. The infiltrate noted on the 15 September 2020 study in the left base has resolved. No new infiltrate is seen. NG tube enters the left upper quadrant. The aorta is calcific and tortuous. A prosthetic right shoulder joint is noted. There are old healed rib fractures on the right. Diffuse osteopenia is noted.. Borderline heart size. IMPRESSION: NG tube is to the left upper quadrant. Recently noted left lower lobe infiltrate has resolved. Borderline heart size. Otherwise no acute disease.. <Electronically signed by Diego Swann > 09/24/20 [id number]
[2020-09-24] MEDS: ACETAMINOPHEN 650 MG SUPP PR PRN (14:54)
[2020-09-24] MEDS: AMPICILLIN SOD/SULBACTAM SOD 1.5 GM in D5W MINI-BAG PLUS 50 ML IV SCH (14:54)
--- NOTE | 2020-09-24 17:12 | CR.PDOC ---
General Date of Consultation: Sep 22, 2020 Referring Provider: JENNIFER RILEY MD Attending Physician: JUVE TIDWELL MD Consultation Primary physician/ hospitalist: -Dr. Riley/ Dr. Weinstein. Reason for consult: - Dysphagia. HPI: 64-year-old female patient with hypothyroidism, osteoporosis, degenerative disc disease, HLD, multiple sclerosis, chronic dysphagia (following with a Dr. Rayo in GI clinic, prior extensive workup with PEG tube placement in 2017, which was subsequently removed after improved oral intake, last EGD in Sep 2019 - normal), was admitted to [facility] for acute kidney injury, dysphagia and hypernatremia. GI was consulted for dysphagia. Patient reports having progressively worsening difficulty in swallowing, with choking and gagging sensation while swallowing. Patient denied unintentional weight loss, but prior reports mention progressive weight loss. Pertinent negative GI symptoms: Patient denies diarrhea, abdominal pain, loss of appetite. No history of hematemesis, melena or hematochezia. Review of Systems: GI: as stated above CVS: No chest pain, No palpitations, No leg swelling. RS: No Shortness of breath, No Wheezing, no cough [employer]: No dizziness, No motor weakness, No sensory problems Hematology: No bruising, No gum bleeding, Musculoskeletal: No joint pain, ambulating well. Skin: No rash : No hematuria, No burning sensation of the urine ENT: No ear discharge/ pain, No dysphagia. Eyes: No photophobia. Jaundice Home medications: reviewed. Antithrombotic agents: - none Medical h/o: As above. Surgical h/o: As above. Social h/o: Alcohol: -Denies, smoking:, Denies, IVDA/ drugs: Denies. Family h/o of GI cancers - None Prior Endoscopies: Multiple EGD and colonoscopies in the past. --- Last EGD and colonoscopy done in September 2019, by Dr. Rayo -- noted one tubular adenoma in colon, normal EGD. Biopsies negative for celiac and Li' s. recommended surveillance Colonoscopy in 3 years. Prior GI evaluations: -Follows with Dr. Rayo in [facility] GI clinic. Exam: Vitals: reviewed General: Alert and oriented x 3, not in distress HEENT: NO pallor, no icterus. Normal oropharynx, NO cervical lymph nodes. Chest: symmetric with bilateral clear air entry, CVS: S1, S2 heard, normal, no murmurs . Abdomen: non-distended, no surgical scars, soft, non-tender, no palpable masses, normal bowel sounds heard. Rectal exam: Patient refused / Deferred at this time in view of scheduled colonoscopy. Extremities: no pedal edema, pulses palpable. [employer]: no focal motor or sensory deficits. Moves all extremities Skin: no rash. Labs: reviewed. Imaging: reviewed. Impression: - Fluctuating dysphagia with progressive worsening symptoms of weight loss and poor oral intake, prior work up in [facility] showed normal EGD in september 2019,-- DDx-- Neurogenic dysphagia/ oropharyngeal dysphagia from Multiple sclerosis. vs less likely Esophageal obstruction. Recommendations: - Patient educated about the test results, possible differential diagnoses and All questions answered. - OG/ NG tube feeding for now. - Obtain barium swallow evaluation by speech therapy and Esophagogram for further evaluation. - Based on that to review further management. - In view of recent EGD in 2019 and prior work up, discussed the indications, risks, benefits and alternatives with patient. She wanted to follow up with Xray tests and hold off on EGD for now. - Discussed with patient aobut the alternative means of feeding and she does not want PEG tube. Plan of care discussed with patient and primary team. Patient verbalized understanding and agreed with the plan. Follow up 09/23/2020: Patient was seen after the barium swallow studies were done. Patient is educated in detail about the findings an all questions answered. Discussed about the PEG tube again and told the patient to discuss that with her family as well to make a decision. At this time based on the Xray tests, patient would not benefit from diagnostic EGD. If patient agrees for PEG tube, please consult surgery team for the same. Also follow with outside plant field engineer for energy dense feeding to treat protein calorie malnutrition. Recall GI if any change in status. Vital Signs/I&O Vital Signs Date Time Temp Pulse Resp B/P (MAP) Pulse Ox O2 Delivery O2 Flow Rate FiO2 09/24/20 15:42 100.1 09/24/20 14:00 80 17 142/69 (93) 97 Room Air I&O- Last 24 Hours up to 6 AM 09/24/20 05:59 Intake Total 1040 ml Output Total 0 ml Balance 1040 ml Laboratory Data Labs 24H Laboratory Tests 2 09/24/20 05:53: Nucleated Red Blood Cells % (auto) 0.0, Anion Gap 8, Glomerular Filtration Rate 28.9L, Calcium Level 11.0H, Magnesium Level 2.2, Procalcitonin 0.12 CBC/BMP Laboratory Tests 09/24/20 05:53 Allergies Coded Allergies: divalproex sodium (Verified Allergy, Mild, rash, 09/20/19) meperidine (Verified Adverse Reaction, Intermediate, hallucination, 09/20/19) Home Medications Scheduled Amantadine HCl (Amantadine) 100 Mg Tablet, 200 MG PO BID, (Reported) Baclofen (Baclofen) 10 Mg Tab, 10 MG PO TID, (Reported) Cholecalciferol (Vitamin D3) (Vitamin D3) 25 Mcg Tablet, 25 MCG PO DAILY, (Reported) Cyanocobalamin (Vitamin B-12) (Vitamin B-12) 500 Mcg Tab, 500 MCG PO DAILY, (Reported) Levothyroxine Sodium (Levoxyl) 75 Mcg Tablet, 75 MCG PO DAILY, (Reported) Nortriptyline HCl (Nortriptyline HCl) 50 Mg Cap, 50 MG PO Q2D, (Reported) AT BEDTIME - ALTERNATE WITH TOPIRAMATE Omeprazole (Omeprazole) 40 Mg Cap, 40 MG PO DAILY, (Reported) Primidone (Mysoline) 50 Mg Tab, 100 MG PO BID, (Reported) Topiramate (Topiramate) 100 Mg Tab, 100 MG PO Q2D, (Reported) AT BEDTIME - ALTERNATE WITH NORTRIPTYLINE Scheduled PRN Calcium Carbonate (Tums) 500 Mg Chw, 1,500 MG PO Q6H PRN for HE ARTBURN/INDIGESTION, (Reported) JUVE TIDWELL MD Sep 24, 2020 17:12
[2020-09-24 22:00] VITALS: BP 119/99
[2020-09-24] MEDS: TOPIRAMATE (TopAMAX) 100 MG TAB PO SCH (22:26)
[2020-09-25] MEDS: AMPICILLIN SOD/SULBACTAM SOD 1.5 GM in D5W MINI-BAG PLUS 50 ML IV SCH ×2 (02:36→15:48)
[2020-09-25] MEDS: NS 1,000 ML IV SCH ×2 (02:36→09:52)
[2020-09-25 06:00] VITALS: BP 151/81
[2020-09-25] MEDS: LEVOTHYROXINE 75MCG TABLET (0.075MG) PO SCH (06:33)
[2020-09-25 07:48] LABS: HEMATOCRIT 27.5 % (36.0-47.0); HEMOGLOBIN 8.5 g/dl (12.0-15.5); MEAN CORPUSCULAR HEMOGLOBIN 29.2 pg (27.0-33.0); MEAN CORPUSCULAR HGB CONC 30.9 g/dl (32.0-36.5); MEAN CORPUSCULAR VOLUME 94.5 fl (80.0-96.0); PLATELET COUNT, AUTOMATED 299 10^3/uL (150-450); RED BLOOD COUNT 2.91 10^6/uL (4.00-5.40); WHITE BLOOD COUNT 10.1 10^3/uL (4.0-10.0)
[2020-09-25 08:29] LABS: CALCIUM LEVEL 9.1 MG/DL (8.8-10.2); CREATININE FOR GFR 1.52 MG/DL (0.55-1.30); GLOMERULAR FILTRATION RATE 36.7 (>45); POTASSIUM SERUM 3.7 MEQ/L (3.5-5.1)
[2020-09-25] MEDS: AMANTADINE 100MG TABLET PO SCH ×2 (09:53→22:10)
[2020-09-25] MEDS: BACLOFEN 10 MG TAB PO SCH ×3 (09:53→22:10)
[2020-09-25] MEDS: OMEPRAZOLE SUSPENSION 20MG 10ML ORAL SYRINGE NG SCH (09:53)
[2020-09-25] MEDS: SENNA 8.6 MG TAB (SENOKOT) NG SCH ×2 (09:53→22:09)
[2020-09-25] MEDS: PRIMIDONE 50 MG TAB PO SCH ×2 (09:53→22:10)
[2020-09-25] MEDS: HEPARIN SOD (PORCINE) 5000UNITS/ML 1ML VIAL/SYRINGE SC SCH ×2 (09:53→22:09)
[2020-09-25] MEDS: amLODIPine 5 MG TAB PO SCH ×2 (10:00→22:11)
[2020-09-25 14:00] VITALS: BP 145/74
--- NOTE | 2020-09-25 14:42 | IPNPDOC ---
Text Note Date of Service The patient was seen on 09/25/20. NOTE SUBJECTIVE: -Doing much better today, AOx3, sitting up in chair. Spoke to her at length about the necessity of the PEG at this time if our goal remains to prolong life. She agreed to have it placed. PHYSICAL EXAMINATION: VITAL SIGNS: Please see below. GENERAL: Frail, cachectic, awake, AOx3 this morning HEENT: Normocephalic, atraumatic, no drooling, dry MM. NECK: supple, no JVD CARDIOVASCULAR EXAMINATION: S1, S2, regular, normal rate no murmurs. RESPIRATORY EXAMINATION: Bibasilar crackles, otherwise clear, no wheezing, on room air ABDOMINAL EXAMINATION: Soft, nontender, nondistended, positive bowel sounds. NGT in place. EXTREMITIES: Range of motion intact, No edema. SKIN: No rash NEUROLOGICAL EXAMINATION: Alert, AOx3, moving all extremities with baseline tremor Psych: AOx3 LABORATORY DATA, IMAGING STUDIES, MICROBIOLOGY: Please see below. Reviewed. ASSESSMENT AND PLAN: 64-year-old W with past medical history of multiple sclerosis admitted for isolated dysphagia, unable to take medications. Similar episode 3 years ago which resolved on its own, especially after PEG tube was placed. Patient's symptoms and workup concerning for possible psychosomatic presentation. Recently complicated by acute encephalopathy likely from withdrawal effects of sudden stopping of her home meds, aspiration in encephalopathic state with hypoxia, that had improved but now more encephalopathic this morning with c/f aspiration with rhonchi and crackles. Odynophagia, esophageal spasm. -s/p fluconazole for presumed mady esophagitis. -consulted GI, Dr Patiño, suggesting barium swallow with esophagram that may shed light on etiology. Will hold off EGD. Esophagram was wnl, so speech recommended cookie swallow eval --> was aspirating. NPO. -Finally to have PEG tube placed. IR request placed. -Restore her Primidone dose from 50% when she was on fluconazole Dysphasia: -MRI negative for brain stem pathology which would explain her dysphagia. Did not show any new active MS lesions -s/p 3 days of solumedrol. -Some suspicion for psychosomatic presentation as she had a similar episode 3 years ago, which self resolved after PEG tube was placed. -Now has NG tube in place. -consulted GI, Dr Patiño, who recommended barium swallow with esophagram that may shed light on etiology. Will hold off EGD. Esophagram was wnl, so speech now recommending a cookie swallow eval. PHUC -probably due to low oral free water intake, had free water added to tube feeds. -s/p IVF with improvement Hypercalcemia, resolved -due to dehydration. Acute encephalopathy likely 2/2 aspiration -empiric unasyn for potential aspiration, day # 2 -procalcitonin elevated -CXR -NG tube in place, holding tube feeds. -Continue the Amantadine 200mg bid, baclofen 10 tid and primidone 100mg bid as patient was taking at home. Her Nortriptyline is stopped and she will be continued only on topiramate 100 mg at hs as per Dr Varela. Hypertension -cont on amlodipine Acute hypoxic respiratory failure: resolved. thus far on room air -due to Aspiration in encephalopathic state. 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 Riley discussed with dr Varela. The MRI lesions from 09/10/20 MRI not congruent with PML lesions. -Also she is not on the immunosuppressive therapy (Natalizumab) that is known to cause PML. Also her WBC is not less than 1.0 so she is not immunosuppressed enough to have PML. Hypothyroidism: -TSH slightly low, -On levothyroxine. Hypophosphatemia -replaced. Hypomagnesemia -replaced. Multiple sclerosis -has not been able to take any meds for a week. -she is on Ocrelizumab Severe protein calorie malnutrition -Has a BMI of 13.7 with bitemporal wasting -due to her underlying chronic disease, swallowing problems. -NG tube feeding started on 09/15/20 -Monitor electrolytes. Dispo: Pending PEG tube placement. VS,Fishbone, I+O VS, Fishbone, I+O Laboratory Tests 09/25/20 07:20 Vital Signs Date Time Temp Pulse Resp B/P (MAP) Pulse Ox O2 Delivery O2 Flow Rate FiO2 09/25/20 10:00 76 136/70 09/25/20 06:00 97.7 21 98 Room Air I&O- Last 24 Hours up to 6 AM 09/25/20 06:00 Intake Total 2750 ml Output Total 0 ml Balance 2750 ml XI SAMANIEGO MD Sep 25, 2020 14:42
[2020-09-25 22:00] VITALS: BP 140/73
[2020-09-25] MEDS: TOPIRAMATE (TopAMAX) 100 MG TAB PO SCH (22:12)
[2020-09-26] MEDS: AMPICILLIN SOD/SULBACTAM SOD 1.5 GM in D5W MINI-BAG PLUS 50 ML IV SCH ×2 (03:04→14:47)
[2020-09-26 06:00] VITALS: BP 145/75
[2020-09-26] MEDS: LEVOTHYROXINE 75MCG TABLET (0.075MG) PO SCH (06:17)
[2020-09-26 06:51] LABS: HEMATOCRIT 28.9 % (36.0-47.0); HEMOGLOBIN 9.2 g/dl (12.0-15.5); MEAN CORPUSCULAR HEMOGLOBIN 29.3 pg (27.0-33.0); MEAN CORPUSCULAR HGB CONC 31.8 g/dl (32.0-36.5); RED BLOOD COUNT 3.14 10^6/uL (4.00-5.40); WHITE BLOOD COUNT 10.8 10^3/uL (4.0-10.0)
[2020-09-26 07:06] LABS: PLATELET COUNT, AUTOMATED 446 10^3/uL (150-450)
[2020-09-26 07:09] LABS: CALCIUM LEVEL 9.3 MG/DL (8.8-10.2); CREATININE FOR GFR 1.44 MG/DL (0.55-1.30); POTASSIUM SERUM 3.4 MEQ/L (3.5-5.1)
--- NOTE | 2020-09-26 09:03 | REP ---
INDICATION: NGT placement. COMPARISON: 09/24/2020 TECHNIQUE: Portable FINDINGS: The technique utilized in obtaining the radiograph has magnified the cardiac silhouette and attenuated the interstitial markings. Mild cardiomegaly is suspected and magnified by technique status quo. The lung [place] are clear and stable. No acute patchy parenchymal opacities or pleural effusions have developed. There is no change in the nasogastric tube. There is no change in the osseous structures. IMPRESSION: No significant change compared to the prior exam with findings as described above. <Electronically signed by Scott Munguia > 09/26/20 [id number]
[2020-09-26] MEDS: OMEPRAZOLE SUSPENSION 20MG 10ML ORAL SYRINGE NG SCH (09:05)
[2020-09-26] MEDS: SENNA 8.6 MG TAB (SENOKOT) NG SCH ×2 (09:06→20:24)
[2020-09-26] MEDS: PRIMIDONE 50 MG TAB PO SCH (09:06)
[2020-09-26] MEDS: HEPARIN SOD (PORCINE) 5000UNITS/ML 1ML VIAL/SYRINGE SC SCH ×2 (09:06→20:27)
[2020-09-26] MEDS: BACLOFEN 10 MG TAB PO SCH ×3 (09:06→20:24)
[2020-09-26] MEDS: AMANTADINE 100MG TABLET PO SCH ×2 (09:07→20:24)
[2020-09-26] MEDS: amLODIPine 5 MG TAB PO SCH ×2 (09:09→20:26)
[2020-09-26] MEDS ORDERED: SENNA 8.6 MG TAB (SENOKOT) NG SCH (11:30)
--- NOTE | 2020-09-26 11:37 | IPNPDOC ---
Text Note Date of Service The patient was seen on 09/26/20. NOTE SUBJECTIVE: -Stably ill, oriented, had removed her NGT and had another one placed. Remains on room air Interim events: -I spoke with Dr. Parnell who was going to place the PEG as an outpatient next Monday but let her know that she is now inpatient with recurrent aspiration and FTT and PEG will likely be placed on Monday. PHYSICAL EXAMINATION: VITAL SIGNS: Please see below. GENERAL: Frail, cachectic, awake, AOx3 this morning HEENT: Normocephalic, atraumatic, no drooling, dry MM. NECK: supple, no JVD CARDIOVASCULAR EXAMINATION: S1, S2, regular, normal rate no murmurs. RESPIRATORY EXAMINATION: Bibasilar crackles, otherwise clear, no wheezing, on room air ABDOMINAL EXAMINATION: Soft, nontender, nondistended, positive bowel sounds. NGT in place. EXTREMITIES: Range of motion intact, No edema. SKIN: No rash NEUROLOGICAL EXAMINATION: Alert, AOx3, moving all extremities with baseline tremor Psych: AOx3 LABORATORY DATA, IMAGING STUDIES, MICROBIOLOGY: Please see below. Reviewed. ASSESSMENT AND PLAN: 64-year-old W with past medical history of multiple sclerosis admitted for isolated dysphagia, unable to take medications. Similar episode 3 years ago which resolved on its own, especially after PEG tube was placed. Patient's symptoms and workup concerning for possible psychosomatic presentation. Recently complicated by acute encephalopathy likely from withdraw al effects of sudden stopping of her home meds, aspiration in encephalopathic state with hypoxia, that had improved but now more encephalopathic this morning with c/f aspiration with rhonchi and crackles. Odynophagia, esophageal spasm. -s/p fluconazole for presumed mady esophagitis. -consulted GI, Dr Patiño, suggesting barium swallow with esophagram that may shed light on etiology. Will hold off EGD. Esophagram was wnl, so speech recommended cookie swallow eval --> was aspirating. NPO. -Finally to have PEG tube placed. IR request placed. Likely 09/28 -Restore her Primidone dose from 50% when she was on fluconazole Dysphasia: -MRI negative for brain stem pathology which would explain her dysphagia. Did not show any new active MS lesions -s/p 3 days of solumedrol. -Some suspicion for psychosomatic presentation as she had a similar episode 3 years ago, which self resolved after PEG tube was placed. -Now has NG tube in place. -consulted GI, Dr Patiño, who recommended barium swallow with esophagram that may shed light on etiology. Will hold off EGD. Esophagram was wnl, so speech now recommending a cookie swallow eval. PHUC -probably due to low oral free water intake, increase free water added to tube feeds to 150cc q4h. -s/p IVF with improvement Hypercalcemia, resolved -due to dehydration. Acute encephalopathy likely 2/2 aspiration -empiric unasyn for potential aspiration, day # 3 -procalcitonin elevated -CXR -NG tube in place, holding tube feeds. -Continue the Amantadine 200mg bid, baclofen 10 tid and primidone 100mg bid as patient was taking at home. Her Nortriptyline is stopped and she will be continued only on topiramate 100 mg at hs as per Dr Varela. Hypertension -cont on amlodipine Acute hypoxic respiratory failure: resolved. thus far on room air -due to Aspiration in encephalopathic state. 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 Riley discussed with dr Varela. The MRI lesions from 09/10/20 MRI not congruent with PML lesions. -Also she is not on the immunosuppressive therapy (Natalizumab) that is known to cause PML. Also her WBC is not less than 1.0 so she is not immunosuppressed enough to have PML. Hypothyroidism: -TSH slightly low, -On levothyroxine. Hypophosphatemia -replaced. Hypomagnesemia -replaced. Multiple sclerosis -has not been able to take any meds for a week. -she is on Ocrelizumab Severe protein calorie malnutrition -Has a BMI of 13.7 with bitemporal wasting -due to her underlying chronic disease, swallowing problems. -NG tube feeding started on 09/15/20 -Monitor electrolytes. Dispo: Pending PEG tube placement. VS,Fishbone, I+O VS, Fishbone, I+O Laboratory Tests 09/26/20 06:07 Vital Signs Date Time Temp Pulse Resp B/P (MAP) Pulse Ox O2 Delivery O2 Flow Rate FiO2 09/26/20 09:09 85 142/76 09/26/20 06:00 97.5 16 99 Room Air I&O- Last 24 Hours up to 6 AM 09/26/20 06:00 Intake Total 1100 ml Output Total 50 ml Balance 1050 ml XI SAMANIEGO MD Sep 26, 2020 09:14
[2020-09-26] MEDS: MIRALAX *UNIT DOSE* 17GM PACKET NG PRN (11:59)
[2020-09-26 14:00] VITALS: BP 138/78
[2020-09-26] MEDS: LORazepam 2 MG/ML VIAL IV PRN ×2 (14:47→23:32)
[2020-09-26] MEDS: TOPIRAMATE (TopAMAX) 100 MG TAB PO SCH (20:25)
[2020-09-26] MEDS ORDERED: PRIMIDONE 50 MG TAB PO SCH (21:00)
[2020-09-26] MEDS ORDERED: TOPIRAMATE (TopAMAX) 100 MG TAB NG SCH (21:00)
[2020-09-26 22:00] VITALS: BP 145/89
[2020-09-26] MEDS ORDERED: LORazepam 2 MG/ML VIAL As Ordered ONE (23:27)
[2020-09-27] VITALS (9 sets, daily range): BP systolic 118–159; BP diastolic 61–89
[2020-09-27] MEDS: AMPICILLIN SOD/SULBACTAM SOD 1.5 GM in D5W MINI-BAG PLUS 50 ML IV SCH ×2 (03:38→14:05)
[2020-09-27] MEDS: LEVOTHYROXINE 75MCG TABLET (0.075MG) NG SCH (05:58)
[2020-09-27 06:55] LABS: HEMATOCRIT 28.5 % (36.0-47.0); HEMOGLOBIN 9.1 g/dl (12.0-15.5); MEAN CORPUSCULAR HEMOGLOBIN 29.5 pg (27.0-33.0); MEAN CORPUSCULAR HGB CONC 31.9 g/dl (32.0-36.5); MEAN CORPUSCULAR VOLUME 92.5 fl (80.0-96.0); PLATELET COUNT, AUTOMATED 421 10^3/uL (150-450); RED BLOOD COUNT 3.08 10^6/uL (4.00-5.40)
[2020-09-27 07:17] LABS: CALCIUM LEVEL 9.4 MG/DL (8.8-10.2); CREATININE FOR GFR 1.51 MG/DL (0.55-1.30); GLOMERULAR FILTRATION RATE 36.9 (>45)
[2020-09-27] MEDS ORDERED: POTASSIUM CHLORIDE 10% LIQ 20 MEQ/15 ML UDC NG ONE ×2 (08:00→10:00)
[2020-09-27] MEDS: AMANTADINE 100MG TABLET NG SCH (08:32)
[2020-09-27] MEDS: HEPARIN SOD (PORCINE) 5000UNITS/ML 1ML VIAL/SYRINGE SC SCH ×2 (08:32→22:46)
[2020-09-27] MEDS: OMEPRAZOLE SUSPENSION 20MG 10ML ORAL SYRINGE NG SCH (08:32)
[2020-09-27] MEDS: PRIMIDONE 50 MG TAB NG SCH (08:33)
[2020-09-27] MEDS: SENNA 8.6 MG TAB (SENOKOT) NG SCH ×2 (08:33→22:45)
[2020-09-27] MEDS: BACLOFEN 10 MG TAB NG SCH ×3 (08:33→22:46)
[2020-09-27] MEDS ORDERED: KCL 10MEQ/100ML SWI (KRUN) 10 MEQ in IV 1 EA IV SCH (09:00)
[2020-09-27] MEDS ORDERED: amLODIPine 5 MG TAB NG SCH (09:00)
--- NOTE | 2020-09-27 11:33 | IPNPDOC ---
Text Note Date of Service The patient was seen on 09/27/20. NOTE SUBJECTIVE: -Stably ill, oriented. Remains on room air PHYSICAL EXAMINATION: VITAL SIGNS: Please see below. GENERAL: Frail, cachectic, awake HEENT: Normocephalic, atraumatic, no drooling, dry MM. NECK: supple, no JVD CARDIOVASCULAR EXAMINATION: S1, S2, regular, normal rate no murmurs. RESPIRATORY EXAMINATION: Bibasilar crackles, otherwise clear, no wheezing, on room air ABDOMINAL EXAMINATION: Soft, nontender, nondistended, positive bowel sounds. NGT in place. EXTREMITIES: Range of motion intact, No edema. SKIN: No rash NEUROLOGICAL EXAMINATION: Alert, AOx3, moving all extremities with baseline tremor Psych: AOx3 but restless and sometimes confused LABORATORY DATA, IMAGING STUDIES, MICROBIOLOGY: Please see below. Reviewed. ASSESSMENT AND PLAN: 64-year-old W with past medical history of multiple sclerosis admitted for isolated dysphagia, unable to take medications. Similar episode 3 years ago which resolved on its own, especially after PEG tube was placed. Patient's symptoms and workup concerning for possible psychosomatic presentation. Recently complicated by acute encephalopathy likely from withdrawal effects of sudden stopping of her home meds, aspiration in encephalopathic state with hypoxia, that had improved but now more encephalopathic this morning with c/f aspiration with rhonchi and crackles. Odynophagia, esophageal spasm. -s/p 3d of fluconazole for presumed mady esophagitis. -consulted GI, Dr Patiño, suggesting barium swallow with esophagram that may shed light on etiology. Will hold off EGD. Esophagram was wnl, so speech recom mended cookie swallow eval --> was aspirating. NPO. -Finally to have PEG tube placed. IR request placed. Likely 09/28 -Primidone dose 100mg BID Dysphasia: -MRI negative for brain stem pathology which would explain her dysphagia. Did not show any new active MS lesions -s/p 3 days of solumedrol. -Some suspicion for psychosomatic presentation as she had a similar episode 3 years ago, which self resolved after PEG tube was placed. -Now has NG tube in place. -consulted GI, Dr Patiño, who recommended barium swallow with esophagram that may shed light on etiology. Will hold off EGD. Esophagram was wnl, so speech now recommending a cookie swallow eval. PHUC -probably due to low oral free water intake, increased free water added to tube feeds to 150cc q4h. -s/p IVF Hypercalcemia, resolved -due to dehydration. Acute encephalopathy likely 2/2 aspiration -empiric unasyn for potential aspiration, day # 4 of 5 -procalcitonin elevated -CXR -NG tube in place, holding tube feeds. -Continue the Amantadine 200mg bid, baclofen 10 tid and primidone 100mg bid as patient was taking at home. Her Nortriptyline is stopped and she will be continued only on topiramate 100 mg at hs as per Dr Varela. Hypertension -cont on amlodipine Acute hypoxic respiratory failure: resolved. thus far on room air -due to Aspiration in encephalopathic state. 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 Riley discussed with dr Varela. The MRI lesions from 09/10/20 MRI not congruent with PML lesions. -Also she is not on the immunosuppressive therapy (Natalizumab) that is known to cause PML. Also her WBC is not less than 1.0 so she is not immunosuppressed enough to have PML. Hypothyroidism: -TSH slightly low, -On levothyroxine. Hypophosphatemia -replaced. Hypomagnesemia -replaced. Multiple sclerosis -has not been able to take any meds for a week. -she is on Ocrelizumab Severe protein calorie malnutrition -Has a BMI of 13.7 with bitemporal wasting -due to her underlying chronic disease, swallowing problems. -NG tube feeding started on 09/15/20 -Monitor electrolytes. Dispo: Pending PEG tube placement. VS,Fishbone, I+O VS, Fishbone, I+O Laboratory Tests 09/27/20 06:13 Vital Signs Date Time Temp Pulse Resp B/P (MAP) Pulse Ox O2 Delivery O2 Flow Rate FiO2 09/27/20 08:35 89 133/91 09/27/20 06:00 98.0 18 95 09/26/20 14:00 Room Air I&O- Last 24 Hours up to 6 AM 09/27/20 05:59 Intake Total 1460 ml Output Total 0 ml Balance 1460 ml XI SAMANIEGO MD Sep 27, 2020 11:33
[2020-09-27] MEDS: MIRALAX *UNIT DOSE* 17GM PACKET NG PRN (14:05)
[2020-09-27] MEDS ORDERED: NS 1,000 ML IV ONE ×2 (21:00→22:30)
--- NOTE | 2020-09-27 21:03 | IPNPDOC ---
Text Note Date of Service The patient was seen on 09/27/20. NOTE CC TIME 40 min TIME OF SERVICE 845PM RR was called because the patient was found to be unresponsive and her O2 sats were in the 40s. Bag and mask was started with improvement in her O2 sats to 78%. She became more alert but was not tracking movements or following commands. Glucose 92 / O2 78%, RR 12, BP 77/61, HR 63, T 98.9 PEL Skin appears dusky / alert but not following commands or tracking my movements / RRR, NMRG / cachectic EKG showed a rate of 94 first degree AV block no acute ST elevation #Hypoxemia possibly 2/2 aspiration pneumonitis Plan:Anesthesia was consulted to intubate her bc she was to confused to follow commands and her O2 sats remained in the 70s despite bag and mask / transfer to ICU / f/u ABG, CBC, CMP, Trop, lactic acid, blood cx, prolactin / CT head to r/o CVA / consult for co-management. VS,[place], I+O VS, Fishbone, I+O Laboratory Tests 09/27/20 06:13 Vital Signs Date Time Temp Pulse Resp B/P (MAP) Pulse Ox O2 Delivery O2 Flow Rate FiO2 09/27/20 14:00 98.7 84 20 159/83 (108) 91 Room Air I&O- Last 24 Hours up to 6 AM 09/27/20 06:00 Intake Total 1610 ml Output Total 0 ml Balance 1610 ml PORTIA POE MD Sep 27, 2020 21:03
[2020-09-27] MEDS ORDERED: PROPOFOL 1,000 MG/100 ML VIAL As Ordered ONE (21:32)
[2020-09-27 21:38] LABS: BASO % 0.1 % (0.0-1.0); EOS % 0.1 % (0.0-3.0); HEMATOCRIT 27.9 % (36.0-47.0); HEMOGLOBIN 8.3 g/dl (12.0-15.5); LYMPH % 7.7 % (24.0-44.0); MEAN CORPUSCULAR HGB CONC 29.7 g/dl (32.0-36.5); MEAN CORPUSCULAR VOLUME 97.6 fl (80.0-96.0); MONO # 0.9 10^3/uL (0.0-0.8); MONO % 6.9 % (0.0-5.0); NEUTROPHILS # 11.2 10^3/uL (1.5-8.5); NEUTROPHILS % 83.6 % (36.0-66.0); PLATELET COUNT, AUTOMATED 429 10^3/uL (150-450); RED BLOOD COUNT 2.86 10^6/uL (4.00-5.40); WHITE BLOOD COUNT 13.3 10^3/uL (4.0-10.0)
[2020-09-27] MEDS ORDERED: MIDAZOLAM INJ 2MG/2ML VIAL (J2250 PER 1MG) As Ordered ONE (21:41)
[2020-09-27 21:45] LABS: ABG BASE EXCESS -11.1 (-2.0-2.0); ABG HCO3 16.2 MEQ/L (22.0-26.0); ABG O2 SATURATION 99.9 % (95.0-99.0); ABG PARTIAL PRESSURE CO2 43.3 mmHg (35.0-45.0); ABG PARTIAL PRESSURE O2 230.9 mmHg (75.0-100.0); ABG STANDARD HCO3 15.5 MEQ/L (22.0-26.0); ABG TOTAL CO2 17.6 MEQ/L (23.0-31.0)
--- NOTE | 2020-09-27 21:46 | REPVR ---
PROCEDURE INFORMATION: Exam: XR Chest, 1 View Exam date and time: 09/27/2020 9:29 PM Age: 64 years old Clinical indication: Device placement; Ett placement (vent status); Additional info: Intubatio TECHNIQUE: Imaging protocol: XR of the chest Views: 1 view. COMPARISON: CR Chest, 1 view 09/26/2020 8:38 AM FINDINGS: Tubes, catheters and devices: Endotracheal tube demonstrated with the tip of the tube located 2.3 cm. above the tri. NG tube coiled in the left upper quadrant with the tip located in the gastric fundus. Lungs: Unremarkable. No consolidation. Pleural space: Unremarkable. No pleural effusion. No pneumothorax. Heart/Mediastinum: Borderline cardiomegaly. Vasculature: Uncoiled thoracic aorta. Bones/joints: Status post reverse shoulder arthroplasty on the right. IMPRESSION: No acute findings. Electronically signed by: Marc Chong On 09/27/2020 21:45:32 PM
[2020-09-27 21:49] LABS: ABG pH (ARTERIAL) 7.192 UNITS (7.350-7.450)
[2020-09-27] MEDS ORDERED: propofoL 1,000 MG in IV 1 EA IV SCH ×4 (22:00)
[2020-09-27] MEDS: MIDAZOLAM INJ 2MG/2ML VIAL (J2250 PER 1MG) IV PRN ×3 (22:00→23:21)
[2020-09-27 22:30] LABS: ALBUMIN 2.9 GM/DL (3.2-5.2); BILIRUBIN,TOTAL 0.1 MG/DL (0.2-1.0); CALCIUM LEVEL 8.8 MG/DL (8.8-10.2); CREATININE FOR GFR 1.74 MG/DL (0.55-1.30); GLOMERULAR FILTRATION RATE 31.4 (>45); POTASSIUM SERUM 3.5 MEQ/L (3.5-5.1); TOTAL PROTEIN 6.1 GM/DL (6.4-8.2); TROPONIN I 0.03 NG/ML (< 0.10)
[2020-09-27] MEDS: D5W 1,000 ML IV SCH (22:45)
[2020-09-27] MEDS: CHLORHEXIDINE GLUCONATE 0.12 % 15ML UDC (PERIDEX ORAL RINSE) MT SCH (22:45)
[2020-09-27] MEDS ORDERED: POTASSIUM CHLORIDE 10% LIQ 20 MEQ/15 ML UDC PO ONE (22:45)
[2020-09-27] MEDS ORDERED: MAG SULF 1GM/100ML (MAG RUN) 1 GM in IV 1 EA IV ONE (23:00)
[2020-09-27 23:49] LABS: ABG BASE EXCESS -0.1 (-2.0-2.0); ABG HCO3 22.5 MEQ/L (22.0-26.0); ABG O2 SATURATION 99.5 % (95.0-99.0); ABG PARTIAL PRESSURE CO2 28.6 mmHg (35.0-45.0); ABG PARTIAL PRESSURE O2 176.2 mmHg (75.0-100.0); ABG STANDARD HCO3 24.4 MEQ/L (22.0-26.0); ABG TOTAL CO2 23.4 MEQ/L (23.0-31.0); ABG pH (ARTERIAL) 7.514 UNITS (7.350-7.450)
[2020-09-28] VITALS (25 sets, daily range): BP systolic 110–137; BP diastolic 58–77
[2020-09-28] MEDS: PRIMIDONE 50 MG TAB NG SCH ×3 (00:40→20:52)
[2020-09-28] MEDS: TOPIRAMATE (TopAMAX) 100 MG TAB NG SCH ×2 (00:40→20:28)
[2020-09-28] MEDS: AMANTADINE 100MG TABLET NG SCH ×3 (00:40→20:52)
[2020-09-28] MEDS: MIDAZOLAM INJ 2MG/2ML VIAL (J2250 PER 1MG) IV PRN ×7 (00:42→10:23)
[2020-09-28] MEDS: propofoL 1,000 MG in IV 1 EA IV SCH ×3 (04:35→18:06)
[2020-09-28 05:11] LABS: HEMATOCRIT 27.3 % (36.0-47.0); HEMOGLOBIN 8.5 g/dl (12.0-15.5); MEAN CORPUSCULAR HEMOGLOBIN 30.2 pg (27.0-33.0); MEAN CORPUSCULAR HGB CONC 31.1 g/dl (32.0-36.5); MEAN CORPUSCULAR VOLUME 97.2 fl (80.0-96.0); RED BLOOD COUNT 2.81 10^6/uL (4.00-5.40)
[2020-09-28 05:15] LABS: CALCIUM LEVEL 8.8 MG/DL (8.8-10.2); CREATININE FOR GFR 1.44 MG/DL (0.55-1.30); MAGNESIUM LEVEL 2.8 MG/DL (1.8-2.4); PHOSPHORUS LEVEL 1.3 MG/DL (2.5-4.9); POTASSIUM SERUM 3.6 MEQ/L (3.5-5.1)
[2020-09-28 05:17] LABS: PLATELET COUNT, AUTOMATED 216 10^3/uL (150-450)
[2020-09-28] MEDS: LEVOTHYROXINE 75MCG TABLET (0.075MG) NG SCH (05:40)
[2020-09-28 05:43] LABS: ABG HCO3 22.9 MEQ/L (22.0-26.0); ABG O2 SATURATION 99.9 % (95.0-99.0); ABG PARTIAL PRESSURE CO2 26.2 mmHg (35.0-45.0); ABG PARTIAL PRESSURE O2 216.3 mmHg (75.0-100.0); ABG STANDARD HCO3 25.4 MEQ/L (22.0-26.0); ABG TOTAL CO2 23.7 MEQ/L (23.0-31.0); ABG pH (ARTERIAL) 7.559 UNITS (7.350-7.450)
--- NOTE | 2020-09-28 07:40 | CR ---
CRITICAL CARE CONSULTATION DATE: 09/27/2020 History is obtained from the chart and from other collaterals as patient is currently intubated and unable to provide history. HISTORY OF PRESENT ILLNESS: Mrs. Villafana is a 64-year-old female with a past medical history of multiple sclerosis, hypothyroidism and GERD who presented with complaints of dysphagia and odynophagia. The patient apparently had a previous similar symptoms in 2017 and had undergone a PEG tube placement at that time. However, after placement of the PEG, her symptoms resolved spontaneously and it was removed after only a few days. She presented complaining of difficulty swallowing for the past week prior to her admission and finding it painful to swallow. She was also having difficulty just swallowing saliva with gagging and choking sensation. On admission, the patient was seen by neurology. She had evaluation for a possible MS flare including MRI of the brain which did not show any new active MS lesions. She did get three days of Solu-Medrol. The patient also had antibody testing done which was positive for SENTHIL virus. However, after discussion with neurology, it was thought to be unlikely to be PML. The patient did have an episode as well on admission of encephalopathy as well as hypoxia secondary to aspiration. She was able to recover to room air and her encephalopathy had also improved. During her stay, however, she continued to have dysphagia and had evaluation by GI with barium swallow and esophagram. She was started on tube feeds as well via NGT due to her protein malnutrition. The patient had an episode a few days prior of hypoxia and concern for an aspiration event. She was therefore started on Unasyn for possible aspiration on 09/24/20. There was a plan for PEG tube by IR likely on Monday. Overnight, however, on 09/27/20, the patient had episode of unresponsiveness. A rapid response was called as she was unresponsive and her O2 sats were reportedly in the 40s. The patient received bagged mask ventilation and her sats improved slightly to 78% and she did appear more arousable but was not following commands or tracking movements. Anesthesia therefore intubated the patient. She initially was hypotensive as well prior to her intubation. In the ICU, the patient is on Propofol for sedation which was just started. She is awake and opening her eyes but does not appear to be following commands appropriately. She is moving her extremities agitatedly and appears to be reaching for the tube. The patient does have thick brown secretions suctioned from the endotracheal tube and rhonchorous breath sounds noted on exam. PAST MEDICAL/SURGICAL HISTORY: 1. Multiple sclerosis. 2. Vitamin B12 deficiency. 3. Hypothyroidism. 4. Prior history of dysphagia. 5. Status post PEG in 2017 with reversal. 6. Osteoporosis. 7. Vitamin D deficiency. 8. Status post hips surgery in 2017. 9. Degenerative disc disease. 10. Hyperlipidemia. 11. Cholecystectomy. 12. Right shoulder replacement in 2001. 13. History of pneumothorax. HOME MEDICATIONS: 1. Amantadine. 2. Calcium/vitamin D. 3. Vitamin B12. 4. Synthroid. 5. Nortriptyline. 6. Omeprazole. 7. Primidone. 8. Baclofen p.r.n. 9. Calcium carbonate. 10. Topiramate. ALLERGIES: DIVALPROEX, MEPERIDINE. SOCIAL HISTORY: The patient is a reported former smoker, no alcohol or drug use. FAMILY HISTORY: Unable to be obtained as patient is intubated and sedated. PHYSICAL EXAMINATION: Vitals: Temperature 98.7, pulse 92, respirations 28, blood pressure 127/80. O2 nrj530% on 100% FiO2, ins 1.3 liters, out 50 mL, not documented as patient incontinent. General: The patient is a thin female who is intubated and sedated. She is opening eyes spontaneously but is not following commands appropriately. She is moving her extremities spontaneously as well as to painful stimuli. HEENT: Evident of temporal wasting bilaterally. Normocephalic, atraumatic. Pupils are small but reactive to light bilaterally. Mucous membranes appear dry. There is cracked and scabbing in her oral cavity with poor hygiene. Neck: Supple. Trachea is midline. No palpable cervical adenopathy. No JVD. Cardiac: Regular rate and rhythm. Normal S-1, S-2. There is a systolic murmur auscultated. Pulmonary: There are coarse rhonchi noted bilaterally. No wheezes. Abdomen: Soft, nontender, nondistended. Extremities: There is lower extremity edema bilaterally. There is some mild bruising in her extremities. LABORATORY DATA: WBC 13.3, hemoglobin 8.3, platelets of 429. Chemistries: Sodium is 155. Potassium is 3.5. Chloride is 117. Bicarb is 19, BUN 40. Creatinine is 1.74. Glucose is 98. Anion gap is 19. Lactic acid is 8.9. Calcium is 8.8. T bili 0.1. AST 44, ALT 39, alk phos 153. Albumin is 2.9. Prolactin is pending. ABG: pH 7.192, pCO2 of 42.2, pO2 of 230.9. IMAGING: Chest x-ray shows the ET tube approximately 2 cm above the tri. There is an OG tube in place coiled in the gastric fundus. There did not appear to be any focal opacities in the lung [place] although there is a possible faint suggestion of infiltrate developing in the right base. ASSESSMENT AND PLAN: Miss Villafana is a 64-year-old female with a past medical history of multiple sclerosis, GERD and hypothyroidism who presented with complaints of dysphagia as well as with her hospital course complicated by episodes of altered mental status and encephalopathy as well as episodes of hypoxia at times thought to be secondary to aspiration. She was treated for aspiration pneumonia initially on her admission with ceftriaxone and again started on antibiotics a few days prior for another episode of aspiration and possible aspiration pneumonia. The patient had a rapid response this evening due to unresponsiveness and hypoxia. She was thought to have another episode of aspiration and was hypoxic initially into the 40s as well as hypotensive. She was intubated by Anesthesia and placed on mechanical ventilation and transferred to the ICU for further management. 1. Acute hypoxemic respiratory failure in the setting of aspiration. The patient has episodes of recurrent aspiration in the setting of her dysphagia and multiple sclerosis during this admission. She is now on mechanical ventilation. The patient's oxygenation appears improved now. Her chest x-ray post-intubation shows questionable developing infiltrate in the right base. She does have very rhonchorous breath sounds and on suctioning from her endotracheal tube had a thick, brown mucous plus. We will check a sputum culture and continue with Unasyn for antibiotics for possible aspiration pneumonia. The patient's ET tube was borderline above the tri. We will adjust by pulling back 1/2 cm. We will continue with mechanical ventilation. She is on PRVC. Her ABG showed evidence of more metabolic acidosis with inappropriate respiratory compensation. Her respiratory rate was increased and her tidal volumes were adjusted. She is now on PRVC settings of 320/20/65 and 5. We will follow up a repeat ABG one hour after her vent setting is changed and continue to adjust accordingly. We will continue with daily ABGs and chest x-rays while intubated. We will continue with vent bundle care with head of bed elevation and chlorhexidine mouthwash. We will continue with Propofol for sedation while intubated and with Versed p.r.n. for agitation. 2. PHUC with hypernatremia and hyperchloremia. The patient was also hypokalemic earlier. She has a metabolic anion gap acidosis likely secondary to her lactic acidosis with a component of respiratory acidosis as well on her ABG. The patient was given one liter of normal saline bolus during her rapid response. We will give another liter of saline bolus, however, given her hypernatremia and hyperchloremia. She does have a free water deficit. We will start her on D5W at 125 mL an hour as well as free water flushes through her OG tube at 200 mL q.6 hours if tolerating. We will also replete potassium. Her magnesium level was not checked recently so we will give empiric magnesium and continue with potassium repletion and repeat electrolytes as needed. We will place a [place] for accurate measurements of ins and outs. We will continue to monitor renal function and renally dose medications. 3. Patient with dysphagia on presentation. She has had workup for possible MS flare as well as being treated empirically with Solu-Medrol. She also had evaluation by GI and there is a plan for a PEG tube placed by IR which was for tomorrow. The patient now has an OG tube in place. We will follow up with IR about the possible PEG tube placement. The patient was on tube feeds which we will keep her NPO overnight for the possible procedure and then likely will restart her tube feeds tomorrow. Continue with the Primidone. 4. History of MS. Appreciate neurology consult and their recommendations. Continue with her home medications of amantadine, Baclofen and Primidone. We will continue topiramate as well. 5. Hypothyroidism. Continue with Synthroid. DVT prophylaxis: With heparin. GI prophylaxis: On omeprazole. Code Status: FULL CODE. Total critical care time not including any procedures approximately one hour and 15 minutes. MTDD
[2020-09-28] MEDS: CHLORHEXIDINE GLUCONATE 0.12 % 15ML UDC (PERIDEX ORAL RINSE) MT SCH ×2 (08:41→20:53)
[2020-09-28] MEDS: BACLOFEN 10 MG TAB NG SCH ×3 (08:42→20:52)
[2020-09-28] MEDS: SENNA 8.6 MG TAB (SENOKOT) NG SCH ×2 (08:43→20:52)
[2020-09-28] MEDS: OMEPRAZOLE SUSPENSION 20MG 10ML ORAL SYRINGE NG SCH (08:43)
--- NOTE | 2020-09-28 08:43 | REP ---
INDICATION: intubated COMPARISON: 09/27/2020 TECHNIQUE: Portable AP view of the chest FINDINGS: Endotracheal tube 1.5 cm above the tri. Nasogastric tube extends to the gastroesophageal junction with the side port in the distal esophagus and warrants repositioning/advancement. The mediastinum and cardiac silhouette are stable and within normal limits for portable technique. The lung [place] demonstrate new left lower lobe/retrocardiac consolidation/atelectasis and possible small left pleural effusion. No pneumothorax. IMPRESSION: 1. Nasogastric tube warrants advancement. 2. Left lower lobe opacity suggesting atelectasis/consolidation and possible small pleural effusion. <Electronically signed by Mack Luo > 09/28/20 [id number]
[2020-09-28] MEDS ORDERED: POTASSIUM PHOSPHATE INJ 20 MMOL in D5W 250 ML IV ONE (09:00)
[2020-09-28] MEDS ORDERED: VANCOMYCIN HCL 1,000 MG, VIAL MATE ADAPTER 1 EACH in D5W 250 ML IV SCH (09:30)
[2020-09-28] MEDS ORDERED: VANCOMYCIN INTERMITTENT/PULSE DOSING BY CLINICAL PHARMACIST PER DOSING PROTOCOL XX SCH (10:00)
[2020-09-28] MEDS ORDERED: propofoL 1,000 MG in IV 1 EA IV SCH (10:00)
[2020-09-28] MEDS: HEPARIN SOD (PORCINE) 5000UNITS/ML 1ML VIAL/SYRINGE SC SCH ×2 (10:00→20:53)
[2020-09-28 10:33] LABS: PROLACTIN 47.8 NG/ML
[2020-09-28] MEDS: D5W 1,000 ML IV SCH ×3 (10:49→20:53)
[2020-09-28] MEDS ORDERED: VANCOMYCIN HCL 500 MG in D5W MINI-BAG PLUS 100 ML IV ONE (11:00)
--- NOTE | 2020-09-28 11:07 | REP ---
INDICATION: Post central line placement. COMPARISON: Comparison chest x-ray 28 September 2020. TECHNIQUE: Portable upright AP chest radiograph. FINDINGS: Increased homogeneous opacity persists in the left base perhaps slightly improved. The left hemidiaphragm is partially visible. Air bronchograms are seen in the infrahilar region consistent with infiltrate in the left perihilar region. Right lung remains clear. Right pleural angles are sharp. Heart size is mildly enlarged. Endotracheal tube is in good position at the level of the transverse aorta. NG tube enters the left upper quadrant. Right IJ line terminates in the expected location of superior vena cava. There are clips in right upper quadrant the abdomen. A prosthetic right shoulder joint is again seen. IMPRESSION: Infiltrate left inferior perihilar region with a few air bronchograms. Some residual pleural opacity suspected left base. Right IJ line in place no evidence of pneumothorax.. <Electronically signed by Diego Swann > 09/28/20 [id number]
--- NOTE | 2020-09-28 11:54 | RO ---
OPERATIVE NOTE DATE OF OPERATION: 09/28/2020 PROCEDURE: Central line insertion. INDICATIONS: Venous access. PRE-PROCEDURE DIAGNOSIS: Aspiration pneumonia. POST-PROCEDURE DIAGNOSIS: Aspiration pneumonia. ATTENDING PHYSICIAN: Juliann Esparza MD CONSENT: Consent was obtained from the patient's prior to the procedure. Indications, risks, and benefits were explained at length. PROCEDURE SUMMARY: A central line insertion practice form was completed by an independent observer. A time-out was performed. Full sterile technique was maintained throughout the procedure, including surgical cap, mask with protective eyewear, full gown, and sterile gloves. The patient was placed in Trendelenburg position. The right neck region was prepped using chlorhexidine scrub and draped in sterile fashion using a full drape and a sterile probe cover employed. The right internal jugular vein was identified using ultrasound. Anesthesia was achieved using 1% lidocaine. Using real-time red-ac-andaz guidance, the introducer needle was inserted into the internal jugular vein under direct ultrasound visualization. Venous blood was withdrawn. The syringe was removed and a guidewire was advanced into the introducer needle. The introducer needle was removed over the guidewire. A small incision was made at the skin surface with a scalpel and a dilator was exchanged over the guidewire. After appropriate dilation was obtained, the dilator was exchanged over the wire for a triple-lumen central venous catheter. The wire was removed and the catheter was sutured in place at 18 cm. A sterile chlorhexidine-impregnated dressing was placed over the catheter at the insertion site. The patient tolerated the procedure without any hemodynamic compromise. At the time of procedure completion, all ports were aspirated and flushed properly. Post-procedure chest x-ray is pending. ESTIMATED BLOOD LOSS: Less than 2 mL. MTDD
[2020-09-28 14:09] LABS: VENOUS BASE EXCESS -0.4 (-2.0-2.0); VENOUS HCO3 22.8 MEQ/L (23.0-27.0); VENOUS O2 SATURATION 99.4 % (60.0-80.0); VENOUS PARTIAL PRESSURE CO2 31.3 mmHg (38.0-50.0); VENOUS PARTIAL PRESSURE O2 150.3 mmHg (30.0-50.0); VENOUS PH 7.481 UNITS (7.330-7.430); VENOUS STANDARD HCO3 24.2 MEQ/L; VENOUS TOTAL CO2 23.8 MEQ/L (24.0-28.0)
[2020-09-28 14:41] LABS: CALCIUM LEVEL 8.2 MG/DL (8.8-10.2); CREATININE FOR GFR 1.36 MG/DL (0.55-1.30); GLOMERULAR FILTRATION RATE 41.7 (>45); POTASSIUM SERUM 3.7 MEQ/L (3.5-5.1)
--- NOTE | 2020-09-28 19:00 | IPNPDOC ---
Text Note Date of Service The patient was seen on 09/28/20. NOTE Interim evnts: -Aspirated --> became hypoxemic --> was intubated overnight --> caustic liquor maker managing her this morning. -Updated her on intubation Exam: VITAL SIGNS: Please see below. GENERAL: Frail, cachectic, sedated, intubated, ill appearing HEENT: Normocephalic, atraumatic, cachectic NECK: supple, no JVD CARDIOVASCULAR EXAMINATION: S1, S2, regular, normal rate no murmurs. RESPIRATORY EXAMINATION: Rhonchi throughout with transmitted upper airway sounds heard throughout ABDOMINAL EXAMINATION: Soft, nontender, nondistended, positive bowel sounds. EXTREMITIES: No edema. SKIN: No rash NEUROLOGICAL EXAMINATION: sedated, withdraws to painful stimuli LABORATORY DATA, IMAGING STUDIES, MICROBIOLOGY: Reviewed. ASSESSMENT AND PLAN: 64-year-old W with past medical history of multiple sclerosis admitted for isolated dysphagia, unable to take medications. Similar e pisode 3 years ago which resolved on its own, especially after PEG tube was placed. Patient's symptoms and workup concerning for possible psychosomatic presentation whose course has been c/b aspiration events and is now intubated. Hypoxemic respiratory failure 2/2 aspiration: -now intubated -pulm onboard -on empiric aspiration abx Odynophagia, esophageal spasm: -s/p 3d of fluconazole for presumed mady esophagitis. -consulted GI, Dr Patiño, suggesting barium swallow with esophagram that may shed light on etiology. Will hold off EGD. Esophagram was wnl, so speech recommended cookie swallow eval --> was aspirating. NPO. -was pending a PEG but now intubated -Primidone dose 100mg BID Dysphasia: -MRI negative for brain stem pathology which would explain her dysphagia. Did not show any new active MS lesions -s/p 3 days of solumedrol. -Some suspicion for psychosomatic presentation as she had a similar episode 3 years ago, which self resolved after PEG tube was placed. -Now has NG tube in place. -consulted GI, Dr Patiño, who recommended barium swallow with esophagram that may shed light on etiology. Will hold off EGD. Esophagram was wnl, failed cookie swallow, NPO. PHUC: 2/2 dehydration. improved. Hypercalcemia, resolved -due to dehydration. Acute encephalopathy 2/2 aspiration -empiric unasyn for potential aspiration, day # 5 -procalcitonin elevated -NG tube in place -Continue the Amantadine 200mg bid, baclofen 10 tid and primidone 100mg bid as patient was taking at home. Her Nortriptyline is stopped and she will be continued only on topiramate 100 mg at hs as per Dr Varela. Hypertension -cont on amlodipine Acute hypoxic respiratory failure: resolved. thus far on room air -due to Aspiration in encephalopathic state. Prior aspiration pneumonia -s/p Ceftriaxone course -now restarted on unasyn for potential further aspiration event, day 5 Positive SENTHIL virus antibody -Unlikely Progressive Multifocal Leukoencephalopathy -Dr. Riley discussed with dr Varela. The MRI lesions from 09/10/20 MRI not congruent with PML lesions. -Also she is not on the immunosuppressive therapy (Natalizumab) that is known to cause PML. Also her WBC is not less than 1.0 so she is not immunosuppressed enough to have PML. Hypothyroidism: -TSH slightly low, -On levothyroxine. Hypophosphatemia -replaced. Hypomagnesemia -replaced. Multiple sclerosis -has not been able to take any meds for a week. -she is on Ocrelizumab Severe protein calorie malnutrition -Has a BMI of 13.7 with bitemporal wasting -due to her underlying chronic disease, swallowing problems. -NG tube feeding started on 09/15/20 -Monitor electrolytes. Dispo: ICU, intubated VS,Fishbone, I+O VS, Fishbone, I+O Laboratory Tests 09/27/20 21:26 09/28/20 04:28 09/28/20 14:02 Vital Signs Date Time Temp Pulse Resp B/P (MAP) Pulse Ox O2 Delivery O2 Flow Rate FiO2 09/28/20 18:00 74 130/67 (88) 99 Ventilator 40 09/28/20 16:00 99.9 20 I&O- Last 24 Hours up to 6 AM 09/28/20 06:00 Intake Total 5278.8 ml Output Total 420 ml Balance 4858.8 ml XI SAMANIEGO MD Sep 28, 2020 19:00
[2020-09-28 23:10] LABS: STRIATIONAL ANTIBODIES Negative (Neg:<1:40)
[2020-09-29] VITALS (23 sets, daily range): BP systolic 108–171; BP diastolic 57–99
[2020-09-29] MEDS: MIDAZOLAM INJ 2MG/2ML VIAL (J2250 PER 1MG) IV PRN ×6 (00:20→23:14)
[2020-09-29] MEDS: propofoL 1,000 MG in IV 1 EA IV SCH ×2 (00:21→07:27)
[2020-09-29] MEDS: MORPHINE 2 MG/ML 1ML VIAL (J2270) IV PRN ×3 (04:09→23:14)
[2020-09-29] MEDS: D5W 1,000 ML IV SCH (04:57)
[2020-09-29 05:46] LABS: ABG HCO3 21.5 MEQ/L (22.0-26.0); ABG O2 SATURATION 99.5 % (95.0-99.0); ABG PARTIAL PRESSURE CO2 27.4 mmHg (35.0-45.0); ABG PARTIAL PRESSURE O2 183.5 mmHg (75.0-100.0); ABG STANDARD HCO3 23.7 MEQ/L (22.0-26.0); ABG TOTAL CO2 22.3 MEQ/L (23.0-31.0); ABG pH (ARTERIAL) 7.512 UNITS (7.350-7.450)
[2020-09-29] MEDS: LEVOTHYROXINE 75MCG TABLET (0.075MG) NG SCH (06:03)
[2020-09-29 06:27] LABS: HEMATOCRIT 23.1 % (36.0-47.0); HEMOGLOBIN 7.5 g/dl (12.0-15.5); MEAN CORPUSCULAR HEMOGLOBIN 29.9 pg (27.0-33.0); MEAN CORPUSCULAR HGB CONC 32.5 g/dl (32.0-36.5); PLATELET COUNT, AUTOMATED 205 10^3/uL (150-450); RED BLOOD COUNT 2.51 10^6/uL (4.00-5.40); WHITE BLOOD COUNT 5.7 10^3/uL (4.0-10.0)
[2020-09-29 07:00] LABS: CALCIUM LEVEL 7.8 MG/DL (8.8-10.2); CREATININE FOR GFR 1.29 MG/DL (0.55-1.30); GLOMERULAR FILTRATION RATE 44.3 (>45); MAGNESIUM LEVEL 2.2 MG/DL (1.8-2.4); POTASSIUM SERUM 3.2 MEQ/L (3.5-5.1); VANCOMYCIN RANDOM 4.9 UG/ML
[2020-09-29] MEDS ORDERED: POTASSIUM CHLORIDE 10% LIQ 20 MEQ/15 ML UDC PO ONE (07:30)
[2020-09-29] MEDS ORDERED: VANCOMYCIN HCL 500 MG in D5W MINI-BAG PLUS 100 ML IV SCH (08:00)
[2020-09-29] MEDS: CHLORHEXIDINE GLUCONATE 0.12 % 15ML UDC (PERIDEX ORAL RINSE) MT SCH ×2 (08:00→21:36)
[2020-09-29] MEDS: PRIMIDONE 50 MG TAB NG SCH ×2 (08:01→21:36)
[2020-09-29] MEDS: PANTOPRAZOLE 40MG VIAL (C9113 PER 1) IV SCH ×2 (08:01→21:37)
[2020-09-29] MEDS: SENNA 8.6 MG TAB (SENOKOT) NG SCH ×2 (08:01→21:36)
[2020-09-29] MEDS: BACLOFEN 10 MG TAB NG SCH ×3 (08:01→21:36)
[2020-09-29] MEDS: AMANTADINE 100MG TABLET NG SCH ×2 (08:01→21:36)
[2020-09-29] MEDS: HEPARIN SOD (PORCINE) 5000UNITS/ML 1ML VIAL/SYRINGE SC SCH ×2 (08:02→21:37)
--- NOTE | 2020-09-29 08:15 | REP ---
INDICATION: intubated COMPARISON: 09/28/2020 TECHNIQUE: Portable AP view of the chest FINDINGS: The endotracheal tube is approximately 1.6 cm from the tri. The nasogastric tube side port is above the level of diaphragm and requires advancement. The mediastinum and cardiac silhouette are stable and within normal limits for portable technique. Left lower lobe opacities and left lower lobe/retrocardiac consolidation is appreciated increased from prior examination. Possible small left effusion cannot be excluded. Right hemithorax is clear. IMPRESSION: 1. Lines and tubes require re-evaluation. 2. Left lower lobe opacities/consolidation increased from prior examination. <Electronically signed by Mack Luo > 09/29/20 0805
[2020-09-29] MEDS ORDERED: CEFEPIME HCL 1 GM in D5W MINI-BAG PLUS 50 ML IV SCH (10:30)
[2020-09-29] MEDS ORDERED: LIDOCAINE 1% MDV 20ML VIAL As Ordered ONE (16:03)
--- NOTE | 2020-09-29 16:05 | ECGEPIP ---
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 Different precordial lead placement but evolutionary ST/T wave changes from 05/15/17. Clinical correlation advised Electronically Signed on 09-29-2020 16:05:09 EST by Trevor Cisneros
[2020-09-29] MEDS: dexmedeTOMidine 200 MCG in IV 1 EA IV SCH ×3 (16:10→23:53)
--- NOTE | 2020-09-29 17:29 | REP ---
PROCEDURE NAME: PICC LINE INSERTION W/SITERITE CLINICAL INFORMATION: venous access. COMPARISON: None. PROCEDURE DESCRIPTION: The procedure was performed by ADA Salazar, under the direct supervision of Dr. Swann. The risks and benefits of the procedure were explained to the patient's who is also her healthcare proxy and an informed consent was obtained verbally. Directly prior to the start of the procedure a formal time-out was completed in the patient's room as this procedure was done at the bedside. The left brachial vein was localized using ultrasound guidance. The skin was prepped and draped in sterile fashion. One mL of 1% lidocaine 10 mg/mL was used as a local anesthetic. Using ultrasound guidance the left brachial vein was cannulated, and a 0.018 guidewire was inserted and advanced to the level of SVC using portable x-ray guidance. The needle was removed and a 5.5 Sudanese dilator and peel-away sheath was inserted over the guidewire. A 5.5 Sudanese dual lumen catheter was cut to a length of 40 cm. The dilator was removed and the catheter was inserted over the guidewire with the tip ending at the level of the SVC. The peel-away sheath was removed and the catheter was flushed with heparinized saline as per hospital protocol. The catheter was affixed to the skin and a sterile dressing was applied. The patient tolerated the procedure well and there were no immediate complications. CONCLUSION: PICC line insertion into the left brachial vein. No fluoroscopy was utilized for this procedure. All imaging was obtained was serial portable chest x-rays. <Electronically signed by Tuyet Solis > 09/29/20 1725 <Electronically signed by Diego Swann > 09/29/20 0810
[2020-09-29] MEDS: CEFEPIME HCL 2 GM in D5W MINI-BAG PLUS 50 ML IV SCH (17:30)
[2020-09-29] MEDS: SODIUM CHLORIDE 0.9% INJ 10 ML SYR IV SCH (18:00)
[2020-09-29] MEDS ORDERED: SODIUM CHLORIDE 0.9% INJ 10 ML SYR IV PRN (18:00)
--- NOTE | 2020-09-29 19:15 | CCN ---
CRITICAL CARE NOTE DATE: 09/29/2020 SUBJECTIVE: Patient was seen and examined this morning during bedside rounds. During the sedation vacation this morning, the patient was off of propofol. She appeared to be tracking with voice, but was not following commands fully. She did have some episodes of agitation off of the sedation. The patient was also noted to have a low-grade temperature this morning. OBJECTIVE: VITAL SIGNS: T-max 99.9, pulse 63, respirations 19, blood pressure 129/66, O2 sat 99% on 40% FiO2. INTAKE AND OUTPUT: In 4.4 liters, out 1.3 liters. Net positive approximately 3 liters. GENERAL: The patient is intubated and sedated. On sedation vacation, she is opening her eyes and appears to be tracking to voice, but is not following commands appropriately. HEENT: Temporal wasting bilaterally. Normocephalic, atraumatic. Pupils are reactive to light bilaterally. Moist mucous membranes noted. She has some poor oral hygiene. NECK: Supple. Trachea is midline. No palpable cervical adenopathy. No JVD. CARDIAC: Regular rate and rhythm. Normal S1, S2 with a systolic murmur loudest in the left sternal border. PULMONARY: Improved breath sounds. There are diminished breath sounds on the left base with occasional rhonchi. No wheezing noted. ABDOMEN: Soft, nontender, and nondistended. There are audible bowel sounds noted. EXTREMITIES: There is no lower extremity edema bilaterally. There is an area of edema in the left antecubital region from IV infiltration. There is some mild bruising in her upper extremities. LABORATORY DATA: WBC 5.7, hemoglobin 7.5, platelets 205,000. Chemistries: Sodium is 141, potassium is 3.2, chloride is 101, bicarb is 23, BUN 24, creatinine 1.29, and glucose is 116. Calcium is 7.8, magnesium 2.2. ABG: pH of 7.512, pCO2 of 27.4, pO2 of 183.5. Microbiology: Sputum culture growing gram-positive rods. IMAGING STUDIES: Chest x-ray this morning shows some increasing opacity in the left base with a small pleural effusion. There are mild increased pulmonary vascular markings. ET tube is in place. OG tube is coursing below the diaphragm, although likely requires adjustment. There is a right IJ triple lumen in place. ASSESSMENT AND PLAN: Ms. Villafana is a 64-year-old female with a past medical history of multiple sclerosis, gastroesophageal reflux disease (GERD), and hypothyroidism who presented with complaints of dysphagia. The patient has had a prolonged hospital course with issues of encephalopathy and recurrent episodes of aspiration and hypoxia. She had been treated for aspiration pneumonia during her admission at least twice with antibiotics. The patient had a rapid response on 09/27/2020, for hypoxia and hypotension likely secondary to aspiration. She was intubated and placed on mechanical ventilation. Acute hypoxemic respiratory failure in the setting of aspiration pneumonia. - Patient with left lower lobe opacity and likely parapneumonic effusion on imaging. Her sputum culture has grown gram-negative rods and so we will discontinue the vancomycin. She was previously on Unasyn for aspiration, but will change her to Cefepime instead for pseudomonal coverage. - Will continue to follow-up final results of her sputum culture and adjust antibiotics accordingly. - Will have a peripherally inserted central catheter (PICC) line placed for adequate venous access. She has a triple lumen in place currently, which is temporary. - Will continue the patient on mechanical ventilation with pressure-regulated volume control (PRVC) with settings of 320/16/35 and 5. Her FiO2 has been decreased. - Will continue with daily arterial blood gases (ABGs) and chest x-rays while intubated. Continue with vent bundle care with head of bed elevation and chlorhexidine mouth wash. - Patient is on propofol for sedation with Versed p.r.n. for agitation. Precedex will be added to help with her ventilator weaning, as she does become agitated with sedation vacation. - Patient was placed on a weaning trial with pressure support this morning while off of sedation. She appeared to tolerate the weaning trial well with adequate rapid shallow breathing index (RSBI); however, she does have very copious oral secretions noted. - Will continue to discuss with the patient's ; as given her issues prior to intubation of recurrent aspiration, suspect she will have continued difficult if she is weaned from the ventilator with recurrent aspiration and potentially require repeat intubation and even ultimately a tracheostomy tube. Acute kidney injury (PHUC) with hypernatremia and hyperchloremia, which has continued to improve. Patient's hypernatremia and hyperchloremia improved with D5W and free water flushes. - Will discontinue IV fluids and continue with free water flushes through her orogastric (OG) tube. - Patient metabolic acidosis, which was thought to be hyperchloremic nonanion gap acidosis, now has improved. - Will continue to replete her electrolytes as she does have hypokalemia. - Will continue to monitor her renal function and urine output via Centeno catheter. - Will renally dose medication. Patient with dysphagia on presentation. She had initially had workup for possible multiple sclerosis (MS) flare, as well as evaluation by gastroenterology (GI) with ultimate plan for a percutaneous endoscopic gastrostomy (PEG) tube placement. - Patient has an OG tube in place currently. Will start her on tube feeds and titrate up to goal with monitoring of residuals. - Patient was also noted yesterday to have some coffee ground output from her OG tube. Will increase her proton pump inhibitor (PPI) to intravenous (IV) b.i.d. History of multiple sclerosis (MS). - Will continue with her home medications of amantadine, baclofen, primidone, and topiramate. Hypothyroidism. - Will continue with Synthroid. Anemia likely in the setting of chronic disease. Her hemoglobin and hematocrit (H&H) may also have trended down due to IV fluid repletion, as she was hypovolemic initially. - Will check a type and screen in the a.m. and transfuse as needed for a hemoglobin less than 7. Deep vein thrombosis (DVT) prophylaxis with heparin. GI prophylaxis on Protonix. Code status: FULL CODE. The patient's was updated on her condition and discussion of goals of care again. He is concerned about her recurrent issues with aspiration and the potential need for a tracheostomy placement, as he is unsure if that would be within her goal of care. Will attempt to have a family meeting with the patient's at the bedside. A palliative care consult would also be appreciated. TOTAL CRITICAL CARE TIME: Approximately 45 minutes not including any procedures. JOSE
[2020-09-29] MEDS: TOPIRAMATE (TopAMAX) 100 MG TAB NG SCH (21:00)
[2020-09-30] VITALS (25 sets, daily range): BP systolic 102–170; BP diastolic 55–97
[2020-09-30] MEDS: MIDAZOLAM INJ 2MG/2ML VIAL (J2250 PER 1MG) IV PRN ×17 (00:41→23:30)
[2020-09-30] MEDS: dexmedeTOMidine 200 MCG in IV 1 EA IV SCH ×7 (02:35→23:33)
[2020-09-30] MEDS: MORPHINE 2 MG/ML 1ML VIAL (J2270) IV PRN (04:40)
[2020-09-30] MEDS: LEVOTHYROXINE 75MCG TABLET (0.075MG) NG SCH (05:36)
[2020-09-30] MEDS: CEFEPIME HCL 2 GM in D5W MINI-BAG PLUS 50 ML IV SCH ×2 (05:36→17:44)
[2020-09-30] MEDS: SODIUM CHLORIDE 0.9% INJ 10 ML SYR IV SCH ×2 (05:36→17:44)
[2020-09-30 05:48] LABS: ABG BASE EXCESS -5.2 (-2.0-2.0); ABG HCO3 17.2 MEQ/L (22.0-26.0); ABG O2 SATURATION 99.4 % (95.0-99.0); ABG PARTIAL PRESSURE CO2 22.4 mmHg (35.0-45.0); ABG PARTIAL PRESSURE O2 178.7 mmHg (75.0-100.0); ABG STANDARD HCO3 20.2 MEQ/L (22.0-26.0); ABG TOTAL CO2 17.9 MEQ/L (23.0-31.0); ABG pH (ARTERIAL) 7.504 UNITS (7.350-7.450)
[2020-09-30 05:51] LABS: HEMATOCRIT 21.6 % (36.0-47.0); MEAN CORPUSCULAR HEMOGLOBIN 30.3 pg (27.0-33.0); MEAN CORPUSCULAR HGB CONC 32.4 g/dl (32.0-36.5); MEAN CORPUSCULAR VOLUME 93.5 fl (80.0-96.0); PLATELET COUNT, AUTOMATED 156 10^3/uL (150-450); RED BLOOD COUNT 2.31 10^6/uL (4.00-5.40); WHITE BLOOD COUNT 4.7 10^3/uL (4.0-10.0)
[2020-09-30 06:30] LABS: CALCIUM LEVEL 7.4 MG/DL (8.8-10.2); CREATININE FOR GFR 1.12 MG/DL (0.55-1.30); GLOMERULAR FILTRATION RATE 52.1 (>45); MAGNESIUM LEVEL 1.9 MG/DL (1.8-2.4); POTASSIUM SERUM 4.1 MEQ/L (3.5-5.1)
--- NOTE | 2020-09-30 08:03 | REP ---
INDICATION: intubated COMPARISON: 09/29/2020 TECHNIQUE: Portable AP view of the chest FINDINGS: Endotracheal tube 1.5 cm above the tri. Nasogastric tube with side port above the diaphragm requires advancement. Right IJ line with tip in the right atrium. Left PICC line with tip in the SVC. Perihilar and primarily left lower lobe infiltrates with left lower lobe consolidation again noted and similar to prior examination. Cannot exclude layering left effusion. No pneumothorax. Skeletal structures stable. IMPRESSION: 1. Endotracheal tube may warrant repositioning. 2. Nasogastric tube warrants advancement. 3. Stable infiltrates without significant change. <Electronically signed by Mack Luo > 09/30/20 0752
[2020-09-30] MEDS: HEPARIN SOD (PORCINE) 5000UNITS/ML 1ML VIAL/SYRINGE SC SCH ×2 (08:38→20:21)
[2020-09-30] MEDS: CHLORHEXIDINE GLUCONATE 0.12 % 15ML UDC (PERIDEX ORAL RINSE) MT SCH ×2 (08:38→20:20)
[2020-09-30] MEDS: PANTOPRAZOLE 40MG VIAL (C9113 PER 1) IV SCH ×2 (08:39→20:20)
[2020-09-30] MEDS: AMANTADINE 100MG TABLET NG SCH ×2 (08:39→20:20)
[2020-09-30] MEDS: BACLOFEN 10 MG TAB NG SCH ×3 (08:39→20:21)
[2020-09-30] MEDS: PRIMIDONE 50 MG TAB NG SCH ×2 (08:39→20:21)
[2020-09-30] MEDS: SENNA 8.6 MG TAB (SENOKOT) NG SCH ×2 (08:39→20:22)
[2020-09-30] MEDS: NS 1,000 ML IV SCH (14:45)
[2020-09-30 15:26] LABS: HEMATOCRIT 21.3 % (36.0-47.0); MEAN CORPUSCULAR HEMOGLOBIN 30.4 pg (27.0-33.0); MEAN CORPUSCULAR HGB CONC 32.9 g/dl (32.0-36.5); MEAN CORPUSCULAR VOLUME 92.6 fl (80.0-96.0); PLATELET COUNT, AUTOMATED 146 10^3/uL (150-450); WHITE BLOOD COUNT 6.2 10^3/uL (4.0-10.0)
--- NOTE | 2020-09-30 16:00 | IPNPDOC ---
Subjective Date Seen The patient was seen on 09/30/20. Subjective Chief Complaint/HPI Mrs. Villafana is a 64 year old female with multiple sclerosis and hypothyroidism who is here for dysphagia and during her hospital course developed acute hypoxic respiratory failure requiring intubation. This morning, she was intubated and on Precedex. She was able to open eyes and track. ICU attending, Dr. Esparza, had a family conversation with . Per nursing, had decided to move forward with PEG tube. Patient to be made NPO for procedure. Otherwise, I contacted about acute anemia. Discussed risks and benefits of blood transfusion and he gave me verbal consent for blood transfusion. Objective Physical Examination General Exam: Positive: Other (On precedex. Awake and moving limbs while intubated) Eye Exam: Negative: Sclera icteric ENT Exam: Positive: Other ENT (intubated) Neck Exam: Positive: Supple Chest Exam: Positive: Diminished Heart Exam: Positive: Rate Normal, Regular Rhythm Abdomen Exam: Positive: Normal bowel sounds, Soft; Negative: Tenderness Extremity Exam: Negative: Edema Assessment /Plan Assessment Mrs. Villafana is a 64 year old female with multiple sclerosis and hypothyroidism who is here for dysphagia and during her hospital course devel oped acute hypoxic respiratory failure requiring intubation. On evening of 09/27/2020, patient became hypoxic and required intubation. ICU attending, Dr. Esparza, had a family discussion with . decided to move forward with PEG tube. Otherwise, I spoke with about blood transfusion consent. He gave verbal consent for blood transfusion. Plan/VTE VTE Prophylaxis Ordered?: Yes Plan 1. Acute hypoxic respiratory failure -Patient is intubated and ICU/Pulm onboard -Most likely aspiration pneumonia -Sputum grew gram negative rods -On Cefepime 2. Anemia -Blood counts steadily dropping -Hgb now at 7 -Spoke with , agreed with transfusion -Pending iron studies. Reticulocyte index low suggestive hypoproliferation. 3. Dysphagia, odynophagia, esophageal spasm -MRI negative and did not demonstrate new active MS lesions -S/P 3 days of solumedrol -Originally planned for EGD but esophagram was within normal limits. Patient was aspiration with cookie swallow eval. No safe diet -ICU/Pulm spoke with about PEG tube placement. -Planning for PEG tube placement 4. Positive SENTHIL virus antibody -Unlikely PML -Dr. Riley discussed with Dr. Varela. MRI lesions from 09/10/20 are not congruent with PML lesions -She is also not immunosuppressed enough to have PML 5. Hypothyroidism -On levothyroxine 6. Severe Protein Calorie malnutrition -Lowest at 13.7 with bitemporal wasting -Improved with tube feeds -NPO for PEG tube placement 7. DVT ppx -SCD and TEDs Disposition: Intubated in the ICU VS, I&O, 24H, Fishbone Vital Signs/I&O Vital Signs Date Time Temp Pulse Resp B/P (MAP) Pulse Ox O2 Delivery O2 Flow Rate FiO2 09/30/20 14:00 190 21 152/97 (115) 100 Ventilator 35 09/30/20 12:00 99.7 I&O- Last 24 Hours up to 6 AM 09/30/20 06:00 Intake Total 2759.2 ml Output Total 1285 ml Balance 1474.2 ml Laboratory Data 24H LABS Laboratory Tests 2 09/30/20 05:13: Nucleated Red Blood Cells % (auto) 0.0, Anion Gap 7L, Glomerular Filtration Rate 52.1, Calcium Level 7.4L, Magnesium Level 1.9 09/30/20 05:30: Blood Gas Bicarbonate Standard 20.2L, Arterial Blood pH 7.504H, Arterial Blood Partial Pressure CO2 22.4L, Arterial Blood Partial Pressure O2 178.7H, Arterial Blood Total CO2 17.9L, Arterial Blood HCO3 17.2L, Arterial Blood Base Excess - 5.2L, Arterial Blood Oxygen Saturation 99.4H 09/30/20 15:02: Nucleated Red Blood Cells % (auto) 0.0, Reticulocyte # (auto) 22.3, Percent Reticulocyte Count 1.0, Reticulocyte Hemoglobin Equivalent 32.6 CBC/BMP Laboratory Tests 09/30/20 05:13 09/30/20 15:02 Microbiology Microbiology 09/27/20 Gram Stain - Final, Resulted 09/27/20 Sputum Culture, Resulted Pending 09/27/20 Blood Culture - Preliminary, Resulted No Growth after 48 hours. All Specime... BRANT FAIRBANKS DO Sep 30, 2020 16:00
--- NOTE | 2020-09-30 16:21 | CCN ---
CRITICAL CARE NOTE DATE: 09/30/2020 Patient was seen and examined this morning during bedside rounds. Patient is on Precedex for sedation with as-needed Versed for agitation. She is more awake and appears to be responding with shaking and nodding her head. She does have periods of agitation, however, and appears to be reaching at times for her endotracheal tube. She did have a low-grade fever overnight. VITAL SIGNS: Maximum temperature 100.8, current temperature 99.9, pulse 57, respirations 24, blood pressure 105/59, oxygen saturation 98% on 35% FiO2. Input 3.5 liters, output 2.0 liters, net positive 1.4 liters. GENERAL: The patient is intubated. She is opening her eyes spontaneously and appears to be nodding or shaking her head appropriately. HEENT: Temporal wasting bilaterally. Normocephalic, atraumatic. Pupils are reactive to light bilaterally. Moist mucous membranes noted. NECK: Supple. Trachea is midline. No palpable cervical adenopathy. No jugular venous distention (JVD). CARDIAC: Regular rate and rhythm, normal S1, S2 with a systolic murmur. PULMONARY: Diminished breath sounds on the left base with no wheezing or rales noted. ABDOMEN: Soft, nontender, nondistended. There are audible bowel sounds present. EXTREMITIES: There is no significant lower extremity edema bilaterally. She has a mild area of edema in the left antecubital region from intravenous (IV) infiltration with some areas of bruising and ecchymosis in her upper extremities. LABORATORY DATA: WBC 4.7. Chemistry: Sodium is 146, potassium 4.1, chloride 116, bicarbonate 23, BUN 25, creatinine 1.12, glucose 118, calcium 7.4, magnesium 1.9. ABG: A pH 7.504, pCO2 of 22.4, pO2 of 178.7. IMAGING: Chest x-ray this morning shows a left basilar opacity with possible small effusion, although here appears to be some improved aeration noted. There is also suggestion of some pulmonary vascular congestion. This is a right internal jugular (IJ) triple-lumen in place. There is a left-sided peripherally inserted central catheter (PICC) line in place with the tip in the superior vena cava (SVC). There is an orogastric (OG) tube in place and endotracheal tube in place. ASSESSMENT AND PLAN: Ms. Villafana is a 64-year-old female with a past medical history of multiple sclerosis, gastroesophageal reflux disease (GERD), and hypothyroidism who presented with complaints of dysphagia. Patient has had a prolonged hospital course with issues of encephalopathy and recurrent episodes of aspiration and hypoxia. She had been treated previously for aspiration pneumonia during her admission at least twice with antibiotics. She had a rapid response on the evening of 09/27/2020 for hypoxia and hypotension, likely secondary to aspiration. She was intubated and placed on mechanical ventilation and noted to have a new aspiration pneumonia in the left base. 1. Acute hypoxemic respiratory failure in the setting of aspiration pneumonia. - Patient's sputum preliminary shows gram-negative rods. She is on cefepime for antibiotics, which we will continue and follow up the results of the her sputum culture for narrowing coverage. - Patient had her PICC line placed yesterday for venous access. She has a triple-lumen in place currently, which we will remove likely tomorrow. - Continue patient on mechanical ventilation with pressure-regulated volume control (PRVC) with settings of 320/16/35 and 5. Patient did have a pressure support weaning trial today, which she tolerated well. She does have issues at times, however, with copious oral secretions still. They do appear slightly less today, however. Her mental status is also improved, and she is more responsive today. - Will with daily arterial blood gases (ABGs) and chest x-ray while intubated with ventilator bundle care with head of bed elevation and chlorhexidine mouthwash. - Will continue patient on Precedex with Versed as needed for agitation, as she will likely be extubated tomorrow after her procedure. - We did discuss with the patient's today about risks of reintubation and possibility of tracheostomy tube if she were to be intubated a second time. He states that he would like her to be reintubated if needed and is strongly considering tracheostomy tube placement if needed. 2. Acute kidney injury (PHUC) with hypernatremia and hyperchloremia, which have improved. - Patient is getting free-water flushes through her OG tube, which we will increase slightly, as her sodium did trend up slightly today. - Patient's metabolic acidosis, which was thought to be a hyperchloremic, nonanion gap acidosis has improved. She appears to have more of a respiratory alkalosis, currently. - Will continue to monitor electrolytes and replete as needed. - Will continue to monitor renal function and urine output via Centeno catheter. - Will continue to renally dose medications. 3. Dysphagia on presentation. She did have workup for possible multiple sclerosis (MS) flare as well as evaluation with gastrointestinal (GI). Patient had gone back and forth initially about consent for a percutaneous endoscopic gastrostomy (PEG) tube placement, but ultimately patient and her had decided for the placement of a PEG tube. - As patient is likely going to be extubated tomorrow, will get a PEG tube placed for feeding given her continued issues during her hospital stay of swallowing. Patient could potentially have a nasogastric (NG) tube placed after extubation; however, with issues of swallowing and aspiration, an NG tube would likely impair her swallowing function that much more. - Appreciate surgery consult, and there is a plan for a bedside PEG tube placement tomorrow. - Will continue with proton pump inhibitor (PPI) twice a day for prophylaxis. - Continue patient with tube feeds with monitoring of residuals. - Patient will be made nothing by mouth at midnight for her PEG tube surgery. 4. History of MS. - Will continue with home medications of amantadine, Baclofen, primidone, and topiramate. 5. Hypothyroidism. Will continue with Synthroid. 6. Anemia in the setting of chronic disease. Her hemoglobin and hematocrit (H and H) have trended down slowly. - Will transfuse patient 1 unit packed red blood cells (PRBC) today prior to her procedure tomorrow. Deep venous thrombosis (DVT) prophylaxis with heparin. Will hold her morning heparin tomorrow. GI prophylaxis, on Protonix. CODE STATUS: Full code. Patient's was here at bedside for a family meeting. We discussed that with her recurrent issues of dysphagia and aspiration that after her extubation patient may continue to have issues with managing ER secretions and may have another aspiration event and potential need for intubation and mechanical ventilation. As this would have been her second episode, we discussed that she may then need tracheostomy tube placement given her chronic issues with her airway protection. Patient's stated that they would like to avoid a tracheostomy tube if at all possible, but if needed they are considering a tracheostomy tube. Patient's , in speaking to the patient in Malagasy, seems to believe that if they can work harder with her issues with swallowing that she would do better and not have issues with aspiration again. They did mention that her ultimate goal is to move to [place], where one of her daughters is. They would also ultimately like to go back to [place], as he states that is where she would like to pass away; however, when discussing that if she were to have a tracheostomy and be on ventilator, that she would require [place] [facility] placement, in particular in an outside facility. They were understanding, and he would agree if that were needed for her. Patient therefore is full code and would likely be amenable to tracheostomy tube placement if she requires recurrent intubation and mechanical ventilation. TOTAL CRITICAL CARE TIME SPENT, NOT INCLUDING PROCEDURES: Approximately 1 hour and 30 minutes. JOSE
[2020-09-30 16:24] LABS: PERCENT SATURATION 5.4 % (13.2-45.0)
[2020-09-30] MEDS: TOPIRAMATE (TopAMAX) 100 MG TAB NG SCH (20:21)
[2020-10-01] VITALS (49 sets, daily range): BP systolic 106–243; BP diastolic 57–113
[2020-10-01] MEDS: MIDAZOLAM INJ 2MG/2ML VIAL (J2250 PER 1MG) IV PRN ×12 (00:07→11:02)
[2020-10-01 00:23] LABS: HEMATOCRIT 27.3 % (36.0-47.0); HEMOGLOBIN 8.8 g/dl (12.0-15.5)
[2020-10-01] MEDS: MORPHINE 2 MG/ML 1ML VIAL (J2270) IV PRN ×5 (02:39→17:39)
[2020-10-01] MEDS: ACETAMINOPHEN 650 MG SUPP PR PRN ×2 (02:40→23:28)
[2020-10-01] MEDS: dexmedeTOMidine 200 MCG in IV 1 EA IV SCH ×5 (02:47→15:50)
[2020-10-01 05:31] LABS: HEMATOCRIT 28.1 % (36.0-47.0); HEMOGLOBIN 9.2 g/dl (12.0-15.5); MEAN CORPUSCULAR HEMOGLOBIN 29.8 pg (27.0-33.0); MEAN CORPUSCULAR HGB CONC 32.7 g/dl (32.0-36.5); MEAN CORPUSCULAR VOLUME 90.9 fl (80.0-96.0); PLATELET COUNT, AUTOMATED 196 10^3/uL (150-450); RED BLOOD COUNT 3.09 10^6/uL (4.00-5.40); WHITE BLOOD COUNT 7.6 10^3/uL (4.0-10.0)
[2020-10-01 05:46] LABS: CALCIUM LEVEL 7.4 MG/DL (8.8-10.2); CREATININE FOR GFR 1.12 MG/DL (0.55-1.30); GLOMERULAR FILTRATION RATE 52.1 (>45); POTASSIUM SERUM 3.5 MEQ/L (3.5-5.1)
[2020-10-01 05:49] LABS: ABG BASE EXCESS -1.9 (-2.0-2.0); ABG HCO3 19.1 MEQ/L (22.0-26.0); ABG O2 SATURATION 99.6 % (95.0-99.0); ABG PARTIAL PRESSURE CO2 21.9 mmHg (35.0-45.0); ABG PARTIAL PRESSURE O2 187.2 mmHg (75.0-100.0); ABG STANDARD HCO3 22.9 MEQ/L (22.0-26.0); ABG TOTAL CO2 19.8 MEQ/L (23.0-31.0); ABG pH (ARTERIAL) 7.559 UNITS (7.350-7.450)
[2020-10-01] MEDS: LEVOTHYROXINE 75MCG TABLET (0.075MG) NG SCH (05:57)
[2020-10-01] MEDS: SODIUM CHLORIDE 0.9% INJ 10 ML SYR IV SCH ×2 (05:58→18:07)
[2020-10-01] MEDS: CEFEPIME HCL 2 GM in D5W MINI-BAG PLUS 50 ML IV SCH ×2 (05:58→18:06)
--- NOTE | 2020-10-01 08:07 | REP ---
INDICATION: intubated COMPARISON: 09/30/2020 TECHNIQUE: Portable AP view of the chest FINDINGS: Endotracheal tube 1.5 cm above the tri. Nasogastric tube courses below left hemidiaphragm although the side port appears to be at the gastroesophageal junction and may warrant advancement. Right IJ line with tip in the SVC/right atrium. Left PICC line with tip in the SVC. The mediastinum and cardiac silhouette are stable and within normal limits for portable technique. The lung [place] demonstrate improved aeration with continued moderate left lower lobe/retrocardiac consolidation. IMPRESSION: 1. Lines and tubes as above. 2. Improved aeration with decreased patchy airspace disease. 3. Continued moderate left lower lobe/retrocardiac consolidation. <Electronically signed by Mack Luo > 10/01/20 0826
[2020-10-01] MEDS: PANTOPRAZOLE 40MG VIAL (C9113 PER 1) IV SCH (08:48)
[2020-10-01] MEDS: CHLORHEXIDINE GLUCONATE 0.12 % 15ML UDC (PERIDEX ORAL RINSE) MT SCH ×2 (08:48→20:50)
[2020-10-01] MEDS: SENNA 8.6 MG TAB (SENOKOT) NG SCH ×2 (08:49→20:50)
[2020-10-01] MEDS: AMANTADINE 100MG TABLET NG SCH ×2 (08:49→20:51)
[2020-10-01] MEDS: BACLOFEN 10 MG TAB NG SCH ×3 (08:50→20:51)
[2020-10-01] MEDS: PRIMIDONE 50 MG TAB NG SCH ×2 (08:50→20:51)
[2020-10-01] MEDS ORDERED: propofoL 200 MG/20 ML VIAL IV ONE (10:00)
[2020-10-01] MEDS ORDERED: FUROSEMIDE 20MG/2ML VIAL (J1940) IV ONE (10:00)
[2020-10-01] MEDS ORDERED: KCL 20MEQ IN 100ML SWI (KRUN) 20 MEQ in IV 1 EA IV ONE ×2 (10:00)
[2020-10-01] MEDS ORDERED: ROCURONIUM BROMIDE 50 MG/5 ML VIAL As Ordered ONE (11:53)
[2020-10-01] MEDS: NS 1,000 ML IV SCH (12:26)
[2020-10-01] MEDS ORDERED: ROCURONIUM BROMIDE 50 MG/5 ML VIAL IV ONE (12:45)
[2020-10-01] MEDS ORDERED: methylPREDNISolone 40MG 1ML VIAL IV ONE (13:30)
[2020-10-01] MEDS ORDERED: hydrALAZINE 20MG/ML 1ML VIAL (J0360 PER 20MG) IV ONE (13:30)
--- NOTE | 2020-10-01 14:05 | RO ---
OPERATIVE NOTE DATE OF OPERATION: 10/01/2020 PREOPERATIVE DIAGNOSIS: Neurogenic dysphagia. POSTOPERATIVE DIAGNOSIS: Neurogenic dysphagia. PROCEDURE: Esophagogastroduodenoscopy with placement of a percutaneous endoscopic gastrostomy tube. The tube placed was a Cook Flow 20 Push-S which has a code number [id number] and a secondary code number that I take to be the lot number which is [id number]. SURGEON: Sixto Garcia MD ENGINEERING SUPERVISOR: Juliann Esparza MD ANESTHESIA: IV sedation and local of 1% Xylocaine. INDICATIONS FOR THE PROCEDURE: The patient is a 64-year-old woman with a history of multiple sclerosis who has had a recent setback. She has developed dysphagia and has had an episode at least once of aspiration. She has required ventilatory support recently and is now for placement of a percutaneous endoscopic gastrostomy tube. DESCRIPTION OF PROCEDURE: The patient was placed supine in her hospital bed. She had an endotracheal tube and an orogastric tube in place. She received some additional sedation from Dr. Esparza in the form of some propofol and versed. The adult gastroscope was then inserted and advanced down the esophagus without difficulty. There were a few small erosions noted in the distal esophagus consistent with trauma from the orogastric tube. The stomach had a minimal amount of fluid in it. The anterior wall of the stomach was noted and could transilluminate and this was identified in the patient's left upper quadrant. The scope was advanced through the pylorus and into the first portion of the duodenum where some bilious fluid was noted. There were no signs of ulcer. There was no duodenitis or gastritis seen. The scope was directed toward the anterior gastric wall. Dr. Esparza then took over holding the scope. The abdomen was prepped in the left upper quadrant and draped and local anesthesia was achieved with 1% Xylocaine. A skin incision was made approximately a cm in length and the styletted needle was advanced through the abdominal wall into the stomach. The guidewire was inserted into the stomach and the snare was inserted down the endoscope. The guidewire was grasped with the snare and scope was then withdrawn, bringing the guidewire out through the mouth. The PEG tube was then inserted over the guidewire and advanced down the esophagus and out through the anterior abdominal wall. I completed the advancement of the tube through the abdominal wall such that the 2 cm julienne approximately was at the skin surface. The retention disk was applied and tube was cut to length and the feeding adaptor was attached. I then reinserted the endoscope and inspection showed the internal retention disc gently resting on the anterior wall of the stomach. There was no sign of bleeding. The scope was withdrawn. The patient tolerated the procedure well without apparent complication. The G-tube site was dressed. JOSE
--- NOTE | 2020-10-01 15:48 | CCN ---
CRITICAL CARE NOTE DATE: 10/01/2020 SUBJECTIVE: The patient was seen and examined this morning during bedside rounds. She did have a fever overnight of 101. The patient has been on Precedex with p.r.n. Versed for agitation and morphine p.r.n. for pain. She does get agitated at times with nursing intervention and has continued to require her p.r.n. Versed. She is weak and appears to be tracking, but has difficulty with following commands. The patient has been n.p.o. for her PEG tube placement. Patient did receive one unit of PRBC transfusion yesterday, which she tolerated well. OBJECTIVE: VITAL SIGNS: T-max 101, T-current 99.4, pulse 59, respirations 26, blood pressure 165/62, O2 sat 100% on 35% FiO2. INTAKE AND OUTPUT: In 2.9 liters, out 1.2 liters. GENERAL: The patient is intubated. She is awake, alert, and appears to be tracking; but has difficulty with following commands. HEENT: Temporal wasting bilaterally. Normocephalic, atraumatic. Pupils are reactive to light bilaterally. There are moist mucous membranes noted. NECK: Supple. Trachea is midline. There is no palpable cervical adenopathy. No JVD. There is a right IJ triple lumen in place. CARDIAC: Regular rate and rhythm. Normal S1, S2 with a faint systolic murmur. PULMONARY: Improved breath sounds bilaterally with occasional rhonchi. No wheezing or rales. ABDOMEN: Soft, nontender, and nondistended. There are audible bowel sounds present. EXTREMITIES: There is trace pitting lower extremity edema in bilateral lower extremities. She has some edema in the left antecubital region from IV infiltration, as well as now an area of edema in the right antecubital likely from IV infiltration. There is a left-sided PICC line in place with a dressing clean, dry, and intact. She does have occasional tremors and rigidity noted in her extremities. LABORATORY DATA: WBC 7.6, hemoglobin 9.2, platelets 196,000. Chemistry: Sodium 145, potassium 3.5, chloride 113, bicarb 21, BUN 29, creatinine 1.12, glucose 93, calcium 7.4. ABG with pH 7.559, pCO2 of 21.9, pO2 of 187.2. Microbiology: Sputum culture was positive for Sphingomonas paucimobilis. IMAGING STUDIES: Chest x-ray shows ET tube and OG tube in position. There is a right IJ triple lumen, as well as a left-sided PICC line. There is improvement in the left lower lobe consolidation with significantly improved aeration noted. ASSESSMENT AND PLAN: Ms. Villafana is a 64-year-old female with a past medical history of multiple sclerosis, gastroesophageal reflux disease (GERD), and hypothyroidism who presented with complaints of dysphagia. The patient has had a prolonged hospital course with issues of encephalopathy and delirium, as well as recurrent episodes of aspiration and hypoxia. She had been treated previously for aspiration pneumonia during her admission at least twice with antibiotics. The patient had a rapid response on the evening of 09/27/2020, for hypoxia and hypotension likely secondary to aspiration. She was intubated and placed on mechanical ventilation. 1. Acute hypoxemic respiratory failure in the setting of aspiration pneumonia with a left lower lobe infiltrate. - The patient's sputum culture grew Sphingomonas paucimobilis, which she was likely sensitive for with the Cefepime. Can consider deescalating for a fluoroquinolone if she has continued improvement. - The patient's chest x-ray this morning does show improvement in her left lower lobe pneumonia with improved aeration. - The patient is on pressure-regulated volume control (PRVC) with settings of 320/16/35 and 5. She has been tolerating pressure support weaning trials and has been having less oral secretions, although she does continue to have some secretions still orally. She does have some occasional mucous secretions from her endotracheal tube, but it does not appear to be copious. There is a plan for an extubation after her percutaneous endoscopic gastrostomy (PEG) tube procedure. - The patient has a peripherally inserted central catheter (PICC) line in place for venous access. Will discontinue her triple-lumen catheter after her surgical procedure. - Continue with daily arterial blood gases (ABGs) and chest x-rays while intubated with vent bundle care with head of bead elevation and chlorhexidine mouth wash. - The patient is on Precedex with Versed p.r.n. for agitation and morphine p.r.n. for analgesia. 2. Acute kidney injury (PHUC) with hypernatremia and hyperchloremia, which have resolved. - The patient continues to have issues with hypokalemia. We will replete electrolytes as needed. - The patient does appear to have some mild pitting edema on exam today and so we will give her a dose of Lasix 20 mg IV and follow-up with a repeat BMP for her electrolytes and renal function today. - Continue with free water flushes via orogastric (OG) tube given her issues with hypernatremia. - Continue to monitor renal function and urine output via Centeno catheter. 3. Dysphagia. The patient presented initially with dysphagia. She did have workup with neurology for possible MS flare, as well as evaluation with gastroenterology (GI). The patient's has consented for a PEG tube placement by surgery. - Appreciate surgical consult and PEG tube placement. She can be started on tube feeds 24 hours after her PEG tube placement. - Will deescalate her proton pump inhibitor (PPI) to once a day. 4. History of multiple sclerosis (MS). - Continue with home medications of amantadine, baclofen, primidone, and topiramate. 5. Hypothyroidism. Continue with Synthroid. 6. Anemia of chronic disease status post one unit of packed red blood cells (PRBC) with appropriate response. 7. Deep vein thrombosis (DVT) prophylaxis with heparin. 8. GI prophylaxis with Protonix. 9. Code status: Full code. TOTAL CRITICAL CARE TIME: Approximately 45 minutes not including procedures. ADDENDUM: The patient had tolerated her PEG tube placement well earlier in the morning. She was then successfully extubated to humidified oxygen supplementation. The patient does have some audible gurgling sounds noted and has been requiring frequent suctioning. She was also hypertensive after her extubation and so we will restart her antihypertensive medications. The patient's was brought in to speak to her now that she has been extubated about her goals of care. After further discussion, the admitted now that tracheostomy placement and being in a mcfp would not be acceptable quality of life for her. He therefore, did make her DO NOT RESUSCITATE/DO NOT INTUBATE (DNR/DNI), but would like to continue with current medical treatment. If her condition, however, declines further, then he would consider comfort measures at that time. The MOLST form has been updated and is in the chart.
[2020-10-01] MEDS: SCOPOLAMINE 1MG TRANSDERMAL PATCH TOP SCH (16:15)
[2020-10-01 18:26] LABS: CALCIUM LEVEL 7.7 MG/DL (8.8-10.2); CREATININE FOR GFR 1.19 MG/DL (0.55-1.30); GLOMERULAR FILTRATION RATE 48.6 (>45); POTASSIUM SERUM 3.8 MEQ/L (3.5-5.1)
[2020-10-01] MEDS ORDERED: LABETALOL 100MG/20ML VIAL IV PRN (19:00)
--- NOTE | 2020-10-01 20:14 | IPNPDOC ---
Subjective Date Seen The patient was seen on 10/01/20. Subjective Chief Complaint/HPI Mrs. Villafana is a 64 year old female with multiple sclerosis and hypothyroidism who is here for dysphagia and during her hospital course developed acute hypoxic respiratory failure requiring intubation. Today, PEG tube was placed. Patient was extubated. She was not doing well extubated, and Pulm/ICU had come in to see her. Agreed to DNR/DNI, but not DIRECTOR PRESALES. Otherwise, when I saw patient, she was still being weaned from the Precedex. Objective Physical Examination General Exam: Positive: Other (On precedex. Eyes open, but not responding to questions) Eye Exam: Negative: Sclera icteric Neck Exam: Positive: Supple Chest Exam: Positive: Diminished, Other (course breath sounds) Heart Exam: Positive: Rate Normal, Regular Rhythm Abdomen Exam: Positive: Normal bowel sounds, Soft; Negative: Tenderness Extremity Exam: Negative: Edema Assessment /Plan Assessment rs. Villafana is a 64 year old female with multiple sclerosis and hypothyroidism who is here for dysphagia and during her hospital course develo ped acute hypoxic respiratory failure requiring intubation. On evening of 09/27/2020, patient became hypoxic and required intubation. ICU attending, Dr. Esparza, had a family discussion with . decided to move forward with PEG tube. PEG tube was placed today (10/01/2020). After PEG tube placement, she was extubated. She did not do well and was brought to bedside. Agreed to DNR/DNI and no further intubations. Plan/VTE VTE Prophylaxis Ordered?: Yes Plan 1. Acute hypoxic respiratory failure -ICU/Pulm following -Most likely aspiration pneumonia -Sputum grew gram negative rods -On Cefepime -Extubated. at bed side and decided on DNR/DNI 2. Anemia of chronic disease -Hgb dropped to 7 at lowest -Transfused 1 unit of blood. Responded well. Monitor CBC 3. Dysphagia, odynophagia, esophageal spasm -MRI negative and did not demonstrate new active MS lesions -S/P 3 days of solumedrol -Originally planned for EGD but esophagram was within normal limits. Patient was aspiration with cookie swallow eval. No safe diet -ICU/Pulm spoke with about PEG tube placement. -PEG tube placed on 10/01/2020 4. Positive SENTIHL virus antibody -Unlikely PML -Dr. Riley discussed with Dr. Varela. MRI lesions from 09/10/20 are not congruent with PML lesions -She is also not immunosuppressed enough to have PML 5. Hypothyroidism -On levothyroxine 6. Severe Protein Calorie malnutrition -Lowest at 13.7 with bitemporal wasting -Improved with tube feeds -Will need to reach out to general surgery for when we can start tube feeds 7. DVT ppx -SCD and TEDs VS, I&O, 24H, Fishbone Vital Signs/I&O Vital Signs Date Time Temp Pulse Resp B/P (MAP) Pulse Ox O2 Delivery O2 Flow Rate FiO2 10/01/20 19:10 62 28 134/63 (86) 99 Aerosol Mask 60 10/01/20 18:00 100.2 I&O- Last 24 Hours up to 6 AM 10/01/20 06:00 Intake Total 2231.8 ml Output Total 1385 ml Balance 846.8 ml Laboratory Data 24H LABS Laboratory Tests 2 10/01/20 05:08: Nucleated Red Blood Cells % (auto) 0.0, Anion Gap 11, Glomerular Filtration Rate 52.1, Calcium Level 7.4L, Magnesium Level 2.0 10/01/20 05:45: Blood Gas Bicarbonate Standard 22.9, Arterial Blood pH 7.559H, Arterial Blood Partial Pressure CO2 21.9L, Arterial Blood Partial Pressure O2 187.2H, Arterial Blood Total CO2 19.8L, Arterial Blood HCO3 19.1L, Arterial Blood Base Excess - 1.9, Arterial Blood Oxygen Saturation 99.6H 10/01/20 17:09: Anion Gap 11, Glomerular Filtration Rate 48.6, Calcium Level 7.7L, Magnesium Level 2.0 CBC/BMP Laboratory Tests 10/01/20 00:15 10/01/20 05:08 10/01/20 17:09 Microbiology Microbiology 09/27/20 Gram Stain - Final, Complete 09/27/20 Sputum Culture - Final, Complete Sphingomonas Paucimobilis 09/27/20 Blood Culture - Preliminary, Resulted No Growth after 72 hours. All specime... BRANT FAIRBANKS DO Oct 01, 2020 20:14
[2020-10-01] MEDS: TOPIRAMATE (TopAMAX) 100 MG TAB NG SCH (20:51)
[2020-10-01] MEDS: HEPARIN SOD (PORCINE) 5000UNITS/ML 1ML VIAL/SYRINGE SC SCH (20:52)
[2020-10-02] VITALS: BP 185/83
[2020-10-02] MEDS: MORPHINE 2 MG/ML 1ML VIAL (J2270) IV PRN (03:45)
[2020-10-02 04:57] LABS: HEMATOCRIT 30.5 % (36.0-47.0); HEMOGLOBIN 9.8 g/dl (12.0-15.5); MEAN CORPUSCULAR HEMOGLOBIN 30.3 pg (27.0-33.0); MEAN CORPUSCULAR HGB CONC 32.1 g/dl (32.0-36.5); MEAN CORPUSCULAR VOLUME 94.4 fl (80.0-96.0); PLATELET COUNT, AUTOMATED 284 10^3/uL (150-450); RED BLOOD COUNT 3.23 10^6/uL (4.00-5.40); WHITE BLOOD COUNT 13.3 10^3/uL (4.0-10.0)
[2020-10-02 05:01] VITALS: BP 175/78
[2020-10-02 05:24] LABS: CALCIUM LEVEL 7.3 MG/DL (8.8-10.2); CREATININE FOR GFR 1.39 MG/DL (0.55-1.30); GLOMERULAR FILTRATION RATE 40.6 (>45); MAGNESIUM LEVEL 1.8 MG/DL (1.8-2.4); POTASSIUM SERUM 4.1 MEQ/L (3.5-5.1)
[2020-10-02] MEDS: CEFEPIME HCL 2 GM in D5W MINI-BAG PLUS 50 ML IV SCH (05:54)
[2020-10-02] MEDS: LEVOTHYROXINE 75MCG TABLET (0.075MG) NG SCH (05:54)
[2020-10-02] MEDS: SODIUM CHLORIDE 0.9% INJ 10 ML SYR IV SCH (05:55)
[2020-10-02 06:37] LABS: ABG BASE EXCESS -8.8 (-2.0-2.0); ABG HCO3 15.2 MEQ/L (22.0-26.0); ABG O2 SATURATION 91.8 % (95.0-99.0); ABG PARTIAL PRESSURE CO2 26.6 mmHg (35.0-45.0); ABG PARTIAL PRESSURE O2 63.4 mmHg (75.0-100.0); ABG STANDARD HCO3 17.3 MEQ/L (22.0-26.0); ABG pH (ARTERIAL) 7.374 UNITS (7.350-7.450)
--- NOTE | 2020-10-02 08:05 | REP ---
INDICATION: intubated COMPARISON: 10/01/2020 TECHNIQUE: Portable AP view of the chest FINDINGS: Patient appears to be extubated. Left PICC line in stable position. Diffuse bilateral infiltrates and left lower lobe consolidation appear increased from prior examination. No obvious effusion. No pneumothorax. IMPRESSION: Increased bilateral infiltrates and left lower lobe consolidation. No endotracheal tube identified. <Electronically signed by Mack Luo > 10/02/20 0801
[2020-10-02] MEDS: SENNA 8.6 MG TAB (SENOKOT) NG SCH (08:55)
[2020-10-02] MEDS: AMANTADINE 100MG TABLET NG SCH (08:55)
[2020-10-02] MEDS: BACLOFEN 10 MG TAB NG SCH ×3 (08:55→21:22)
[2020-10-02] MEDS: PRIMIDONE 50 MG TAB NG SCH (08:55)
[2020-10-02 08:56] VITALS: BP 164/77
[2020-10-02] MEDS: HEPARIN SOD (PORCINE) 5000UNITS/ML 1ML VIAL/SYRINGE SC SCH (08:57)
[2020-10-02] MEDS ORDERED: PANTOPRAZOLE 40MG VIAL (C9113 PER 1) IV SCH (09:00)
[2020-10-02] MEDS ORDERED: LORazepam 2 MG/ML VIAL As Ordered ONE ×2 (17:02→23:38)
[2020-10-02] MEDS: LORazepam 2 MG/ML VIAL IV PRN ×3 (17:07→23:44)
--- NOTE | 2020-10-02 19:20 | IPNPDOC ---
Subjective Date Seen The patient was seen on 10/02/20. Subjective Chief Complaint/HPI Mrs. Villafana is a 64 year old female with multiple sclerosis and hypothyroidism who is here for dysphagia and during her hospital course developed acute hypoxic respiratory failure requiring intubation. This morning, she was not doing well. She was 100% on the mask. She could not be on Bipap/cpap due to dysphagia. She was saturating between 80% to 85% and the tips of her toes were turning blue. She was in respiratory distress. I reached out to the this morning. He agreed to comfort measures only with the understanding that she may pass very soon. She was made OBSERVER GRAVITY PROSPECTING today Objective Physical Examination General Exam: Positive: Moderate Distress Eye Exam: Negative: Sclera icteric Neck Exam: Positive: Supple Chest Exam: Positive: Diminished, Other (course breath sounds) Heart Exam: Positive: Rate Normal, Regular Rhythm Abdomen Exam: Positive: BS Hypoactive, Soft; Negative: Tenderness Extremity Exam: Negative: Edema Assessment /Plan Assessment Mrs. Villafana is a 64 year old female with multiple sclerosis and hypothyroidism who is here for dysphagia and during her hospital course developed acute hypoxic respiratory failure requiring intubation. On evening of 09/27/2020, patient became hypoxic and required intubation. ICU attending, Dr. Esparza, had a family discussion with . decided to move forward with PEG tube. PEG tube was placed today (10/01/2020). After PEG tube placement, she was extubated. She did not do well and was brought to bedside. Agreed to DNR/DNI and no further intubations. This morning, she was not doing well. I contacted the . He agreed to OBSERVER GRAVITY PROSPECTING. Patient has been made OBSERVER GRAVITY PROSPECTING today Plan/VTE VTE Prophylaxis Ordered?: Yes Plan 1. Acute hypoxic respiratory failure 2. Anemia of chronic disease 3. Dysphagia, odynophagia, esophageal spasm 4. Positive SENTHIL virus antibody 5. Hypothyroidism 6. Severe Protein Calorie malnutrition Disposition: Spoke with the . Agreed to OBSERVER GRAVITY PROSPECTING on 10/02/2020 and new MOLST has been filed out. Patient will be made comfortable VS, I&O, 24H, Fishbone Vital Signs/I&O Vital Signs Date Time Temp Pulse Resp B/P (MAP) Pulse Ox O2 Delivery O2 Flow Rate FiO2 10/02/20 17:00 3.0 10/02/20 12:00 98 10/02/20 08:56 74 164/77 10/02/20 05:01 99.0 26 92 Aerosol Mask I&O- Last 24 Hours up to 6 AM 10/02/20 06:00 Intake Total 361.4 ml Output Total 1485 ml Balance -1123.6 ml Laboratory Data 24H LABS Laboratory Tests 2 10/02/20 04:00: Nucleated Red Blood Cells % (auto) 0.0, Anion Gap 12, Glomerular Filtration Rate 40.6L, Calcium Level 7.3L, Magnesium Level 1.8 10/02/20 06:23: Blood Gas Bicarbonate Standard 17.3L, Arterial Blood pH 7.374, Arterial Blood Partial Pressure CO2 26.6L, Arterial Blood Partial Pressure O2 63.4L, Arterial Blood Total CO2 16.0L, Arterial Blood HCO3 15.2L, Arterial Blood Base Excess - 8.8L, Arterial Blood Oxygen Saturation 91.8L CBC/BMP Laboratory Tests 10/02/20 04:00 Microbiology Microbiology 09/27/20 Gram Stain - Final, Complete 09/27/20 Sputum Culture - Final, Complete Sphingomonas Paucimobilis 09/27/20 Blood Culture - Preliminary, Resulted No Growth after 72 hours. All specime... BRANT FAIRBANKS DO Oct 02, 2020 19:20
[2020-10-02] MEDS: SALIVA SUBSTITUTE(MOUTHKOTE) BTL MT PRN (22:34)
[2020-10-03] MEDS ORDERED: LORazepam 2 MG/ML VIAL As Ordered ONE ×3 (03:02→23:01)
[2020-10-03] MEDS: LORazepam 2 MG/ML VIAL IV PRN ×5 (03:10→23:04)
[2020-10-03] MEDS: SALIVA SUBSTITUTE(MOUTHKOTE) BTL MT PRN ×2 (03:10→06:35)
[2020-10-03] MEDS: MORPHINE 2 MG/ML 1ML VIAL (J2270) IV PRN ×3 (08:58→22:39)
[2020-10-03] MEDS: BACLOFEN 10 MG TAB NG SCH ×3 (08:58→22:38)
--- NOTE | 2020-10-03 19:28 | IPNPDOC ---
Subjective Date Seen The patient was seen on 10/03/20. Subjective Chief Complaint/HPI Mrs. Villafana is a 64 year old female with multiple sclerosis and hypothyroidism who is here for dysphagia and during her hospital course developed acute hypoxic respiratory failure requiring intubation. 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 She appears comfortable at this time. She has required both lorazepam and morphine. Daughter to visit tomorrow Objective Physical Examination General Exam: Positive: Other (comfortable); Negative: Alert Assessment /Plan Assessment Mrs. Villafana is a 64 year old female with multiple sclerosis and hypothyroidism who is here for dysphagia and during her hospital course developed acute hypoxic respiratory failure requiring intubation. On evening of 09/27/2020, patient became hypoxic and required intubation. ICU attending, Dr. Esparza, had a family discussion with . decided to move forward with PEG tube. PEG tube was placed today (10/01/2020). After PEG tube placement, she was extubated. She did not do well and was brought to bedside. Agreed to DNR/DNI and no further intubations. This morning, she was not doing well. I contacted the . He agreed to FLOOR SANDER. Patient has been made FLOOR SANDER on Plan/VTE VTE Prophylaxis Ordered?: No (FLOOR SANDER) Plan Advance Directives: Comfort care 1. Acute hypoxic respiratory failure 2. Anemia of chronic disease 3. Dysphagia, odynophagia, esophageal spasm 4. Positive SENTHIL virus antibody 5. Hypothyroidism 6. Severe Protein Calorie malnutrition Disposition: Spoke with the . Agreed to FLOOR SANDER on 10/02/2020 and new MOLST has been filed out. Patient will be made comfortable VS, I&O, 24H, Fishbone Vital Signs/I&O Vital Signs Date Time Temp Pulse Resp B/P (MAP) Pulse Ox O2 Delivery O2 Flow Rate FiO2 10/03/20 09:00 3.0 10/02/20 12:00 98 10/02/20 08:56 74 164/77 10/02/20 05:01 99.0 26 92 Aerosol Mask I&O- Last 24 Hours up to 6 AM 10/03/20 06:00 Intake Total 490 ml Output Total 800 ml Balance -310 ml Laboratory Data Microbiology Microbiology 09/27/20 Gram Stain - Final, Complete 09/27/20 Sputum Culture - Final, Complete Sphingomonas Paucimobilis 09/27/20 Blood Culture - Final, Complete NO GROWTH AFTER 5 DAYS BRANT FAIRBANKS DO Oct 03, 2020 19:28
[2020-10-04] MEDS ORDERED: LORazepam 2 MG/ML VIAL As Ordered ONE ×3 (04:35→23:47)
[2020-10-04] MEDS: LORazepam 2 MG/ML VIAL IV PRN ×4 (04:36→23:50)
[2020-10-04] MEDS: MORPHINE 2 MG/ML 1ML VIAL (J2270) IV PRN (04:43)
[2020-10-04] MEDS: SCOPOLAMINE 1MG TRANSDERMAL PATCH TOP SCH (14:59)
--- NOTE | 2020-10-04 19:15 | IPNPDOC ---
Subjective Date Seen The patient was seen on 10/04/20. Subjective Chief Complaint/HPI Mrs. Villafana is a 64 year old female with multiple sclerosis and hypothyroidism who is here for dysphagia and during her hospital course developed acute hypoxic respiratory failure requiring intubation. 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 She is breathing quicker today. Otherwise, appears comfortable Objective Physical Examination General Exam: Positive: Other (comfortable); Negative: Alert Assessment /Plan Assessment Mrs. Villafana is a 64 year old female with multiple sclerosis and hypothyroidism who is here for dysphagia and during her hospital course developed acute hypoxic respiratory failure requiring intubation. On evening of 09/27/2020, patient became hypoxic and required intubation. ICU attending, Dr. Esparza, had a family discussion with . decided to move forward with PEG tube. PEG tube was placed today (10/01/2020). After PEG tube placement, she was extubated. She did not do well and was brought to bedside. Agreed to DNR/DNI and no further intubations. This morning, she was not doing well. I contacted the . He agreed to BANKRUPTCY LEGAL ASSISTANT. Patient has been made BANKRUPTCY LEGAL ASSISTANT on 10/02/2020 Plan/VTE VTE Prophylaxis Ordered?: No (BANKRUPTCY LEGAL ASSISTANT) Plan Advance Directives: Comfort care 1. Acute hypoxic respiratory failure 2. Anemia of chronic disease 3. Dysphagia, odynophagia, esophageal spasm 4. Positive SENTHIL virus antibody 5. Hypothyroidism 6. Severe Protein Calorie malnutrition Disposition: Spoke with the . Agreed to BANKRUPTCY LEGAL ASSISTANT on 10/02/2020 and new MOLST has been filed out. Patient will be made comfortable. She will be made ALC VS, I&O, 24H, Fishbone Vital Signs/I&O Vital Signs Date Time Temp Pulse Resp B/P (MAP) Pulse Ox O2 Delivery O2 Flow Rate FiO2 10/04/20 09:00 3.0 10/04/20 04:43 25 Nasal Cannula 10/02/20 12:00 98 10/02/20 08:56 74 164/77 10/02/20 05:01 99.0 92 I&O- Last 24 Hours up to 6 AM 10/04/20 06:00 Intake Total 0 ml Output Total 1400 ml Balance -1400 ml Laboratory Data Microbiology Microbiology 09/27/20 Gram Stain - Final, Complete 09/27/20 Sputum Culture - Final, Complete Sphingomonas Paucimobilis 09/27/20 Blood Culture - Final, Complete NO GROWTH AFTER 5 DAYS BRANT FAIRBANKS DO Oct 04, 2020 19:15
[2020-10-05] MEDS ORDERED: LORazepam 2 MG/ML VIAL As Ordered ONE ×3 (02:43→19:35)
[2020-10-05] MEDS: LORazepam 2 MG/ML VIAL IV PRN ×4 (02:46→19:39)
[2020-10-05] MEDS: MORPHINE 2 MG/ML 1ML VIAL (J2270) IV PRN ×3 (07:50→14:45)
[2020-10-06] MEDS: MORPHINE 2 MG/ML 1ML VIAL (J2270) IV PRN ×3 (01:46→17:49)
[2020-10-06] MEDS ORDERED: LORazepam 2 MG/ML VIAL As Ordered ONE (05:19)
[2020-10-06] MEDS: LORazepam 2 MG/ML VIAL IV PRN ×2 (05:24→09:45)
[2020-10-06] MEDS: SODIUM CHLORIDE 0.9% INJ 10 ML SYR IV PRN (13:00)
[2020-10-06] MEDS: SODIUM CHLORIDE 0.9% INJ 10 ML SYR IV SCH (17:49)
[2020-10-07] MEDS ORDERED: LORazepam 2 MG/ML VIAL As Ordered ONE ×2 (03:02→18:05)
[2020-10-07] MEDS: LORazepam 2 MG/ML VIAL IV PRN ×2 (03:06→18:06)
[2020-10-07] MEDS: SODIUM CHLORIDE 0.9% INJ 10 ML SYR IV PRN (03:06)
[2020-10-07] MEDS: SODIUM CHLORIDE 0.9% INJ 10 ML SYR IV SCH ×2 (05:25→15:35)
[2020-10-07] MEDS ORDERED: POLYVINYL ALCOHOL OPHTH SOLN 15 ML(LIQUITEARS) OU PRN (05:30)
[2020-10-07] MEDS: MORPHINE 2 MG/ML 1ML VIAL (J2270) IV PRN (15:35)
[2020-10-07] MEDS: SCOPOLAMINE 1MG TRANSDERMAL PATCH TOP SCH (15:35)
[2020-10-08] MEDS: SODIUM CHLORIDE 0.9% INJ 10 ML SYR IV SCH ×2 (05:40→17:11)
[2020-10-08] MEDS: MORPHINE 2 MG/ML 1ML VIAL (J2270) IV PRN ×2 (12:13→17:11)
[2020-10-08] MEDS: LORazepam 2 MG/ML VIAL IV PRN (13:16)
[2020-10-09] MEDS: SODIUM CHLORIDE 0.9% INJ 10 ML SYR IV SCH (05:13)
--- NOTE | 2020-10-09 11:16 | CCN ---
CRITICAL CARE NOTE DATE: 09/28/2020 SUBJECTIVE: The patient was seen and examined this morning during bedside rounds. Overnight the patient did have episodes of agitation. She was opening her eyes and somewhat intermittently following commands, but did continue to reach frequently for her endotracheal tube. She required increasing amounts of Propofol as well as multiple doses of p.r.n. Versed for sedation. This morning the patient is intubated and sedated. She is responding to painful stimuli and is moving her extremities spontaneously. The patient did have issues overnight with venous access. She initially had two peripheral IVs and one became malfunctioning. She therefore only has one peripheral IV and was unable to continue with her IV fluids which were ordered. OBJECTIVE: PHYSICAL EXAMINATION: VITAL SIGNS: Temperature 99.3, T-max of 100, pulse 71, respirations 22, blood pressure 115/77, O2 sat 98% on 40% FiO2. INTAKE AND OUTPUT: In's 4 liters, out 150 mL, net positive 4.3 liters. GENERAL APPEARANCE: The patient is a thin female, is lying in bed intubated and sedated. She is intermittently agitated and is responding to painful stimuli. HEENT: Evidence of temporal wasting bilaterally. Normocephalic and atraumatic. Pupils are small but reactive to light bilaterally. Mucous membranes are dry. There is poor oral hygiene noted. NECK: Supple. Trachea is midline. No palpable cervical adenopathy. No jugular venous distention. CARDIAC: Regular rate and rhythm, normal S1, S2 with a faint systolic murmur auscultated. PULMONARY: There are improved breath sounds bilaterally with coarse ventilator breath sounds. There are diminished breath sounds at the left base. No wheezes noted and no rales. ABDOMEN: Soft, nontender, nondistended. Bowel sounds are present. EXTREMITIES: No lower extremity edema bilaterally. LABORATORY STUDIES: WBC 8.0, hemoglobin 8.5, platelets are 216. Chemistries: Sodium is 151, potassium 3.6, chloride is 120, bicarbonate is 19, BUN 36, creatinine is 1.44, glucose is 85, anion gap is 12, lactic acid trended down to 1.0, phosphorous is 1.3, magnesium is 2.8, calcium is 8.8. ABG: PH 7.559, pco2 of 86.2, pO2 of 268.3. IMAGING: Chest x-ray this morning shows ET tube in position. There is an OG tube in place which appears to have been pulled back with the tip just in the left upper quadrant. The OG tube likely needs to be adjusted. There is new left lower lobe opacity with a possible small left effusion. ASSESSMENT AND PLAN: Miss Villafana is a 64-year-old female with a past medical history of multiple sclerosis, gastroesophageal reflux disease and hypothyroidism who presented with complaints of dysphagia. Her hospital course was complicated by episodes of encephalopathy as well as aspiration and hypoxia. She had been treated for her aspiration pneumonia with Ceftriaxone on her initial presentation. She did have somewhat of a prolonged course and was treated again for a possible aspiration pneumonia most recently with Unison which she is still on. The patient had a rapid response on 09/27/2020 where she was found to be unresponsive and hypoxic, likely due to another aspiration event. She was intubated and placed on mechanical ventilation. 1. Acute hypoxic respiratory failure in the setting of aspiration pneumonia she has heart disease recurrent episodes of aspiration during her hospital stay in the setting of dysphagia and her multiple sclerosis. The patient patient's chest x-ray this morning does show evidence of a left lower lobe infiltrate with a possible small pleural effusion, likely peripneumonic. Her sputum culture is still pending. She did have very thick brown secretions from her endotracheal tube. She is on Unison currently which is continued. Given her hospitalization, she will be started on Vancomycin as well as she has had a low grade temperature today. We will follow up results of her cultures and will deescalate antibiotics accordingly. We will continue the patient on mechanical ventilation. Her ABG did show respiratory alkalosis now that her metabolic acidosis has been improving. Her ventilator settings were adjusted, and so she is on PRVC of 320/16/40 and 5. We will continue with daily ABGs and chest x-rays while intubated. We will continue with vent bundle care with head of bed elevation and Chlorhexidine mouthwash. The patient will continue with Propofol for sedation and with Versed p.r.n. for agitation. We will place a sedation vacation tomorrow morning for a weaning trial. 2. Acute kidney injury with hypernatremia and hyperchloremia - patient initially with anion gap metabolic acidosis in the setting of lactic acidosis. After IV fluid hydration, her lactic acidosis improved as well as her anion gap. She does continue to have evidence of a metabolic acidosis although likely now in the setting of a non-anion gap hyperchloremic metabolic acidosis. She had been hypernatremic as well in the past few days although her sodium did improve with initiation of d5w. She lost venous access earlier this morning, however, and so her IV fluids were discontinued, but she still getting free water flushes through her OG tube. The patient will need placement of a central line for venous access to restart her d5w at 125 mL an hour. She will also be continued with free water flushes through her OG tube at 250 mL q. 6 hours. The patient's renal function has been improving. We will continue to monitor her renal function and we will continue monitoring her in's and out's with her Centeno catheter. We will continue repleting her electrolytes as needed. She was hypophosphatemic as well as mildly hypokalemic today. 3. Patient with dysphagia on presentation she had workup for possible M.S. flare and was treated empirically with steroids. She has also been seen and evaluated by GI for her dysphagia and ultimately there was a plan for a PEG tube to be placed. The patient has an OT tube in place. Her PEG tube placement which was for today has been canceled. We will therefore start her on tube feeds and we will titrate up to goal as tolerated with monitoring of residuals. Continue with her home Primidone. History of M.S. and is on her home medications of Amantadine, Baclofen, Primidone and Topiramate. Hypothyroidism - continue with Synthroid. DVT PROPHYLAXIS: Heparin. GI PROPHYLAXIS: Omeprazole. CODE STATUS: Full code. Updated the patient's as to her condition. He states he would like to continue with the plan for a PEG tube placement ultimately. We did also discuss with her history of multiple sclerosis and her recurrent aspiration events, that even with a PEG tube, she can still aspirate. We discussed that she may have difficulty weaning off of the ventilator due to her recurrent aspiration and that if she were to be extubated, there is a chance she may re-aspirate and be re-intubated. We discussed the possibility therefore that she may need a possible tracheostomy for airway protection, which he states they had not discussed previously. We will continue to follow up with her about the goals of care. We will discuss with Neurology as the patient's has been unclear about her fdc prognosis with her multiple sclerosis and the progression of her disease. Total critical care time spent not including any procedures approximately 45 minutes.
--- NOTE | 2020-10-09 18:33 | DS.PDOC ---
Discharge Summary General Date of Admission Sep 10, 2020 at 15:59 Date of Discharge 10/09/20 comfort measures only dnr/dni Discharge Summary DISCHARGE DIAGNOSES: 1. Acute hypoxic respiratory failure 2. Anemia of chronic disease 3. Dysphagia, odynophagia, esophageal spasm 4. Positive SENTHIL virus antibody 5. Hypothyroidism 6. Severe Protein Calorie malnutrition 7. multiple sclerosis 8. acute kidney injury 9. hypernatremia 10. hyperchoremia 11. hypercalcemia 12. acute metabolic encephalopathy 13. aspiration pneumonia 14. hypophosphatemia 15. 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 MRI BRAIN: negative for demyelinating disease. Neurologist started iv solumedrol. HOSPITAL COURSE: Pt was transferred to ICU due to acute hypoxic respiratory distress with the applicationof high-flow oxygen via face mask, her saturations are reliably in the mid 90s.Chest x-ray was reviewed showing a left lower lobe retrocardiac infiltrate, consistent with pneumonia. Lab studies were updated. Her sodium is 140,potassium 4.1, chloride 111, CO2 of 20, BUN 14, creatinine 1.1, glucose 109,calcium 7.2. Liver enzymes are normal. LDH 438. Her C-reactive protein is 3.82.She remains tachycardic in the 140s and is displaying ataxic movements,somewhat combative. We will attempt to prevent self-harm without suppression ofrespiratory drive using Precedex at a slow infusion rate.She had positive antibody forJakob- Creutzfeldt disease . after discussion with neurology, it was thoughtto be unlikely to be PML. The patient did have an episode as well on admissionof encephalopathy as well as hypoxia secondary to aspiration. She was able to recover to room air and her encephalopathy had also improved. During her stay,however, she continued to have dysphagia and had evaluation by GI with barium swallow and esophagram. She was started on tube feeds as well via NGTdue to her protein malnutrition. The patient had an episode a few days prior of hypoxia and concern for an aspiration event. She was therefore started on Unasyn for possible aspiration on 09/24/20. There was a plan for PEG tube by IR likely on Monday. Overnight, however, on 09/27/20, the patient had episode of unresponsiveness. A rapid response was called as she wasunresponsive and her O2 sats were reportedly in the 40s. The patient received bagged mask ventilation and her sats improved slightly to 78% and she didappear more arousable but was not following commands or tracking movements.Anesthesia therefore intubated the patient. She initially was hypotensive aswell prior to her intubation. decided to move forward with PEG tube. PEG tube was placed (10/01/2020). After PEG tube placement, she was extubated. She did not do well and was brought to bedside. Agreed to DNR/DNI and no further intubations. This morning, she was not doing well. I contacted the . He agreed to GANG DRILL OPERATOR. Patient has been made GANG DRILL OPERATOR on 10/02/2020, and on 10/09/2020 with the at the bedside. DISCHARGE PHYSICAL EXAMINATION VITALS: no respiratory rate no blood pressure GEN:no spontaneous breaths LUNGS:no lung sounds HEART:no heart sounds ABD:no bowel sounds. TIME SPENT ON DISCHARGE: 30 MIN. Vital Signs/I&Os Vital Signs Date Time Temp Pulse Resp B/P (MAP) Pulse Ox O2 Delivery O2 Flow Rate FiO2 10/08/20 20:10 3.0 10/06/20 01:46 Nasal Cannula 10/05/20 00:00 26 I&O- Last 24 Hours up to 6 AM 10/09/20 06:00 Output Total 200 ml Balance -200 ml Discharge Medications Scheduled Amantadine HCl (Amantadine) 100 Mg Tablet, 200 MG PO BID, (Reported) Baclofen (Baclofen) 10 Mg Tab, 10 MG PO TID, (Reported) Cholecalciferol (Vitamin D3) (Vitamin D3) 25 Mcg Tablet, 25 MCG PO DAILY, (Reported) Cyanocobalamin (Vitamin B-12) (Vitamin B-12) 500 Mcg Tab, 500 MCG PO DAILY, (Reported) Levothyroxine Sodium (Levoxyl) 75 Mcg Tablet, 75 MCG PO DAILY, (Reported) Nortriptyline HCl (Nortriptyline HCl) 50 Mg Cap, 50 MG PO Q2D, (Reported) AT BEDTIME - ALTERNATE WITH TOPIRAMATE Omeprazole (Omeprazole) 40 Mg Cap, 40 MG PO DAILY, (Reported) Primidone (Mysoline) 50 Mg Tab, 100 MG PO BID, (Reported) Topiramate (Topiramate) 100 Mg Tab, 100 MG PO Q2D, (Reported) AT BEDTIME - ALTERNATE WITH NORTRIPTYLINE Scheduled PRN Calcium Carbonate (Tums) 500 Mg Chw, 1,500 MG PO Q6H PRN for HEARTBURN/INDIGESTION, (Reported) Allergies Coded Allergies: divalproex sodium (Verified Allergy, Mild, rash, 09/20/19) meperidine (Verified Adverse Reaction, Intermediate, hallucination, 09/20/19) DENNIS BOURGEOIS MD Oct 09, 2020 18:33
== END 2020-10-09 15:30 | disposition expired | DRG 254 ==
LOC: M ED 11:24 → M ED INP 15:59 → M MSPAV 18:43 → M PCU 09-15 17:23 → M MSPAV 09-19 15:31 → M PCU 09-27 21:08 → M MSPAV 10-02 16:56
PROVIDERS: ADMIT Internal Medicine; ATTEND General Practice
PROC: 5A1945Z Respiratory Ventilation, 24-96 Consecutive Hours (ICD-10-PCS; 2020-09-27)
PROC: 02HV33Z Insertion of Infusion Device into Superior Vena Cava, Percutaneous Approach (ICD-10-PCS; principal; 2020-09-29 15:00)
DX: R13.10 Dysphagia, unspecified (principal); J96.01 Acute respiratory failure with hypoxia; J69.0 Pneumonitis due to inhalation of food and vomit; E43 Unspecified severe protein-calorie malnutrition; G93.41 Metabolic encephalopathy; N17.9 Acute kidney failure, unspecified; A81.00 Creutzfeldt-Jakob disease, unspecified; E87.0 Hyperosmolality and hypernatremia; G35 Multiple sclerosis; E87.8 Other disorders of electrolyte and fluid balance, not elsewhere classified; E83.42 Hypomagnesemia; E83.52 Hypercalcemia; E83.39 Other disorders of phosphorus metabolism; K22.4 Dyskinesia of esophagus; E03.9 Hypothyroidism, unspecified; E53.8 Deficiency of other specified B group vitamins; K21.9 Gastro-esophageal reflux disease without esophagitis; Z79.899 Other long term (current) drug therapy; E78.5 Hyperlipidemia, unspecified; G43.909 Migraine, unspecified, not intractable, without status migrainosus; Z66 Do not resuscitate